=== PATIENT | female | born 1985 | race Caucasian/White ===

== ENCOUNTER 2017-06-20 09:30 | Outpatient (RCR) | payer MEDICAID, SELFPAY | END 2017-06-20 23:59 | LOC: PT.CARL 09:30 | PROVIDERS: Referring Provider Orthopaedic Surgery; Visit Provider Orthopaedic Surgery | DX: M54.2 Cervicalgia (principal); M79.621 Pain in right upper arm | CPT/HCPCS: 97012; 97035; 97110; 97140; 97162 ==

== ENCOUNTER 2017-07-03 09:30 | Outpatient (RCR) | payer MEDICAID, SELFPAY | END 2017-07-03 16:00 | LOC: PT 09:30 | PROVIDERS: Family Provider Internal Medicine Adolescent Medicine; PCP Internal Medicine Adolescent Medicine; Visit Provider Orthopaedic Surgery | DX: M79.621 Pain in right upper arm (principal) | CPT/HCPCS: 97012; 97035; 97110 ==

== ENCOUNTER → 2017-07-23 08:54 | Outpatient (POV) | payer MEDICAID, SELFPAY ==
[2017-07-23 09:13] VITALS: BP 142/83; PULSE 76; RESP 18; TEMP 36.6; O2SAT 97; BMI 36.0
--- NOTE | 2017-07-23 09:51 | P.CONS_ITS ---
[facility] Pain Management SOAP Note Subjective:: This patient is a pleasant 32-year-old white female who we are seeing after bilateral SI joint injections in April. She did get 80% relief of her pain symptoms after these injections however her pain is started to return with increased activity. She is tender over both SI joints. She does have a positive Manisha's test bilaterally. She has tried Tylenol and is unable to take ibuprofen because of kidney issues. She continues with tramadol. She has been on conservative therapy for 8 weeks. We will seek approval for repeat bilateral SI joint injections under fluoroscopy. Objective:: Alert and oriented 3 in no acute distress. Patient has an antalgic gait. She has tenderness over both SI joints. Positive Manisha's test bilaterally. Motor strength of the lower extremities is 5/5. There is no gross sensory deficit. Assessment:: Bilateral sacroiliitis Plan:: We will seek approval and plan on bilateral SI joint injections under fluoroscopy. We will reevaluate her symptoms after these injections.
== END ==
PROVIDERS: Family Provider Internal Medicine Adolescent Medicine; PCP Internal Medicine Adolescent Medicine; Visit Provider Anesthesiology
DX: M46.1 Sacroiliitis, not elsewhere classified (principal)
CPT/HCPCS: 99212

== ENCOUNTER 2017-08-31 10:08 | Day surgery (SDC) | payer MEDICAID, SELFPAY ==
[2017-08-31 10:33] VITALS: BP 145/91; PULSE 91; TEMP 36.2; O2SAT 95; BMI 36.2
--- NOTE | 2017-08-31 11:33 | HMH.PMPROC ---
- Procedure Date: 08/31/17 Time: 11:33 Anesthesiologist:: Shankar Madrid MD Complications:: None Pre-procedure Diagnosis:: Sacroiliitis Post-procedure Diagnosis:: Same Indications for Procedure:: This patient is a pleasant 32-year-old white female who we are seeing for bilateral hip pain. She got good relief from previous SI joint injections with 80% relief in pain symptoms. Pain relief was only temporary. Her pain is starting to return. She is tender over both SI joints. She does have a positive Manisha's test bilaterally. She has tried Tylenol and is unable to take ibuprofen because of kidney issues. Conservative treatments have not helped. She is done this for at least 8 weeks. She presents for repeat bilateral SI joint injections today for pain symptoms that have returned. Procedure Details:: B/L SI joint injection under fluoroscopy Informed consent was obtained and the risks and benefits of the procedure was explained to the patient. The patient was taken to the procedure room and placed prone on the procedure table. The patient was prepped using ChloraPrep. The skin and subcutaneous tissues overlying the SI joints were anesthetized using lidocaine. I placed a 22-gauge needle first in the left SI joint and second in the right SI joint. Needle placement was confirmed with dye. After this we injected 5 mL bupivacaine 0.25% and Depo-Medrol 40 mg into each SI joint. Patient tolerated the procedure well with no complication. Plan and Disposition:: We will follow-up with her in 2 weeks. We will reevaluate her symptoms at that time.
[2017-08-31 11:35] VITALS: BP 144/95; PULSE 91; RESP 18
[2017-08-31 11:36] VITALS: BP 142/95; PULSE 91; RESP 18
[2017-08-31 11:49] VITALS: BP 132/86; PULSE 77; RESP 18; TEMP 36.2; O2SAT 98
== END 2017-08-31 11:50 | disposition home or self-care (01) ==
LOC: SC.PAINP 10:09
PROVIDERS: Family Provider Internal Medicine Adolescent Medicine; PCP Internal Medicine Adolescent Medicine; Visit Provider Anesthesiology
DX: M46.1 Sacroiliitis, not elsewhere classified (principal)
CPT/HCPCS: 27096; G0260; J1030; Q9966

== ENCOUNTER → 2017-09-17 10:35 | Outpatient (POV) | payer MEDICAID, SELFPAY ==
[2017-09-17 10:52] VITALS: BP 147/92; PULSE 87; RESP 18; TEMP 36.6; O2SAT 97; BMI 34.7
--- NOTE | 2017-09-17 11:08 | XR_ITS ---
XR pelvis min 3V HISTORY: Pelvic pain ITS.REASON: PELVIC PAIN ORDERING PHYSICIAN: Yocasta Zarco PATIENT AGE: 32 years COMPARISON: None FINDINGS: No fracture or dislocation is evident. No significant degenerative change. No lytic or blastic change. The SI joints have an unremarkable appearance. Unremarkable soft tissues. IMPRESSION: Negative pelvis.
--- NOTE | 2017-09-17 11:15 | HMH.PAINSOAP ---
[facility] Pain Management SOAP Note Subjective:: Patient is a pleasant 32-year-old white female who presents today for follow-up after her recent lateral SI joint injections. Patient states that she is done really well with this. She states that most of her back pain has resolved. She however is having left inguinal pain. Patient rates this pain a 5 out of 10 today. Patient has not had any abdominal surgeries. Patient did follow-up with her training administrator about a year ago. Patient has had issues with fractures in the past. Patient is experienced over 15 fractures. Patient is currently being followed by bone specialist at [facility]. Patient has not had any recent imaging of her pelvis or hip. ROS General: no recent weight change, no fever, no sleep disturbances Respiratory: no cough, no shortness of air, no recurring pulmonary infections Cardiovascular/Peripheral Vascular: No chest pain, No palpitations, no edema, no shortness of breath. Gastrointestinal: no incontinence, normal bowel movements reported Genitourinary: no incontinence Musculoskeletal: Bilateral SI joint pain, left inguinal pain Psychiatric: normal mood/ affect Neurological: [denies weakness in extremities], [denies balance issues] Objective:: Physical Exam General: Alert and oriented x3, no acute distress, pleasant and cooperative, [on room air] Lungs: Resps E/U, Symmetrical chest expansion, Eyes: PERRL Musculoskeletal: Flexion and extension of lumbar spine somewhat guarded secondary to pain, deep tendon reflexes normal, strength in upper and lower extremities [5/5], normal gait noted, extreme point tenderness in left inguinal area on palpation Neurological: speech clear, biosecurity officer equal, no gross sensory deficits Assessment:: Inguinal pain, sacroiliitis Plan:: Patient has done well after her bilateral SI joint injections. We will send her for an x-ray today and potentially a CT scan of her pelvis. Patient may be candidate for abdominal trigger points to help with this pain however I want to rule out pathology prior to this. I will follow-up with this patient in 1 week after I see the results of her x-ray. Note was dictated using voice recognition software and may contain errors or omissions
--- NOTE | 2017-09-17 11:19 | P.CONS_ITS ---
[facility] Pain Management SOAP Note Subjective:: Patient is a pleasant 32-year-old white female who presents today for follow-up after her recent lateral SI joint injections. Patient states that she is done really well with this. She states that most of her back pain has resolved. She however is having left inguinal pain. Patient rates this pain a 5 out of 10 today. Patient has not had any abdominal surgeries. Patient did follow-up with her yard conductor about a year ago. Patient has had issues with fractures in the past. Patient is experienced over 15 fractures. Patient is currently being followed by bone specialist at [facility]. Patient has not had any recent imaging of her pelvis or hip. ROS General: no recent weight change, no fever, no sleep disturbances Respiratory: no cough, no shortness of air, no recurring pulmonary infections Cardiovascular/Peripheral Vascular: No chest pain, No palpitations, no edema, no shortness of breath. Gastrointestinal: no incontinence, normal bowel movements reported Genitourinary: no incontinence Musculoskeletal: Bilateral SI joint pain, left inguinal pain Psychiatric: normal mood/ affect Neurological: [denies weakness in extremities], [denies balance issues] Objective:: Physical Exam General: Alert and oriented x3, no acute distress, pleasant and cooperative, [ on room air] Lungs: Resps E/U, Symmetrical chest expansion, Eyes: PERRL Musculoskeletal: Flexion and extension of lumbar spine somewhat guarded secondary to pain, deep tendon reflexes normal, strength in upper and lower extremities [5/5], normal gait noted, extreme point tenderness in left inguinal area on palpation Neurological: speech clear, oncology coordinator equal, no gross sensory deficits Assessment:: Inguinal pain, sacroiliitis Plan:: Patient has done well after her bilateral SI joint injections. We will send her for an x-ray today and potentially a CT scan of her pelvis. Patient may be candidate for abdominal trigger points to help with this pain however I want to rule out pathology prior to this. I will follow-up with this patient in 1 week after I see the results of her x-ray. Note was dictated using voice recognition software and may contain errors or omissions
== END ==
PROVIDERS: Family Provider Internal Medicine Adolescent Medicine; PCP Internal Medicine Adolescent Medicine; Visit Provider Clinical Nurse Specialist Family Health
DX: R10.31 Right lower quadrant pain (principal); M46.1 Sacroiliitis, not elsewhere classified
CPT/HCPCS: 99212; 72190

== ENCOUNTER → 2017-09-24 09:48 | Outpatient (POV) | payer MEDICAID, SELFPAY ==
[2017-09-24 09:58] VITALS: BP 141/86; PULSE 91; RESP 20; O2SAT 96; BMI 34.7
--- NOTE | 2017-09-24 10:26 | HMH.PAINSOAP ---
[facility] Pain Management SOAP Note Subjective:: Patient is a pleasant 32-year-old white female who presents today for follow-up after as a joint x-ray. Patient's SI joint x-ray negative today. Patient is havin pain 3 out of 10 today in her left hip. Patient's greater trochanteric bursa extremely tender to palpation. Patient does have some left inguinal pain as well. Patient states she feels like it is radiating from her hip. Patient has not had any abdominal surgeries. Patient has been following up with her log preparer.. Patient has had issues with fractures in the past and is being followed by a bone expert at [facility]. Patient had good relief from her bilateral SI injections. ROS General: no recent weight change, no fever, no sleep disturbances Respiratory: no cough, no shortness of air, no recurring pulmonary infections Cardiovascular/Peripheral Vascular: No chest pain, No palpitations, no edema, no shortness of breath. Gastrointestinal: no incontinence, normal bowel movements reported Genitourinary: no incontinence Musculoskeletal: Bilateral SI joint pain, left inguinal pain, left trochanteric bursa pain Psychiatric: normal mood/ affect Neurological: [denies weakness in extremities], [denies balance issues] Objective:: Physical Exam General: Alert and oriented x3, no acute distress, pleasant and cooperative, [on room air] Lungs: Resps E/U, Symmetrical chest expansion, Eyes: PERRL Musculoskeletal: Flexion and extension of lumbar spine somewhat guarded secondary to pain, deep tendon reflexes normal, strength in upper and lower extremities [5/5], normal gait noted, extreme point tenderness over left greater trochanteric bursa Neurological: speech clear, access developer equal, no gross sensory deficits Assessment:: Inguinal pain, sacroiliitis, bursitis Plan:: We will schedule a left greater trochanteric bursa injection. Patient is done well with injections in the past. Patient has a negative pelvic x-ray. No fractures were shown. Patient and I discussed that if this bursa injection did not help we may discuss abdominal trigger point injections as well. Patient's tried and failed physical therapy, anti-inflammatories, medications. Patient is continuing a home stretching program. Patient currently not on any blood thinners. This note was dictated using voice recognition software and may contain errors or omissions
--- NOTE | 2017-09-24 10:30 | P.CONS_ITS ---
[facility] Pain Management SOAP Note Subjective:: Patient is a pleasant 32-year-old white female who presents today for follow-up after as a joint x-ray. Patient's SI joint x-ray negative today. Patient is havin pain 3 out of 10 today in her left hip. Patient's greater trochanteric bursa extremely tender to palpation. Patient does have some left inguinal pain as well. Patient states she feels like it is radiating from her hip. Patient has not had any abdominal surgeries. Patient has been following up with her lease out worker.. Patient has had issues with fractures in the past and is being followed by a bone expert at [facility]. Patient had good relief from her bilateral SI injections. ROS General: no recent weight change, no fever, no sleep disturbances Respiratory: no cough, no shortness of air, no recurring pulmonary infections Cardiovascular/Peripheral Vascular: No chest pain, No palpitations, no edema, no shortness of breath. Gastrointestinal: no incontinence, normal bowel movements reported Genitourinary: no incontinence Musculoskeletal: Bilateral SI joint pain, left inguinal pain, left trochanteric bursa pain Psychiatric: normal mood/ affect Neurological: [denies weakness in extremities], [denies balance issues] Objective:: Physical Exam General: Alert and oriented x3, no acute distress, pleasant and cooperative, [ on room air] Lungs: Resps E/U, Symmetrical chest expansion, Eyes: PERRL Musculoskeletal: Flexion and extension of lumbar spine somewhat guarded secondary to pain, deep tendon reflexes normal, strength in upper and lower extremities [5/5], normal gait noted, extreme point tenderness over left greater trochanteric bursa Neurological: speech clear, apple solutions consultant equal, no gross sensory deficits Assessment:: Inguinal pain, sacroiliitis, bursitis Plan:: We will schedule a left greater trochanteric bursa injection. Patient is done well with injections in the past. Patient has a negative pelvic x-ray. No fractures were shown. Patient and I discussed that if this bursa injection did not help we may discuss abdominal trigger point injections as well. Patient's tried and failed physical therapy, anti-inflammatories, medications. Patient is continuing a home stretching program. Patient currently not on any blood thinners. This note was dictated using voice recognition software and may contain errors or omissions
== END ==
PROVIDERS: Family Provider Internal Medicine Adolescent Medicine; PCP Internal Medicine Adolescent Medicine; Visit Provider Clinical Nurse Specialist Family Health
DX: M46.1 Sacroiliitis, not elsewhere classified (principal)
CPT/HCPCS: 99212

== ENCOUNTER → 2017-10-09 10:57 | Outpatient (CLI) | payer MEDICAID, SELFPAY ==
[2017-10-09 13:58] LABS: Creatinine,Serum 0.94 mg/dL (0.55-1.02)
[2017-10-09 14:01] LABS: Anion Gap 12.6 mEq/L (5-15); Blood Urea Nitrogen 7 mg/dL (7-18); Carbon Dioxide 25 mmol/L (21.0-32.0); Chloride 100 mmol/L (98-107); Creatinine,Serum 0.94 mg/dL (0.55-1.02); Estimated Glomerular Filt Rate 68 ml/min (>60); GFR (African American) 82 ML/MIN (>60); Glucose 106 mg/dL (74-106); Phosphorous 2.2 mg/dL (2.4-4.9); Potassium 3.6 mmoL/L (3.5-5.1); Sodium 134 mmol/L (136-145)
[2017-10-09 15:37] LABS: Collection Time,Urine 24 hours
[2017-10-09 15:38] LABS: Total Volume,Urine 1325 mL (600-1600)
[2017-10-09 15:48] LABS: Creatinine 24 Hour,Urine 1272 mg/24hr (630-2500); Creatinine,Urine Random 96 mg/dL (20-320)
[2017-10-10 12:19] LABS: Calcium, Urine 10.5 mg/dL (Not Estab.); Sodium, Urine 75 mmol/L (Not Estab.); Sodium, Urine 99 mmol/24 hr (39-258)
[2017-10-10 16:18] LABS: Calcium, Urine 24hr 139.1 mg/24 hr (100.0-300.0)
[2017-10-10 16:18] LABS: Vitamin D 25 Hydroxy 17.2 ng/mL (30.0-100.0)
[2017-10-12 10:45] LABS: N-Telopeptide Cross-linked 8.7 nmol BCE/L (6.2-19.0); Osteocalcin 7.4 ng/mL (.)
[2017-10-12 21:04] LABS: Tandem-R Ostase 15.6 ug/L (.)
[2017-10-12 23:11] LABS: 1,25-Dihydroxy, Vitamin D-2 <10 pg/mL (.)
[2017-10-14 18:44] LABS: 1,25 Dihydroxy Vitamin D 67 pg/mL (.); 1,25-Dihydroxy, Vitamin D-3 63 pg/mL (.)
== END ==
PROVIDERS: PCP Internal Medicine Adolescent Medicine; Visit Provider Physician Assistant Medical
DX: E83.39 Other disorders of phosphorus metabolism (principal)
CPT/HCPCS: 36415; 80069; 82340; 82523; 82575; 82652; 83520; 83937; 84080; 84105; 84300

== ENCOUNTER → 2017-11-05 10:49 | Outpatient (POV) | payer MEDICAID, SELFPAY ==
[2017-11-05 11:12] VITALS: BP 133/84; PULSE 89; RESP 18; TEMP 36.7; O2SAT 98; BMI 34.9
--- NOTE | 2017-11-05 13:10 | HMH.PAINSOAP ---
[facility] Pain Management SOAP Note Subjective:: Patient is a pleasant 32-year-old white female who presents to follow-up after recent trochanteric bursa injection. Patient did have a flare in her pain the day of the injection and 2 days later. However patient rates her pain a 1 out of 10 today in her hip. She states that most of the pain has been relieved. Patient is unsure of how she would like to proceed with her care. 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 Patient has not gotten long-term relief with her SI joint injections we discussed the potential RFA of the SI joint. Patient would like to discuss with her bone doctor prior to making any decisions moving forward. Patient does have tramadol which she takes at nighttime to help her sleep. ROS General: no recent weight change, no fever, no sleep disturbances Respiratory: no cough, no shortness of air, no recurring pulmonary infections Cardiovascular/Peripheral Vascular: No chest pain, No palpitations, no edema, no shortness of breath. Gastrointestinal: no incontinence, normal bowel movements reported Genitourinary: no incontinence Musculoskeletal: SI joint pain Psychiatric: normal mood/ affect Neurological: [denies weakness in extremities], [denies balance issues] Objective:: Physical Exam General: Alert and oriented x3, no acute distress, pleasant and cooperative, [on room air] Lungs: Resps E/U, Symmetrical chest expansion, Eyes: PERRL Musculoskeletal: Flexion and extension of lumbar spine somewhat guarded secondary to pain, deep tendon reflexes normal, strength in upper and lower extremities [5/5],normal gait noted, positive Manisha's test bilaterally Neurological: speech clear, computer game programmer equal, no gross sensory deficits Assessment:: Sacroiliitis Plan:: We will follow-up with this patient after she is seen by her physician. Patient had discussed below RFA of the SI joints. We also discussed the potential use of an SI belt. This note was dictated using voice recognition software and may contain errors or omissions
--- NOTE | 2017-11-05 13:15 | P.CONS_ITS ---
[facility] Pain Management SOAP Note Subjective:: Patient is a pleasant 32-year-old white female who presents to follow-up after recent trochanteric bursa injection. Patient did have a flare in her pain the day of the injection and 2 days later. However patient rates her pain a 1 out of 10 today in her hip. She states that most of the pain has been relieved. Patient is unsure of how she would like to proceed with her care. 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 Patient has not gotten long-term relief with her SI joint injections we discussed the potential RFA of the SI joint. Patient would like to discuss with her bone doctor prior to making any decisions moving forward. Patient does have tramadol which she takes at nighttime to help her sleep. ROS General: no recent weight change, no fever, no sleep disturbances Respiratory: no cough, no shortness of air, no recurring pulmonary infections Cardiovascular/Peripheral Vascular: No chest pain, No palpitations, no edema, no shortness of breath. Gastrointestinal: no incontinence, normal bowel movements reported Genitourinary: no incontinence Musculoskeletal: SI joint pain Psychiatric: normal mood/ affect Neurological: [denies weakness in extremities], [denies balance issues] Objective:: Physical Exam General: Alert and oriented x3, no acute distress, pleasant and cooperative, [ on room air] Lungs: Resps E/U, Symmetrical chest expansion, Eyes: PERRL Musculoskeletal: Flexion and extension of lumbar spine somewhat guarded secondary to pain, deep tendon reflexes normal, strength in upper and lower extremities [5/5],normal gait noted, positive Manisha's test bilaterally Neurological: speech clear, location and measurement technician equal, no gross sensory deficits Assessment:: Sacroiliitis Plan:: We will follow-up with this patient after she is seen by her physician. Patient had discussed below RFA of the SI joints. We also discussed the potential use of an SI belt. This note was dictated using voice recognition software and may contain errors or omissions
== END ==
PROVIDERS: Family Provider Internal Medicine Adolescent Medicine; PCP Internal Medicine Adolescent Medicine; Visit Provider Clinical Nurse Specialist Family Health
DX: M46.1 Sacroiliitis, not elsewhere classified (principal)
CPT/HCPCS: 99212

== ENCOUNTER → 2017-11-14 12:43 | Outpatient (CLI) | payer MEDICAID, SELFPAY ==
--- NOTE | 2017-11-14 12:48 | XR_ITS ---
XR foot LT min 3V HISTORY: Left foot pain ITS.REASON: LT FOOT PAINHX STRESS FX ORDERING PHYSICIAN: Kenyetta Galindo PATIENT AGE: 32 years COMPARISON: None FINDINGS: No fracture or dislocation. No lytic or blastic change. There is normal mineralization.. The joint spaces are well-preserved. No significant degenerative/arthritic changes. No erosive changes evident. IMPRESSION: Negative, no acute finding
== END ==
PROVIDERS: PCP Internal Medicine Adolescent Medicine; Visit Provider Nurse Practitioner Family
DX: M79.672 Pain in left foot (principal); E83.89 Other disorders of mineral metabolism; Z87.312 Personal history of (healed) stress fracture
CPT/HCPCS: 73630

== ENCOUNTER 2017-11-26 08:42 | Outpatient (RCR) | payer MEDICAID, SELFPAY | END 2017-11-27 14:29 | disposition home or self-care (01) | LOC: PT 08:42 | PROVIDERS: Visit Provider Nurse Practitioner Family | DX: M79.672 Pain in left foot (principal); Z87.312 Personal history of (healed) stress fracture | CPT/HCPCS: 97760 ==

== ENCOUNTER → 2017-11-26 09:00 | Outpatient (POV) | payer MEDICAID, SELFPAY ==
[2017-11-26 09:14] VITALS: BP 141/92; PULSE 84; RESP 18; O2SAT 97; BMI 33.4
--- NOTE | 2017-11-26 09:27 | HMH.PAINSOAP ---
[facility] Pain Management SOAP Note Subjective:: Patient is a pleasant 32-year-old white female who presents to discuss RFA of bilateral SI joints. Patient has had SI joint injections in the past with 80-90% with symptoms for several weeks. However patient is noticing that she has shorter and shorter duration of relief. Patient rates her pain a 3 out of 10 today. Patient is coming to the office with a boot on her left foot stating that she has had another fracture. Patient's MRI is unremarkable. 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 She has tried and failed therapy, medications, anti-inflammatories. ROS General: no recent weight change, no fever, no sleep disturbances Respiratory: no cough, no shortness of air, no recurring pulmonary infections Cardiovascular/Peripheral Vascular: No chest pain, No palpitations, no edema, no shortness of breath. Gastrointestinal: no incontinence, normal bowel movements reported Genitourinary: no incontinence Musculoskeletal: SI joint pain Psychiatric: normal mood/ affect Neurological: [denies weakness in extremities], [denies balance issues] Objective:: Physical Exam General: Alert and oriented x3, no acute distress, pleasant and cooperative, [on room air] Lungs: Resps E/U, Symmetrical chest expansion, Eyes: PERRL Musculoskeletal: Flexion and extension of lumbar spine somewhat guarded secondary to pain, deep tendon reflexes normal, strength in upper and lower extremities [5/5], slightly antalgic gait noted, positive Manisha's test bilaterally, extreme point tenderness over bilateral SI joints Neurological: speech clear, resource manager forester equal, no gross sensory deficits Assessment:: Sacroiliitis Plan:: We will schedule the patient for bilateral SI rhizotomies. I believe that this may give the patient some long-term relief. Patient's tried and failed other modalities of treatment. I will follow-up with the patient after her RFA. This note was dictated using voice recognition software and may contain errors or omissions
--- NOTE | 2017-11-26 09:30 | P.CONS_ITS ---
[facility] Pain Management SOAP Note Subjective:: Patient is a pleasant 32-year-old white female who presents to discuss RFA of bilateral SI joints. Patient has had SI joint injections in the past with 80-90 % with symptoms for several weeks. However patient is noticing that she has shorter and shorter duration of relief. Patient rates her pain a 3 out of 10 today. Patient is coming to the office with a boot on her left foot stating that she has had another fracture. Patient's MRI is unremarkable. 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 She has tried and failed therapy, medications, anti-inflammatories. ROS General: no recent weight change, no fever, no sleep disturbances Respiratory: no cough, no shortness of air, no recurring pulmonary infections Cardiovascular/Peripheral Vascular: No chest pain, No palpitations, no edema, no shortness of breath. Gastrointestinal: no incontinence, normal bowel movements reported Genitourinary: no incontinence Musculoskeletal: SI joint pain Psychiatric: normal mood/ affect Neurological: [denies weakness in extremities], [denies balance issues] Objective:: Physical Exam General: Alert and oriented x3, no acute distress, pleasant and cooperative, [ on room air] Lungs: Resps E/U, Symmetrical chest expansion, Eyes: PERRL Musculoskeletal: Flexion and extension of lumbar spine somewhat guarded secondary to pain, deep tendon reflexes normal, strength in upper and lower extremities [5/5], slightly antalgic gait noted, positive Manisha's test bilaterally, extreme point tenderness over bilateral SI joints Neurological: speech clear, manager of medical equal, no gross sensory deficits Assessment:: Sacroiliitis Plan:: We will schedule the patient for bilateral SI rhizotomies. I believe that this may give the patient some long-term relief. Patient's tried and failed other modalities of treatment. I will follow-up with the patient after her RFA. This note was dictated using voice recognition software and may contain errors or omissions
== END ==
PROVIDERS: Family Provider Internal Medicine Adolescent Medicine; PCP Internal Medicine Adolescent Medicine; Visit Provider Clinical Nurse Specialist Family Health
DX: M46.1 Sacroiliitis, not elsewhere classified (principal)
CPT/HCPCS: 99212

== ENCOUNTER → 2018-02-04 10:53 | Outpatient (POV) | payer MEDICAID, SELFPAY ==
[2018-02-04 11:30] VITALS: BP 139/97; PULSE 78; RESP 18; O2SAT 96; BMI 34.1
--- NOTE | 2018-02-04 13:07 | HMH.PAINSOAP ---
[facility] Pain Management SOAP Note Subjective:: Patient is a pleasant 32-year-old white female who is following up today after her left SI joint radiofrequency ablation. Patient is stating that she has no pain today however she states she does not notice a significant difference in her pain. Patient and I discussed about other options. Patient does not have any lumbar imaging. Patient and I did discuss potentially a surgical consultation in regards to an SI joint fusion. Patient rates her pain a 0 out of 10 today. ROS General: no recent weight change, no fever, no sleep disturbances Respiratory: no cough, no shortness of air, no recurring pulmonary infections Cardiovascular/Peripheral Vascular: No chest pain, No palpitations, no edema, no shortness of breath. Gastrointestinal: no incontinence, normal bowel movements reported Genitourinary: no incontinence Musculoskeletal: Bilateral SI joint pain Psychiatric: normal mood/ affect Neurological: [denies weakness in extremities], [denies balance issues] Objective:: Physical Exam General: Alert and oriented x3, no acute distress, pleasant and cooperative, [on room air] Lungs: Resps E/U, Symmetrical chest expansion, Eyes: PERRL Musculoskeletal: Flexion and extension of lumbar spine somewhat guarded secondary to pain, deep tendon reflexes normal, strength in upper and lower extremities [5/5], [abnormal gait noted], tenderness over bilateral SI joints Neurological: speech clear, amusement centre manager equal, no gross sensory deficits Assessment:: Sacroiliitis, low back pain Plan:: We will schedule a lumbar MRI for the patient. I will follow-up the patient after her MRI and discuss pathology along with making a plan of care. This note was dictated using voice recognition software and may contain errors or omissions
--- NOTE | 2018-02-04 13:10 | P.CONS_ITS ---
[facility] Pain Management SOAP Note Subjective:: Patient is a pleasant 32-year-old white female who is following up today after her left SI joint radiofrequency ablation. Patient is stating that she has no pain today however she states she does not notice a significant difference in her pain. Patient and I discussed about other options. Patient does not have any lumbar imaging. Patient and I did discuss potentially a surgical consultation in regards to an SI joint fusion. Patient rates her pain a 0 out of 10 today. ROS General: no recent weight change, no fever, no sleep disturbances Respiratory: no cough, no shortness of air, no recurring pulmonary infections Cardiovascular/Peripheral Vascular: No chest pain, No palpitations, no edema, no shortness of breath. Gastrointestinal: no incontinence, normal bowel movements reported Genitourinary: no incontinence Musculoskeletal: Bilateral SI joint pain Psychiatric: normal mood/ affect Neurological: [denies weakness in extremities], [denies balance issues] Objective:: Physical Exam General: Alert and oriented x3, no acute distress, pleasant and cooperative, [ on room air] Lungs: Resps E/U, Symmetrical chest expansion, Eyes: PERRL Musculoskeletal: Flexion and extension of lumbar spine somewhat guarded secondary to pain, deep tendon reflexes normal, strength in upper and lower extremities [5/5], [abnormal gait noted], tenderness over bilateral SI joints Neurological: speech clear, dispensing optician equal, no gross sensory deficits Assessment:: Sacroiliitis, low back pain Plan:: We will schedule a lumbar MRI for the patient. I will follow-up the patient after her MRI and discuss pathology along with making a plan of care. This note was dictated using voice recognition software and may contain errors or omissions
== END ==
PROVIDERS: Family Provider Internal Medicine Adolescent Medicine; PCP Internal Medicine Adolescent Medicine; Visit Provider Clinical Nurse Specialist Family Health
DX: M46.1 Sacroiliitis, not elsewhere classified (principal)
CPT/HCPCS: 99213

== ENCOUNTER → 2018-02-15 13:27 | Outpatient (CLI) | payer MEDICAID, SELFPAY ==
--- NOTE | 2018-02-15 13:29 | MR_ITS ---
MR lumbar spine wo con, MR 3-d myelogram HISTORY: Low back pain. HX compression FX X10YRS ago, LBP. Intermittent Bilateral Groin pain. Symptoms X10YRS. No HX back surgery ITS.REASON: BACK PAIN ORDERING PHYSICIAN: Yocasta Zarco PATIENT AGE: 32 years Comparison: MRI 07-14-14 TECHNIQUE: Standard multiplanar multiecho sequences are performed without contrast. 3-D MIP and myelographic images are also rendered and reviewed FINDINGS: There is normal alignment. The spinal cord ends at the L1 level. L1-L2, L2-L3, and L3-L4 have an unremarkable appearance. L4-L5: Mild facet and ligamentum flavum hypertrophy. L5-S1: Slight decrease in the disc space with minimal bulging disc along with mild left-sided facet ligamentum flavum hypertrophy and mild left foraminal narrowing. No disc herniation or canal stenosis.. No acute fracture. IMPRESSION: 1. Mild facet and ligamentum hypertrophy with mild left-sided foraminal narrowing at L5-S1 2. No canal stenosis disc herniation or other significant anomalies
== END ==
PROVIDERS: Family Provider Internal Medicine Adolescent Medicine; PCP Internal Medicine Adolescent Medicine; Visit Provider Clinical Nurse Specialist Family Health
DX: Z79.899 Other long term (current) drug therapy (principal)
CPT/HCPCS: 72148; 76376

== ENCOUNTER → 2018-02-18 11:03 | Outpatient (POV) | payer MEDICAID, SELFPAY ==
[2018-02-18 11:22] VITALS: BP 129/90; PULSE 78; RESP 18; O2SAT 98; BMI 35.2
--- NOTE | 2018-02-18 11:41 | P.CONS_ITS ---
[facility] Pain Management SOAP Note Subjective:: Patient is a pleasant 32-year-old white female who presents today for follow-up after recent low back MRI. Patient has had multiple SI joint injections and is still having significant low back and left-sided pain. Patient's MRI which shows degeneration and bulging disc at her lower levels. Patient has not tried an epidural before. Patient and I have talked about neuro stimulation along with potential SI joint fusion. I believe prior to this we should try lumbar epidural steroid injection. She rates her pain a 6 out of 10 today. Patient is unable to take NSAIDs due to her kidney. Patient is also having a new neck pain M right arm pain. Patient states her whole hand goes numb. Patient's tried and failed physical therapy. ROS General: no recent weight change, no fever, no sleep disturbances Respiratory: no cough, no shortness of air, no recurring pulmonary infections Cardiovascular/Peripheral Vascular: No chest pain, No palpitations, no edema, no shortness of breath. Gastrointestinal: no incontinence, normal bowel movements reported Genitourinary: no incontinence Musculoskeletal: Back pain, SI joint pain, neck pain, arm pain Psychiatric: normal mood/ affect Neurological: [denies weakness in extremities], [denies balance issues] Objective:: Physical Exam General: Alert and oriented x3, no acute distress, pleasant and cooperative, [on room air] Lungs: Resps E/U, Symmetrical chest expansion, Eyes: PERRL Musculoskeletal: Flexion and extension of lumbar and cervical spine somewhat guarded secondary to pain, deep tendon reflexes normal, strength in upper and lower extremities [5/5], antalgic gait noted Neurological: speech clear, copier field service technician equal, no gross sensory deficits Assessment:: Degenerative disc disease of the lumbar spine with lumbar radiculopathy, sacroiliitis Plan:: We will schedule cervical MRI to determine pathology in regards to her new neck and arm pain. We will also schedule L4-L5 lumbar epidural steroid injection. I believe it would be beneficial to try this prior to referring her for SI joint surgery. I will follow-up with the patient after her injection. This note was dictated using voice recognition software and may contain errors or omissions
== END ==
PROVIDERS: Family Provider Internal Medicine Adolescent Medicine; PCP Internal Medicine Adolescent Medicine; Visit Provider Clinical Nurse Specialist Family Health
DX: M51.16 Intervertebral disc disorders with radiculopathy, lumbar region (principal); M46.1 Sacroiliitis, not elsewhere classified
CPT/HCPCS: 99213

== ENCOUNTER → 2018-02-26 12:49 | Outpatient (CLI) | payer MEDICAID, SELFPAY ==
--- NOTE | 2018-02-26 13:04 | MR_ITS ---
MR cervical spine wo con, MR 3-d myelogram/MRCP HISTORY: RT shoulder pain with pain radiating into thumb. Neck pain on RT side. Symptoms [id number]. No Trauma. ITS.REASON: NECK PAIN ORDERING PHYSICIAN: Yocasta Zarco PATIENT AGE: 32 years Comparison: 07-14-14 TECHNIQUE: Standard multiplanar multiecho sequences are performed without contrast. 3-D MIP and myelographic images are also rendered and reviewed FINDINGS: There is straightening of the cervical lordosis. The craniocervical junction has an unremarkable appearance. There are hypertrophic changes at the atlantoaxial region but no compression or impingement upon the cord. No canal stenosis at this area. The disc spaces are well-preserved. No disc herniation, cord impingement, or significant bulging disc. No significant degenerative changes. There is borderline narrowing of the canal at C3-C4 as previously described not significant changed. IMPRESSION: 1. No change with no acute finding. Once again noted straightening of the cervical spine nonspecific 2. 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
--- NOTE | 2018-02-26 13:04 | MR_ITS ---
MR cervical spine wo con, MR 3-d myelogram/MRCP HISTORY: RT shoulder pain with pain radiating into thumb. Neck pain on RT side. Symptoms [id number]. No Trauma. ITS.REASON: NECK PAIN ORDERING PHYSICIAN: Yocasta Zarco PATIENT AGE: 32 years Comparison: 07-14-14 TECHNIQUE: Standard multiplanar multiecho sequences are performed without contrast. 3-D MIP and myelographic images are also rendered and reviewed FINDINGS: There is straightening of the cervical lordosis. The craniocervical junction has an unremarkable appearance. There are hypertrophic changes at the atlantoaxial region but no compression or impingement upon the cord. No canal stenosis at this area. The disc spaces are well-preserved. No disc herniation, cord impingement, or significant bulging disc. No significant degenerative changes. There is borderline narrowing of the canal at C3-C4 as previously described not significant changed. IMPRESSION: 1. No change with no acute finding. Once again noted straightening of the cervical spine nonspecific 2. 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
== END ==
PROVIDERS: Family Provider Internal Medicine Adolescent Medicine; PCP Internal Medicine Adolescent Medicine; Visit Provider Clinical Nurse Specialist Family Health
DX: M54.2 Cervicalgia (principal)
CPT/HCPCS: 72141; 76376

== ENCOUNTER → 2018-03-25 14:16 | Outpatient (POV) | payer MEDICAID, SELFPAY ==
[2018-03-25 14:33] VITALS: BP 139/94; PULSE 91; RESP 18; O2SAT 98; BMI 35.5
--- NOTE | 2018-03-25 14:50 | P.CONS_ITS ---
[facility] Pain Management SOAP Note Subjective:: Patient is a pleasant 33-year-old white female who we are treating for low back pain and neck pain. Patient has had multiple SI joint injections in the past with good benefit however they do not last long. Patient is having some neck pain and we received an MRI showing minor degenerative changes. Patient is following up after lumbar epidural steroid injection she did get some relief however most of her pain is returned. Patient and I discussed physical therapy. I believe it would be beneficial for her to complete 6-8 weeks. ROS General: no recent weight change, no fever, no sleep disturbances Respiratory: no cough, no shortness of air, no recurring pulmonary infections Cardiovascular/Peripheral Vascular: No chest pain, No palpitations, no edema, no shortness of breath. Gastrointestinal: no incontinence, normal bowel movements reported Genitourinary: no incontinence Musculoskeletal: SI joint pain, back pain, neck pain Psychiatric: normal mood/ affect Neurological: [denies weakness in extremities], [denies balance issues] Objective:: Physical Exam General: Alert and oriented x3, no acute distress, pleasant and cooperative, [on room air] Lungs: Resps E/U, Symmetrical chest expansion, Eyes: PERRL Musculoskeletal: Flexion and extension of cervical and lumbar spine somewhat guarded secondary to pain, deep tendon reflexes normal, strength in upper and lower extremities [5/5], [abnormal gait noted] Neurological: speech clear, palliative care physician equal, no gross sensory deficits Assessment:: Degenerative disc disease lumbar spine with lumbar radiculopathy, sacroiliitis, neck pain Plan:: We will send her for physical therapy for her low back and her neck. I will follow-up with her after I also presented her with some neuro stimulation information she is in a call if she has any questions. This note was dictated using voice recognition software and may contain errors or omissions
== END ==
PROVIDERS: Family Provider Internal Medicine Adolescent Medicine; PCP Internal Medicine Adolescent Medicine; Visit Provider Clinical Nurse Specialist Family Health
DX: M51.16 Intervertebral disc disorders with radiculopathy, lumbar region (principal); M46.1 Sacroiliitis, not elsewhere classified; M54.2 Cervicalgia
CPT/HCPCS: 99213

== ENCOUNTER → 2018-04-22 07:35 | Outpatient (CLI) | payer MEDICAID, SELFPAY ==
[2018-04-22 14:16] LABS: Anion Gap 11.6 mEq/L (5-15); Blood Urea Nitrogen 7 mg/dL (7-18); Carbon Dioxide 28 mmol/L (21.0-32.0); Chloride 103 mmol/L (98-107); Creatinine,Serum 0.88 mg/dL (0.55-1.02); Estimated Glomerular Filt Rate 73 ml/min (>60); GFR (African American) 88 ML/MIN (>60); Glucose 100 mg/dL (74-106); Magnesium 2.1 mg/dL (1.4-2.2); Phosphorous 2.4 mg/dL (2.4-4.9); Potassium 3.6 mmoL/L (3.5-5.1); Sodium 139 mmol/L (136-145)
[2018-04-22 17:38] LABS: Creatinine,Urine Random 98 mg/dL (20-320)
[2018-04-22 18:25] LABS: Collection Time,Urine 24 hours
[2018-04-22 18:26] LABS: Creatinine 24 Hour,Urine 1274 mg/24hr (630-2500); Total Volume,Urine 1300 mL (600-1600)
[2018-04-23 06:31] LABS: Vitamin D 25 Hydroxy 34.3 ng/mL (30.0-100.0)
[2018-04-23 13:18] LABS: Parathyroid Hormone Intact 36 pg/mL (15-65)
[2018-04-23 14:15] LABS: Calcium, Urine 6.5 mg/dL (Not Estab.); Sodium, Urine 121 mmol/24 hr (39-258); Sodium, Urine 93 mmol/L (Not Estab.)
[2018-04-23 14:16] LABS: Calcium, Urine 24hr 84.5 mg/24 hr (100.0-300.0)
[2018-04-24 14:42] LABS: C-Telopeptide Serum 286 pg/mL (.)
[2018-04-24 18:34] LABS: Osteocalcin 15.9 ng/mL (.)
[2018-04-25 15:19] LABS: Tandem-R Ostase 10.8 ug/L (.)
[2018-04-25 15:20] LABS: N-Telopeptide Cross-linked 10.4 nmol BCE/L (6.2-19.0)
[2018-04-26 14:24] LABS: 1,25-Dihydroxy, Vitamin D-2 28 pg/mL (.)
[2018-04-26 17:46] LABS: 1,25 Dihydroxy Vitamin D 64 pg/mL (.); 1,25-Dihydroxy, Vitamin D-3 36 pg/mL (.)
== END ==
PROVIDERS: PCP Internal Medicine Adolescent Medicine; Visit Provider Internal Medicine
DX: M81.0 Age-related osteoporosis without current pathological fracture (principal); M83.9 Adult osteomalacia, unspecified
CPT/HCPCS: 36415; 80069; 82340; 82523; 82570; 82652; 83735; 83937; 83970; 84080; 84105; 84300

== ENCOUNTER 2018-05-02 08:30 | Outpatient (RCR) | payer MEDICAID, SELFPAY ==
--- NOTE | 2018-03-27 11:36 | HMH.PTOPEV ---
PT Outpatient Evaluation Rehab PT Outpatient Evaluation Start: 03/27/18 08:59 Freq: Status: Active Protocol: Document 03/27/18 11:09 JOSE CARLOS (Rec: 03/27/18 11:36 [email or web address] [id number]) Electronically Signed By Tonny Singleton, PT 03/27/18 11:09 Outpatient Therapy Subjective History Subjective History Pt. is a 33 year old white female who presents to outpatient PT with chronic LB pain and L hip pain > 5years ago that has progressively gotten worse. Pt. reports having LB injections bilaterally and a lumbar injection that were unsuccessful and burnt her nerves. Recent diagnostic imaging positive for lumbar OA and bulging disc per pt. report. Pt. reports previous LB PT was unsuccessful. PMH includes compression fractures to L4/L5 from a fall in 2007, Rickets, osteomalacia, osteoporosis, phosphorus metabolism disorder, R ankle surgery in 2016, and 10 fractures R foot, and 5 fractures L foot. Current medications include; Tramadol, Paxil, Wellbutrin, Prilosec, Sprintec, Amlodipine. Chief Complaint Pain Spasms Stiff Other Symptom Type Ache Burning Symptoms Relieved By Rest/Positioning OTC Meds Symptoms Aggravated By Standing Bending/Stooping Physical Activity Twisting Walking Prior Functional Limitations None Current Functional Limitations Housework Standing Recreation Activity Bending/Stooping Symptom Description Constant but Variable Level of pain today (0-10) 3 Pain scale - at its best (0-10) 0 Pain scale - at its worst (0-10) 5 Lumbopelvic Eval Posture Thoracic Spine Posture Standing Position Increased Kyphosis Lumbar Spine Posture Standing Position Increased Lordosis Assistive device Assistiv
== END 2018-05-28 13:34 | disposition home or self-care (01) ==
LOC: PT 08:30
PROVIDERS: Visit Provider Clinical Nurse Specialist Family Health
DX: M54.5 Low back pain (principal); M54.2 Cervicalgia
CPT/HCPCS: 97012; 97014; 97110; 97163; G0283

== ENCOUNTER → 2018-05-13 16:19 | Outpatient (CLI) | payer MEDICAID, SELFPAY ==
--- NOTE | 2018-05-13 16:21 | XR_ITS ---
XR ankle wt bearing LT min 3V HISTORY: ITS.REASON: pain ORDERING PHYSICIAN: Johanna Saez DPM PATIENT AGE: 33 years Comparison: None FINDINGS: No fracture or dislocation. No lytic or blastic change. There is normal mineralization.. The joint spaces are well-preserved. No significant degenerative/arthritic changes. No erosive changes evident. IMPRESSION: Negative ankle, no acute finding
--- NOTE | 2018-05-13 16:21 | XR_ITS ---
XR ankle wt bearing RT min 3V HISTORY: ITS.REASON: pain ORDERING PHYSICIAN: Johanna Saez DPM PATIENT AGE: 33 years Comparison: 02/12/2017 FINDINGS: As been prior osteotomy of the medial malleoli region with 2 screws present at this region. The osteotomy site here has healed. A small screw is present transversely through the proximal aspect of the talus medially. There is a lucency noted at this region with some fragmentation of the articular surface of the talus at this area. There is also some cortical irregularity involving the anterior aspect of the distal tibia at the ankle joint. IMPRESSION: 1. Healed osteotomy site at the medial aspect of the distal tibia. 2. Fragmentation of the articular surface of the medial aspect of the talus with associated subcortical lucency at the site of a small screw insertion suggesting a nonhealed osteochondral defect. 3. Possible small osteochondral defect of the anterior distal tibia
--- NOTE | 2018-05-13 16:21 | XR_ITS ---
XR foot wt bearing LT 3V HISTORY: ITS.REASON: pain ORDERING PHYSICIAN: Johanna Saez DPM PATIENT AGE: 33 years COMPARISON: None FINDINGS: No fracture or dislocation. No lytic or blastic change. There is normal mineralization.. The joint spaces are well-preserved. No significant degenerative/arthritic changes. No erosive changes evident. IMPRESSION: Negative, no acute finding
--- NOTE | 2018-05-13 16:21 | XR_ITS ---
XR foot wt bearing RT 3V HISTORY: ITS.REASON: pain ORDERING PHYSICIAN: Johanna Saez DPM PATIENT AGE: 33 years COMPARISON: None FINDINGS: No fracture or dislocation. No lytic or blastic change. There is normal mineralization.. The joint spaces are well-preserved. No significant degenerative/arthritic changes. No erosive changes evident. Postsurgical changes of the ankle as described in ankle report IMPRESSION: Negative right foot
== END ==
PROVIDERS: PCP Internal Medicine Adolescent Medicine; Visit Provider Podiatrist
DX: M76.62 Achilles tendinitis, left leg (principal); M85.871 Other specified disorders of bone density and structure, right ankle and foot; M93.271 Osteochondritis dissecans, right ankle and joints of right foot; M25.572 Pain in left ankle and joints of left foot; M25.571 Pain in right ankle and joints of right foot
CPT/HCPCS: 73610; 73630

== ENCOUNTER → 2018-05-20 12:45 | Outpatient (POV) | payer MEDICAID, SELFPAY ==
[2018-05-20 13:02] VITALS: BP 120/87; PULSE 78; RESP 18; O2SAT 98; BMI 34.7
--- NOTE | 2018-05-20 13:06 | P.CONS_ITS ---
[facility] Pain Management SOAP Note Subjective:: Patient is a pleasant 33-year-old white female who presents today for follow-up after physical therapy. Patient states that she was in more pain after her physical therapy however she is continuing the exercises at home and rates her pain a 2 out of 10 today. Patient is having some tendinitis in her left foot. She has been seen by podiatry for this. ROS General: no recent weight change, no fever, no sleep disturbances Respiratory: no cough, no shortness of air, no recurring pulmonary infections Cardiovascular/Peripheral Vascular: No chest pain, No palpitations, no edema, no shortness of breath. Gastrointestinal: no incontinence, normal bowel movements reported Genitourinary: no incontinence Musculoskeletal: Back pain, neck pain Psychiatric: normal mood/ affect Neurological: [denies weakness in extremities], [denies balance issues] Objective:: Physical Exam General: Alert and oriented x3, no acute distress, pleasant and cooperative, [on room air] Lungs: Resps E/U, Symmetrical chest expansion, Eyes: PERRL Musculoskeletal: Flexion and extension of cervical and lumbar spine somewhat guarded secondary to pain, deep tendon reflexes normal, strength in upper and lower extremities [5/5], [abnormal gait noted] Neurological: speech clear, 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 Patient is having well controlled pain at this time. Patient is going to be following up with podiatry to ensure that her tendinitis is healing. This note was dictated using voice recognition software and may contain errors or omissions
== END ==
PROVIDERS: PCP Internal Medicine Adolescent Medicine; Visit Provider Clinical Nurse Specialist Family Health
DX: M51.16 Intervertebral disc disorders with radiculopathy, lumbar region (principal); M46.1 Sacroiliitis, not elsewhere classified; M54.2 Cervicalgia
CPT/HCPCS: 99213

== ENCOUNTER → 2018-07-15 11:02 | Outpatient (POV) | payer MEDICAID, SELFPAY ==
[2018-07-15 11:18] VITALS: BP 131/78; PULSE 75; RESP 18; O2SAT 98; BMI 36.0
--- NOTE | 2018-07-15 12:50 | HMH.PAINSOAP ---
[facility] Pain Management SOAP Note Subjective:: Patient is a pleasant 33-year-old white female who presents today for follow-up. She rates her pain a 3 out of 10. She states her main concern today is her neck pain. Patient is having neck pain radiating into her arms. Patient is waking up with numbness and tingling in her right arm especially. Patient does not have any MRI imaging of her cervical spine at this time. Patient is completed physical therapy. Patient is continuing to take anti-inflammatories. ROS General: no recent weight change, no fever, no sleep disturbances Respiratory: no cough, no shortness of air, no recurring pulmonary infections Cardiovascular/Peripheral Vascular: No chest pain, No palpitations, no edema, no shortness of breath. Gastrointestinal: no incontinence, normal bowel movements reported Genitourinary: no incontinence Musculoskeletal: Neck pain, arm pain Psychiatric: normal mood/ affect Neurological: Weakness in right upper extremity at times, [denies balance issues] Objective:: Physical Exam General: Alert and oriented x3, no acute distress, pleasant and cooperative, [on room air] Lungs: Resps E/U, Symmetrical chest expansion, Eyes: PERRL Musculoskeletal: Flexion and extension of cervical spine somewhat guarded secondary to pain, deep tendon reflexes normal, strength in upper left extremity 5/5, strength in upper right extremity 4/5 and lower extremities [5/5], antalgic gait noted Neurological: speech clear, left dredge captain greater than right dredge captain, no gross sensory deficits Assessment:: Neck pain, arm pain, back pain, degenerative disc disease Plan:: We will order a cervical MRI for the patient to determine pathology. I will follow-up with her after this. Dr. Madrid has reviewed this note and agrees with this plan of care. This note was dictated using voice recognition software and may contain errors or omissions
--- NOTE | 2018-07-15 12:53 | P.CONS_ITS ---
[facility] Pain Management SOAP Note Subjective:: Patient is a pleasant 33-year-old white female who presents today for follow-up. She rates her pain a 3 out of 10. She states her main concern today is her neck pain. Patient is having neck pain radiating into her arms. Patient is waking up with numbness and tingling in her right arm especially. Patient does not have any MRI imaging of her cervical spine at this time. Patient is completed physical therapy. Patient is continuing to take anti-inflammatories. ROS General: no recent weight change, no fever, no sleep disturbances Respiratory: no cough, no shortness of air, no recurring pulmonary infections Cardiovascular/Peripheral Vascular: No chest pain, No palpitations, no edema, no shortness of breath. Gastrointestinal: no incontinence, normal bowel movements reported Genitourinary: no incontinence Musculoskeletal: Neck pain, arm pain Psychiatric: normal mood/ affect Neurological: Weakness in right upper extremity at times, [denies balance issues] Objective:: Physical Exam General: Alert and oriented x3, no acute distress, pleasant and cooperative, [on room air] Lungs: Resps E/U, Symmetrical chest expansion, Eyes: PERRL Musculoskeletal: Flexion and extension of cervical spine somewhat guarded secondary to pain, deep tendon reflexes normal, strength in upper left extremity 5/5, strength in upper right extremity 4/5 and lower extremities [5/5], antalgic gait noted Neurological: speech clear, left diet supervisor greater than right diet supervisor, no gross sensory deficits Assessment:: Neck pain, arm pain, back pain, degenerative disc disease Plan:: We will order a cervical MRI for the patient to determine pathology. I will follow-up with her after this. Dr. Madrid has reviewed this note and agrees with this plan of care. This note was dictated using voice recognition software and may contain errors or omissions
--- NOTE | 2019-01-21 15:21 | PC.NURSE ---
TRAMADOL 50MG TID WITH 2 REFILLS CALLED IN PER PROVIDER ORDER TO [facility] IN [place]
== END ==
PROVIDERS: PCP Internal Medicine Adolescent Medicine; Visit Provider Clinical Nurse Specialist Family Health
DX: M54.2 Cervicalgia (principal); M54.9 Dorsalgia, unspecified
CPT/HCPCS: 99213

== ENCOUNTER → 2018-07-22 07:54 | Outpatient (CLI) | payer MEDICAID, SELFPAY ==
--- NOTE | 2018-07-22 07:56 | MR_ITS ---
MR cervical spine wo con, MR 3-d myelogram/MRCP HISTORY: PT states neck pain X 1-2 Years. Pain in Rt shoulder and arm. Bilateral hand numbness. no Known injury. ITS.REASON: NECK PAIN ORDERING PHYSICIAN: Yocasta Zarco PATIENT AGE: 33 years Comparison: MRI 02/26/18 TECHNIQUE: Standard multiplanar multiecho sequences are performed without contrast. 3-D MIP and myelographic images are also rendered and reviewed FINDINGS: There is straightening of the cervical lordosis. The craniocervical junction has an unremarkable appearance. There are hypertrophic changes at the atlantoaxial region but no compression or impingement upon the cord. No canal stenosis at this area. The disc spaces are well-preserved. No disc herniation, cord impingement, or significant bulging disc. No significant degenerative changes. There is borderline narrowing of the canal at C3-C4 as previously described not significant changed. There is mild left-sided uncovertebral hypertrophy at C5-C6 with mild left-sided foraminal narrowing. IMPRESSION: 1. Straightening of the cervical lordosis nonspecific. 2. 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 3. Mild left-sided foraminal narrowing at C5-C6 from uncovertebral hypertrophy. 4. No extruded herniated disc or other significant anomalies
== END ==
PROVIDERS: PCP Internal Medicine Adolescent Medicine; Visit Provider Clinical Nurse Specialist Family Health
DX: M54.2 Cervicalgia (principal)
CPT/HCPCS: 72141; 76376

== ENCOUNTER 2018-07-23 11:00 | Outpatient (RCR) | payer MEDICAID, SELFPAY ==
--- NOTE | 2018-06-20 15:39 | HMH.PTOPEV ---
PT Outpatient Evaluation Rehab PT Outpatient Evaluation Start: 06/20/18 15:04 Freq: Status: Active Protocol: Document 06/20/18 15:04 [email or web address] (Rec: 06/20/18 15:38 [email or web address] [id number]) Electronically Signed By Tonny Singleton, PT 06/20/18 15:04 Outpatient Therapy Subjective History Subjective History Pt. is a 33 year old female who presents to outpatient PT for L ankle/heel pain of insidious onset since 2017. Pt. reports the pain has progressively gotten worse to where she can barely walk. Pt. reports she needs her CAM walker and heel pad to ambulate. Pt. reports no symptom relief with her recent injection nor Diclofenac Topical cream. Recent diagnostic imaging negative per pt. report. PMH includes compression fractures to L4/L5 from a fall in 2007, Rickets, osteomalacia, osteoporosis, phosphorus metabolism disorder, and R ankle surgery in 2015. Current medication includes Diclofenac Topical gel. Chief Complaint Pain Symptom Type Throb Burning Symptoms Relieved By Rest/Positioning Brace/Support Symptoms Aggravated By Standing Physical Activity Walking Prior Functional Limitations None Current Functional Limitations Housework Standing Squatting Recreation Activity Walking Stairs Balance Symptom Description Constant but Variable Level of pain today (0-10) 3 Pain scale - at its best (0-10) 1 Pain scale - at its worst (0-10) 5 Ankle/Foot Eval Gait Observation General Gait Pattern Observation Antalgic Gait Decrease Weight Bear (L) Decrease Stride Lngth (R) Assistive Device Ambulation Assistive Device None Palpation Tenderness left Ankle/Foot Palpation Findings Tenderness Ankle/Foot Palpation Overall Comment grade 3 +TTP L achilles
== END 2018-07-23 13:00 | disposition home or self-care (01) ==
LOC: PT.CARL 11:00
PROVIDERS: Visit Provider Podiatrist
DX: M76.62 Achilles tendinitis, left leg (principal)
CPT/HCPCS: 97010; 97014; 97033; 97035; 97110; 97112; 97140; 97163; G0283

== ENCOUNTER → 2018-07-29 13:45 | Outpatient (POV) | payer MEDICAID, SELFPAY ==
[2018-07-29 14:17] VITALS: BP 122/75; PULSE 78; RESP 18; O2SAT 99; BMI 36.0
--- NOTE | 2018-07-29 15:35 | HMH.PAINSOAP ---
[facility] Pain Management SOAP Note Subjective:: Is a pleasant 33-year-old white female who presents today for discussion in regards to her cervical MRI. It was fairly benign other than congenital narrowing and foraminal narrowing. Patient rates her pain is in her right side mostly radiating into her arm at times. Patient and I discussed potential dry needling. She rates her pain a 7 out of 10. ROS General: no recent weight change, no fever, no sleep disturbances Respiratory: no cough, no shortness of air, no recurring pulmonary infections Cardiovascular/Peripheral Vascular: No chest pain, No palpitations, no edema, no shortness of breath. Gastrointestinal: no incontinence, normal bowel movements reported Genitourinary: no incontinence Musculoskeletal: Neck pain, arm pain Psychiatric: normal mood/ affect, Neurological: [denies weakness in extremities], [denies balance issues] Objective:: Physical Exam General: Alert and oriented x3, no acute distress, pleasant and cooperative, [on room air] Lungs: Resps E/U, Symmetrical chest expansion, Eyes: PERRL Musculoskeletal: Flexion and extension of cervical spine somewhat guarded secondary to pain, deep tendon reflexes normal, strength in upper and lower extremities [5/5], normal gait noted Neurological: speech clear, security incident handler equal, no gross sensory deficits Assessment:: Myofascial pain syndrome Plan:: We will send her for dry needling to see if this is beneficial for her we will follow-up with her after this and reassess her symptoms at that time. She is been instructed to call the office if she has any issues prior to her next appointment.
--- NOTE | 2018-07-29 15:38 | P.CONS_ITS ---
[facility] Pain Management SOAP Note Subjective:: Is a pleasant 33-year-old white female who presents today for discussion in regards to her cervical MRI. It was fairly benign other than congenital narrowing and foraminal narrowing. Patient rates her pain is in her right side mostly radiating into her arm at times. Patient and I discussed potential dry needling. She rates her pain a 7 out of 10. ROS General: no recent weight change, no fever, no sleep disturbances Respiratory: no cough, no shortness of air, no recurring pulmonary infections Cardiovascular/Peripheral Vascular: No chest pain, No palpitations, no edema, no shortness of breath. Gastrointestinal: no incontinence, normal bowel movements reported Genitourinary: no incontinence Musculoskeletal: Neck pain, arm pain Psychiatric: normal mood/ affect, Neurological: [denies weakness in extremities], [denies balance issues] Objective:: Physical Exam General: Alert and oriented x3, no acute distress, pleasant and cooperative, [on room air] Lungs: Resps E/U, Symmetrical chest expansion, Eyes: PERRL Musculoskeletal: Flexion and extension of cervical spine somewhat guarded secondary to pain, deep tendon reflexes normal, strength in upper and lower extremities [5/5], normal gait noted Neurological: speech clear, skiver machine equal, no gross sensory deficits Assessment:: Myofascial pain syndrome Plan:: We will send her for dry needling to see if this is beneficial for her we will follow-up with her after this and reassess her symptoms at that time. She is been instructed to call the office if she has any issues prior to her next appointment.
== END ==
PROVIDERS: PCP Internal Medicine Adolescent Medicine; Visit Provider Clinical Nurse Specialist Family Health
DX: M79.18 Myalgia, other site (principal)
CPT/HCPCS: 99213

== ENCOUNTER → 2018-08-08 09:07 | Outpatient (CLI) | payer MEDICAID, SELFPAY ==
[2018-08-08 13:35] LABS: Basophils # 0.1 K/mm3 (0-0.2); Basophils % 0.4 % (0.1-2.0); Eosinophils # 0.2 K/mm3 (0.0-0.4); Eosinophils % 1.8 % (0.1-12.0); Hematocrit 39.5 % (37.0-47.0); Hemoglobin 12.5 g/dL (12.2-16.2); Lymphocytes # 3.2 K/mm3 (0.7-4.5); Lymphocytes % 27.5 % (10-50); Mean Corpuscular HGB Conc 31.6 g/dL (31.8-35.4); Mean Corpuscular Hemoglobin 28.3 pg (27.0-31.2); Mean Corpuscular Volume 89.4 fl (81-99); Mean Platelet Volume 7.4 fl (7.4-10.4); Monocytes # 0.5 K/mm3 (0.1-1.0); Monocytes % 4.5 % (1.7-9.3); Neutrophils # 7.6 K/mm3 (1.8-7.8); Neutrophils % 65.8 % (37.0-80.0); Platelet Count 446 K/mm3 (142-424); Red Blood Count 4.42 M/mm3 (4.20-5.40); Red Cell Distribution Width 15.6 % (11.5-17.5); White Blood Count 11.5 K/mm3 (4.8-10.8)
[2018-08-08 14:44] LABS: Alanine Aminotransferase 13 U/L (12-78); Albumin/Globulin Ratio 0.8 (1.1-1.8); Alkaline Phosphatase 97 U/L (46-116); Anion Gap 11.2 mEq/L (5-15); Aspartate Amino Transferase 4 U/L (15-37); Bilirubin,Total 0.2 mg/dL (0.2-1.0); Blood Urea Nitrogen 11 mg/dL (7-18); Calcium 8.9 mg/dL (8.5-10.1); Carbon Dioxide 29 mmol/L (21.0-32.0); Chloride 103 mmol/L (98-107); Chol/HDL Ratio 5.8 (1-3.5); Cholesterol 233 mg/dL (140-200); Estimated Glomerular Filt Rate 63 ml/min (>60); GFR (African American) 76 ML/MIN (>60); Globulin 3.8 gm/dl (1.3-3.2); Glucose 100 mg/dL (74-106); HDL Cholesterol 40 mg/dL (29-89); LDL Cholesterol 158 mg/dL (0-130); Potassium 4.2 mmoL/L (3.5-5.1); Sodium 139 mmol/L (136-145); Thyroid Stimulating Hormone 2.99 uIU/ml (0.358-3.740); Total Protein,Serum 6.8 gm/dL (6.4-8.2); Triglycerides 175 mg/dL (30-200); VLDL Cholesterol 35 mg/dL (0-40)
[2018-08-08 17:58] LABS: Hemoglobin A1C 5.9 % (0.0-7.0)
[2018-08-14 15:19] LABS: Vitamin B12 170 pg/mL (232-1245)
== END ==
PROVIDERS: PCP Nurse Practitioner Family; Visit Provider Nurse Practitioner Family
DX: R73.03 Prediabetes (principal); E78.1 Pure hyperglyceridemia; E53.8 Deficiency of other specified B group vitamins; F17.200 Nicotine dependence, unspecified, uncomplicated
CPT/HCPCS: 36415; 80053; 80061; 82607; 83036; 84443; 85025

== ENCOUNTER → 2018-08-13 11:24 | Outpatient (CLI) | payer MEDICAID, SELFPAY ==
--- NOTE | 2018-08-13 11:30 | XR_ITS ---
XR foot wt bearing LT 3V HISTORY: Left foot pain ITS.REASON: pain ORDERING PHYSICIAN: Johanna Saez DPM PATIENT AGE: 33 years COMPARISON: None FINDINGS: No fracture or dislocation. No lytic or blastic change. There is normal mineralization.. The joint spaces are well-preserved. No significant degenerative/arthritic changes. No erosive changes evident. Minimal osteoarthritic changes are present at the third metatarsal tarsal joint. There is normal alignment. IMPRESSION: Minimal osteoarthritic change third metatarsal tarsal joint otherwise negative
--- NOTE | 2018-08-13 11:30 | XR_ITS ---
XR foot wt bearing RT 3V HISTORY: ITS.REASON: pain ORDERING PHYSICIAN: Johanna Saez DPM PATIENT AGE: 33 years COMPARISON: 05/13/2018 FINDINGS: No fracture or dislocation. No lytic or blastic change. There is normal mineralization.. The joint spaces are well-preserved. Hyperostosis involves the neck of the talus anteriorly consistent with ridging. This may be seen with tenosynovitis of the long extensors of the foot. No other significant anomalies are evident. IMPRESSION: Anterior Talar ridging/talar beak which may be seen with tenosynovitis of the long extensor's of the foot otherwise negative
--- NOTE | 2018-08-13 11:30 | XR_ITS ---
XR ankle wt bearing RT min 3V HISTORY: Right ankle pain, follow-up surgery ITS.REASON: pain ORDERING PHYSICIAN: Johanna Saez DPM PATIENT AGE: 33 years Comparison: 05/13/2018 FINDINGS: 2 screws are present at the medial malleoli region one transverse screw more oblique screw with a vague oblique lucency along the medial aspect of the distal tibia which may represent residual osteotomy site slightly more prominent compared to 05/13/2018 but having a similar appearance compared 02/12/2017 possibly due to slight differences in positioning. Status post osteotomy of the medial aspect of the talar dome with a transverse screw present at this region. Persistent lucency is noted at the medial aspect of the talar dome. The lateral talar dome fragment is slightly displaced with mild depression of the medial fragment by approximately 2 mm slightly greater on today's exam compared to the previous study. No other significant anomalies are evident. IMPRESSION: 1. There appears to be slight increased depression of the medial talar dome fragment with a transverse screw at this area 2. Status post osteotomy of the medial malleoli region with persistent vague lucency at this area suggesting residual osteotomy site
== END ==
PROVIDERS: PCP Internal Medicine Adolescent Medicine; Visit Provider Podiatrist
DX: M93.271 Osteochondritis dissecans, right ankle and joints of right foot (principal); M76.62 Achilles tendinitis, left leg; M77.42 Metatarsalgia, left foot; E55.9 Vitamin D deficiency, unspecified
CPT/HCPCS: 73610; 73630

== ENCOUNTER 2018-08-15 10:00 | Outpatient (RCR) | payer MEDICAID, SELFPAY ==
--- NOTE | 2018-08-01 10:55 | HMH.PTOPEV ---
PT Outpatient Evaluation Rehab PT Outpatient Evaluation Start: 08/01/18 10:28 Freq: Status: Active Protocol: Document 08/01/18 10:28 TARA (Rec: 08/01/18 10:54 TARA [id number]) Electronically Signed By Samuel Jarquin, PT 08/01/18 10:28 Outpatient Therapy Subjective History Subjective History Patient is a 33 year old female presenting to outpatient PT with reports of chronic right sided cervical spine and uppertrap/ACJ pain starting approximately 2 years ago of insidious onset. Pt reports 4-5 previous visits with physical therapy with no lasting improvements. Most recent diagnostics indicate C3 /4 canal stenosis and L C5/6 facet hypertrophy. Comorbidities include rickets, osteomalacia, osteoporosis, diabetes, R ankle ORIF. Chief Complaint Pain Paresthesia Symptom Type Ache Numbness Tingling Symptoms Relieved By Rest/Positioning OTC Meds Prescription Meds Symptoms Aggravated By Physical Activity Lifting Prior Functional Limitations None Current Functional Limitations Reaching Lifting Housework Driving Sleeping Recreation Activity Symptom Description Intermittent Level of pain today (0-10) 1 Pain scale - at its best (0-10) 0 Pain scale - at its worst (0-10) 3 Cervical Eval Palpation Cervical Muscles R Cervical Paraspinal R Upper Trapezius Cervical/Thoracic Palpation Findings Tenderness Posture Head/C-Spine Posture Sitting Position C-Spine Flattened Head/C-Spine Posture Standing Position C-Spine Flattened Flexibility Deficits Upper Trapezius Muscle Length (R) Moderate Tightness (L) Moderate Tightness Levaetor Scapulae Muscle Length (R) Moderate Tightness (L) Moderate Tightness Scalene Group Muscle Length (R) Moderate Tightness (L) Moderate Tightness Pectoralis Minor Muscle Length (R) Moderate Tightness (L) Moderate Tightness Passive Joint Mobility
== END 2018-08-15 10:05 | disposition home or self-care (01) ==
LOC: PT 10:00
PROVIDERS: Visit Provider Clinical Nurse Specialist Family Health
DX: M54.2 Cervicalgia (principal); M54.9 Dorsalgia, unspecified
CPT/HCPCS: 97010; 97012; 97014; 97110; 97140; 97163; G0283

== ENCOUNTER → 2018-10-17 10:29 | Outpatient (CLI) | payer MEDICAID, SELFPAY ==
[2018-10-17 11:46] LABS: Alanine Aminotransferase 15 U/L (12-78); Albumin Level 3.2 gm/dL (3.4-5.0); Albumin/Globulin Ratio 0.8 (1.1-1.8); Alkaline Phosphatase 112 U/L (46-116); Anion Gap 11.9 mEq/L (5-15); Aspartate Amino Transferase 7 U/L (15-37); Bilirubin,Total 0.2 mg/dL (0.2-1.0); Blood Urea Nitrogen 8 mg/dL (7-18); C-Reactive Protein 5.9 mg/L (0.0-0.9); Calcium 9.2 mg/dL (8.5-10.1); Carbon Dioxide 30 mmol/L (21.0-32.0); Chloride 102 mmol/L (98-107); Creatinine,Serum 1.09 mg/dL (0.55-1.02); Estimated Glomerular Filt Rate 57 ml/min (>60); GFR (African American) 69 ML/MIN (>60); Globulin 3.9 gm/dl (1.3-3.2); Glucose 159 mg/dL (74-106); Potassium 3.9 mmoL/L (3.5-5.1); Sodium 140 mmol/L (136-145); Total Protein,Serum 7.1 gm/dL (6.4-8.2); Uric Acid 3.6 mg/dL (2.6-7.2)
[2018-10-17 11:57] LABS: Basophils % 0.3 % (0.1-2.0); Eosinophils # 0.3 K/mm3 (0.0-0.4); Eosinophils % 2.2 % (0.1-12.0); Hematocrit 40.4 % (37.0-47.0); Hemoglobin 12.8 g/dL (12.2-16.2); Lymphocytes # 2.3 K/mm3 (0.7-4.5); Lymphocytes % 18.5 % (10-50); Mean Corpuscular HGB Conc 31.8 g/dL (31.8-35.4); Mean Corpuscular Hemoglobin 28.4 pg (27.0-31.2); Mean Corpuscular Volume 89.4 fl (81-99); Monocytes # 0.6 K/mm3 (0.1-1.0); Monocytes % 4.9 % (1.7-9.3); Neutrophils # 9.2 K/mm3 (1.8-7.8); Neutrophils % 74.1 % (37.0-80.0); Platelet Count 478 K/mm3 (142-424); Red Blood Count 4.51 M/mm3 (4.20-5.40); Red Cell Distribution Width 14.8 % (11.5-17.5); White Blood Count 12.5 K/mm3 (4.8-10.8)
[2018-10-17 12:26] LABS: Erythrocyte Sedimentation Rate 45 mm/hr (0-20)
[2018-10-17 14:27] LABS: Hemoglobin A1C 6.5 % (0.0-7.0)
[2018-10-18 12:12] LABS: Antichromatin Antibodies <0.2 AI (0.0-0.9); RA Latex Turbid. <10.0 IU/mL (0.0-13.9); RNP Antibodies <0.2 AI (0.0-0.9); Sjogren's Anti-SS-A <0.2 AI (0.0-0.9); Sjogren's Anti-SS-B <0.2 AI (0.0-0.9)
[2018-10-19 06:42] LABS: Anti-DNA (DS) Ab Qn 1 IU/mL (0-9); Antinuclear Antibodies, IFA Negative (.); Vitamin B12 309 pg/mL (232-1245); Vitamin D 25 Hydroxy 38.8 ng/mL (30.0-100.0)
[2018-11-19 13:01] LABS: Cotinine 86.7; Nicotine 3.6
== END ==
PROVIDERS: Visit Provider Podiatrist
DX: E11.9 Type 2 diabetes mellitus without complications (principal); E53.8 Deficiency of other specified B group vitamins; E55.9 Vitamin D deficiency, unspecified; E66.9 Obesity, unspecified; M25.471 Effusion, right ankle; M76.62 Achilles tendinitis, left leg; M77.42 Metatarsalgia, left foot; M85.871 Other specified disorders of bone density and structure, right ankle and foot; M93.271 Osteochondritis dissecans, right ankle and joints of right foot; R53.83 Other fatigue; D72.829 Elevated white blood cell count, unspecified; F17.200 Nicotine dependence, unspecified, uncomplicated; Z79.84 Long term (current) use of oral hypoglycemic drugs
CPT/HCPCS: 36415; 80053; 80323; 82607; 82652; 83036; 84550; 85025; 85651; 86038; 86140; 86225; 86235; 86431

== ENCOUNTER → 2018-10-23 08:58 | Outpatient (CLI) | payer MEDICAID, SELFPAY ==
[2018-10-23 09:19] LABS: Blood Urea Nitrogen 7 mg/dL (7-18); Estimated Glomerular Filt Rate 63 ml/min (>60); GFR (African American) 76 ML/MIN (>60)
--- NOTE | 2018-10-23 09:58 | MR_ITS ---
MR ankle LT wo/w con CLINICAL INDICATION: Pain with Palpable knot posterior left ankle, ITS.REASON: Achilles Tendonitis Left Foot ORDERING PHYSICIAN: Johanna Saez DPM PATIENT AGE: 33 years Comparison: None TECHNIQUE: Routine multiplanar multiecho sequences are without and with contrast FINDINGS: There is thickening of the distal aspect of the Achilles tendon at the insertion upon the calcaneus with some slight increase in T1 and T2 signal consistent with tendinopathy/tendinosis. A complete tendon tear is not apparent. One cannot exclude the possibility of partial intrasubstance tear at this area. Minimal amount fluid is present along the inferior aspect of Kager's fat pad. IMPRESSION: Mild thickening of the distal aspect of the Achilles tendon at the calcaneal insertion with slight increased T2 signal consistent with tendinopathy/tendinosis. Cannot exclude a partial intrasubstance tear. A complete tear is not present.
== END ==
PROVIDERS: Visit Provider Podiatrist
DX: M76.62 Achilles tendinitis, left leg (principal)
CPT/HCPCS: 36415; 73723; 82565; 84520; A9576

== ENCOUNTER → 2018-10-29 07:45 | Outpatient (CLI) | payer MEDICAID, SELFPAY ==
[2018-10-29 14:36] LABS: Creatinine,Serum 0.95 mg/dL (0.55-1.02)
[2018-10-29 14:56] LABS: Albumin Level 3.1 gm/dL (3.4-5.0); Anion Gap 13.4 mEq/L (5-15); Blood Urea Nitrogen 8 mg/dL (7-18); Calcium 8.7 mg/dL (8.5-10.1); Carbon Dioxide 27 mmol/L (21.0-32.0); Chloride 101 mmol/L (98-107); Creatinine,Serum 0.94 mg/dL (0.55-1.02); Estimated Glomerular Filt Rate 68 ml/min (>60); GFR (African American) 82 ML/MIN (>60); Glucose 127 mg/dL (74-106); Phosphorous 3.2 mg/dL (2.4-4.9); Potassium 3.4 mmoL/L (3.5-5.1); Sodium 138 mmol/L (136-145)
[2018-10-29 19:24] LABS: Creatinine,Urine Random 87 mg/dL (20-320); Patient Height,Urine 64 inches; Patient Weight,Urine 210 lbs
[2018-10-29 19:36] LABS: Collection Time,Urine 24 hours; Creatinine 24 Hour,Urine 1566 mg/24hr (630-2500); Creatinine Clearance Urine 99.5 mL/min (25-115); Total Volume,Urine 1800 mL (600-1600)
[2018-10-30 13:57] LABS: Vitamin D 25 Hydroxy 32.7 ng/mL (30.0-100.0)
[2018-10-31 06:17] LABS: Calcium, Ionized 5.1 mg/dL (4.5-5.6); Parathyroid Hormone Intact 34 pg/mL (15-65)
[2018-11-02 09:12] LABS: Tandem-R Ostase 14.4 ug/L (.)
[2018-11-02 16:17] LABS: 1,25-Dihydroxy, Vitamin D-2 15 pg/mL (.)
[2018-11-02 20:59] LABS: 1,25 Dihydroxy Vitamin D 70 pg/mL (.); 1,25-Dihydroxy, Vitamin D-3 55 pg/mL (.)
== END ==
PROVIDERS: PCP Internal Medicine Adolescent Medicine; Visit Provider Physician Assistant Medical
DX: M81.0 Age-related osteoporosis without current pathological fracture (principal); M83.9 Adult osteomalacia, unspecified; E83.30 Disorder of phosphorus metabolism, unspecified
CPT/HCPCS: 36415; 80069; 82330; 82340; 82523; 82575; 82652; 83970; 84080; 84105

== ENCOUNTER → 2018-11-01 10:11 | Outpatient (CLI) | payer MEDICAID, SELFPAY ==
[2018-11-01 14:16] LABS: Basophils % 0.2 % (0.1-2.0); Eosinophils # 0.2 K/mm3 (0.0-0.4); Eosinophils % 1.6 % (0.1-12.0); Hematocrit 38.9 % (37.0-47.0); Hemoglobin 12.5 g/dL (12.2-16.2); Lymphocytes % 22.3 % (10-50); Mean Corpuscular HGB Conc 32.1 g/dL (31.8-35.4); Mean Corpuscular Hemoglobin 28.5 pg (27.0-31.2); Mean Corpuscular Volume 88.7 fl (81-99); Mean Platelet Volume 8.3 fl (7.4-10.4); Monocytes # 0.7 K/mm3 (0.1-1.0); Monocytes % 5.1 % (1.7-9.3); Neutrophils # 9.6 K/mm3 (1.8-7.8); Neutrophils % 70.9 % (37.0-80.0); Platelet Count 480 K/mm3 (142-424); Red Blood Count 4.39 M/mm3 (4.20-5.40); Red Cell Distribution Width 15.1 % (11.5-17.5); White Blood Count 13.6 K/mm3 (4.8-10.8)
[2018-11-01 14:21] LABS: C-Reactive Protein 4.2 mg/L (0.0-0.9); Thyroid Stimulating Hormone 3.23 uIU/ml (0.358-3.740)
[2018-11-01 15:58] LABS: Erythrocyte Sedimentation Rate 25 mm/hr (0-20)
[2018-11-03 10:15] LABS: Peripheral Smear Review Scanned Result
== END ==
PROVIDERS: PCP Nurse Practitioner Family; Visit Provider Nurse Practitioner Family
DX: D72.829 Elevated white blood cell count, unspecified (principal); D47.3 Essential (hemorrhagic) thrombocythemia; M25.50 Pain in unspecified joint
CPT/HCPCS: 36415; 84443; 85025; 85651; 86140

== ENCOUNTER → 2018-12-12 09:14 | Outpatient (CLI) | payer MEDICAID, SELFPAY ==
[2018-12-12 11:35] LABS: Ferritin 12 ng/mL (8-388)
[2018-12-13 08:47] LABS: Iron 40 ug/dL (27-159); UIBC 350 ug/dL (131-425)
[2018-12-13 17:12] LABS: Iron Saturation 10 % (15-55)
== END ==
PROVIDERS: Visit Provider Internal Medicine Medical Oncology
DX: D72.829 Elevated white blood cell count, unspecified (principal)
CPT/HCPCS: 36415; 81206; 81270; 82728; 83540; 83550

== ENCOUNTER → 2019-01-20 14:10 | Outpatient (POV) | payer MEDICAID, SELFPAY | PROVIDERS: Visit Provider Specialist | DX: R20.2 Paresthesia of skin (principal); M79.672 Pain in left foot; M79.671 Pain in right foot | CPT/HCPCS: 95886; 95911 ==

== ENCOUNTER → 2019-03-19 09:53 | Outpatient (CLI) | payer MEDICAID, SELFPAY ==
[2019-03-19 10:30] VITALS: PULSE 67; PULSE 70
--- NOTE | 2019-03-19 10:51 | XR_ITS ---
PROCEDURE: XR CHEST 2V CLINICAL HISTORY: IBROMYALGIA,WHEEZING COMPARISON: No exams were available for comparison FINDINGS: The cardiomediastinal silhouette and pulmonary vascularity are within normal limits. There are slight increased markings in the right infrahilar region suggesting patchy infiltrate. No acute bony abnormalities. IMPRESSION: Patchy infiltrate in the right lower lobe Dictated by: Michael Moore MD 03/19/2019 12:17 Electronically signed by Michael Moore MD in [place] 03/19/2019 12:17
== END ==
PROVIDERS: PCP Internal Medicine Adolescent Medicine; Visit Provider Nurse Practitioner Family
DX: R06.2 Wheezing (principal); M79.7 Fibromyalgia
CPT/HCPCS: 71046; 94060; 94640; 94726; 94729

== ENCOUNTER → 2019-03-26 09:50 | Outpatient (CLI) | payer MEDICAID, SELFPAY ==
[2019-03-26 14:32] LABS: Ferritin 12 ng/mL (8-388)
[2019-03-26 14:50] LABS: Basophils % 0.3 % (0.1-2.0); Eosinophils # 0.2 K/mm3 (0.0-0.4); Eosinophils % 1.3 % (0.1-12.0); Hematocrit 40.5 % (37.0-47.0); Hemoglobin 12.3 g/dL (12.2-16.2); Lymphocytes % 21.4 % (10-50); Mean Corpuscular HGB Conc 30.4 g/dL (31.8-35.4); Mean Corpuscular Hemoglobin 27.7 pg (27.0-31.2); Mean Corpuscular Volume 91.2 fl (81-99); Mean Platelet Volume 8.9 fl (7.4-10.4); Monocytes # 0.8 K/mm3 (0.1-1.0); Monocytes % 5.7 % (1.7-9.3); Neutrophils # 10.2 K/mm3 (1.8-7.8); Neutrophils % 71.4 % (37.0-80.0); Platelet Count 538 K/mm3 (142-424); Red Blood Count 4.44 M/mm3 (4.20-5.40); Red Cell Distribution Width 16.1 % (11.5-17.5); White Blood Count 14.3 K/mm3 (4.8-10.8)
[2019-03-27 14:12] LABS: Iron 32 ug/dL (27-159); UIBC 354 ug/dL (131-425)
[2019-03-27 23:10] LABS: Iron Saturation 8 % (15-55)
== END ==
PROVIDERS: PCP Internal Medicine Adolescent Medicine; Visit Provider Internal Medicine Medical Oncology
DX: D72.829 Elevated white blood cell count, unspecified (principal); D50.9 Iron deficiency anemia, unspecified
CPT/HCPCS: 36415; 82728; 83540; 83550; 85025

== ENCOUNTER → 2019-05-12 10:58 | Outpatient (POV) | payer OTHER, SELFPAY ==
[2019-05-12 11:10] VITALS: BP 120/74; PULSE 84; RESP 18; O2SAT 98; BMI 35.2
--- NOTE | 2019-05-12 12:32 | HMH.PAINSOAP ---
[facility] Pain Management SOAP Note Subjective:: Patient is a pleasant 34-year-old white female who presents today for follow-up for pain in her bilateral feet along with pain in her right shoulder. Patient was seen by Dr. Saez and determined that at this point there is no surgery that could be beneficial for her. She does have an appointment with a specialist tomorrow. Patient has no recent diagnostic imaging on her right shoulder. She has difficulty with range of motion. She has extreme point tenderness over the AC joint. ROS General: no recent weight change, no fever, no sleep disturbances Respiratory: no cough, no shortness of air, no recurring pulmonary infections Cardiovascular/Peripheral Vascular: No chest pain, No palpitations, no edema, no shortness of breath. Gastrointestinal: no new onset incontinence, normal bowel movements reported Genitourinary: no new onset incontinence Musculoskeletal: Bilateral foot pain, right shoulder pain Psychiatric: normal mood/ affect Neurological: Weakness in right arm at times, numbness and tingling bilateral feet, [denies new onset balance issues] Objective:: Physical Exam General: Alert and oriented x3, no acute distress, pleasant and cooperative, [on room air] Lungs: Resps E/U, Symmetrical chest expansion, Eyes: PERRL Musculoskeletal: Flexion and extension of cervical spine somewhat guarded secondary to pain, deep tendon reflexes normal, strength in upper and lower extremities [5/5], [abnormal gait noted] range of motion bilateral feet somewhat guarded secondary to pain Neurological: speech clear, contact lens technician equal, no gross sensory deficits Assessment:: Right shoulder pain, bilateral foot pain Plan:: We will start the patient on gabapentin 100 mg 1 p.o. nightly we will also order a x-ray of her right shoulder. I will follow-up with her in 1 week reassess her symptoms at this time this will give her time to see the specialist. She is been instructed to call the office if she has any issues prior to her next appointment. Dr. Madrid has reviewed this note and agrees with this plan of care. This note was dictated using voice recognition software and may contain errors or omissions [facility] History I have reviewed the patient's past medical history: Yes Medical History: Reports:: Anxiety, Depression, Diabetes Mellitus Type 2, Gastroesophageal Reflux Disease(GERD), Hypertension Denies:: Cancer, Diabetes Mellitus Type 1, Internal Pacemaker, MRSA, Seizures *Have you ever received a pneumonia vaccine?: No *Have you received a flu vaccine this season?: No Other Medical History: Reports: Anemia, Arthritis, Fibromyalgia. Denies: Blood Transfusion Reaction Other Surgeries: Yes: No Previous Surgery, Other. No: Pacemaker Amputation: No Fractures: Yes (10 fractures Right Foot, 5 fractures Left Foot. L4/L5 vertebraes) - *Social History Smoking Status: Current every day smoker Tobacco Type: cigarettes # Packs/Day (cigarettes): 1 #Yrs smoked (if former smoker): 20 Alcohol Intake: never Alcohol Intake Frequency:: other Substance Use Type: denies use *Occupational Status:: other Housing: house Household Members: significant other *Travel in the last 8 weeks: None - Psychiatric History Pschychiatric History:: Reports:: Anxiety, Depression Family Hx:: Diabetes, Stroke, Heart Attack
--- NOTE | 2019-05-12 12:35 | P.CONS_ITS ---
[facility] Pain Management SOAP Note Subjective:: Patient is a pleasant 34-year-old white female who presents today for follow-up for pain in her bilateral feet along with pain in her right shoulder. Patient was seen by Dr. Saez and determined that at this point there is no surgery that could be beneficial for her. She does have an appointment with a specialist tomorrow. Patient has no recent diagnostic imaging on her right shoulder. She has difficulty with range of motion. She has extreme point tenderness over the AC joint. ROS General: no recent weight change, no fever, no sleep disturbances Respiratory: no cough, no shortness of air, no recurring pulmonary infections Cardiovascular/Peripheral Vascular: No chest pain, No palpitations, no edema, no shortness of breath. Gastrointestinal: no new onset incontinence, normal bowel movements reported Genitourinary: no new onset incontinence Musculoskeletal: Bilateral foot pain, right shoulder pain Psychiatric: normal mood/ affect Neurological: Weakness in right arm at times, numbness and tingling bilateral feet, [denies new onset balance issues] Objective:: Physical Exam General: Alert and oriented x3, no acute distress, pleasant and cooperative, [on room air] Lungs: Resps E/U, Symmetrical chest expansion, Eyes: PERRL Musculoskeletal: Flexion and extension of cervical spine somewhat guarded secondary to pain, deep tendon reflexes normal, strength in upper and lower extremities [5/5], [abnormal gait noted] range of motion bilateral feet somewhat guarded secondary to pain Neurological: speech clear, steamtable 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 nightly we will also order a x-ray of her right shoulder. I will follow-up with her in 1 week reassess her symptoms at this time this will give her time to see the specialist. She is been instructed to call the office if she has any issues prior to her next appointment. Dr. Madrid has reviewed this note and agrees with this plan of care. This note was dictated using voice recognition software and may contain errors or omissions [facility] History I have reviewed the patient's past medical history: Yes Medical History: Reports:: Anxiety, Depression, Diabetes Mellitus Type 2, Gastroesophageal Reflux Disease(GERD), Hypertension Denies:: Cancer, Diabetes Mellitus Type 1, Internal Pacemaker, MRSA, Seizures *Have you ever received a pneumonia vaccine?: No *Have you received a flu vaccine this season?: No Other Medical History: Reports: Anemia, Arthritis, Fibromyalgia. Denies: Blood Transfusion Reaction Other Surgeries: Yes: No Previous Surgery, Other. No: Pacemaker Amputation: No Fractures: Yes (10 fractures Right Foot, 5 fractures Left Foot. L4/L5 vertebraes) - *Social History Smoking Status: Current every day smoker Tobacco Type: cigarettes # Packs/Day (cigarettes): 1 #Yrs smoked (if former smoker): 20 Alcohol Intake: never Alcohol Intake Frequency:: other Substance Use Type: denies use *Occupational Status:: other Housing: house Household Members: significant other *Travel in the last 8 weeks: None - Psychiatric History Pschychiatric History:: Reports:: Anxiety, Depression Family Hx:: Diabetes, Stroke, Heart Attack
== END ==
PROVIDERS: PCP Internal Medicine Adolescent Medicine; Visit Provider Clinical Nurse Specialist Family Health
DX: M25.511 Pain in right shoulder (principal); M79.672 Pain in left foot; M79.671 Pain in right foot
CPT/HCPCS: 99212

== ENCOUNTER 2019-05-13 10:17 | Outpatient (CLI) | payer OTHER, SELFPAY ==
[2019-05-13 10:33] VITALS: BP 136/85; PULSE 75; RESP 18; O2SAT 99
[2019-05-13 11:15] VITALS: BP 138/88; PULSE 73; RESP 18
--- NOTE | 2019-05-13 11:25 | XR_ITS ---
PROCEDURE: XR CHEST 2V CLINICAL HISTORY: PNEUMONIA RLL, TOBACCO USE COMPARISON: XR CHEST 2V from 03/19/2019 FINDINGS: The cardiomediastinal silhouette and pulmonary vascularity are within normal limits. Patchy infiltrate in the right lower lobe has cleared. No acute bony abnormalities. IMPRESSION: No acute findings. Dictated by: Michael Moore MD 05/13/2019 11:56 Electronically signed by Michael Moore MD in [place] 05/13/2019 11:57
--- NOTE | 2019-05-13 11:25 | XR_ITS ---
PROCEDURE: XR SHOULDER RT MIN 2V CLINICAL INDICATION: RT SHOULDER PAIN Right shoulder pain COMPARISON: [id number] VIEWS from 11/09/2014 FINDINGS: No fracture, dislocation, lytic change, or blastic change evident. No significant degenerative change IMPRESSION: No acute findings. Dictated by: Michael Moore MD 05/13/2019 12:14 Electronically signed by Michael Moore MD in [place] 05/13/2019 12:14
== END 2019-05-13 11:15 | disposition home or self-care (01) ==
PROVIDERS: PCP Internal Medicine Adolescent Medicine; Visit Provider Internal Medicine Medical Oncology
DX: D50.9 Iron deficiency anemia, unspecified (principal); M25.511 Pain in right shoulder; J45.20 Mild intermittent asthma, uncomplicated; J18.1 Lobar pneumonia, unspecified organism; F17.200 Nicotine dependence, unspecified, uncomplicated
CPT/HCPCS: 71046; 73030; 96365; J1439

== ENCOUNTER 2019-05-20 08:57 | Outpatient (CLI) | payer OTHER, SELFPAY ==
[2019-05-20 09:25] VITALS: BP 130/80; PULSE 78; RESP 18; TEMP 36.9; O2SAT 98
[2019-05-20 09:40] VITALS: BP 142/82; PULSE 79; RESP 18; TEMP 36.8; O2SAT 98
[2019-05-20 10:00] VITALS: BP 132/78; PULSE 75; RESP 16; TEMP 36.8; O2SAT 97
[2019-05-20 10:10] VITALS: BP 126/74; PULSE 72; RESP 18; TEMP 36.7; O2SAT 98
== END 2019-05-20 10:10 | disposition home or self-care (01) ==
LOC: INF 08:57
PROVIDERS: Visit Provider Internal Medicine Medical Oncology
DX: D50.9 Iron deficiency anemia, unspecified (principal)
CPT/HCPCS: 96365; J1439

== ENCOUNTER → 2019-05-20 10:20 | Outpatient (POV) | payer OTHER, SELFPAY ==
[2019-05-20 10:43] VITALS: BP 148/85; PULSE 78; RESP 18; O2SAT 98; BMI 35.2
--- NOTE | 2019-05-20 10:57 | HMH.PAINSOAP ---
[facility] Pain Management SOAP Note Subjective:: Patient is a pleasant 34-year-old white female who presents today for follow-up after beginning gabapentin 100 mg 1 p.o. nightly. Patient has also had her x-ray of her right shoulder. X-ray was negative. She states that with the gabapentin has been very beneficial she rates her pain a 2 out of 10 today. She denies side effects at this time she is currently on gabapentin 100 mg 1 p.o. nightly. Patient also was seen by specialist for her feet at this time they cannot do anything to help. Patient states that she has had several months of fogginess. Patient and I discussed her new added medications one being amitriptyline. I discussed with her to talk to her primary care in regards to this. ROS General: no recent weight change, no fever, no sleep disturbances Respiratory: no cough, no shortness of air, no recurring pulmonary infections Cardiovascular/Peripheral Vascular: No chest pain, No palpitations, no edema, no shortness of breath. Gastrointestinal: no new onset incontinence, normal bowel movements reported Genitourinary: no new onset incontinence Musculoskeletal: Right shoulder pain Psychiatric: normal mood/ affect, Neurological: [denies new onset weakness in extremities], [denies new onset balance issues] Objective:: Physical Exam General: Alert and oriented x3, no acute distress, pleasant and cooperative, [on room air] Lungs: Resps E/U, Symmetrical chest expansion, Eyes: PERRL Musculoskeletal: Range of Motion right shoulder somewhat guarded secondary to pain, deep tendon reflexes normal, strength in upper and lower extremities [5/5], normal gait noted Neurological: 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 nightly we will see her back in 3 weeks reassess her symptoms at that time she is instructed to call our office if she has any issues prior to her next appointment. Dr. Madrid has reviewed this note and agrees with this plan of care. This note was dictated using voice recognition software and may contain errors or omissions [facility] History I have reviewed the patient's past medical history: Yes Medical History: Reports:: Anxiety, Depression, Diabetes Mellitus Type 2, Gastroesophageal Reflux Disease(GERD), Hypertension Denies:: Cancer, Diabetes Mellitus Type 1, Internal Pacemaker, MRSA, Seizures *Have you ever received a pneumonia vaccine?: Yes *Have you received a flu vaccine this season?: Yes Other Medical History: Reports: Anemia, Arthritis, Fibromyalgia. Denies: Blood Transfusion Reaction Laterality Cases: Right: Other Other Surgeries: Yes: No Previous Surgery, Colonoscopy, EGD, Other. No: Pacemaker Amputation: No Fractures: Yes (10 fractures Right Foot, 5 fractures Left Foot. L4/L5 vertebraes) - *Social History Smoking Status: Current every day smoker Tobacco Type: cigarettes # Packs/Day (cigarettes): 1 #Yrs smoked (if former smoker): 20 Alcohol Intake: never Alcohol Intake Frequency:: other Substance Use Type: denies use *Occupational Status:: other Housing: house Household Members: significant other *Travel in the last 8 weeks: None - Psychiatric History Pschychiatric History:: Reports:: Anxiety, Depression Family Hx:: Diabetes, Stroke, Heart Attack
--- NOTE | 2019-07-08 12:40 | PC.NURSE ---
GABAPENTIN 100MG BID WITH 2 REFILLS CALLED INTO [facility] PER PROVIDER ORDER
== END ==
PROVIDERS: PCP Internal Medicine Adolescent Medicine; Visit Provider Clinical Nurse Specialist Family Health
DX: M25.511 Pain in right shoulder (principal); M79.672 Pain in left foot; M79.671 Pain in right foot
CPT/HCPCS: 99212

== ENCOUNTER → 2019-06-16 10:02 | Outpatient (POV) | payer OTHER, SELFPAY ==
[2019-06-16 10:12] VITALS: BP 126/79; PULSE 83; RESP 18; O2SAT 99; BMI 36.0
--- NOTE | 2019-06-16 10:25 | HMH.PAINSOAP ---
[facility] Pain Management SOAP Note Subjective:: Patient is a pleasant 34-year-old female who presents today for follow-up. Patient's been on gabapentin at night and is doing extremely well with that she rates her pain a 2 out of 10 she denies side effects to this medication. [facility] #[id number] reviewed and appropriate. Patient states that it is been helping with not only her pain but also her restless leg syndrome. Overall patient doing well ROS General: no recent weight change, no fever, no sleep disturbances Respiratory: no cough, no shortness of air, no recurring pulmonary infections Cardiovascular/Peripheral Vascular: No chest pain, No palpitations, no edema, no shortness of breath. Gastrointestinal: no new onset incontinence, normal bowel movements reported Genitourinary: no new onset incontinence Musculoskeletal: Back pain, leg pain Psychiatric: normal mood/ affect Neurological: [denies new onset weakness in extremities], [denies new onset balance issues] Objective:: Physical Exam General: Alert and oriented x3, no acute distress, pleasant and cooperative, [on room air] Lungs: Resps E/U, Symmetrical chest expansion, Eyes: PERRL Musculoskeletal: Flexion and extension of lumbar spine somewhat guarded secondary to pain, deep tendon reflexes normal, strength in upper and lower extremities [5/5], slightly antalgic gait noted Neurological: speech clear, 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 We will dispense 60 and give her up to 2 refills. I will see her back in 3 months reassess her symptoms at that time she is been instructed to call the office if she has any issues prior to her next appointment. Dr. Madrid has reviewed this note and agrees with this plan of care. This note was dictated using voice recognition software and may contain errors or omissions [facility] History I have reviewed the patient's past medical history: Yes Medical History: Reports:: Anxiety, Depression, Diabetes Mellitus Type 2, Gastroesophageal Reflux Disease(GERD), Hypertension Denies:: Cancer, Diabetes Mellitus Type 1, Internal Pacemaker, MRSA, Seizures *Have you ever received a pneumonia vaccine?: Yes *Have you received a flu vaccine this season?: Yes Other Medical History: Reports: Anemia, Arthritis, Fibromyalgia. Denies: Blood Transfusion Reaction Laterality Cases: Right: Other Other Surgeries: Yes: No Previous Surgery, Colonoscopy, EGD, Other. No: Pacemaker Amputation: No Fractures: Yes (10 fractures Right Foot, 5 fractures Left Foot. L4/L5 vertebraes) - *Social History Smoking Status: Current every day smoker Tobacco Type: cigarettes # Packs/Day (cigarettes): 1 #Yrs smoked (if former smoker): 20 Alcohol Intake: never Alcohol Intake Frequency:: other Substance Use Type: denies use *Occupational Status:: other Housing: house Household Members: significant other *Travel in the last 8 weeks: None - Psychiatric History Pschychiatric History:: Reports:: Anxiety, Depression Family Hx:: Diabetes, Stroke, Heart Attack
[2019-06-16 11:27] LABS: Basophils % 0.4 % (0.1-2.0); Eosinophils # 0.1 K/mm3 (0.0-0.4); Eosinophils % 1.2 % (0.1-12.0); Hemoglobin 14.1 g/dL (12.2-16.2); Lymphocytes # 3.2 K/mm3 (0.7-4.5); Mean Corpuscular Hemoglobin 30.1 pg (27.0-31.2); Mean Corpuscular Volume 94.2 fl (81-99); Mean Platelet Volume 8.1 fl (7.4-10.4); Monocytes # 0.7 K/mm3 (0.1-1.0); Monocytes % 5.5 % (1.7-9.3); Neutrophils # 7.8 K/mm3 (1.8-7.8); Neutrophils % 65.9 % (37.0-80.0); Platelet Count 426 K/mm3 (142-424); Red Blood Count 4.67 M/mm3 (4.20-5.40); Red Cell Distribution Width 16.6 % (11.5-17.5); White Blood Count 11.9 K/mm3 (4.8-10.8)
[2019-06-16 14:35] LABS: Alanine Aminotransferase 10 U/L (12-78); Albumin Level 3.2 gm/dL (3.4-5.0); Albumin/Globulin Ratio 0.8 (1.1-1.8); Alkaline Phosphatase 113 U/L (46-116); Anion Gap 14.2 mEq/L (5-15); Aspartate Amino Transferase 9 U/L (15-37); Bilirubin,Total 0.1 mg/dL (0.2-1.0); Blood Urea Nitrogen 7 mg/dL (7-18); Calcium 8.5 mg/dL (8.5-10.1); Carbon Dioxide 28 mmol/L (21.0-32.0); Chloride 103 mmol/L (98-107); Creatinine Clearance Estimated 154 mL/min (50-200); Creatinine,Serum 0.76 mg/dL (0.55-1.02); Estimated Glomerular Filt Rate 86 ml/min (>60); Ferritin 305 ng/mL (8-388); GFR (African American) 104 ML/MIN (>60); Globulin 3.8 gm/dl (1.3-3.2); Glucose 94 mg/dL (74-106); Potassium 4.2 mmoL/L (3.5-5.1); Sodium 141 mmol/L (136-145)
[2019-06-17 08:12] LABS: Iron 90 ug/dL (27-159); UIBC 202 ug/dL (131-425)
[2019-06-19 05:19] LABS: Iron Saturation 31 % (15-55)
== END ==
PROVIDERS: PCP Internal Medicine Adolescent Medicine; Visit Provider Clinical Nurse Specialist Family Health
DX: M79.672 Pain in left foot (principal); M79.671 Pain in right foot; M25.511 Pain in right shoulder; D50.9 Iron deficiency anemia, unspecified; M54.9 Dorsalgia, unspecified
CPT/HCPCS: 36415; 80053; 82728; 83540; 83550; 85025; 99212

== ENCOUNTER → 2019-08-21 10:41 | Outpatient (CLI) | payer OTHER, SELFPAY ==
--- NOTE | 2019-08-21 10:45 | XR_ITS ---
PROCEDURE: XR FOOT WT BEARING LT 3V CLINICAL INDICATION: b/l foot and ankle pain COMPARISON: [id number] XR foot wt bearing RT 3V from 05/13/2018 [id number] XR foot wt bearing LT 3V from 05/13/2018 [id number] XR foot wt bearing LT 3V from 08/13/2018 [id number] XR foot wt bearing RT 3V from 08/13/2018 FINDINGS: No fracture or dislocation. No lytic or blastic change. There is normal mineralization. The joint spaces are well-preserved. No significant degenerative/arthritic changes. No erosive changes evident. Other findings:There is borderline pes planus IMPRESSION: Borderline pes planus otherwise negative Dictated by: Michael Moore MD 08/21/2019 11:37 Electronically signed by Michael Moore MD in [place] 08/21/2019 11:37
--- NOTE | 2019-08-21 10:45 | XR_ITS ---
PROCEDURE: XR ANKLE WT BEARING RT MIN 3V CLINICAL INDICATION: b/l foot and ankle pain COMPARISON: ANKL3 ANKLE-LT-3 VIEWS from 02/12/2017 [id number] XR ankle wt bearing RT min 3V from 05/13/2018 [id number] XR ankle wt bearing LT min 3V from 05/13/2018 [id number] XR ankle wt bearing RT min 3V from 08/13/2018 FINDINGS: There has been prior surgery with an oblique screw through the medial malleolar region into the distal tibia and a transverse screw at the base of the medial malleolus. Callus formation is present at the medial aspect of the distal tibia. No residual fracture lines evident at the distal tibia. There is a medial screw also through the superior aspect of the talus. There remains a lucency through the medial talus IMPRESSION: There postsurgical changes with good alignment. There is incomplete fusion of the osteotomy fragment of the medial malleolus overall not significantly changed with good alignment Dictated by: Michael Moore MD 08/21/2019 11:35 Electronically signed by Michael Moore MD in [place] 08/21/2019 11:35
--- NOTE | 2019-08-21 10:45 | XR_ITS ---
PROCEDURE: XR FOOT WT BEARING RT 3V CLINICAL INDICATION: b/l foot and ankle pain COMPARISON: FTWBR3 XR foot wt bearing RT 3V from 05/13/2018 FTWBL3 XR foot wt bearing LT 3V from 05/13/2018 FTWBL3 XR foot wt bearing LT 3V from 08/13/2018 FTWBR3 XR foot wt bearing RT 3V from 08/13/2018 FINDINGS: No fracture or dislocation. No lytic or blastic change. There is normal mineralization. There are minimal hypertrophic changes of distal aspect of the 1st metatarsal. There is mild pes planus. Are postsurgical changes ankle as described in the ankle report. Other findings:None. IMPRESSION: No change with no acute finding Dictated by: Michael Moore MD 08/21/2019 11:31 Electronically signed by Michael Moore MD in [place] 08/21/2019 11:31
--- NOTE | 2019-08-21 10:45 | XR_ITS ---
PROCEDURE: XR ANKLE WT BEARING LT MIN 3V CLINICAL INDICATION: b/l foot and ankle pain COMPARISON: ANKWBR3 XR ankle wt bearing RT min 3V from 05/13/2018 ANKWBL3 XR ankle wt bearing LT min 3V from 05/13/2018 ANKWBR3 XR ankle wt bearing RT min 3V from 08/13/2018 FINDINGS: No fracture or dislocation. No lytic or blastic change. The joint space is well preserved. The ankle mortise is preserved. The talar dome has an unremarkable appearance. IMPRESSION: Negative left ankle Dictated by: Michael Moore MD 08/21/2019 11:32 Electronically signed by Michael Moore MD in [place] 08/21/2019 11:32
== END ==
PROVIDERS: PCP Internal Medicine Adolescent Medicine; Visit Provider Podiatrist
DX: E55.9 Vitamin D deficiency, unspecified (principal); M76.62 Achilles tendinitis, left leg; M79.672 Pain in left foot; M79.671 Pain in right foot; E11.65 Type 2 diabetes mellitus with hyperglycemia; R20.2 Paresthesia of skin; M93.271 Osteochondritis dissecans, right ankle and joints of right foot; M25.572 Pain in left ankle and joints of left foot; M25.571 Pain in right ankle and joints of right foot; Z79.899 Other long term (current) drug therapy; Z79.84 Long term (current) use of oral hypoglycemic drugs
CPT/HCPCS: 73610; 73630

== ENCOUNTER → 2019-10-13 10:01 | Outpatient (POV) | payer OTHER, SELFPAY | PROVIDERS: PCP Nurse Practitioner Family; Referring Provider Nurse Practitioner Family; Visit Provider Specialist | DX: M79.641 Pain in right hand (principal); R20.0 Anesthesia of skin; R20.2 Paresthesia of skin | CPT/HCPCS: 95886; 95908 ==

== ENCOUNTER → 2019-11-05 13:03 | Outpatient (CLI) | payer OTHER, SELFPAY ==
[2019-11-05 15:04] LABS: Albumin Level 4.2 g/dl (3.5-5.0); Anion Gap 9.3 mEq/L (5-15); Blood Urea Nitrogen 9 mg/dl (7-17); Calcium 9.5 mg/dl (8.4-10.2); Carbon Dioxide 29 mmol/L (22.0-30.0); Chloride 103 mmol/L (98-107); Estimated Glomerular Filt Rate 81 ml/min (>60); GFR (African American) 98 ML/MIN (>60); Glucose 135 mg/dl (74-100); Phosphorous 3.4 mg/dl (2.5-4.5); Potassium 4.3 mmoL/L (3.5-5.1); Sodium 137 mmol/L (136-145)
[2019-11-05 15:12] LABS: Collection Time,Urine 24 hours; Patient Height,Urine 64 inches; Patient Weight,Urine 210 lbs; Total Volume,Urine 1300 mL (600-1600)
[2019-11-05 15:50] LABS: Creatinine 24 Hour,Urine 1508 mg/24hr (630-2500)
[2019-11-05 15:54] LABS: Creatinine Clearance Urine 113.8 mL/min (25-115); Creatinine,Urine Random 116 mg/dL (Not Estab.)
[2019-11-06 11:16] LABS: Vitamin D 25 Hydroxy 26.9 ng/mL (30.0-100.0)
[2019-11-06 12:56] LABS: Parathyroid Hormone Intact 27 pg/mL (15-65)
[2019-11-06 15:22] LABS: Calcium, Ionized 5.1 mg/dL (4.5-5.6)
[2019-11-07 08:18] LABS: Calcium, Urine 12.3 mg/dL (Not Estab.)
[2019-11-07 11:12] LABS: Calcium, Urine 24hr 160 mg/24 hr (47-462)
[2019-11-09 08:15] LABS: 1,25 Dihydroxy Vitamin D 50 pg/mL (.); 1,25-Dihydroxy, Vitamin D-2 <10 pg/mL (.); 1,25-Dihydroxy, Vitamin D-3 44 pg/mL (.)
[2019-11-13 11:36] LABS: N-Telopeptide Cross-linked 21.3 nmol BCE/L (6.2-19.0)
== END ==
PROVIDERS: Visit Provider Physician Assistant Medical
DX: M81.0 Age-related osteoporosis without current pathological fracture (principal); E83.30 Disorder of phosphorus metabolism, unspecified; M83.9 Adult osteomalacia, unspecified
CPT/HCPCS: 36415; 80069; 82330; 82340; 82523; 82575; 82652; 83970; 84080; 84105

== ENCOUNTER → 2019-12-16 10:54 | Outpatient (POV) | payer OTHER, SELFPAY ==
[2019-12-16 11:49] VITALS: BP 128/78; PULSE 82; RESP 18; TEMP 36.8; O2SAT 99; BMI 36.0
--- NOTE | 2019-12-16 12:45 | P.CONS_ITS ---
[facility] Pain Management SOAP Note Subjective:: Patient is a pleasant 34-year-old white female who presents today for follow-up. She is being medically managed at this point with gabapentin and tramadol and doing well she rates her pain a 2 out of 10. Clarence reviewed and appropriate. Clarence #[id number] reviewed. She is being treated for pain secondary to sacroiliitis and back pain. ROS General: no recent weight change, no fever, no sleep disturbances Respiratory: no cough, no shortness of air, no recurring pulmonary infections Cardiovascular/Peripheral Vascular: No chest pain, No palpitations, no edema, no shortness of breath. Gastrointestinal: no new onset incontinence, normal bowel movements reported Genitourinary: no new onset incontinence Musculoskeletal: Back pain, leg pain Psychiatric: normal mood/ affect Neurological: [denies new onset weakness in extremities], [denies new onset balance issues] Objective:: Physical Exam General: Alert and oriented x3, no acute distress, pleasant and cooperative, [on room air] Lungs: Resps E/U, Symmetrical chest expansion, Eyes: PERRL Musculoskeletal: Flexion and extension of lumbar spine somewhat guarded secondary to pain, deep tendon reflexes normal, strength in upper and lower extremities [5/5], antalgic gait noted Neurological: speech clear, therapist equal, no gross sensory deficits Assessment:: Back pain, shoulder pain, foot pain Plan:: We will refill her tramadol 150 mg 1 p.o. 3 times daily and gabapentin 100 mg 1 p.o. twice daily. We will see her back in 3 months reassess her symptoms at that time she has been instructed to call the office if she has any issues prior to her next appointment. Dr. Madrid has reviewed this note and agrees with this plan of care. This note was dictated using voice recognition software and may contain errors or omissions [facility] History I have reviewed the patient's past medical history: Yes Medical History: Reports:: Anxiety, Depression, Diabetes Mellitus Type 2, Gastroesophageal Reflux Disease(GERD), Hypertension Denies:: Cancer, Diabetes Mellitus Type 1, Internal Pacemaker, MRSA, Seizures *Have you ever received a pneumonia vaccine?: Yes *Have you received a flu vaccine this season?: Yes Other Medical History: Reports: Anemia, Arthritis, Fibromyalgia. Denies: Blood Transfusion Reaction Laterality Cases: Right: Other Other Surgeries: Yes: No Previous Surgery, Colonoscopy, EGD, Other. No: Pacemaker Amputation: No Fractures: Yes (10 fractures Right Foot, 5 fractures Left Foot. L4/L5 vertebraes) - *Social History Smoking Status: Current every day smoker Tobacco Type: cigarettes # Packs/Day (cigarettes): 1 #Yrs smoked (if former smoker): 20 Alcohol Intake: never Alcohol Intake Frequency:: other Substance Use Type: denies use *Occupational Status:: other Housing: house Household Members: significant other *Travel in the last 8 weeks: None - Psychiatric History Pschychiatric History:: Reports:: Anxiety, Depression Family Hx:: Diabetes, Stroke, Heart Attack
== END ==
PROVIDERS: PCP Internal Medicine Adolescent Medicine; Visit Provider Clinical Nurse Specialist Family Health
DX: M54.9 Dorsalgia, unspecified (principal); M25.519 Pain in unspecified shoulder; M79.673 Pain in unspecified foot
CPT/HCPCS: 99212

== ENCOUNTER → 2020-01-13 08:26 | Outpatient (CLI) | payer OTHER, SELFPAY ==
--- NOTE | 2020-01-13 08:30 | XR_ITS ---
PROCEDURE: XR WRIST RT MIN 3V CLINICAL INDICATION: right wrist pain/ CTS COMPARISON: No exams were available for comparison FINDINGS: No fracture or dislocation. No lytic or blastic change. There is normal mineralization. The joint spaces are well-preserved. No significant degenerative/arthritic changes. No erosive changes evident. Other findings:None. IMPRESSION: No acute findings. Dictated by: Michael Moore MD 01/13/2020 10:52 Electronically signed by Michael Moore MD in [place] 01/13/2020 10:52
== END ==
PROVIDERS: PCP Internal Medicine Adolescent Medicine; Visit Provider Orthopaedic Surgery
DX: M25.531 Pain in right wrist (principal)
CPT/HCPCS: 73110

== ENCOUNTER 2020-01-13 10:07 | Outpatient (RCR) | payer OTHER, SELFPAY | END 2020-01-13 10:49 | disposition home or self-care (01) | LOC: OT 10:07 | PROVIDERS: Visit Provider Orthopaedic Surgery | DX: G56.02 Carpal tunnel syndrome, left upper limb (principal) | CPT/HCPCS: 97763 ==

== ENCOUNTER → 2020-01-14 11:30 | Outpatient (CLI) | payer OTHER, SELFPAY ==
--- NOTE | 2020-01-14 11:35 | XR_ITS ---
PROCEDURE: XR CHEST 2V CLINICAL INDICATION: HX OF SMOKING, HIGH BLOOD PRESSURE COMPARISON: XR CHEST 2V from 03/19/2019 XR CHEST 2V from 05/13/2019 FINDINGS: No fracture or dislocation. No lytic or blastic change. There is normal mineralization. The joint spaces are well-preserved. No significant degenerative/arthritic changes. No erosive changes evident. Other findings:None. IMPRESSION: No acute findings. Dictated by: Michael Moore MD 01/14/2020 12:06 Electronically signed by Michael Moore MD in [place] 01/14/2020 12:06
[2020-01-14 12:51] LABS: Basophils # 0.1 K/mm3 (0-0.2); Basophils % 0.5 % (0.1-2.0); Eosinophils # 0.1 K/mm3 (0.0-0.4); Eosinophils % 1.1 % (0.1-12.0); Hematocrit 41.4 % (37.0-47.0); Hemoglobin 13.8 g/dL (12.2-16.2); Lymphocytes % 26.3 % (10-50); Mean Corpuscular HGB Conc 33.3 g/dL (31.8-35.4); Mean Corpuscular Volume 93.1 fl (81-99); Mean Platelet Volume 7.9 fl (7.4-10.4); Monocytes # 0.7 K/mm3 (0.1-1.0); Monocytes % 6.1 % (1.7-9.3); Neutrophils # 7.5 K/mm3 (1.8-7.8); Neutrophils % 66.2 % (37.0-80.0); Platelet Count 439 K/mm3 (142-424); Red Blood Count 4.44 M/mm3 (4.20-5.40); Red Cell Distribution Width 14.2 % (11.5-17.5); White Blood Count 11.3 K/mm3 (4.8-10.8)
[2020-01-14 13:27] LABS: Hemoglobin A1C 6.1 % (4.0-6.0)
[2020-01-14 13:41] LABS: Chloride 103 mmol/L (98-107); Potassium 3.7 mmoL/L (3.5-5.1); Sodium 139 mmol/L (136-145)
[2020-01-14 13:44] LABS: Alanine Aminotransferase 16 U/L (12-78); Albumin Level 3.9 g/dl (3.5-5.0); Albumin/Globulin Ratio 1.6 (1.1-1.8); Alkaline Phosphatase 101 U/L (38-126); Anion Gap 12.7 mEq/L (5-15); Aspartate Amino Transferase 20 U/L (14-36); Bilirubin,Total 0.4 mg/dl (0.2-1.3); Blood Urea Nitrogen 8 mg/dl (7-17); Carbon Dioxide 27 mmol/L (22.0-30.0); Estimated Glomerular Filt Rate 81 ml/min (>60); GFR (African American) 98 ML/MIN (>60); Globulin 2.5 g/dL (1.3-3.2); Total Protein,Serum 6.4 g/dl (6.3-8.2)
[2020-01-14 13:45] LABS: Calcium 9.1 mg/dl (8.4-10.2); Glucose 113 mg/dl (74-100)
[2020-01-14 14:06] LABS: Coronavirus 19 IgG Antibody Negative (Negative); Coronavirus 19 IgM Antibody Negative (Negative)
== END ==
PROVIDERS: PCP Internal Medicine Adolescent Medicine; Visit Provider Orthopaedic Surgery
DX: Z01.818 Encounter for other preprocedural examination (principal); G56.01 Carpal tunnel syndrome, right upper limb
CPT/HCPCS: 36415; 71046; 80053; 83036; 85025; 86328

== ENCOUNTER 2020-01-16 11:09 | Day surgery (SDC) | payer OTHER, SELFPAY ==
[2020-01-14 11:36] VITALS: BMI 36.7
[2020-01-16 11:51] VITALS: BP 144/82; PULSE 80; RESP 18; TEMP 36.6; O2SAT 96
[2020-01-16 12:02] LABS: Urine Pregnancy, HCG Qual. Negative (Negative)
[2020-01-16 12:09] LABS: POC Glucose,Bedside 96 (70-110)
[2020-01-16 14:49] VITALS: BP 118/72; PULSE 80; RESP 18; TEMP 36.4; O2SAT 93
[2020-01-16 15:04] VITALS: BP 115/79; PULSE 78; RESP 18; TEMP 36.4; O2SAT 94
--- NOTE | 2020-01-16 15:07 | HMH.OPNOTE ---
Date of procedure: 01/16/20 Pre-op Diagnosis:: Carpal tunnel syndrome, right wrist Post-op Diagnosis:: Same Procedure performed:: Open carpal tunnel release, right wrist Surgeon:: Collin Cervantes MD FITTER UP:: Naresh Pink Anesthesia: regional (Supraclavicular nerve block) Estimated blood loss (mL): 1 Clinical Note:: Patient is 34-year-old female with right carpal tunnel syndrome with long-standing symptoms. Previously EMG/NCV results confirmed a moderate carpal tunnel syndrome with chronic neuropathic changes in the right APB muscle. Patient is having significant and disabling symptoms and has failed to respond adequately to conservative management. Therefore the carpal tunnel release surgery is necessary to relieve symptoms, preserve the remaining fibers of the median nerve, improve function and decrease the pain, paresthesias and weakness and to prevent permanent nerve damage. Please refer to my office note for full details. Operative findings:: The intraoperative findings showed the median nerve to be very tightly compressed and hyperemic. The flexor retinaculum was noted to be thick and tight. There was mild synovitis in the carpal tunnel. There was no evidence of any space-occupying lesions within the carpal tunnel. Operative note:: On the day of the surgery the patient was met in the preoperative area. Patient was positively identified and the operative site was marked and initialed by me. A physical examination was performed and the chart was updated. I again discussed the procedure, risks and benefits and alternatives with the patient. The complications discussed include but are not limited to- bleeding, injury to nerves, blood vessels and tendons, infection, wound dehiscence, incomplete relief/continued pain, persistent numbness, palmar hypersensitivity, pillar pain, DVT/PE, complex regional pain syndrome(CRPS), worsening of nerve damage, failure of the condition to improve, incomplete return of function, bowstringing of tendons, weakness of jewelry sales strength, recurrence, failure of the surgery to accomplish the desired goals, decreased use of the hand, loss of use of the arm, loss of the hand or arm, loss of life. Likely need for further surgery in the future has been discussed. I've indicated to the patient where the proposed incision would be made and also discussed the possibility of extending the incision if needed to accomplish an effective release. We have discussed how the goal of surgery is to protect the fibers which have remained healthy and hopefully reverse the symptoms of the fibers which are compromised but still recoverable. We have explained that, fibers that are permanently damaged will not recover. Patient asked appropriate questions and all have been answered by me. Patient wished to proceed with the surgery. Patient understood the risks, agreed to proceed with surgery, and no guarantees or assurances were given or implied. The patient was brought to the operating room and placed supine on the operating table. The right upper extremity was placed over a side table. All the bony prominences were well-padded. The patient had a supraclavicular nerve block anesthesia and IV sedation administered by the bark tanner. The right upper extremity was prepped and draped in the usual sterile fashion. A preprocedure timeout was performed as per hospital policy. The skin incision was marked using the Ludwig's landmarks, just ulnar to the thenar crease. The limb was exsanguinated with the Esmarch bandage and tourniquet was inflated to 250 mmHg. Please see nursing records for the total tourniquet time. Ludwig's landmarks were utilized and a skin incision was made parallel and just ulnar to the thenar crease with a 15 blade. Blunt tissue dissection was carried through the subcutaneous tissue down to the palmar fascia. The palmar fascia was incised with the knife to reveal the transverse carpal ligament. The transverse carpal ligament was adequately e
[2020-01-16 15:19] VITALS: BP 122/70; PULSE 81; RESP 18; TEMP 36.4; O2SAT 93
[2020-01-16 15:28] VITALS: TEMP 38
[2020-01-16 15:34] VITALS: BP 125/74; PULSE 80; RESP 18; TEMP 36.4; O2SAT 94
== END 2020-01-16 15:34 | disposition home or self-care (01) ==
LOC: OR 11:10
PROVIDERS: PCP Internal Medicine Adolescent Medicine; Visit Provider Orthopaedic Surgery
PROC: (CPT 64721; principal; 2020-01-16 12:30)
DX: G56.01 Carpal tunnel syndrome, right upper limb (principal); E11.9 Type 2 diabetes mellitus without complications; Z79.84 Long term (current) use of oral hypoglycemic drugs; Z88.0 Allergy status to penicillin; Z88.8 Allergy status to other drugs, medicaments and biological substances; Z79.899 Other long term (current) drug therapy
CPT/HCPCS: 64721; 81025; 82962; 96374; J0670

== ENCOUNTER 2020-02-08 08:14 | Emergency (ER) | payer OTHER, SELFPAY ==
[2020-02-08 08:18] VITALS: BP 138/102; PULSE 107; RESP 18; TEMP 36.7; O2SAT 99; BMI 35.7
--- NOTE | 2020-02-08 08:28 | HMH.EDGENADL ---
ED Disposition Clinical Impression: Flank pain, RLQ abdominal pain Hematuria Qualifiers: Hematuria type: gross Qualified Code(s): R31.0 - Gross hematuria Disposition: Home, Self-Care Condition on Discharge: Good Instructions: DI for Kidney Stones, DI for Abdominal Pain-Adult Prescriptions: Ketorolac Tromethamine [Toradol 10mg tablet] 10 mg PO Q6H 3 Days #20 tab Prescription Printed Referrals: Darryl Davis MD [Primary Care Provider] - 02/09/20 Miguel Pichardo MD [Staff Physician] - 02/10/20 - Critical Care Critical Care Time: No Attestation: On 02/08/20, the high probability of a clinically significant, sudden or life threatening deterioration of the following system(s) required my full and direct attention, intervention and personal management. The time I documented below is in addition to time spent performing reported procedures but includes the following listed in this critical care notation. Medical Decision Making - Medical Records Medical records reviewed: Yes: I reviewed the patient's medical records. - Clarence Inquiry Pt receiving controlled substance: Yes Clarence was queried for this patient: No Risks and benefits of using a controlled substance: were discussed with pt by me Vital Signs: 02/08/20 08:18 02/08/20 08:52 Temperature 98.0 F Temperature Source Oral Pulse Rate [Right Radial] 107 H 88 Respiratory Rate 18 Blood Pressure [Right Arm] 138/102 H 134/94 H Blood Pressure Mean [Right Arm] 114 107 Blood Pressure Source [Right Arm] Automatic Cuff Blood Pressure Position [Right Arm] Sitting Sitting 02 Sat by Pulse Oximetry 99 98 Oxygen Delivery Method Room Air Room Air - Lab Data Lab Results 02/08/20 08:30: Urine Color Yellow, Urine Appearance Cloudy, Urine pH 7.5, Ur Specific [place] 1.020, Urine Protein Negative, Urine Glucose (UA) Negative, Urine Ketones Negative, Urine Blood 3+, Urine Nitrate Negative, Urine Bilirubin Negative, Urine Urobilinogen 0.2, Ur Leukocyte Esterase Negative, Urine RBC 50-100, Urine WBC Occasional, Ur Squamous Epith Cells 3-5, Amorphous Sediment 1+, Urine Bacteria None 02/08/20 08:30: WBC 15.1 H, RBC 4.67, Hgb 14.4, Hct 43.5, MCV 93.1, MCH 30.9, MCHC 33.2, RDW 14.2, Plt Count 441 H, MPV 7.7, Neut % (Auto) 64.6, Lymph % (Auto) 26.6, [place] % (Auto) 6.5, Eos % (Auto) 1.6, Baso % (Auto) 0.7, Neut # (Auto) 9.8 H, Lymph # (Auto) 4.0, [place] # (Auto) 1.0, Eos # (Auto) 0.3, Baso # (Auto) 0.1, Total Counted 100, Neutrophils % (Manual) 64, Lymphocytes % (Manual) 30, Monocytes % (Manual) 4, Eosinophils % (Manual) 2, Platelet Estimate Normal, RBC Morphology Normal 02/08/20 08:30: Urine HCG, Qual Negative 02/08/20 08:30: Sodium 141, Potassium 3.3 L, Chloride 103, Carbon Dioxide 28, Anion Gap 13.3, BUN 8, Creatinine 0.90, Estimated Creat Clear 133, Estimated GFR 71, Est GFR ( Amer) 86, Glucose 126 H, Calcium 9.6 Result diagrams: 02/08/20 08:30 02/08/20 08:30 Orders (Tests/Meds): ED MEDICATIONS Generic Name Dose Route Start Last Admin Trade Name Freq PRN Reason Stop Dose Admin Sodium Chloride 1,000 mls @ 999 mls/hr 02/08/20 08:30 02/08/20 08:31 Sod Chlor 0.9% 1000ml Bag IV 02/08/20 09:30 999 mls/hr .[id number] RICHARD Administration Discontinued Medications Generic Name Dose Route Start Last Admin Trade Name Freq PRN Reason Stop Dose Admin Ketorolac Tromethamine 15 mg 02/08/20 08:28 02/08/20 08:30 Toradol 30mg/Ml Vial IV 02/08/20 08:29 15 mg ONCE ONE Administration Morphine Sulfate 4 mg 02/08/20 08:48 02/08/20 08:53 Morphine 4mg/Ml Syringe IV 02/08/20 08:49 4 mg ONCE ONE Administration Ondansetron HCl 4 mg 02/08/20 08:28 02/08/20 08:31 Zofran 4mg/2ml Vial IV 02/08/20 08:29 4 mg ONCE ONE Administration - US Data US Images: Abdomen ED US Reviewed: Yes: I have reviewed the patient's US results Preliminary Findings: Normal/NAD (Bedside US shows no significant hydronephrosis.) Medical Decision Narrative: Pt romaine
[2020-02-08 08:34] LABS: Microscopic, Urine URINE MICROSCOPIC (MICROSCOPIC)
[2020-02-08 08:36] LABS: Basophils # 0.1 K/mm3 (0-0.2); Basophils % 0.7 % (0.1-2.0); Eosinophils # 0.3 K/mm3 (0.0-0.4); Eosinophils % 1.6 % (0.1-12.0); Hematocrit 43.5 % (37.0-47.0); Hemoglobin 14.4 g/dL (12.2-16.2); Lymphocytes % 26.6 % (10-50); Mean Corpuscular HGB Conc 33.2 g/dL (31.8-35.4); Mean Corpuscular Hemoglobin 30.9 pg (27.0-31.2); Mean Corpuscular Volume 93.1 fl (81-99); Mean Platelet Volume 7.7 fl (7.4-10.4); Monocytes % 6.5 % (1.7-9.3); Neutrophils # 9.8 K/mm3 (1.8-7.8); Neutrophils % 64.6 % (37.0-80.0); Platelet Count 441 K/mm3 (142-424); Red Blood Count 4.67 M/mm3 (4.20-5.40); Red Cell Distribution Width 14.2 % (11.5-17.5); White Blood Count 15.1 K/mm3 (4.8-10.8)
[2020-02-08 08:37] LABS: Appearance,Urine CLOUDY (Clear); Bilirubin,Urine Negative (Negative); Blood, Urine 3+ (Negative); Color,Urine YELLOW (Yellow); Glucose,Urine (UA) Negative (Negative); Ketones,Urine Negative (Negative); Leukocyte Esterase,Urine Negative (Negative); Nitrate,Urine Negative (Negative); PH,Urine 7.5 (5.0-8.5); Protein,Urine Negative (Negative); Urobilinogen,Urine 0.2 EU/dl (0.2)
[2020-02-08 08:38] LABS: Urine Pregnancy, HCG Qual. Negative (Negative)
[2020-02-08 08:40] LABS: Chloride 103 mmol/L (98-107); MANUAL DIFFERENTIAL MANUAL DIFFERENTIAL (MANUAL DIFF); Potassium 3.3 mmoL/L (3.5-5.1); Sodium 141 mmol/L (136-145)
[2020-02-08 08:43] LABS: Anion Gap 13.3 mEq/L (5-15); Blood Urea Nitrogen 8 mg/dl (7-17); Carbon Dioxide 28 mmol/L (22.0-30.0); Creatinine Clearance Estimated 133 mL/min (50-200); Estimated Glomerular Filt Rate 71 ml/min (>60); GFR (African American) 86 ML/MIN (>60)
[2020-02-08 08:44] LABS: Calcium 9.6 mg/dl (8.4-10.2); Glucose 126 mg/dl (74-100)
[2020-02-08 08:47] LABS: Amorphous Sediment,Urine 1+ /lpf; RBC,Urine 50-100 #/hpf (0-3); WBC,Urine Occasional #/hpf (0-3)
--- NOTE | 2020-02-08 08:48 | PC.NURSE ---
pt continues to c/o pain states meds given have not helped
[2020-02-08 08:50] LABS: Eosinophils % 2 % (0-3); Lymphocytes % 30 % (10-50); Monocytes % 4 % (2-9); Neutrophils % 64 % (42-76); Platelet Estimate Normal; RBC Morphology Normal; Total Cells Counted 100
[2020-02-08 08:52] VITALS: BP 134/94; PULSE 88; O2SAT 98
--- NOTE | 2020-02-08 09:20 | PC.NURSE ---
DR MIGUELINA ISABEL
[2020-02-08 09:33] VITALS: BP 134/94; PULSE 85; RESP 17; TEMP 36.7; O2SAT 99
== END 2020-02-08 09:34 | disposition home or self-care (01) ==
PROVIDERS: Emergency Provider Emergency Medicine; PCP Internal Medicine Adolescent Medicine
DX: R10.31 Right lower quadrant pain (principal); Z87.442 Personal history of urinary calculi; I10 Essential (primary) hypertension; E11.9 Type 2 diabetes mellitus without complications; F41.8 Other specified anxiety disorders; K21.9 Gastro-esophageal reflux disease without esophagitis; M79.7 Fibromyalgia; F17.210 Nicotine dependence, cigarettes, uncomplicated; Z88.0 Allergy status to penicillin; Z79.899 Other long term (current) drug therapy
CPT/HCPCS: 80048; 81001; 81025; 85007; 85025; 96365; 96375; 99283; J2405

== ENCOUNTER → 2020-02-10 13:42 | Outpatient (CLI) | payer OTHER, SELFPAY ==
--- NOTE | 2020-02-10 13:44 | XR_ITS ---
PROCEDURE: XR KUB CLINICAL INDICATION: kidney stone Right-sided flank pain COMPARISON: No exams were available for comparison FINDINGS: There is a mild amount of retained colonic feces. 3 mm calcific density overlies the mid polar region of left kidney. A 2 mm calcific density is present in the right pelvic region which could represent a phleboliths or a distal ureteral calculus. IMPRESSION: 1. Left nephrolithiasis. 2. Possible right distal ureteral calculus. Dictated by: Michael Moore MD 02/10/2020 14:15 Michael Moore MD in [place] 02/10/2020 14:15
== END ==
PROVIDERS: PCP Internal Medicine Adolescent Medicine; Visit Provider Urology
DX: N20.0 Calculus of kidney (principal)
CPT/HCPCS: 74018

== ENCOUNTER → 2020-03-15 11:02 | Outpatient (POV) | payer OTHER, SELFPAY ==
[2020-03-15 11:11] VITALS: BP 128/74; PULSE 71; RESP 18; O2SAT 98; BMI 33.4
--- NOTE | 2020-03-15 16:48 | P.CONS_ITS ---
[facility] Pain Management SOAP Note Subjective:: Patient is a pleasant 35-year-old white female who presents today for follow-up. She is being medically managed with gabapentin and tramadol and doing well she rates her pain 3 out of 10. [facility] reviewed and appropriate. [facility] #[id number] reviewed and appropriate. Patient is seen new intensive care unit nurse. Patient is awaiting a CT scan. ROS General: no recent weight change, no fever, no sleep disturbances Respiratory: no cough, no shortness of air, no recurring pulmonary infections Cardiovascular/Peripheral Vascular: No chest pain, No palpitations, no edema, no shortness of breath. Gastrointestinal: no new onset incontinence, normal bowel movements reported Genitourinary: no new onset incontinence Musculoskeletal: Back pain, SI joint pain, foot pain Psychiatric: normal mood/ affect Neurological: [denies new onset weakness in extremities], [denies new onset balance issues] Objective:: Physical Exam General: Alert and oriented x3, no acute distress, pleasant and cooperative, [on room air] Lungs: Resps E/U, Symmetrical chest expansion, Eyes: PERRL Musculoskeletal: Flexion and extension of lumbar spine somewhat guarded secondary to pain, deep tendon reflexes normal, strength in upper and lower extremities [5/5], [abnormal gait noted] Neurological: speech clear, waste management specialist equal, no gross sensory deficits Assessment:: Degenerative disc disease lumbar spine lumbar radiculopathy, sacroiliitis, foot pain Plan:: We will continue her tramadol 50 mg 1 p.o. 3 times daily and gabapentin 100 mg 1 p.o. twice daily. We will give her 3 months worth of medication. We will see her back in 3 months reassess her symptoms at that time she has been instructed to call the office if she has any issues prior to her next appointment. Dr. Madrid has reviewed this note and agrees with this plan of care. This note was dictated using voice recognition software and may contain errors or omissions [facility] History I have reviewed the patient's past medical history: Yes Medical History: Reports:: Anxiety, Depression, Diabetes Mellitus Type 2, Gastroesophageal Reflux Disease(GERD), Hyperlipidemia, Hypertension, Kidney Stones, Nephritis Denies:: Cancer, Diabetes Mellitus Type 1, Internal Pacemaker, MRSA, Seizures *Have you ever received a pneumonia vaccine?: Yes *Have you received a flu vaccine this season?: Yes Other Medical History: Reports: Anemia, Arthritis, Fibromyalgia. Denies: Blood Transfusion Reaction Laterality Cases: Right: Carpal Tunnel Release, Other Other Surgeries: Yes: No Previous Surgery, Colonoscopy, EGD, Other. No: Pacemaker Amputation: No Fractures: Yes (10 fractures Right Foot, 5 fractures Left Foot. L4/L5 vertebraes) - *Social History Smoking Status: Current every day smoker Tobacco Type: cigarettes # Packs/Day (cigarettes): 1 #Yrs smoked (if former smoker): 20 Alcohol Intake: never Alcohol Intake Frequency:: other Substance Use Type: denies use *Occupational Status:: other Housing: house Household Members: significant other *Travel in the last 8 weeks: None - Psychiatric History Pschychiatric History:: Reports:: Anxiety, Depression Family Hx:: Diabetes, Stroke, Heart Attack
== END ==
PROVIDERS: PCP Internal Medicine Adolescent Medicine; Visit Provider Clinical Nurse Specialist Family Health
DX: M51.16 Intervertebral disc disorders with radiculopathy, lumbar region (principal); M46.1 Sacroiliitis, not elsewhere classified; M79.673 Pain in unspecified foot
CPT/HCPCS: 99212

== ENCOUNTER → 2020-03-17 09:06 | Outpatient (CLI) | payer OTHER, SELFPAY ==
--- NOTE | 2020-03-17 09:10 | MR_ITS ---
PROCEDURE: MR ANKLE RT WO CON CLINICAL INDICATION: ANKLE PAIN PT C/O RT ANKLE PAIN AND INSTABILITY. PT HAD SURGERY ON RT ANKLE IN 2016 AND STATES IT DIDNT FULLY HEAL. PT HAS HX OF RICHARD AND OSTEOMALCIA. PRIOR RT ANKLE XRAY 08/21/19 COMPARISON: CR XR ANKLE WT BEARING RT MIN 3V from 08/21/2019 TECHNIQUE: Routine multiplanar multi echo sequences are performed without gadolinium enhancement. FINDINGS: For or artifact is present from metallic hardware within the distal tibia and talar dome. This obscures fine detail in these areas. The tibiofibular ligaments appear intact. The PT FL is intact. There is increased T2 signal with ill definition of the ATFL suggesting partial tear or sprain. There is a small amount of fluid in this region. The deltoid ligament is not identified but could be secondary to the artifact from the bony hardware. There are osteoarthritic changes at the posterior subtalar joint. A small amount of fluid is present in the posterior aspect of the ankle joint at the talocalcaneal region. There is some irregularity and increased T2 signal of the os trigonum.. Increased T2 signal involves the lateral aspect and central aspect of the talus which is nonspecific. There does appear to be some cortical regularity involving the dome of the talus medially. Artifact however does obscure fine detail in this region. There is some irregularity of the cortex of the tibial plafond and with some sclerosis. The Achilles tendon has an unremarkable appearance. Nonspecific increased T2 signal involves the peroneus longus and brevis tendons in the proximal foot is some which may be due to magic angle artifact. Tendinitis is also considered. The posterior tibialis, flexor digitorum longus, and flexor hallucis longus tendons have an unremarkable appearance. The extensor tendons also appear unremarkable. IMPRESSION: 1. Postsurgical changes with artifact at the distal tibia and talar dome. There is some cortical irregularity of the talar dome medially and of the tibial plafond which may be due to osteoarthritic changes 2. Increased T2 signal with thickening of the ATFL suggesting partial tear or sprain 3. Osteoarthritic changes of the ankle joint and posterior subtalar joint with some increased T2 signal involving the os trigonum and fluid present posterior to the os trigonum which could be seen with posterior ankle impingement. 4. Possible tendinitis of the peroneus longus and peroneus brevis tendons Dictated by: Michael Moore MD 03/21/2020 12:36 Michael Moore MD in [place] 03/21/2020 12:36
== END ==
PROVIDERS: PCP Internal Medicine Adolescent Medicine; Visit Provider Orthopaedic Surgery Foot and Ankle Surgery
DX: M25.571 Pain in right ankle and joints of right foot (principal)
CPT/HCPCS: 73721

== ENCOUNTER → 2020-03-24 10:28 | Outpatient (CLI) | payer OTHER, SELFPAY ==
--- NOTE | 2020-03-24 10:33 | XR_ITS ---
PROCEDURE: XR WRIST LT MIN 3V CLINICAL INDICATION: left wrist pain/ CTS COMPARISON: CR XR WRIST RT MIN 3V from 01/13/2020 FINDINGS: No fracture or dislocation. No lytic or blastic change. There is normal mineralization. The joint spaces are well-preserved. No significant degenerative/arthritic changes. No erosive changes evident. Other findings:None. IMPRESSION: No acute findings. Dictated by: Michael Moore MD 03/24/2020 14:30 Michael Moore MD in [place] 03/24/2020 14:30
[2020-03-24 11:50] LABS: Basophils # 0.1 K/mm3 (0-0.2); Basophils % 0.5 % (0.1-2.0); Eosinophils # 0.1 K/mm3 (0.0-0.4); Eosinophils % 0.7 % (0.1-12.0); Hematocrit 42.4 % (37.0-47.0); Hemoglobin 13.1 g/dL (12.2-16.2); Lymphocytes # 2.9 K/mm3 (0.7-4.5); Lymphocytes % 22.1 % (10-50); Mean Corpuscular Hemoglobin 30.4 pg (27.0-31.2); Mean Corpuscular Volume 97.9 fl (81-99); Mean Platelet Volume 7.4 fl (7.4-10.4); Monocytes # 0.8 K/mm3 (0.1-1.0); Monocytes % 6.4 % (1.7-9.3); Neutrophils # 9.2 K/mm3 (1.8-7.8); Neutrophils % 70.3 % (37.0-80.0); Platelet Count 463 K/mm3 (142-424); Red Blood Count 4.33 M/mm3 (4.20-5.40); Red Cell Distribution Width 14.8 % (11.5-17.5); White Blood Count 13.1 K/mm3 (4.8-10.8)
[2020-03-24 12:34] LABS: Chloride 104 mmol/L (98-107); Potassium 3.7 mmoL/L (3.5-5.1); Sodium 140 mmol/L (136-145)
[2020-03-24 12:36] LABS: Blood Urea Nitrogen 9 mg/dl (7-17); Estimated Glomerular Filt Rate 70 ml/min (>60); GFR (African American) 85 ML/MIN (>60)
[2020-03-24 12:37] LABS: Alanine Aminotransferase 16 U/L (12-78); Albumin Level 3.8 g/dl (3.5-5.0); Albumin/Globulin Ratio 1.4 (1.1-1.8); Alkaline Phosphatase 103 U/L (38-126); Anion Gap 10.7 mEq/L (5-15); Aspartate Amino Transferase 19 U/L (14-36); Bilirubin,Total 0.4 mg/dl (0.2-1.3); Calcium 9.4 mg/dl (8.4-10.2); Carbon Dioxide 29 mmol/L (22.0-30.0); Globulin 2.7 g/dL (1.3-3.2); Glucose 129 mg/dl (74-100); Total Protein,Serum 6.5 g/dl (6.3-8.2)
[2020-03-24 13:23] LABS: Coronavirus 19 IgG Antibody Negative (Negative); Coronavirus 19 IgM Antibody Negative (Negative)
== END ==
PROVIDERS: PCP Internal Medicine Adolescent Medicine; Visit Provider Orthopaedic Surgery
DX: Z01.89 Encounter for other specified special examinations (principal); G56.02 Carpal tunnel syndrome, left upper limb; M25.532 Pain in left wrist
CPT/HCPCS: 36415; 73110; 80053; 85025; 86328

== ENCOUNTER 2020-03-25 07:56 | Day surgery (SDC) | payer OTHER, SELFPAY ==
[2020-03-23 11:15] VITALS: BMI 33.9
[2020-03-25 08:08] VITALS: BP 120/70; PULSE 85; RESP 18; TEMP 37.3; O2SAT 96
[2020-03-25 08:18] LABS: HCG Qualitative, Serum Negative (Negative)
--- NOTE | 2020-03-25 08:58 | HMH.ANESCL ---
[facility] Anesthesia Checklist - Patient Identification Patient Identification: Arm Band - Structural Data Admitted From: Home Planned Operative Procedure/s: Left Carpal Tunnel Release Consent for Planned Operative Procedure(s) Verified: Yes Verified Documents: Surgical Consent, History and Physical - NPO Status Verified Time NPO: 00:00 - Additional verifications Anesthesia Reactions: No Hx Blood Transfusions: No Blood Transfusion Reaction: No - Airway Assessment C-Spine Mobility Assessed: Yes (mp2) TMJ Mobility Assessed: Yes Dentition: Good Dentition - Neurological Assessment Level of Consciousness: Awake, Alert - Anesthesia Plan Anesthesia Risk discussed: Yes Anesthesia Plan: Verified ASA Class: III Anesthesia Type: MAC w/Block (Risks/benefits of nerve block explained. Pt verbalized understanding) [facility] History I have reviewed the patient's past medical history: Yes Medical History: Reports:: Anxiety, Depression, Diabetes Mellitus Type 2, Gastroesophageal Reflux Disease(GERD), Hyperlipidemia, Hypertension, Kidney Stones, Nephritis Denies:: Cancer, Diabetes Mellitus Type 1, Internal Pacemaker, MRSA, Seizures *Have you ever received a pneumonia vaccine?: No *Have you received a flu vaccine this season?: No Other Medical History: Reports: Anemia, Arthritis, Fibromyalgia. Denies: Blood Transfusion Reaction Anesthesia experience/problems:: nac Laterality Cases: Right: Carpal Tunnel Release, Other Other Surgeries: Yes: Colonoscopy, EGD, Other. No: Pacemaker Amputation: No Fractures: Yes (10 fractures Right Foot, 5 fractures Left Foot. L4/L5 vertebraes) - *Social History Smoking Status: Current every day smoker Tobacco Type: cigarettes # Packs/Day (cigarettes): 1 #Yrs smoked (if former smoker): 20 Alcohol Intake: never Alcohol Intake Frequency:: other Substance Use Type: denies use *Occupational Status:: unemployed Housing: house Household Members: significant other *Travel in the last 8 weeks: None - Psychiatric History Pschychiatric History:: Reports:: Anxiety, Depression Family Hx:: Diabetes, Stroke, Heart Attack
[2020-03-25 10:23] VITALS: BP 120/80; PULSE 75; RESP 16; TEMP 36.6; O2SAT 92
[2020-03-25 10:38] VITALS: BP 113/69; PULSE 75; RESP 16; TEMP 36.6; O2SAT 92
[2020-03-25 10:53] VITALS: BP 116/69; PULSE 81; RESP 18; TEMP 36.6; O2SAT 92
[2020-03-25 11:05] VITALS: BP 116/69; PULSE 85; RESP 18; TEMP 36.6; O2SAT 94
--- NOTE | 2020-03-25 14:04 | HMH.OPNOTE ---
Date of procedure: 03/25/20 Pre-op Diagnosis:: Carpal tunnel syndrome, left Post-op Diagnosis:: Same Procedure performed:: Open carpal tunnel release, left Surgeon:: Collin Cervantes MD SAFETY NET MAKER:: Naresh Pink Anesthesia: regional (Supraclavicular nerve block) Estimated blood loss (mL): 2 Clinical Note:: Patient is 35-year-old female with left carpal tunnel syndrome with long-standing symptoms. Her EMG/NCV studies confirmed carpal tunnel syndrome on both sides and she previously underwent successful carpal tunnel release on the right side. Patient is having significant and disabling symptoms on the left side and has failed to respond adequately to conservative management. Therefore the carpal tunnel release surgery is necessary to relieve symptoms, preserve the remaining fibers of the median nerve, improve function and decrease the pain, paresthesias and weakness and to prevent permanent nerve damage. Please refer to my office note for full details. Operative findings:: The intraoperative findings showed the median nerve to be very tightly compressed and hyperemic. The flexor retinaculum was noted to be thick and tight. There was mild synovitis in the carpal tunnel. There was no evidence of any space-occupying lesions within the carpal tunnel. Operative note:: On the day of the surgery the patient was met in the preoperative area. Patient was positively identified and the operative site was marked and initialed by me. A physical examination was performed and the chart was updated. I again discussed the procedure, risks and benefits and alternatives with the patient. The complications discussed include but are not limited to- bleeding, injury to nerves, blood vessels and tendons, infection, wound dehiscence, incomplete relief/continued pain, persistent numbness, palmar hypersensitivity, pillar pain, DVT/PE, complex regional pain syndrome(CRPS), worsening of nerve damage, failure of the condition to improve, incomplete return of function, bowstringing of tendons, weakness of taproom attendant strength, recurrence, failure of the surgery to accomplish the desired goals, decreased use of the hand, loss of use of the arm, loss of the hand or arm, loss of life. Likely need for further surgery in the future has been discussed. I've indicated to the patient where the proposed incision would be made and also discussed the possibility of extending the incision if needed to accomplish an effective release. We have discussed how the goal of surgery is to protect the fibers which have remained healthy and hopefully reverse the symptoms of the fibers which are compromised but still recoverable. We have explained that, fibers that are permanently damaged will not recover. Patient asked appropriate questions and all have been answered by me. Patient wished to proceed with the surgery. Patient understood the risks, agreed to proceed with surgery, and no guarantees or assurances were given or implied. The patient was brought to the operating room and placed supine on the operating table. The left upper extremity was placed over a side table. All the bony prominences were well-padded. The patient had supraclavicular nerve block administered by the spring encaser. The left upper extremity was prepped and draped in the usual sterile fashion. A preprocedure timeout was performed as per hospital policy. The skin incision was marked using the Ludwig's landmarks, just ulnar to the thenar crease. The limb was exsanguinated with the Esmarch bandage and tourniquet was inflated to 250 mmHg. Please see nursing records for the total tourniquet time. Ludwig's landmarks were utilized and a skin incision was made parallel and just ulnar to the thenar crease with a 15 blade. Blunt tissue dissection was carried through the subcutaneous tissue down to the palmar fascia. The palmar fascia was incised with the knife to reveal the transverse carpal ligament. The transverse carpal ligament was adequately exposed and then
[2020-03-27 06:03] LABS: POC Glucose,Bedside 104 (70-110)
== END 2020-03-25 11:08 | disposition home or self-care (01) ==
PROVIDERS: PCP Internal Medicine Adolescent Medicine; Visit Provider Orthopaedic Surgery
PROC: (CPT 64721; principal; 2020-03-25 09:00)
DX: G56.02 Carpal tunnel syndrome, left upper limb (principal)
CPT/HCPCS: 64721; 82962; 84703; 96374; J0670

== ENCOUNTER → 2020-06-14 11:13 | Outpatient (POV) | payer OTHER, SELFPAY ==
--- NOTE | 2020-06-14 11:38 | HMH.PAINSOAP ---
[facility] Pain Management SOAP Note Subjective:: Is a 35-year-old white female who presents today for follow-up. She is being medically managed with gabapentin and tramadol. She rates her pain a 4 out of 10. Clarence reviewed and appropriate. Clarence #[id number] reviewed appropriate. Patient's drug screens have been appropriate. She is started going to podiatry she is scheduled for an exploratory scope of her ankle the end of June. She denies side effects to her medication. ROS General: no recent weight change, no fever, no sleep disturbances Respiratory: no cough, no shortness of air, no recurring pulmonary infections Cardiovascular/Peripheral Vascular: No chest pain, No palpitations, no edema, no shortness of breath. Gastrointestinal: no new onset incontinence, normal bowel movements reported Genitourinary: no new onset incontinence Musculoskeletal: Back pain, joint pain, foot pain Psychiatric: normal mood/ affect Neurological: [denies new onset weakness in extremities], [denies new onset balance issues] Objective:: Physical Exam General: Alert and oriented x3, no acute distress, pleasant and cooperative, [on room air] Lungs: Resps E/U, Symmetrical chest expansion, Eyes: PERRL Musculoskeletal: Flexion and extension of lumbar spine somewhat guarded secondary to pain, deep tendon reflexes normal, strength in upper and lower extremities [5/5], [abnormal gait noted] Neurological: speech clear, drawbench operator equal, no gross sensory deficits Assessment:: Degenerative disc disease lumbar spine lumbar radiculopathy, sacroiliitis, foot pain Plan:: We will continue her tramadol 50 mg 1 tab p.o. 3 times daily and gabapentin 100 mg 1 p.o. twice daily. We will give her 3 months worth of medication. We will see her back in 3 months reassess her symptoms at that time she has been instructed to call the office if she has any issues prior to her next appointment. Dr. Madrid has reviewed this note and agrees with this plan of care. This note was dictated using voice recognition software and may contain errors or omissions [facility] History I have reviewed the patient's past medical history: Yes Medical History: Reports:: Anxiety, Depression, Diabetes Mellitus Type 2, Gastroesophageal Reflux Disease(GERD), Hyperlipidemia, Hypertension, Kidney Stones, Nephritis Denies:: Cancer, Diabetes Mellitus Type 1, Internal Pacemaker, MRSA, Seizures *Have you ever received a pneumonia vaccine?: Yes *Have you received a flu vaccine this season?: No Other Medical History: Reports: Anemia, Arthritis, Fibromyalgia. Denies: Blood Transfusion Reaction Laterality Cases: Right: Other, Bilateral: Carpal Tunnel Release Other Surgeries: Yes: No Previous Surgery, Colonoscopy, EGD, Other. No: Pacemaker Amputation: No Fractures: Yes (10 fractures Right Foot, 5 fractures Left Foot. L4/L5 vertebraes) - *Social History Smoking Status: Current every day smoker Tobacco Type: cigarettes # Packs/Day (cigarettes): 1 #Yrs smoked (if former smoker): 20 Alcohol Intake: never Alcohol Intake Frequency:: other Substance Use Type: denies use *Occupational Status:: unemployed Housing: house Household Members: significant other *Travel in the last 8 weeks: None - Psychiatric History Pschychiatric History:: Reports:: Anxiety, Depression Family Hx:: Diabetes, Stroke, Heart Attack
[2020-06-14 11:54] VITALS: BP 144/77; PULSE 71; RESP 18; TEMP 36.2; O2SAT 98; BMI 33.4
== END ==
PROVIDERS: Visit Provider Clinical Nurse Specialist Family Health
DX: M51.16 Intervertebral disc disorders with radiculopathy, lumbar region (principal); M46.1 Sacroiliitis, not elsewhere classified; M79.673 Pain in unspecified foot
CPT/HCPCS: 99212

== ENCOUNTER → 2020-07-12 11:47 | Outpatient (CLI) | payer OTHER, SELFPAY ==
[2020-07-12 12:49] LABS: Alanine Aminotransferase 18 U/L (12-78); Albumin Level 4.4 g/dl (3.5-5.0); Albumin/Globulin Ratio 1.4 (1.1-1.8); Alkaline Phosphatase 117 U/L (38-126); Anion Gap 13.4 mEq/L (5-15); Aspartate Amino Transferase 22 U/L (14-36); Bilirubin,Total 0.5 mg/dl (0.2-1.3); Blood Urea Nitrogen 11 mg/dl (7-17); Calcium 9.7 mg/dl (8.4-10.2); Carbon Dioxide 27 mmol/L (22.0-30.0); Chloride 103 mmol/L (98-107); Chol/HDL Ratio 3.9 (1-3.5); Cholesterol 139 mg/dl (140-200); Estimated Glomerular Filt Rate 70 ml/min (>60); GFR (African American) 85 ML/MIN (>60); Globulin 3.1 g/dL (1.3-3.2); Glucose 123 mg/dl (74-100); HDL Cholesterol 36 mg/dl (40-60); Potassium 4.4 mmoL/L (3.5-5.1); Sodium 139 mmol/L (136-145); Total Protein,Serum 7.5 g/dl (6.3-8.2); Triglycerides 128 mg/dl (30-150); VLDL Cholesterol 26 mg/dL (0-40)
[2020-07-12 13:00] LABS: Hemoglobin A1C 6.2 % (4.0-6.0)
[2020-07-12 13:02] LABS: Direct LDL Cholesterol 76.18 mg/dL (100-129)
[2020-07-13 09:57] LABS: Covid-19 Nasal PCR Sendout P&C NEGATIVE
== END ==
PROVIDERS: Nurse Practitioner Family; Visit Provider Nurse Practitioner Family
DX: I10 Essential (primary) hypertension; R73.03 Prediabetes; Z20.822 Contact with and (suspected) exposure to COVID-19
CPT/HCPCS: 36415; 80053; 80061; 83036; U0004

== ENCOUNTER → 2020-09-16 11:06 | Outpatient (POV) | payer OTHER, SELFPAY ==
--- NOTE | 2020-09-16 11:21 | HMH.PAINSOAP ---
[facility] Pain Management SOAP Note Subjective:: Patient is a pleasant 35-year-old white female who follows up today for medication management. She is currently on gabapentin and tramadol she denies any side effects from medication. [facility] #[id number] reviewed and appropriate. Patient rates her pain a 3 out of 10. Patient is having her ankle fused in October. I discussed with her that she is allowed to take medication provided by her case assistant. ROS General: no recent weight change, no fever, no sleep disturbances Respiratory: no cough, no shortness of air, no recurring pulmonary infections Cardiovascular/Peripheral Vascular: No chest pain, No palpitations, no edema, no shortness of breath. Gastrointestinal: no new onset incontinence, normal bowel movements reported Genitourinary: no new onset incontinence Musculoskeletal: Back pain, joint pain, foot pain Psychiatric: normal mood/ affect Neurological: [denies new onset weakness in extremities], [denies new onset balance issues] Objective:: Physical Exam General: Alert and oriented x3, no acute distress, pleasant and cooperative, [on room air] Lungs: Resps E/U, Symmetrical chest expansion, Eyes: PERRL Musculoskeletal: Flexion and extension of lumbar spine somewhat guarded secondary to pain, deep tendon reflexes normal, strength in upper and lower extremities [5/5], [abnormal gait noted] Neurological: speech clear, salesperson shoes equal, no gross sensory deficits Assessment:: Degenerative disc disease lumbar spine lumbar radiculopathy, sacroiliitis, foot pain Plan:: We will continue the patient's tramadol 50 mg 1 tab p.o. 3 times daily and gabapentin 100 mg 1 p.o. twice daily. We will give her 3 months worth of medication. We will see her back in 3 months reassess her symptoms at that time she has been instructed to call the office if she has any issues prior to her next appointment. Dr. Madrid has reviewed this note and agrees with this plan of care. This note was dictated using voice recognition software and may contain errors or omissions [facility] History I have reviewed the patient's past medical history: Yes Medical History: Reports:: Anxiety, Depression, Diabetes Mellitus Type 2, Gastroesophageal Reflux Disease(GERD), Hyperlipidemia, Hypertension, Kidney Stones, Nephritis Denies:: Cancer, Diabetes Mellitus Type 1, Internal Pacemaker, MRSA, Seizures *Have you ever received a pneumonia vaccine?: Yes *Have you received a flu vaccine this season?: Yes Other Medical History: Reports: Anemia, Arthritis, Fibromyalgia. Denies: Blood Transfusion Reaction Laterality Cases: Right: Other, Bilateral: Carpal Tunnel Release Other Surgeries: Yes: No Previous Surgery, Colonoscopy, EGD, Other. No: Pacemaker Amputation: No Fractures: Yes (10 fractures Right Foot, 5 fractures Left Foot. L4/L5 vertebraes) - *Social History Smoking Status: Current every day smoker Tobacco Type: cigarettes # Packs/Day (cigarettes): 1 #Yrs smoked (if former smoker): 20 Alcohol Intake: never Alcohol Intake Frequency:: other Substance Use Type: denies use *Occupational Status:: other Housing: house Household Members: significant other *Travel in the last 8 weeks: None - Psychiatric History Pschychiatric History:: Reports:: Anxiety, Depression Family Hx:: Diabetes, Stroke, Heart Attack
[2020-09-16 11:38] VITALS: BP 136/78; PULSE 80; RESP 18; O2SAT 98; BMI 35.5
== END ==
PROVIDERS: PCP Internal Medicine Adolescent Medicine; Visit Provider Clinical Nurse Specialist Family Health
DX: M51.16 Intervertebral disc disorders with radiculopathy, lumbar region (principal); M46.1 Sacroiliitis, not elsewhere classified; M79.673 Pain in unspecified foot
CPT/HCPCS: 99212; G0463

== ENCOUNTER → 2020-10-21 11:27 | Outpatient (CLI) | payer OTHER, SELFPAY | PROVIDERS: PCP Internal Medicine Adolescent Medicine; Visit Provider Orthopaedic Surgery Foot and Ankle Surgery | DX: Z01.812 Encounter for preprocedural laboratory examination (principal); Z20.822 Contact with and (suspected) exposure to COVID-19; S82.899A Other fracture of unspecified lower leg, initial encounter for closed fracture | CPT/HCPCS: U0003 ==

== ENCOUNTER → 2020-11-16 10:25 | Outpatient (CLI) | payer OTHER, SELFPAY ==
[2020-11-16 14:12] LABS: Albumin Level 4.3 g/dl (3.5-5.0); Chloride 102 mmol/L (98-107); Potassium 3.4 mmoL/L (3.5-5.1); Sodium 139 mmol/L (136-145)
[2020-11-16 14:14] LABS: Blood Urea Nitrogen 7 mg/dl (7-17); Estimated Glomerular Filt Rate 70 ml/min (>60); GFR (African American) 85 ML/MIN (>60)
[2020-11-16 14:15] LABS: Anion Gap 18.4 mEq/L (5-15); Calcium 9.2 mg/dl (8.4-10.2); Carbon Dioxide 22 mmol/L (22.0-30.0); Glucose 260 mg/dl (74-100)
[2020-11-16 14:33] LABS: 25-OH Vitamin D, Total 55.5 ng/mL (30-100)
[2020-11-19 23:07] LABS: Tandem-R Ostase 27.7 ug/L (.)
[2020-11-24 02:08] LABS: Amphetamine Positive (.); Amphetamine (GC/MS) 4444 ng/mL (Cutoff=500); Amphetamines Positive (.); Methamphetamine Positive (.); Methamphetamine (GC/MS) 54098 ng/mL (Cutoff=500)
== END ==
PROVIDERS: Visit Provider Physician Assistant Medical
DX: M81.0 Age-related osteoporosis without current pathological fracture (principal); M83.9 Adult osteomalacia, unspecified
CPT/HCPCS: 36415; 80069; 80324; 82306; 82523; 84080

== ENCOUNTER → 2020-12-06 17:44 | Outpatient (CLI) | payer OTHER, SELFPAY | PROVIDERS: Visit Provider Nurse Practitioner Family | DX: R30.0 Dysuria (principal) | CPT/HCPCS: 87086; 87088; 87186 ==

== ENCOUNTER → 2020-12-20 13:12 | Outpatient (POV) | payer OTHER, SELFPAY ==
[2020-12-20 13:34] VITALS: BP 147/89; PULSE 92; RESP 18; O2SAT 96; BMI 34.4
--- NOTE | 2020-12-20 14:02 | HMH.PAINSOAP ---
[facility] Pain Management SOAP Note Subjective:: Patient is a 35-year-old white female who presents today for medication refills and for follow-up. The patient is being treated for degenerative disc disease lumbar spine right lumbar radiculopathy symptoms and right foot pain. Patient says that she is doing well with her medication regimen, however, she is having some restless leg type symptoms each night. She says her legs are jerking and cramping when she is laying in the bed. She says that she does get up and take Tylenol and ibuprofen and gets about 20 to 30% relief. She is also prescribed tramadol 50 mg 1 tablet p.o. 3 times daily and gabapentin milligrams 1 tablet p.o. twice daily. She denies any side effects to the medication. She says the medication does give her about 60% relief aside from her restless leg type symptoms. Her Clarence #[id number] has been reviewed and is appropriate. Morphine equivalent is 15. Drug screens have been appropriate. Patient's pain scale is 4 out of 10. Review of systems Review of Systems General: No recent weight changes, no fever, no sleep disturbances Respiratory: No cough, no shortness of air, no recurring pulmonary infections Cardiovascular/peripheral vascular: No chest pain, no palpitations, no edema, no shortness of breath Gastrointestinal: No new onset incontinence, normal bowel movements reported Genitourinary: No new onset incontinence Musculoskeletal: Low back pain with radiation into right foot Psychiatric: Normal mood/affect Neurological: [Denies weakness in extremities], [denies balance issues] Objective:: Physical exam General: Alert and oriented x3, no acute distress, pleasant and cooperative, [on room air] Lungs: Respirations even and unlabored, symmetrical chest expansion Eyes: PERRL Musculoskeletal: Flexion and extension of [] lumbar spine somewhat guarded secondary to pain, deep tendon reflexes normal, strength in upper and lower extremities [5/5], [abnormal gait noted] Neurological: Speech clear, optical sales associate equal, no gross sensory deficit Assessment:: Degenerative disc disease lumbar spine with lumbar radicular symptoms, right foot pain Plan:: Migraine treatment we will continue the patient on tramadol 50 mg 1 tablet p.o. 4 times daily, gabapentin 100 mg 1 tablet p.o. 3 times daily, and will start her on Requip 0.5 mg 1 tablet p.o. daily. We will see her back in the clinic in 2 weeks to see if Requip is helping with her pain. She has been instructed to contact clinic if she has any concerns for next appointment. Patient has been instructed to contact the clinic with any concerns before the next appointment. Dr. Madrid has reviewed this note and agrees with this plan of care. This note was dictated using voice recognition software and make contain errors or omissions. T [facility] History I have reviewed the patient's past medical history: Yes Medical History: Reports:: Anxiety, Depression, Diabetes Mellitus Type 2, Gastroesophageal Reflux Disease(GERD), Hyperlipidemia, Hypertension, Kidney Stones, Nephritis Denies:: Cancer, Diabetes Mellitus Type 1, Internal Pacemaker, MRSA, Seizures *Have you ever received a pneumonia vaccine?: No *Have you received a flu vaccine this season?: Yes Other Medical History: Reports: Anemia, Arthritis, Fibromyalgia. Denies: Blood Transfusion Reaction Laterality Cases: Right: Other, Bilateral: Carpal Tunnel Release Other Surgeries: Yes: No Previous Surgery, Colonoscopy, EGD, Other. No: Pacemaker Amputation: No Fractures: Yes (10 fractures Right Foot, 5 fractures Left Foot. L4/L5 vertebraes) - *Social History Smoking Status: Current every day smoker Tobacco Type: cigarettes # Packs/Day (cigarettes): 1 #Yrs smoked (if former smoker): 20 Alcohol Intake: never Alcohol Intake Frequency:: other Substance Use Type: denies use *Occupational Status:: unemployed Housing: house Household Members: significant other *Travel in the last 8 weeks: None - P
== END ==
PROVIDERS: PCP Internal Medicine Adolescent Medicine; Visit Provider Clinical Nurse Specialist Family Health
DX: M51.16 Intervertebral disc disorders with radiculopathy, lumbar region (principal); M79.671 Pain in right foot
CPT/HCPCS: 99212; G0463

== ENCOUNTER 2021-01-03 23:04 | Emergency (ER) | payer OTHER, SELFPAY ==
[2021-01-04] VITALS (10 sets, daily range): BP systolic 103–149; BP diastolic 55–89; PULSE 87–111; RESP 14–16; TEMP 36.8–37.1; O2SAT 94–97; BMI 35.5
--- NOTE | 2021-01-04 00:16 | CT_ITS ---
PROCEDURE INFORMATION: Exam: CT Head Without Contrast Exam date and time: 01/04/2021 12:16 AM Age: 35 years old Clinical indication: Dizziness and other: Headache; Patient HX: Dizzy and headache; Additional info: H/a TECHNIQUE: Imaging protocol: Computed tomography of the head without contrast. Radiation optimization: All CT scans at this facility use at least one of these dose optimization techniques: automated exposure control; mA and/or kV adjustment per patient size (includes targeted exams where dose is matched to clinical indication); or iterative reconstruction. COMPARISON: NM BTBB NUC BONE SCAN-WHOLE BODY-TBB 04/25/2016 11:37 AM FINDINGS: Brain: The brown-white matter differentiation and basilar cisterns are maintained. There is no mass, mass effect or midline shift. No acute intracranial hemorrhage is identified. Cerebral ventricles: No intraventricular hemorrhage or mass. Paranasal sinuses: Visualized paranasal sinuses are clear. Mastoid air cells: Visualized mastoid air cells are well aerated and clear. Orbital cavity: The globes appear unremarkable and there is no retro-orbital abnormality. Bones/joints: Osseous structures are intact. No osteolytic or blastic bone lesions appreciated. Soft tissues: No focal scalp swelling or hematoma. IMPRESSION: 1. No acute intracranial process identified.
[2021-01-04 00:36] LABS: Microscopic, Urine URINE MICROSCOPIC (MICROSCOPIC)
[2021-01-04 00:37] LABS: Basophils # 0.1 K/mm3 (0-0.2); Basophils % 0.4 % (0.1-2.0); Eosinophils # 0.2 K/mm3 (0.0-0.4); Eosinophils % 0.8 % (0.1-12.0); Hematocrit 36.6 % (37.0-47.0); Hemoglobin 12.4 g/dL (12.2-16.2); Lymphocytes # 2.9 K/mm3 (0.7-4.5); Lymphocytes % 15.4 % (10-50); Mean Corpuscular HGB Conc 33.9 g/dL (31.8-35.4); Mean Corpuscular Hemoglobin 30.1 pg (27.0-31.2); Mean Platelet Volume 7.4 fl (7.4-10.4); Monocytes # 1.4 K/mm3 (0.1-1.0); Monocytes % 7.4 % (1.7-9.3); Neutrophils # 14.4 K/mm3 (1.8-7.8); Platelet Count 422 K/mm3 (142-424); Red Blood Count 4.12 M/mm3 (4.20-5.40); Red Cell Distribution Width 14.9 % (11.5-17.5)
[2021-01-04 00:38] LABS: MANUAL DIFFERENTIAL MANUAL DIFFERENTIAL (MANUAL DIFF)
[2021-01-04 00:42] LABS: Appearance,Urine CLEAR (Clear); Bilirubin,Urine Negative (Negative); Blood, Urine 1+ (Negative); Color,Urine YELLOW (Yellow); Glucose,Urine (UA) Negative (Negative); Ketones,Urine Negative (Negative); Leukocyte Esterase,Urine 1+ (Negative); Nitrate,Urine Negative (Negative); Protein,Urine Negative (Negative); Specific Gravity, Urine <= 1.005 (1.005-1.030)
[2021-01-04 00:43] LABS: Urine Pregnancy, HCG Qual. Negative (Negative)
[2021-01-04 00:45] LABS: Chloride 101 mmol/L (98-107)
[2021-01-04 00:46] LABS: Sodium 138 mmol/L (136-145)
[2021-01-04 00:48] LABS: Alanine Aminotransferase 21 U/L (12-78); Alkaline Phosphatase 178 U/L (38-126); Anion Gap 14.9 mEq/L (5-15); Aspartate Amino Transferase 26 U/L (14-36); Bilirubin,Total 0.8 mg/dl (0.2-1.3); Blood Urea Nitrogen 5 mg/dl (7-17); Carbon Dioxide 25 mmol/L (22.0-30.0); Creatinine Clearance Estimated 121 mL/min (50-200); Estimated Glomerular Filt Rate 62 ml/min (>60); GFR (African American) 75 ML/MIN (>60)
[2021-01-04 00:49] LABS: Albumin Level 4.1 g/dl (3.5-5.0); Albumin/Globulin Ratio 1.2 (1.1-1.8); Calcium 8.8 mg/dl (8.4-10.2); Globulin 3.5 g/dL (1.3-3.2); Glucose 138 mg/dl (74-100); Total Protein,Serum 7.6 g/dl (6.3-8.2)
[2021-01-04 00:52] LABS: Barbiturates Screen,Urine Negative ng/ml (<200)
[2021-01-04 00:53] LABS: Amphetamine/Metha Screen,Urine Negative ng/ml (<1000); Benzodiazepines Screen,Urine Negative ng/ml (<200)
[2021-01-04 00:54] LABS: Cannabinoid Screen,Urine Negative ng/ml (<50); Cocaine Screen,Urine Negative ng/ml (<300); RBC,Urine Occasional #/hpf (0-3); Yeast,Urine 1+ /lpf
[2021-01-04 00:55] LABS: Methadone Screen,Urine Negative ng/ml (<300)
[2021-01-04 00:56] LABS: Opiate Screen,Urine Negative ng/ml (<300); Phencyclidine Screen,Urine Negative ng/ml (<25)
[2021-01-04 01:17] LABS: Potassium 2.9 mmoL/L (3.5-5.1)
--- NOTE | 2021-01-04 01:18 | PC.NURSE ---
Spoke with Enmanuel in lab called potassium of 2.9. Repeated and verified. Notified MD of results
--- NOTE | 2021-01-04 01:52 | HMH.EDHA ---
ED Disposition Clinical Impression: Dizziness, Hypokalemia, SIRS (systemic inflammatory response syndrome) UTI (urinary tract infection) Qualifiers: Urinary tract infection type: site unspecified Hematuria presence: without hematuria Qualified Code(s): N39.0 - Urinary tract infection, site not specified Disposition: Home, Self-Care Condition on Discharge: Good Instructions: DI for Headache Additional Instructions: fluids and see pcp for follow up this week Prescriptions: levoFLOXacin [Levaquin 500mg tab] 500 mg PO DAILY #7 tab Transmission Status: Pending to [facility] Referrals: Darryl Davis MD [Primary Care Provider] - - Critical Care Critical Care Time: No Attestation: On 01/03/21, the high probability of a clinically significant, sudden or life threatening deterioration of the following system(s) required my full and direct attention, intervention and personal management. The time I documented below is in addition to time spent performing reported procedures but includes the following listed in this critical care notation. Medical Decision Making - Medical Records Medical records reviewed: Yes: I reviewed the patient's medical records. - Clarence Inquiry Pt receiving controlled substance: No Vital Signs: 01/04/21 00:04 01/04/21 00:22 01/04/21 00:33 Temperature 98.7 F Temperature Source Oral Pulse Rate 92 H 97 H Pulse Rate [Right] 111 H Respiratory Rate 16 Blood Pressure 103/63 L 136/84 Blood Pressure [Right Arm] 149/89 H Blood Pressure Mean [Right Arm] 109 Blood Pressure Source [Right Arm] Automatic Cuff Blood Pressure Position [Right Arm] Supine 02 Sat by Pulse Oximetry 96 97 95 Oxygen Delivery Method Room Air 01/04/21 01:00 Temperature Temperature Source Pulse Rate 98 H Pulse Rate [Right] Respiratory Rate Blood Pressure 112/55 L Blood Pressure [Right Arm] Blood Pressure Mean [Right Arm] Blood Pressure Source [Right Arm] Blood Pressure Position [Right Arm] 02 Sat by Pulse Oximetry 96 Oxygen Delivery Method - Lab Data Lab results reviewed: Yes: I reviewed the patient's lab results. Lab Results 01/04/21 00:22: WBC 19.0 H, RBC 4.12 L, Hgb 12.4, Hct 36.6 L, MCV 89.0, MCH 30.1, MCHC 33.9, RDW 14.9, Plt Count 422, MPV 7.4, Neut % (Auto) 76.0, Lymph % (Auto) 15.4, [place] % (Auto) 7.4, Eos % (Auto) 0.8, Baso % (Auto) 0.4, Neut # (Auto) 14.4 H, Lymph # (Auto) 2.9, [place] # (Auto) 1.4 H, Eos # (Auto) 0.2, Baso # (Auto) 0.1 01/04/21 00:22: Sodium 138, Potassium 2.9 L*, Chloride 101, Carbon Dioxide 25, Anion Gap 14.9, BUN 5 L, Creatinine 1.00, Estimated Creat Clear 121, Estimated GFR 62, Est GFR ( Amer) 75, Glucose 138 H, Calcium 8.8, Total Bilirubin 0.8, AST 26, ALT 21, Alkaline Phosphatase 178 H, C-Reactive Protein 249.8 H, Total Protein 7.6, Albumin 4.1, Globulin 3.5 H, Albumin/Globulin Ratio 1.2, Procalcitonin 0.304 01/04/21 00:31: Urine Color Yellow, Urine Appearance Clear, Urine pH 7.0, Ur Specific [place] <= 1.005, Urine Protein Negative, Urine Glucose (UA) Negative, Urine Ketones Negative, Urine Blood 1+, Urine Nitrate Negative, Urine Bilirubin Negative, Urine Urobilinogen 1.0, Ur Leukocyte Esterase 1+ A, Urine RBC Occasional, Urine WBC 3-5, Ur Squamous Epith Cells 3-5, Urine Bacteria None, Urine Yeast 1+ 01/04/21 00:31: Urine HCG, Qual Negative 01/04/21 00:31: Urine Opiates Screen Negative, Urine Methadone Screen Negative, Ur Barbituates Screen Negative, Ur Phencyclidine Scrn Negative, Ur Amphetamines Screen Negative, U Benzodiazepines Scrn Negative, Urine Cocaine Screen Negative, U Marijuana (THC) Screen Negative Result diagrams: 01/04/21 00:22 01/04/21 00:22 Orders (Tests/Meds): ED MEDICATIONS Generic Name Dose Route Start Last Admin Trade Name Freq PRN Reason Stop Dose Admin Sodium Chloride 1,000 mls @ 999 mls/hr 01/04/21 00:30 01/04/21 00:49 Sod Chlor 0.9% 1000ml Bag IV 01/04/21 01:30 999 mls/hr .[id number] RICHARD Administrati
[2021-01-04 03:06] LABS: C-Reactive Protein 249.8 mg/L (0-4)
[2021-01-04 03:19] LABS: Procalcitonin 0.304 ng/mL (0.0-2.0)
[2021-01-04 04:29] LABS: Lymphocytes % 15 % (10-50); Monocytes % 7 % (2-9); Neutrophils % 78 % (42-76); Total Cells Counted 100
[2021-01-04 04:30] LABS: Platelet Estimate Normal
[2021-01-04 05:36] LABS: Erythrocyte Sedimentation Rate 2 mm/hr (0-20)
== END 2021-01-04 04:41 | disposition home or self-care (01) ==
PROVIDERS: Emergency Provider Emergency Medicine; PCP Internal Medicine Adolescent Medicine
DX: R42 Dizziness and giddiness (principal); E87.6 Hypokalemia; N30.00 Acute cystitis without hematuria; R65.10 Systemic inflammatory response syndrome (SIRS) of non-infectious origin without acute organ dysfunction; M79.7 Fibromyalgia; E78.5 Hyperlipidemia, unspecified; I10 Essential (primary) hypertension; F41.8 Other specified anxiety disorders; K21.9 Gastro-esophageal reflux disease without esophagitis; Z88.0 Allergy status to penicillin; Z87.891 Personal history of nicotine dependence
CPT/HCPCS: 70450; 80053; 80305; 81001; 81025; 84145; 85007; 85025; 85651; 86140; 87086; 87088; 87186; 96365; 96366; 96375; 99282; 99283

== ENCOUNTER → 2021-01-10 12:46 | Outpatient (POV) | payer OTHER, SELFPAY ==
[2021-01-10 12:58] VITALS: BP 143/93; PULSE 89; RESP 18; O2SAT 96; BMI 35.5
--- NOTE | 2021-01-10 13:03 | HMH.PAINSOAP ---
[facility] Pain Management SOAP Note Subjective:: Patient is a 35-year-old white female who presents today for follow-up after medication adjustment. The patient is being treated for degenerative disc disease lumbar spine with lumbar radiculopathy symptoms, right foot change, and restless leg syndrome. She was previously started on Requip at 0.25 mg/day. She was already taking tramadol 50 mg 1 tablet p.o. 3 times daily, gabapentin 100 mg 1 tablet p.o. twice daily. Patient says she has been taking her medications?tramadol 50 mg 1 tablet p.o. daily, and gabapentin 100 mg 1 tablet p.o. daily. She says that she has only been taking it once daily due to drowsiness. She added Requip on and was taking all the medications at bedtime. She was noticing some nausea and vomiting. She presented to the emergency room with nausea and vomiting. Patient is still taking the medication despite her symptoms. I have advised her to stop taking Requip, however, she says that it gave her great relief of her leg symptoms at bedtime. We did discuss trying to take tramadol in the a.m., gabapentin in the midday/p.m., and Requip at bedtime to see if she is able to tolerate the medication more appropriately in this manner. She says she felt as though she was taking too many medications at 1 time. She will adjust the times of the medication and see if this helps. She and I discussed returning in 2 weeks. If she is not getting any relief, we will need to adjust her medications accordingly. She will be prescribed gabapentin and tramadol daily rather than 3 times daily and 2 times daily, as this is how often she takes medication. Patient's pain is a 4 out of 10 at this time. Review of Systems General: No recent weight changes, no fever, no sleep disturbances Respiratory: No cough, no shortness of air, no recurring pulmonary infections Cardiovascular/peripheral vascular: No chest pain, no palpitations, no edema, no shortness of breath Gastrointestinal: No new onset incontinence, normal bowel movements reported Genitourinary: No new onset incontinence Musculoskeletal: Low back pain, bilateral lower extremity pain Psychiatric: Normal mood/affect Neurological: [Denies weakness in extremities], [denies balance issues] Objective:: Physical exam General: Alert and oriented x3, no acute distress, pleasant and cooperative, [on room air] Lungs: Respirations even and unlabored, symmetrical chest expansion Eyes: PERRL Musculoskeletal: Flexion and extension of [] lumbar spine somewhat guarded secondary to pain, deep tendon reflexes normal, strength in upper and lower extremities [5/5], [abnormal gait noted] Neurological: Speech clear, direct chill casting operator 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 She has been advised to take her tramadol in the a.m., gabapentin midday/p.m., and Requip at bedtime. If she is able to tolerate the medication she will continue this regimen. If she has nausea and vomiting continued, she has been advised to immediately stop the medication. We will see her back in the clinic in 2 weeks. Patient has been instructed to contact the clinic with any concerns before the next appointment. Dr. Madrid has reviewed this note and agrees with this plan of care. This note was dictated using voice recognition software and make contain errors or omissions. [facility] History I have reviewed the patient's past medical history: Yes Medical History: Reports:: Anxiety, Depression, Diabetes Mellitus Type 2, Gastroesophageal Reflux Disease(GERD), Hyperlipidemia, Hypertension, Kidney Stones, Nephritis Denies:: Cancer, Diabetes Mellitus Type 1, Internal Pacemaker, MRSA, Seizures *Have you ever received a pneumonia vaccine?: No *Have you received a flu vaccine this season?: Yes Other Medical History: Reports: Anemia, Arthritis, Fibromyalgia
== END ==
PROVIDERS: PCP Internal Medicine Adolescent Medicine; Visit Provider Clinical Nurse Specialist Family Health
DX: M51.16 Intervertebral disc disorders with radiculopathy, lumbar region (principal); G25.81 Restless legs syndrome
CPT/HCPCS: 99212; G0463

== ENCOUNTER → 2021-02-17 13:17 | Outpatient (POV) | payer OTHER, SELFPAY ==
[2021-02-17 13:26] VITALS: BP 140/95; PULSE 92; RESP 18; O2SAT 96; BMI 35.5
--- NOTE | 2021-02-17 13:28 | HMH.PAINSOAP ---
[facility] Pain Management SOAP Note Subjective:: Patient is a 35-year-old white female who presents today for follow-up. She is being treated for degenerative disc disease lumbar spine with lumbar radiculopathy symptoms and for restless leg syndrome. Patient was started on Requip and is doing well with the medication at this time. She is managed with tramadol, gabapentin, and Requip. She rates her pain a 3 out of 10 today. She says she is doing much better with adjusting the times that she was taking her medication. She was taken tramadol, gabapentin, and Requip at bedtime and was having nausea and vomiting. Since changing the timing of the medication to tramadol daily (in AM), gabapentin midday and evening, and Requip at bedtime, this has given her significant relief. She denies any side effects at this time. She does need refill on the medications. [facility] #[id number] has been reviewed and is appropriate. Review of Systems General: No recent weight changes, no fever, no sleep disturbances Respiratory: No cough, no shortness of air, no recurring pulmonary infections Cardiovascular/peripheral vascular: No chest pain, no palpitations, no edema, no shortness of breath Gastrointestinal: No new onset incontinence, normal bowel movements reported Genitourinary: No new onset incontinence Musculoskeletal: Low back pain with radiation into lower extremities, restless leg syndrome at bedtime Psychiatric: [Normal mood/affect] Neurological: [Denies weakness in extremities], [denies balance issues] Objective:: Physical exam General: Alert and oriented x3, no acute distress, pleasant and cooperative, [on room air] Lungs: Respirations even and unlabored, symmetrical chest expansion Eyes: PERRL Musculoskeletal: Flexion and extension of lumbar [spine] somewhat guarded secondary to pain, strength in upper and lower extremities [5/5], [antalgic gait noted] Neurological: Speech clear, [alining inspector equal], no gross sensory deficit Assessment:: Degenerative disc disease lumbar spine with lumbar radiculopathy symptoms, restless leg syndrome Plan:: We will refill the patient's tramadol 50 mg 1 tablet p.o. 3 times daily, gabapentin 100 mg 1 tablet p.o. twice daily, and Requip 0.25 mg 1 tablet p.o. daily. We will give the patient 3-month medication and see her back in 3 months for reevaluation of symptoms. Risks and benefits of the medication have been explained in detail to the patient. The patient has been advised to consult with his/her primary care provider and pharmacist regarding drug-drug interaction of medications currently prescribed. Patient has been prescribed a controlled substance after being counseled on the medication, medication safety, and possible side effects. [facility] report has been obtained and reviewed prior to prescription and found to be appropriate. Opioid contract was reviewed and signed by the patient, and that they have agreed to all of the terms set forth by our compliance program. Patient has been instructed to contact the clinic with any concerns before the next appointment. Dr. Madrid has reviewed this note and agrees with this plan of care. This note was dictated using voice recognition software and make contain errors or omissions. [facility] History I have reviewed the patient's past medical history: Yes Medical History: Reports:: Anxiety, Depression, Diabetes Mellitus Type 2, Gastroesophageal Reflux Disease(GERD), Hyperlipidemia, Hypertension, Kidney Stones, Nephritis Denies:: Cancer, Diabetes Mellitus Type 1, Internal Pacemaker, MRSA, Seizures *Have you ever received a pneumonia vaccine?: No *Have you received a flu vaccine this season?: Yes Other Medical History: Reports: Anemia, Arthritis, Fibromyalgia. Denies: Blood Transfusion Reaction Laterality Cases: Right: Other, Bilateral: Carpal Tunnel Release Other Surgeries: Yes: No Previous Surgery, Colonoscopy, EGD, Other. No: Pacemaker Amputation: No Fractures: Yes (10 fractures Right Foot
== END ==
PROVIDERS: Visit Provider Clinical Nurse Specialist Family Health
DX: M51.16 Intervertebral disc disorders with radiculopathy, lumbar region (principal); G25.81 Restless legs syndrome
CPT/HCPCS: 99212; G0463

== ENCOUNTER 2021-03-17 10:00 | Outpatient (RCR) | payer OTHER, SELFPAY | END 2021-04-11 09:51 | disposition home or self-care (01) | LOC: PT.CARL 10:00 | PROVIDERS: PCP Internal Medicine Adolescent Medicine; Visit Provider Nurse Practitioner Family | DX: Z98.1 Arthrodesis status (principal) | CPT/HCPCS: 97010; 97014; 97110; 97112; 97140; 97163; 97164; G0283 ==

== ENCOUNTER → 2021-04-06 10:30 | Outpatient (CLI) | payer OTHER, SELFPAY ==
[2021-04-07 08:44] LABS: Hemoglobin A1C > 14.0 % (4.0-6.0)
[2021-04-07 09:02] LABS: Chloride 106 mmol/L (98-107); Potassium 3.8 mmoL/L (3.5-5.1); Sodium 142 mmol/L (136-145)
[2021-04-07 09:04] LABS: Blood Urea Nitrogen 7 mg/dl (7-17); Estimated Glomerular Filt Rate 94 ml/min (>60); GFR (African American) 113 ML/MIN (>60)
[2021-04-07 09:05] LABS: Alanine Aminotransferase 26 U/L (12-78); Albumin/Globulin Ratio 1.4 (1.1-1.8); Alkaline Phosphatase 137 U/L (38-126); Anion Gap 11.8 mEq/L (5-15); Aspartate Amino Transferase 27 U/L (14-36); Bilirubin,Total 0.3 mg/dl (0.2-1.3); Calcium 9.4 mg/dl (8.4-10.2); Carbon Dioxide 28 mmol/L (22.0-30.0); Chol/HDL Ratio 3.6 (1-3.5); Cholesterol 129 mg/dl (140-200); Globulin 2.9 g/dL (1.3-3.2); Glucose 168 mg/dl (74-100); HDL Cholesterol 36 mg/dl (40-60); Total Protein,Serum 6.9 g/dl (6.3-8.2); Triglycerides 129 mg/dl (30-150); VLDL Cholesterol 26 mg/dL (0-40)
[2021-04-07 09:16] LABS: Direct LDL Cholesterol 72.64 mg/dL (100-129)
[2021-04-07 09:36] LABS: Thyroid Stimulating Hormone 1.69 uIU/mL (0.465-4.68)
== END ==
PROVIDERS: Visit Provider Nurse Practitioner Family
DX: E11.65 Type 2 diabetes mellitus with hyperglycemia (principal); Z79.84 Long term (current) use of oral hypoglycemic drugs
CPT/HCPCS: 80053; 80061; 83036; 84443

== ENCOUNTER → 2021-05-16 11:41 | Outpatient (POV) | payer OTHER, SELFPAY ==
[2021-05-16 11:49] VITALS: BP 142/86; PULSE 82; RESP 18; O2SAT 96; BMI 34.8
--- NOTE | 2021-05-16 12:03 | HMH.PAINSOAP ---
[facility] Pain Management SOAP Note Subjective:: Patient is a 36-year-old white female who presents today for medication refills. She does undergo injective therapy to her low back area. Today, she is complaining of severe neck pain with radiation into bilateral shoulders. She does have palpable trigger points to her bilateral upper trapezius muscles. She says that the areas are tender to touch. She does rate her pain a 4 out of 10. She also has chronic low back pain that radiates into bilateral lower extremities. She says that the pain is worse at bedtime. At this time the patient is getting tramadol 50 mg 1 tablet p.o. 3 times daily, gabapentin 100 mg 1 tablet p.o. twice daily, and Requip 0.25 mg 1 tablet p.o. daily. The medication is helping the patient, but does not seem to last and does not gave her long-term relief. She says the pain is worse at bedtime. Requip initially gave the patient significant relief, but she is noticing worsening symptoms. At this time the pain is worse to the neck. She does continue with home stretching. Review of Systems General: No recent weight changes, no fever, no sleep disturbances Respiratory: No cough, no shortness of air, no recurring pulmonary infections Cardiovascular/peripheral vascular: No chest pain, no palpitations, no edema, no shortness of breath Gastrointestinal: No new onset incontinence, normal bowel movements reported Genitourinary: No new onset incontinence Musculoskeletal: Neck pain with radiation into bilateral shoulders, chronic low back parents radiation into bilateral lower extremities?worse at bedtime Psychiatric: [Normal mood/affect] Neurological: [Denies weakness in extremities], [denies balance issues] Objective:: Physical exam General: Alert and oriented x3, no acute distress, pleasant and cooperative Lungs: Respirations even and unlabored, symmetrical chest expansion Eyes: PERRL Musculoskeletal: Flexion and extension of cervical and lumbar [spine] somewhat guarded secondary to pain, [antalgic gait noted], palpable trigger points cervical paraspinous and upper trapezius muscles Neurological: Speech clear, no gross sensory deficit Assessment:: Myofascial pain syndrome cervical paraspinous and upper trapezius muscles, degenerative disc disease lumbar spine with lumbar radiculopathy symptoms, restless leg syndrome Plan:: We will increase the patient's tramadol to 50 mg 1 tablet p.o. 4 times daily, gabapentin 300 mg 1 tablet p.o. daily, and continue Requip 0.25 mg 1 tablet p.o. daily. We will schedule the patient for trigger point injections to her upper trapezius and cervical paraspinous muscles. We will plan to see her back in the clinic after her injections for further evaluation and for medication refill. Patient has been instructed to contact clinic if she has any concerns for next morning. Patient is diabetic. Possible side effects of corticosteroids have been discussed with the patient. Risks and benefits of the procedure have been explained to the patient. Patient would like to proceed with the procedure. Patient has been instructed to contact the clinic with any concerns before the next appointment. Dr. Madrid has reviewed this note and agrees with this plan of care. This note was dictated using voice recognition software and make contain errors or omissions. [facility] History I have reviewed the patient's past medical history: Yes Medical History: Reports:: Anxiety, Depression, Diabetes Mellitus Type 2, Gastroesophageal Reflux Disease(GERD), Hyperlipidemia, Hypertension, Kidney Stones, Nephritis Denies:: Cancer, Diabetes Mellitus Type 1, Internal Pacemaker, MRSA, Seizures *Have you ever received a pneumonia vaccine?: No *Have you received a flu vaccine this season?: No Other Medical History: Reports: Anemia, Arthritis, Fibromyalgia. Denies: Blood Transfusion Reaction Laterality Cases: Right: Other, Bilateral: Carpal Tunnel Release Other Surgeries: Yes
== END ==
PROVIDERS: Visit Provider Clinical Nurse Specialist Family Health
DX: M79.12 Myalgia of auxiliary muscles, head and neck (principal); M51.16 Intervertebral disc disorders with radiculopathy, lumbar region
CPT/HCPCS: 99212; G0463

== ENCOUNTER 2021-06-03 11:22 | Day surgery (SDC) | payer OTHER, SELFPAY ==
[2021-06-03 11:31] VITALS: BP 128/84; PULSE 76; RESP 18; TEMP 36.4; O2SAT 95; BMI 34.7
[2021-06-03 11:54] VITALS: BP 126/80; PULSE 72; RESP 18; O2SAT 98
[2021-06-03 11:55] VITALS: PULSE 70; RESP 18; O2SAT 98
[2021-06-03 12:09] VITALS: BP 137/81; PULSE 68; RESP 20; O2SAT 98
--- NOTE | 2021-06-03 12:09 | HMH.PMPROC ---
- Procedure Date: 06/03/21 Time: 12:09 Anesthesiologist:: Shankar Madrid MD Complications:: None Pre-procedure Diagnosis:: Neck pain myofascial in origin Post-procedure Diagnosis:: Same Indications for Procedure:: This patient is a pleasant 36-year-old white female who we are treating for neck pain which is myofascial in origin. She does have trigger points identified over bilateral upper trapezius muscles. We will plan on trigger point injections to bilateral upper trapezius muscles and cervical paraspinous muscles today. Procedure Details:: Trigger point injections x8 to bilateral cervical paraspinous muscles and upper trapezius muscles Informed consent was obtained and the risk and benefits of the procedure were explained to the patient. Patient was taken the procedure room. Neck was prepped using ChloraPrep. Trigger points were palpated and marked. Each of these trigger points were injected with bupivacaine 0.25% 3 mL and Depo-Medrol 10 mg. A total of 80 mg Depo-Medrol was used for 8 trigger points, 4 on each side encompassing bilateral cervical paraspinous muscles and upper trapezius muscles. Patient tolerated procedure well with no complications. Plan and Disposition:: We will follow-up with this patient in 2 weeks. Will reevaluate symptoms at that time.
== END 2021-06-03 12:10 | disposition home or self-care (01) ==
LOC: SC.PAINP 11:23
PROVIDERS: PCP Internal Medicine Adolescent Medicine; Visit Provider Anesthesiology
DX: M79.12 Myalgia of auxiliary muscles, head and neck (principal); E78.5 Hyperlipidemia, unspecified; I10 Essential (primary) hypertension; K21.9 Gastro-esophageal reflux disease without esophagitis; E11.9 Type 2 diabetes mellitus without complications; F32.A Depression, unspecified; J45.909 Unspecified asthma, uncomplicated; N28.9 Disorder of kidney and ureter, unspecified; F41.9 Anxiety disorder, unspecified; Z88.0 Allergy status to penicillin; Z88.8 Allergy status to other drugs, medicaments and biological substances; Z79.899 Other long term (current) drug therapy
CPT/HCPCS: 20553; J1040

== ENCOUNTER → 2021-06-23 10:09 | Outpatient (POV) | payer OTHER, SELFPAY ==
[2021-06-23 10:19] VITALS: BP 143/86; PULSE 88; RESP 18; O2SAT 97; BMI 34.7
--- NOTE | 2021-06-23 10:25 | HMH.PAINSOAP ---
[facility] Pain Management SOAP Note Subjective:: Patient is a 36-year-old male who presents today for follow-up. She recently had informed consent was obtained and the risk and benefits of the procedure was explained to the patient. Patient was taken to the procedure room. For myofascial pain cervical paraspinous and upper trapezius muscles. The patient rates her pain a 4 out of 10. She did get about 70 to 80% relief, however, she is now having pain bilateral shoulders as well as neck pain and numbness and tingling into left hand?left thumb, left first finger, left fifth finger. To the right hand, she is experiencing pain and numbness to the fifth finger. These are new symptoms for the patient. She does rate her pain a 4 out of 10. She does not notice any changes in pain with movement of head. She does notice pain to worsen with movement of bilateral upper extremities. She denies any vision changes, dizziness, nausea or vomiting. Patient does say that Dr. Rubio has taken over her oral medication management due to insurance requiring patient to have referral to pain management and not agreeing to cover medications prescribed by our clinic. Review of Systems General: No recent weight changes, no fever, no sleep disturbances Respiratory: No cough, no shortness of air, no recurring pulmonary infections Cardiovascular/peripheral vascular: No chest pain, no palpitations, no edema, no shortness of breath Gastrointestinal: No new onset incontinence, normal bowel movements reported Genitourinary: No new onset incontinence Musculoskeletal: Neck pain with radiation into bilateral upper extremities, numbness and tingling left hand?thumb, first finger, fifth finger, right hand?fifth finger Psychiatric: [Normal mood/affect] Neurological: [Denies weakness in extremities], [denies balance issues] Objective:: Physical exam General: Alert and oriented x3, no acute distress, pleasant and cooperative Lungs: Respirations even and unlabored, symmetrical chest expansion Eyes: PERRL Musculoskeletal: Flexion and extension of cervical [spine] somewhat guarded secondary to pain, normal gait noted Neurological: Speech clear, no gross sensory deficit Assessment:: Neck pain with cervical radiculopathy symptoms Plan:: Patient did undergo injective therapy with trigger point injections to her cervical paraspinous muscles. She is now experiencing different symptoms with numbness and tingling into her hands. She has tried and failed conservative therapies of physical therapy for more than 6 weeks in the past along with home stretching and anti-inflammatories for arthritic pain. She is having a change in symptoms. We will schedule her for the MRI cervical spine and plan to see her back in the clinic to review the results and discuss a further plan of care. Patient has been instructed to contact the clinic with any concerns before the next appointment. Dr. Madrid has reviewed this note and agrees with this plan of care. This note was dictated using voice recognition software and make contain errors or omissions. [facility] History I have reviewed the patient's past medical history: Yes Medical History: Reports:: Anxiety, Depression, Diabetes Mellitus Type 2, Gastroesophageal Reflux Disease(GERD), Hyperlipidemia, Hypertension, Kidney Stones, Nephritis Denies:: Cancer, Diabetes Mellitus Type 1, Internal Pacemaker, MRSA, Seizures *Have you ever received a pneumonia vaccine?: No *Have you received a flu vaccine this season?: No Other Medical History: Reports: Anemia, Arthritis, Fibromyalgia. Denies: Blood Transfusion Reaction Laterality Cases: Right: Other, Bilateral: Carpal Tunnel Release Other Surgeries: Yes: No Previous Surgery, Colonoscopy, EGD, Other. No: Pacemaker Amputation: No Fractures: Yes (10 fractures Right Foot, 5 fractures Left Foot. L4/L5 vertebraes) - *Social History Smoking Status: Former smoker Tobacco Type: cigarettes # Packs/Day (cigarett
== END ==
PROVIDERS: Visit Provider Clinical Nurse Specialist Family Health
DX: M45.2 Ankylosing spondylitis of cervical region (principal); M54.12 Radiculopathy, cervical region
CPT/HCPCS: 99212; G0463

== ENCOUNTER → 2021-06-29 07:59 | Outpatient (CLI) | payer OTHER, SELFPAY ==
--- NOTE | 2021-06-29 08:03 | MR_ITS ---
FINAL REPORT CLINICAL HISTORY: NECK PAIN with bilateral upper extremity pain/numbness and tingling. Pt states worse on left. Pt denies injury or trauma. FINDINGS: Multi planar MR imaging was obtained of the cervical spine. There is abnormal decreased signal throughout the cervical discs. The vertebrae are of normal height. There is mild reversal of the cervical lordosis. The cervical cord demonstrates normal signal and configuration. C2-C3: There is no evidence of significant disc bulge or protrusion. There is no significant facet hypertrophy. C3-C4: There is no evidence of significant disc bulge or protrusion. There is no significant facet hypertrophy. C4-C5: There is minimal endplate hypertrophy with minimal bilateral neuroforaminal narrowing. C5-C6: There is a mild posterolateral disc protrusion causing mild to moderate left neuroforaminal narrowing. C6-C7: There is no evidence of significant disc bulge or protrusion. There is no significant facet hypertrophy. C7-T1: There is no evidence of significant disc bulge or protrusion. There is no significant facet hypertrophy. IMPRESSION: Mild left posterolateral disc protrusion at C5-6 with left neuroforaminal compromise. Reviewed, Interpreted and Dictated by Rito Kuo MD Transcribed by Anna Varner Authenticated by Rito Kuo MD on 06/29/2021 12:17:42 PM [facility]
== END ==
PROVIDERS: PCP Internal Medicine Adolescent Medicine; Visit Provider Clinical Nurse Specialist Family Health
DX: M54.2 Cervicalgia (principal)
CPT/HCPCS: 72141; 76376

== ENCOUNTER → 2021-07-12 12:55 | Outpatient (POV) | payer OTHER, SELFPAY ==
[2021-07-12 13:36] VITALS: BP 114/79; PULSE 84; RESP 18; O2SAT 95; BMI 33.2
--- NOTE | 2021-07-12 18:21 | HMH.PAINSOAP ---
[facility] Pain Management SOAP Note Subjective:: Patient is a 36-year-old white female who presents today for follow-up. The patient recently had trigger point injections to her cervical paraspinous muscles. She got significant relief following the injections, but began to have numbness and tingling into her bilateral upper extremities as well as bilateral shoulder pain. Patient did have an MRI that noted the patient to have a disc protrusion at C5-C6 area. She is also having pain in her low back area made worse with standing and walking. She does say she had a fall in 2007 after having her baby and following an epidural causing her to have compression fractures. The compression fractures were left untreated. She rates her pain a 6 out of 10 today. She says the pain is worse in the neck at this time. She has had physical therapy for greater than 6 weeks in the past with minimal relief. She has also tried anti-inflammatories with minimal relief. Patient does say that Dr. Ruibo has taken over her oral medications which were gabapentin and tramadol. Review of Systems General: No recent weight changes, no fever, no sleep disturbances Respiratory: No cough, no shortness of air, no recurring pulmonary infections Cardiovascular/peripheral vascular: No chest pain, no palpitations, no edema, no shortness of breath Gastrointestinal: No new onset incontinence, normal bowel movements reported Genitourinary: No new onset incontinence Musculoskeletal: Neck pain radiating into bilateral shoulders, bilateral arms and hands. Low back pain with radiation into lower extremities Psychiatric: [Normal mood/affect] Neurological: [Denies weakness in extremities], [denies balance issues] Objective:: Physical exam General: Alert and oriented x3, no acute distress, pleasant and cooperative Lungs: Respirations even and unlabored, symmetrical chest expansion Eyes: PERRL Musculoskeletal: Flexion and extension of cervical and lumbar [spine] somewhat guarded secondary to pain, [antalgic gait noted] Neurological: Speech clear, no gross sensory deficit Assessment:: Degenerative disc disease cervical spine cervical radiculopathy symptoms, low back pain with lumbar radiculopathy symptoms Plan:: We will schedule patient for cervical epidural steroid injection at C5-C6 area. She is not on any anticoagulation therapy. We will plan to see her back in the clinic after the injection for further evaluation. She has requested an MRI of her lumbar spine. She does report to have a history of compression fractures. The pain has returned to her low back area. We will schedule her for an MRI lumbar spine as well. We will review the MRI with her injection. ORT is minimal risk. Patient has signed and completed a pain management agreement/contract today. Possible side effects of corticosteroids have been discussed with the patient. Risks and benefits of the procedure have been explained to the patient. Patient would like to proceed with the procedure. Patient has been instructed to contact the clinic with any concerns before the next appointment. Dr. Madrid has reviewed this note and agrees with this plan of care. This note was dictated using voice recognition software and make contain errors or omissions. [facility] History I have reviewed the patient's past medical history: Yes Medical History: Reports:: Anxiety, Depression, Diabetes Mellitus Type 2, Gastroesophageal Reflux Disease(GERD), Hyperlipidemia, Hypertension, Kidney Stones, Nephritis Denies:: Cancer, Diabetes Mellitus Type 1, Internal Pacemaker, MRSA, Seizures *Have you ever received a pneumonia vaccine?: No *Have you received a flu vaccine this season?: No Other Medical History: Reports: Anemia, Arthritis, Fibromyalgia. Denies: Blood Transfusion Reaction Laterality Cases: Right: Other, Bilateral: Carpal Tunnel Release Other Surgeries: Yes: No Previous Surgery, Colonoscopy, EGD, Other. No: Pacemaker [employer]
== END ==
PROVIDERS: Visit Provider Clinical Nurse Specialist Family Health
DX: M50.10 Cervical disc disorder with radiculopathy, unspecified cervical region (principal); M54.50 Low back pain, unspecified; M54.16 Radiculopathy, lumbar region
CPT/HCPCS: 99212; G0463

== ENCOUNTER → 2021-07-15 10:53 | Outpatient (CLI) | payer OTHER, SELFPAY ==
--- NOTE | 2021-07-15 11:01 | CT_ITS ---
FINAL REPORT TECHNIQUE: Axial imaging of the lumbar spine was obtained without contrast. Sagittal and coronal reformatted images were also obtained and reviewed. This study was performed with techniques to keep radiation doses as low as reasonably achievable (ALARA). Individualized dose reduction techniques using automated exposure control or adjustment of mA and/or kV according to the patient''s size were employed. CLINICAL HISTORY: BACKPAIN FALL BACK 2007. PAIN SINCE FINDINGS: There is no fracture. The vertebral alignment is normal. There are mild degenerative changes.There is no evidence of significant central canal stenosis. There is a less than 5 mm right nonobstructing renal stone. L1-L2: No evidence of central canal stenosis or neural foraminal narrowing. L2-L3: An annular bulge is present. L3-L4: An annular bulge is present. L4-L5: An annular bulge is present. There is mild bilateral neural foraminal narrowing. L5-S1: An annular bulge is present. IMPRESSION: Multilevel degenerative change without acute bony abnormality. Less than 5 mm right nonobstructing renal stone. Reviewed, Interpreted and Dictated by Toi Montes De Oca III, MD Transcribed by Sinai Vasquez Authenticated by Toi Montes De Oca III, MD on 07/15/2021 12:08:24 PM [facility]
== END ==
PROVIDERS: PCP Internal Medicine Adolescent Medicine; Visit Provider Clinical Nurse Specialist Family Health
DX: M54.50 Low back pain, unspecified (principal)
CPT/HCPCS: 72131

== ENCOUNTER → 2021-08-01 10:19 | Outpatient (POV) | payer OTHER, SELFPAY ==
[2021-08-01 10:26] VITALS: BP 142/84; PULSE 91; RESP 18; O2SAT 98; BMI 33.2
--- NOTE | 2021-08-01 11:55 | P.CONS_ITS ---
[facility] Pain Management SOAP Note Subjective:: Patient is a 36-year-old white female who is following up today for MRI review of lumbar spine. She is having significant neck pain with radiation into bilateral shoulders and upper extremities as well as low back pain with radiation to lower extremities. She is scheduled for cervical epidural on . Patient says that the pain does go into her lower extremities. She is tried physical therapy and has also tried anti-inflammatories with minimal relief. The patient says that the pain is made worse in her low back area with standing and walking. She denies any saddle anesthesia or changes in bowel or bladder habit. She rates her pain a 4 out of 10 today. Review of Systems General: No recent weight changes, no fever, no sleep disturbances Respiratory: No cough, no shortness of air, no recurring pulmonary infections Cardiovascular/peripheral vascular: No chest pain, no palpitations, no edema, no shortness of breath Gastrointestinal: No new onset incontinence, normal bowel movements reported Genitourinary: No new onset incontinence Musculoskeletal: Neck pain with radiation into upper extremities, low back pain with radiation to bilateral lower extremities Psychiatric: [Normal mood/affect] Neurological: [Denies weakness in extremities], [denies balance issues] Objective:: Physical exam General: Alert and oriented x3, no acute distress, pleasant and cooperative Lungs: Respirations even and unlabored, symmetrical chest expansion Eyes: PERRL Musculoskeletal: Flexion and extension of cervical and lumbar [spine] somewhat guarded secondary to pain, [antalgic gait noted] Neurological: Speech clear, no gross sensory deficit Assessment:: Degenerative disc disease cervical lumbar spine with cervical lumbar radiculopathy symptoms Plan:: We do have the patient scheduled for a cervical epidural steroid injection on 08/12/2021. She would like to proceed with a lumbar epidural steroid injection but would like to wait before scheduling this until after her cervical epidural. We will follow up with her after the injection to her cervical spine for further evaluation. Patient is not on any anticoagulation therapy and is diabetic. We will see her back in the clinic after the injection. [facility] History I have reviewed the patient's past medical history: Yes Medical History: Reports:: Anxiety, Depression, Diabetes Mellitus Type 2, Gastroesophageal Reflux Disease(GERD), Hyperlipidemia, Hypertension, Kidney Stones, Nephritis Denies:: Cancer, Diabetes Mellitus Type 1, Internal Pacemaker, MRSA, Seizures *Have you ever received a pneumonia vaccine?: No *Have you received a flu vaccine this season?: No Other Medical History: Reports: Anemia, Arthritis, Fibromyalgia. Denies: Blood Transfusion Reaction Laterality Cases: Right: Other, Bilateral: Carpal Tunnel Release Other Surgeries: Yes: No Previous Surgery, Colonoscopy, EGD, Other. No: Pacemaker Amputation: No Fractures: Yes (10 fractures Right Foot, 5 fractures Left Foot. L4/L5 vertebraes) - *Social History Smoking Status: Former smoker Tobacco Type: cigarettes # Packs/Day (cigarettes): 1 #Yrs smoked (if former smoker): 20 Alcohol Intake: never Alcohol Intake Frequency:: other Substance Use Type: denies use *Occupational Status:: employed Housing: house Household Members: significant other *Travel in the last 8 weeks: None - Psychiatric History Pschychiatric History:: Reports:: Anxiety, Depression Family Hx:: Diabetes, Stroke, Heart Attack
== END ==
PROVIDERS: Visit Provider Clinical Nurse Specialist Family Health
DX: M50.10 Cervical disc disorder with radiculopathy, unspecified cervical region (principal)
CPT/HCPCS: 99212; G0463

== ENCOUNTER 2021-08-12 10:08 | Day surgery (SDC) | payer OTHER, SELFPAY ==
[2021-08-12 10:17] VITALS: BP 141/73; BP 146/87; PULSE 70; PULSE 74; RESP 20; TEMP 36.5; O2SAT 97; O2SAT 98; BMI 33.2
[2021-08-12 10:24] VITALS: BP 120/73; PULSE 79; RESP 20; O2SAT 97
[2021-08-12 10:26] VITALS: BP 118/72; PULSE 80; RESP 20; O2SAT 97
--- NOTE | 2021-08-12 10:31 | HMH.PMPROC ---
- Procedure Date: 08/12/21 Time: 10:31 Anesthesiologist:: Shankar Madrid MD Complications:: None Pre-procedure Diagnosis:: Degenerative disc disease of cervical spine with cervical radiculopathy symptoms Post-procedure Diagnosis:: Same Indications for Procedure:: This patient is pleasant 36-year-old white female who we are treating for neck pain with cervical radiculopathy symptoms. She has had previous trigger point injections to her cervical spine which have helped tremendously. She now has some radicular symptoms into her shoulders and arms. We will plan on a cervical epidural steroid injection under fluoroscopy today to help with her pain symptoms. Procedure Details:: Cervical epidural steroid injection under fluoroscopy Informed consent was obtained and the risks and benefits of the procedure was explained to the patient. The patient was taken to the procedure room placed prone on the procedure table. The neck was prepped using ChloraPrep. The skin and subcutaneous tissues were anesthetized using lidocaine. I placed a 18-gauge epidural needle into the C5-C6 interspace and advanced using [id number] to air and fluoroscopic guidance. After confirmation of needle placement in the epidural space with dye, I injected 3 mL's lidocaine 1.5% and Depo-Medrol 80 mg. The patient tolerated the procedure well with no complications. Plan and Disposition:: We will follow-up with her in 2 weeks. Will reevaluate symptoms at that time.
== END 2021-08-12 10:36 | disposition home or self-care (01) ==
LOC: SC.PAINP 10:09
PROVIDERS: PCP Internal Medicine Adolescent Medicine; Visit Provider Anesthesiology
DX: M50.10 Cervical disc disorder with radiculopathy, unspecified cervical region (principal); E78.5 Hyperlipidemia, unspecified; I10 Essential (primary) hypertension; K21.9 Gastro-esophageal reflux disease without esophagitis; E11.9 Type 2 diabetes mellitus without complications; F32.A Depression, unspecified; D64.9 Anemia, unspecified; Z87.891 Personal history of nicotine dependence; F41.9 Anxiety disorder, unspecified; Z88.0 Allergy status to penicillin; Z88.8 Allergy status to other drugs, medicaments and biological substances
CPT/HCPCS: 62321; J1040; Q9966

== ENCOUNTER → 2021-08-29 13:43 | Outpatient (POV) | payer OTHER, SELFPAY ==
[2021-08-29 14:10] VITALS: BP 134/30; PULSE 75; RESP 20; TEMP 36.7; O2SAT 98; BMI 33.2
--- NOTE | 2021-08-29 15:29 | HMH.PAINSOAP ---
[facility] Pain Management SOAP Note Subjective:: Patient is a pleasant 36-year-old female who is here today after a cervical epidural steroid injection. After procedure, patient says that she had about 70% relief of her pain. She rates her pain today as 4 out of 10. She denies any issues after the procedure. Today, patient is complaining of right shoulder pain that is independent of her neck pain. She says that she has limited range of motion of her right shoulder. She denies any recent falls or traumas. She says that she has a history of osteomalacia and rickets that could be contributing to his right shoulder pain. She follows up with her Ortho every 6 months. Review of Systems General: No recent weight changes, no fever, no sleep disturbances Respiratory: No cough, no shortness of air, no recurring pulmonary infections Cardiovascular/peripheral vascular: No chest pain, no palpitations, no edema, no shortness of breath Gastrointestinal: No new onset incontinence, normal bowel movements reported Genitourinary: No new onset incontinence Musculoskeletal: Neck pain, right shoulder pain Psychiatric: [Normal mood/affect] Neurological: [Denies weakness in extremities], [denies balance issues] Objective:: Physical exam General: Alert and oriented x3, no acute distress, pleasant and cooperative Lungs: Respirations even and unlabored, symmetrical chest expansion Eyes: PERRL Musculoskeletal: Flexion and extension of cervical [spine] somewhat guarded secondary to pain; Negative Tika and Neer Test. Right anterior shoulder is tender to palpation. Patient able to abduct bilateral shoulder over her head with no difficulty. Neurological: Speech clear, no gross sensory deficit Assessment:: Degenerative disc disease of the cervical spine with cervical radiculopathy Right shoulder pain Plan:: Patient has had significant relief of about 70% after the cervical epidural steroid injection. Patient can call us to schedule another Cervical Epidural Steroid Injection in the future. Today, patient has been complaining of right shoulder pain. Negative Tika and Neer Test. We will start the patient on a compounding cream. If the cream does not help the patient, we will consider getting an imaging. Patient will also follow up with her ortho in the next few weeks and may ask them about her right shoulder. Follow up in 1 month. Patient has been instructed to contact the clinic with any concerns before the next appointment. This note was dictated using voice recognition software and may contain errors or omissions. [facility] History Medical History: Reports:: Anxiety, Depression, Diabetes Mellitus Type 2, Gastroesophageal Reflux Disease(GERD), Hyperlipidemia, Hypertension, Kidney Stones, Nephritis Denies:: Cancer, Diabetes Mellitus Type 1, Internal Pacemaker, MRSA, Seizures *Have you ever received a pneumonia vaccine?: No *Have you received a flu vaccine this season?: No Other Medical History: Reports: Anemia, Arthritis, Fibromyalgia. Denies: Blood Transfusion Reaction Laterality Cases: Right: Other, Bilateral: Carpal Tunnel Release Other Surgeries: Yes: No Previous Surgery, Colonoscopy, EGD, Other. No: Pacemaker Amputation: No Fractures: Yes (10 fractures Right Foot, 5 fractures Left Foot. L4/L5 vertebraes) - *Social History Smoking Status: Former smoker Tobacco Type: cigarettes # Packs/Day (cigarettes): 1 #Yrs smoked (if former smoker): 20 Alcohol Intake: never Alcohol Intake Frequency:: other Substance Use Type: denies use *Occupational Status:: other Housing: house Household Members: other *Travel in the last 8 weeks: None - Psychiatric History Pschychiatric History:: Reports:: Anxiety, Depression Family Hx:: Diabetes, Stroke, Heart Attack
== END ==
PROVIDERS: Visit Provider Student in an Organized Health Care Education/Training Program
DX: M50.10 Cervical disc disorder with radiculopathy, unspecified cervical region (principal); M25.511 Pain in right shoulder
CPT/HCPCS: 99212; G0463

== ENCOUNTER 2021-10-10 11:20 | Emergency (ER) | payer OTHER, SELFPAY ==
[2021-10-10 11:50] VITALS: BP 131/86; PULSE 89; RESP 18; TEMP 36.6; O2SAT 99; BMI 33.9
[2021-10-10 11:52] VITALS: BP 131/86; PULSE 89; RESP 18; TEMP 36.6
--- NOTE | 2021-10-10 11:53 | HMH.EDUTC ---
[facility] [place] Clinical Impression: Encounter for screening for COVID-19 Disposition: Home, Self-Care Condition on Discharge: Good Instructions: Preventing the Spread of Coronavirus Discharge Instructions Additional Instructions: Drink plenty of fluids. Take tylenol for pain or fever. Return if you begin to have difficulty breathing. Follow up with your regular doctor. GO TO THE ER FOR ANY WORSENING SYMPTOMS Referrals: Darryl Davis MD [Primary Care Provider] - Time of Disposition: 11:54 Medical Decision Making - Medical Records Medical records reviewed: No: I reviewed the patient's medical records. - Clarence Inquiry Pt receiving controlled substance: No Vital Signs: 10/10/21 11:50 10/10/21 11:52 Temperature 97.8 F 97.8 F Temperature Source Oral Pulse Rate 89 Pulse Rate [Left] 89 Respiratory Rate 18 18 Blood Pressure 131/86 Blood Pressure [Right Arm] 131/86 Blood Pressure Mean [Right Arm] 101 02 Sat by Pulse Oximetry 99 [facility] [place] - General Stated complaint: covid test Time Seen by Provider: 10/10/21 11:53 Mode of Arrival: Ambulatory Source of Information: Patient Limitations: No Limitations Description of Symptoms (Recalled from Triage Doc. by RN): pt needs a covid test for a procedure. HEENT Symptoms (Recalled from RN notes): No Resp Symptoms (Recalled from RN notes): No Skin Symptoms (Recalled from RN notes): No MS Symptoms (Recalled from RN notes): No Functional Status (Recalled from RN notes): wnl - History of Present Illness Provider Complaint: She needs a covid-19 test because she is scheduled to have ankle surgury in 3 days. She denies any complaint. - Related Data Home Medications Medication Instructions Recorded Confirmed Amlodipine Besylate [Amlodipine 10 mg PO DAILY 08/31/17 08/29/21 10mg Tab] Metformin HCl [Metformin HCl ER] 500 mg PO BID 08/31/17 08/29/21 Omeprazole [Omeprazole 20mg 20 mg PO DAILY 08/31/17 08/29/21 Capsule] Phosphorus #1 [Phospha 250 Neutral 250 mg PO DAILY 08/31/17 08/29/21 Tablet] buPROPion HCL [Wellbutrin Xl] 150 mg PO DAILY 08/31/17 08/29/21 atorvastatin 20 mg tablet 20 mg PO DAILY 11/19/18 08/29/21 albuterol sulfate 90 mcg/actuation 2 % INHALATION DAILY #18 g 04/14/19 08/29/21 aerosol inhaler paroxetine HCl 20 mg tablet 20 mg PO DAILY #30 tab 04/14/19 08/29/21 Empagliflozin [Jardiance] 25 mg PO DAILY 06/03/21 08/29/21 Ropinirole HCl [Requip 0.25mg 0.25 mg PO DAILY 06/03/21 08/29/21 Tablet] Gabapentin 300 mg PO QID 08/12/21 08/29/21 Previous Rx's Medication Instructions Recorded Tramadol HCl [Tramadol 50mg 50 mg PO TID PRN #90 tab 06/14/20 Tab] Naloxone HCl [Narcan] 4 mg NS ONCE PRN #1 ml 05/16/21 Allergies Allergy/AdvReac Type Severity Reaction Status Date / Time Penicillins Allergy Intermediate MENTAL Verified 06/03/21 11:32 STATUS CHANGES acetaminophen [From NYQUIL] Allergy Unknown Verified 06/03/21 11:32 dextromethorphan Allergy Unknown Verified 06/03/21 11:32 [From NYQUIL] doxylamine [From NYQUIL] Allergy Unknown Verified 06/03/21 11:32 pseudoephedrine [From NYQUIL] Allergy Unknown Verified 06/03/21 11:32 varenicline [From CHANTIX] Allergy Unknown I-ITCHING Verified 06/03/21 11:32 - Worker's Comp Is this a Worker's Comp case?: No [facility] History - Hepatitis A Screen Drug use history?: No High risk sexual behaviors?: No History of sexually transmitted infection?: No Currently employed?: No Childcare worker?: No Do you have indoor plumbing?: Yes Do you have electricity?: Yes Attestation statement:: This patient has been screened for Hepatitis A risk factors. I have reviewed the patient's past medical history: Yes Medical History: Reports:: Anxiety, Depression, Diabetes Mellitus Type 2, Gastroesophageal Reflux Disease(GERD), Hyperlipidemia, Hypertension, Kidney Stones, Nephritis Denies:: Cancer, Diabetes Mellitus Type 1, Internal Pacemaker, MRSA, Seiz
== END 2021-10-10 11:59 | disposition home or self-care (01) ==
PROVIDERS: Emergency Provider Nurse Practitioner Family; PCP Internal Medicine Adolescent Medicine
DX: D64.9 Anemia, unspecified (principal); I10 Essential (primary) hypertension; K21.9 Gastro-esophageal reflux disease without esophagitis; E78.5 Hyperlipidemia, unspecified; E11.9 Type 2 diabetes mellitus without complications; Z20.822 Contact with and (suspected) exposure to COVID-19; N05.9 Unspecified nephritic syndrome with unspecified morphologic changes; M19.90 Unspecified osteoarthritis, unspecified site; M79.7 Fibromyalgia; F32.A Depression, unspecified; F41.9 Anxiety disorder, unspecified; Z79.51 Long term (current) use of inhaled steroids; Z79.84 Long term (current) use of oral hypoglycemic drugs; Z79.899 Other long term (current) drug therapy; Z88.0 Allergy status to penicillin; Z88.6 Allergy status to analgesic agent; Z88.8 Allergy status to other drugs, medicaments and biological substances; Z82.49 Family history of ischemic heart disease and other diseases of the circulatory system; Z83.3 Family history of diabetes mellitus; Z82.5 Family history of asthma and other chronic lower respiratory diseases; Z82.69 Family history of other diseases of the musculoskeletal system and connective tissue; Z83.6 Family history of other diseases of the respiratory system
CPT/HCPCS: C9803; U0003; U0005

== ENCOUNTER → 2021-11-01 09:15 | Outpatient (CLI) | payer OTHER, SELFPAY ==
--- NOTE | 2021-11-01 09:18 | CA_ITS ---
APPROVED REPORT EXAM: Comprehensive 2D, Doppler, and color-flow Echocardiogram [employer] As[employer]er: Vania Nguyen, RCS, RVS Ht: 5 ft 6 in Wt: 210lbs BSA: 2.04 BP: 131/86 mmHg Indications: Murmur, Abn EKG, DM, Family hx-HD, HTN, HLD, Ex-smoker 2D Dimensions Aortic Root 2.92 cm LA Volume 48.50 mL Left Atrium 2.89 cm LA Volume Index 23.80 mL/m2 (M/F) 16-34 LVOT 1.85 cm (M/F) 1.5-2.5 M-Mode Dimensions RVDd 2.36 cm (0.9-2.6) LA Diam 3.03 cm (1.9-4.0) LVDd 5.33 cm (3.5-5.7) Ao Diam 2.87 cm (2.0-3.7) LVDs 3.43 cm (3.5-5.7) IVSd 0.75 cm (0.6-1.1) PWd 0.72 cm (0.6-1.1) EF (Teich) 64.60% EPSs 0.86 cm FS 35.60% EDV (Teich) 137.10 mL TAPSE 2.60 (<1.7) ESV (Teich) 48.50 mL LV Diastology E Decel Time 213.00 (160-240 msec) E/A Ratio 1.05 MED E' 11.90 (< 7 cm/sec) MED A' 10.60 cm/s E'/MED E' Ratio 8.88 (>14) LAT E' 11.10 (<10 cm/sec) LAT A' 8.90 cm/s E/LAT E' Ratio 9.52 (>14) Aortic Valve LVOT Max 130.00 (70-110 cm/s) LVOT VTI 25.47 cm AoV Peak Renan. 188.00 (50-130 cm/s) AO Peak GR. 14.10 mmHg AO Mean GR. 7.00 (<5 mmHg) AO VTI 34.75 (18-25 cm) MEGHA (VTI) 1.97 (2.5-4.5 cm2) Mitral Valve MV A Velocity 101.00 (40-130 cm/s) E/A Ratio 1.05 MV Decel. Time 213.00 (160-240 ms) MV Mean Gr. 2.50 (<2mmHg) MV PHT 60.00 ms Pulmonary Valve PV Peak Velocity 89.00 (50-150 cm/s) DC End VMAX 143.00 cm/s Tricuspid Valve TR P. Velocity 245.00 cm/s RAP Estimate 10.00 mmHg RVSP 34.00 mmHg Left Ventricle Left atrium is normal size, left ventricle is normal size, there is no concentric left ventricular hypertrophy, estimated ejection fraction 55% with no regional wall motion abnormality, diastolic parameters are within normal range. Right Ventricle Right atrium and right ventricle are normal size and contractility. Aortic Valve Aortic valve is minimally thickened and fibrosed there is no aortic stenosis or aortic insufficiency. Mitral Valve Mitral valve grossly normal, trace mitral regurgitation. Tricuspid Valve Tricuspid valve grossly normal, there is trace tricuspid regurgitation, tricuspid regurgitation jet velocity is inadequate for calculation of the right ventricular systolic pressure. Pulmonic Valve Pulmonic valve is poorly visualized. Great Vessels Aortic root is normal size. Inferior vena cava normal size with normal spectral collapse. Pericardium No significant pericardial effusion noted. Conclusion 1. Normal left ventricular size, preserved left ventricular systolic function, estimated ejection fraction 55% with no regional wall motion abnormality, diastolic parameters are within normal range. 2. Trace mitral and tricuspid regurgitation. 3. No significant pericardial effusion 4. Inferior vena cava normal size with normal inspiratory collapse. Electronically signed by : Jovan Willingham MD 11/01/2021 19:15:06
== END ==
PROVIDERS: PCP Internal Medicine Adolescent Medicine; Visit Provider Nurse Practitioner Family
DX: R01.1 Cardiac murmur, unspecified (principal)
CPT/HCPCS: 93306

== ENCOUNTER → 2021-11-28 11:13 | Outpatient (POV) | payer OTHER, SELFPAY ==
[2021-11-28 12:05] VITALS: BP 123/81; PULSE 81; RESP 18; TEMP 36.3; O2SAT 99; BMI 33.9
--- NOTE | 2021-11-28 12:55 | HMH.PAINSOAP ---
[facility] Pain Management SOAP Note Subjective:: Patient is a pleasant 28-year-old female who presents today for follow-up. Patient is currently being treated for degenerative disc disease of the cervical spine with cervical radiculopathy symptoms, bilateral shoulder pain, sacroiliitis. We have been managing this patient with injective therapy. She had a cervical epidural steroid injection in July 2021 that provided 70% of relief of her pain. Patient states that since this injection, she has been having numbness on bilateral hands, left is worse than the right. She has a surgical history of bilateral carpal tunnel decompression in 2019. She is also complaining of bilateral shoulder pain that is been going on even before the injections. She has not seen orthopedics before. Additionally, she is also complaining of bilateral upper buttock pain that radiates to her groin. She had bilateral SI RFA in 2017. She cannot tolerate any prolonged activity such as sitting, standing, and walking. For pain, she is taking gabapentin 300 mg 4 times a day that is prescribed by our clinic and tramadol 50 mg that is prescribed by Dr. Davis. She states that these 2 medications are making her drowsy. She takes the tramadol only at night and she takes her gabapentin 300 mg 4 times a day. Because of the drowsiness, she has only been taking her gabapentin at night. Review of Systems: General: No recent weight changes, no fever, no sleep disturbances Respiratory: No cough, no shortness of air, no recurring pulmonary infections Cardiovascular/peripheral vascular: No chest pain, no palpitations, no edema, no shortness of breath Gastrointestinal: No new onset incontinence, normal bowel movements reported Genitourinary: No new onset incontinence Musculoskeletal: Neck pain, shoulder pain, low back pain, hip pain Psychiatric: [Normal mood/affect] Neurological: [Denies weakness in extremities], [denies balance issues] Objective:: Physical Exam: General: Alert and oriented x3, no acute distress, pleasant and cooperative Lungs: Respirations even and unlabored, symmetrical chest expansion Eyes: PERRL Musculoskeletal: Flexion and extension of cervical [spine] somewhat guarded secondary to pain, [antalgic gait noted]; limited range of motion of bilateral shoulder secondary to pain. Bilateral SI are positive for MAREN, Belinda's, Montevallo's, Gaenslen's, compression, and distraction. Neurological: Speech clear, no gross sensory deficit Assessment:: Degenerative disc disease of the cervical spine with cervical radiculopathy symptoms, myofascial pain, sacroiliitis, bilateral shoulder pain Plan:: We will schedule the patient for a bilateral SI injection. Risk and benefits have been discussed with the patient. Patient would like to proceed with this procedure. If the patient gets significant relief from these SI injections, we will consider repeating her bilateral SI RFA or she might be a good candidate for SI joint stabilization procedure. I will change the patient's gabapentin to Gabapentin 100mg TID. Patient can take two tablets at night and one in the morning. Will refer the patient to Dr. Cervantes for bilateral shoulder pain and numbness. I have reviewed the patient's cervical MRI which shows mild left posterolateral disc protrusion at C5-C6 with left neuroforaminal compromise. Patient did not get much relief from cervical epidural steroid injection. Numbness on bilateral hands might have a shoulder component to it. Patient does say that she has a medical hx of rickets and osteomalacia. Patient has been instructed to contact the clinic with any concerns before the next appointment. Dr. Madrid has reviewed this note and agrees with this plan of care. This note was dictated using voice recognition software and make contain errors or omissions. [facility] History Medical History: Reports:: Anxiety, Depression, Diabetes Mellitus Type 2, Gastroesophageal Reflux Disease(GERD), Hyperlipid
== END ==
PROVIDERS: Visit Provider Student in an Organized Health Care Education/Training Program
DX: M50.122 Cervical disc disorder at C5-C6 level with radiculopathy (principal); M46.1 Sacroiliitis, not elsewhere classified; M25.511 Pain in right shoulder; M25.512 Pain in left shoulder; M19.90 Unspecified osteoarthritis, unspecified site
CPT/HCPCS: 99212; G0463

== ENCOUNTER → 2021-11-28 13:43 | Outpatient (CLI) | payer OTHER, SELFPAY ==
[2021-11-28 14:50] LABS: Albumin Level 3.7 g/dl (3.5-5.0); Anion Gap 8.4 mEq/L (5-15); Blood Urea Nitrogen 8 mg/dl (7-17); Calcium 9.2 mg/dl (8.4-10.2); Carbon Dioxide 29 mmol/L (22.0-30.0); Chloride 101 mmol/L (98-107); Estimated Glomerular Filt Rate 94 ml/min (>60); GFR (African American) 113 ML/MIN (>60); Glucose 274 mg/dl (74-100); Phosphorous 3.4 mg/dl (2.5-4.5); Potassium 3.4 mmoL/L (3.5-5.1); Sodium 135 mmol/L (136-145)
[2021-11-28 15:07] LABS: 25-OH Vitamin D, Total 68.1 ng/mL (30-100)
[2021-12-01 13:12] LABS: Osteocalcin 18.7 ng/mL (.)
[2021-12-02 00:23] LABS: Tandem-R Ostase 20.1 ug/L (.)
== END ==
PROVIDERS: PCP Internal Medicine Adolescent Medicine; Visit Provider Physician Assistant Medical
DX: M81.0 Age-related osteoporosis without current pathological fracture (principal); E55.9 Vitamin D deficiency, unspecified
CPT/HCPCS: 36415; 80069; 82306; 83937; 84080

== ENCOUNTER 2021-12-09 08:37 | Day surgery (SDC) | payer OTHER, SELFPAY ==
[2021-12-09 08:46] VITALS: BP 124/81; BP 128/81; PULSE 68; PULSE 71; RESP 18; TEMP 36.6; O2SAT 96; O2SAT 98; BMI 34.2
--- NOTE | 2021-12-09 08:54 | P.PCN_ITS ---
- Procedure Date: 12/09/21 Time: 08:55 Anesthesiologist:: Tonny Vieira CRNA Complications:: None Pre-procedure Diagnosis:: Bilateral sacroiliitis Post-procedure Diagnosis:: Same Indications for Procedure:: This patient is a pleasant 28-year-old female that comes our clinic today for bilateral SI joint injections. Patient describes low back pain bilateral posterior hip pain. She rates the pain 7/10. Patient has extreme point tenderness over the bilateral SI joints upon examination. Procedure Details:: Procedure: Bilateral sacroiliac joint injections under fluoroscopy Informed consent was obtained and the risks and benefits of the procedure were explained to the patient.~ The patient was taken to the procedure room and noninvasive monitors were placed including a noninvasive blood pressure cuff and pulse oximeter.~ The patient was placed prone on the procedure table. Both hips were cleansed using Betadine as a cleansing solution. C-arm fluoroscopy was used to view the right sacroiliac joint.~ The skin and subcutaneous tissues were anesthetized using lidocaine 1.5% and a 25-gauge needle.~ After this, a 22-gauge spinal needle was inserted under fluoroscopic guidance into the inferior aspect of the right sacroiliac joint.~ Omnipaque dye was injected and good spread was seen throughout the joint.~ After this, approximately 5 mL of bupivacaine, 0.25% and Depo-Medrol, 40 mg was incrementally injected into the right sacroiliac joint. We then moved to the left sacroiliac joint.~ The skin and subcutaneous tissues were anesthetized using lidocaine 1.5% and a 25-gauge needle.~ After this, a 22- gauge spinal needle was inserted under fluoroscopic guidance into the inferior aspect of the left sacroiliac joint.~ Omnipaque dye was injected and good spread was seen throughout the joint. After this, approximately 5 mL of bupivacaine, 0.25% and Depo-Medrol, 40 mg was incrementally injected into the left sacroiliac joint.~ The patient tolerated the procedure well with no complications. The patient was observed in the Pain Clinic and then was discharged home neurologically intact. Plan and Disposition:: She was discharged without incident
[2021-12-09 08:55] VITALS: BP 139/83; PULSE 68; RESP 20
== END 2021-12-09 09:06 | disposition home or self-care (01) ==
PROVIDERS: PCP Internal Medicine Adolescent Medicine; Visit Provider Nurse Anesthetist, Certified Registered
DX: M46.1 Sacroiliitis, not elsewhere classified (principal); E11.9 Type 2 diabetes mellitus without complications; K21.9 Gastro-esophageal reflux disease without esophagitis; E78.5 Hyperlipidemia, unspecified; I10 Essential (primary) hypertension; F32.A Depression, unspecified; F41.9 Anxiety disorder, unspecified; Z87.442 Personal history of urinary calculi; M19.90 Unspecified osteoarthritis, unspecified site
CPT/HCPCS: 27096; G0260; J1040

== ENCOUNTER → 2021-12-27 11:06 | Outpatient (POV) | payer OTHER, SELFPAY ==
[2021-12-27 11:34] VITALS: BP 124/82; PULSE 77; RESP 20; TEMP 36.6; O2SAT 98; BMI 33.9
--- NOTE | 2021-12-27 12:36 | HMH.PAINSOAP ---
[facility] Pain Management SOAP Note Subjective:: Patient is a pleasant 36-year-old female who presents today for follow-up of bilateral SI injections. She is currently being treated for degenerative disc disease of cervical spine with cervical radiculopathy symptoms, bilateral shoulder pain, sacroiliitis. We have been managing this patient with injective therapy. Today patient rates her pain a 4 out of 10. She states the SI injection gave her a couple weeks of relief. She states her pain today is in her left hip, bilateral shoulders and neck. She denies any injury or trauma. She describes the pain as an aching sensation. She also states she has numbness and tingling in bilateral hands and headaches. She states doing activities such as the dishes makes the pain worse. Patient takes tramadol 50 mg daily for pain from an outside provider. She states she has a history of rickets, fibromyalgia and multiple bone related issues. Her Clarence is [phone]. It has been reviewed and is appropriate. Review of Systems: General: No recent weight changes, no fever, no sleep disturbances Respiratory: No cough, no shortness of air, no recurring pulmonary infections Cardiovascular/peripheral vascular: No chest pain, no palpitations, no edema, no shortness of breath Gastrointestinal: No new onset incontinence, normal bowel movements reported Genitourinary: No new onset incontinence Musculoskeletal: Neck pain, shoulder pain, low back pain, left hip pain Psychiatric: [Normal mood/affect] Neurological: [Denies weakness in extremities], [denies balance issues] Objective:: Physical Exam: General: Alert and oriented x3, no acute distress, pleasant and cooperative Lungs: Respirations even and unlabored, symmetrical chest expansion Eyes: PERRL Musculoskeletal: Flexion and extension of cervical [spine] somewhat guarded secondary to pain, [antalgic gait noted] Neurological: Speech clear, no gross sensory deficit Assessment:: Degenerative disc disease of the cervical spine with cervical radiculopathy symptoms, bilateral shoulder pain, sacroiliitis Plan:: Patient had significant relief of pain lasting 2 weeks from SI injections. I have discussed with the patient about bilateral SI RFA as well as SI joint stabilization procedure. At this time she states she has more pain in her cervical and shoulder region. I have discussed with the patient about having another cervical epidural steroid injection. Risk and benefits have been discussed with the patient. She would like to proceed with this procedure. Patient is not taking any blood thinners. I will also order a right shoulder x-ray today's visit. Patient has been instructed to contact the clinic with any concerns before the next appointment. Dr. Madrid has reviewed this note and agrees with this plan of care. This note was dictated using voice recognition software and make contain errors or omissions. [facility] History I have reviewed the patient's past medical history: Yes Medical History: Reports:: Anxiety, Depression, Diabetes Mellitus Type 2, Gastroesophageal Reflux Disease(GERD), Hyperlipidemia, Hypertension, Kidney Stones, Nephritis Denies:: Cancer, Diabetes Mellitus Type 1, Internal Pacemaker, MRSA, Seizures *Have you ever received a pneumonia vaccine?: No *Have you received a flu vaccine this season?: No Other Medical History: Reports: Anemia, Arthritis, Fibromyalgia. Denies: Blood Transfusion Reaction Laterality Cases: Right: Other, Bilateral: Carpal Tunnel Release Other Surgeries: Yes: No Previous Surgery, Colonoscopy, EGD, Other. No: Pacemaker Amputation: No Fractures: Yes (10 fractures Right Foot, 5 fractures Left Foot. L4/L5 vertebraes) - *Social History Smoking Status: Never smoker Tobacco Type: cigarettes # Packs/Day (cigarettes): 1 #Yrs smoked (if former smoker): 20 Alcohol Intake: never Alcohol Intake Frequency:: other Substance Use Type: denies use *Occupational Status:: other Housing: house Household
== END ==
PROVIDERS: Visit Provider Student in an Organized Health Care Education/Training Program
DX: M50.10 Cervical disc disorder with radiculopathy, unspecified cervical region (principal); M25.512 Pain in left shoulder; M25.511 Pain in right shoulder; M46.1 Sacroiliitis, not elsewhere classified
CPT/HCPCS: 99212; G0463

== ENCOUNTER → 2021-12-27 12:12 | Outpatient (CLI) | payer OTHER, SELFPAY ==
--- NOTE | 2021-12-27 12:20 | XR_ITS ---
FINAL REPORT CLINICAL HISTORY: RT SHOULDER PAIN. FINDINGS: RIGHT SHOULDER: 3 views of the right shoulder were obtained. There is no acute fracture or dislocation. There is mild AC joint degenerative change. There is no soft tissue abnormality. IMPRESSION: Mild AC joint degenerative change. Reviewed, Interpreted and Dictated by Toi Montes De Oca III, MD Transcribed by Castro Walsh Authenticated and [facility]
== END ==
PROVIDERS: PCP Student in an Organized Health Care Education/Training Program; Visit Provider Internal Medicine Adolescent Medicine
DX: M25.511 Pain in right shoulder (principal)
CPT/HCPCS: 73030

== ENCOUNTER 2022-01-03 08:01 | Day surgery (SDC) | payer OTHER, SELFPAY ==
[2022-01-03 08:15] VITALS: BP 145/95; PULSE 71; RESP 17; TEMP 36.5; O2SAT 98; BMI 33.9
--- NOTE | 2022-01-03 08:25 | HMH.PMPROC ---
- Procedure Date: 01/03/22 Time: 08:25 Anesthesiologist:: Tonny Vieira CRNA Complications:: None Pre-procedure Diagnosis:: Degenerative disc disease cervical spine multilevels. Cervical radiculopathy. Post-procedure Diagnosis:: Same Indications for Procedure:: This patient is a pleasant 36-year-old female that presents today for cervical epidural steroid injection. She complains of cervical neck pain as well as bilateral arm radicular symptoms. She rates the pain 7/10. Patient has had 2 rounds of trigger point injections of the cervical paraspinous muscle as well as bilateral trapezius. These did provide some relief however temporary. Procedure Details:: Procedure:Cervical epidural steroid injection Informed consent was obtained and the risks and benefits of the procedure were explained to the patient. The patient was taken to the procedure room and noninvasive monitors placed, including noninvasive blood pressure cuff and pulse oximeter. The neck was prepped using Betadine as a cleansing solution. The C6-C7 interspace was palpated. The skin and subcutaneous tissues were anesthetized using lidocaine 1.5% and a 25-gauge needle. After this an 18-gauge Touhy epidural needle was placed into the C6-C7 interspace and advanced using loss of resistance to air until the epidural space was encountered. After confirmation of needle placement in the epidural space, a solution containing lidocaine 1.5%, 4 mL and Depo-Medrol 80 mg was incrementally injected into the cervical epidural space.~ The patient tolerated the procedure well with no complications. The patient was observed in the Pain Clinic and then discharged home neurologically intact. Plan and Disposition:: Patient was discharged without incident.
[2022-01-03 08:27] VITALS: BP 140/77; PULSE 89; RESP 18; TEMP 36.8; O2SAT 99
[2022-01-03 08:45] VITALS: BP 127/84; PULSE 68; RESP 20; O2SAT 98
== END 2022-01-03 08:45 | disposition home or self-care (01) ==
LOC: SC.PAINP 08:02
PROVIDERS: PCP Internal Medicine Adolescent Medicine; Visit Provider Nurse Anesthetist, Certified Registered
DX: M50.123 Cervical disc disorder at C6-C7 level with radiculopathy (principal); M19.90 Unspecified osteoarthritis, unspecified site
CPT/HCPCS: 62321; J1040

== ENCOUNTER → 2022-02-07 11:04 | Outpatient (POV) | payer OTHER, SELFPAY ==
[2022-02-07 11:09] VITALS: BP 140/84; PULSE 81; RESP 20; BMI 35.5
--- NOTE | 2022-02-07 12:13 | HMH.PAINSOAP ---
[facility] Pain Management SOAP Note Subjective:: Patient is a pleasant 36-year-old female who presents today for follow-up from a cervical epidural steroid injection at C6-C7 on 01/03/2022. We are currently treating the patient for degenerative disc disease of cervical spine multilevels with cervical radiculopathy symptoms, sacroiliitis, low back pain. Patient states that she did have significant improvement in her shoulder pain with this injection however did not really help her neck. She states that she got about 2 weeks worth of relief at 50 to 60% improvement of her pain symptoms. Today the patient rates her pain a 4 out of 10. She states this is all in her neck with some pain remaining in her bilateral shoulders. She describes this as a aching, throbbing sensation that is worse with activity. Patient states that she has had increased headaches currently for the last couple weeks. Patient denies any new trauma or injury to the site. She denies any change of the location or type of pain she experiences. Patient has had multiple injections in the past. Patient is currently being managed with tramadol [address] Franklin and gabapentin 300 mg 4 times a day by our office. Patient denies any side effects from these medications. She states these medications are adequately managing her pain. Her Clarence is [id number]. It has been reviewed and appropriate. Injections: Lesi 02/2018 TPI bilateral cervical paraspinous, trapezius 04/14 FRANCOIS C6-C7 07/2021 SI 11/2021 FRANCOIS C6-C7 12/2021 Review of Systems: General: No recent weight changes, no fever, no sleep disturbances Respiratory: No cough, no shortness of air, no recurring pulmonary infections Cardiovascular/peripheral vascular: No chest pain, no palpitations, no edema, no shortness of breath Gastrointestinal: No new onset incontinence, normal bowel movements reported Genitourinary: No new onset incontinence Musculoskeletal: Neck pain, bilateral shoulder pain Psychiatric: [Normal mood/affect] Neurological: [Denies weakness in extremities], [denies balance issues] Objective:: Physical Exam: General: Alert and oriented x3, no acute distress, pleasant and cooperative Lungs: Respirations even and unlabored, symmetrical chest expansion Eyes: PERRL Musculoskeletal: Flexion and extension of cervical [spine] somewhat guarded secondary to pain, [antalgic gait noted]. Extreme point tenderness along bilateral cervical paraspinous and bilateral trapezius muscles Neurological: Speech clear, no gross sensory deficit Assessment:: Degenerative disc disease of cervical spine with cervical radiculopathy symptoms, sacroiliitis, low back pain, myofascial pain of bilateral cervical paraspinous and trapezius muscles Plan:: Patient still has significant pain along her neck and bilateral shoulders. Patient had extreme point tenderness at bilateral cervical paraspinous and trapezius muscles during today's exam. I have discussed with the patient regarding repeating her trigger point injections to these areas. Risk and benefits were discussed with the patient. She would like to proceed forward with these injections. I have also discussed with the patient regarding referring her to physical therapy. Patient is in agreement to give this a try. I will also order a compounding cream at today's visit. We will schedule the patient for a trigger point injection of bilateral cervical paraspinous and trapezius muscles at today's visit. Patient has been instructed to contact the clinic with any concerns before the next appointment. Dr. Madrid has reviewed this note and agrees with this plan of care. This note was dictated using voice recognition software and make contain errors or omissions. [facility] History I have reviewed the patient's past medical history: Yes Medical History: Reports:: Anxiety, Depression, Diabetes Mellitus Type 2, Gastroesophageal Reflux Disease(GERD), Hyperlipidemia, Hypertension, Kidney Stones, Nephritis
== END ==
PROVIDERS: PCP Internal Medicine Adolescent Medicine; Visit Provider Nurse Practitioner Family
DX: M50.123 Cervical disc disorder at C6-C7 level with radiculopathy (principal); M54.50 Low back pain, unspecified; M79.18 Myalgia, other site
CPT/HCPCS: 99212; G0463

== ENCOUNTER → 2022-02-13 11:15 | Outpatient (CLI) | payer OTHER, SELFPAY ==
--- NOTE | 2022-02-13 11:22 | XR_ITS ---
FINAL REPORT CLINICAL HISTORY: Pt injured ankle walking x 5 days ago, Pain @ medial malleolus COMPARISON: 08/21/2019 FINDINGS: RIGHT ANKLE 3 views of the right ankle were obtained. There is a new anterior sideplate and screws securing the distal tibia and talus. There are screws in the medial malleolus consistent with interval ankle fusion. There is a sclerotic os trigonum which appears more sclerotic than previous. No acute fracture or other acute abnormality. Soft tissues are unremarkable. IMPRESSION: Interval postoperative change. No acute bony abnormality. Reviewed, Interpreted and Dictated by Rito Kuo MD Transcribed by Sinai Vasquez Authenticated and [facility]
== END ==
PROVIDERS: PCP Internal Medicine Adolescent Medicine; Visit Provider Nurse Practitioner Family
DX: M25.571 Pain in right ankle and joints of right foot (principal)
CPT/HCPCS: 73610

== ENCOUNTER 2022-02-17 11:29 | Outpatient (RCR) | payer OTHER, SELFPAY | END 2022-02-17 12:30 | disposition home or self-care (01) | LOC: PT 11:29 | PROVIDERS: Visit Provider Internal Medicine Adolescent Medicine | DX: M25.571 Pain in right ankle and joints of right foot (principal) | CPT/HCPCS: 97760 ==

== ENCOUNTER 2022-02-21 08:37 | Day surgery (SDC) | payer OTHER, SELFPAY ==
[2022-02-21 08:44] VITALS: BP 134/84; PULSE 76; RESP 20; TEMP 36.6; O2SAT 97; BMI 33.9
[2022-02-21 09:02] VITALS: BP 141/93; PULSE 72; RESP 18; O2SAT 98
[2022-02-21 09:03] VITALS: BP 141/93; PULSE 72; RESP 18; O2SAT 98
[2022-02-21 09:12] VITALS: BP 123/84; PULSE 72; O2SAT 100
--- NOTE | 2022-02-21 09:23 | P.PCN_ITS ---
Procedure Date: 02/21/22 Time: 09:10 Anesthesiologist:: Tonny Vieira CRNA Complications:: None Pre-procedure Diagnosis:: Degenerative disc disease of cervical spine with cervical radiculopathy symptoms, sacroiliitis, low back pain, myofascial pain of bilateral cervical paraspinous and trapezius muscles. Post-procedure Diagnosis:: Same Indications for Procedure:: Patient is a pleasant 36-year-old female who presents today for trigger point injections of her bilateral cervical paraspinous and trapezius muscles.We are currently treating the patient for degenerative disc disease of cervical spine with cervical radiculopathy symptoms, sacroiliitis, low back pain, myofascial pain of bilateral cervical paraspinous and trapezius muscles. Patient has point tenderness along her bilateral neck and shoulders, we will proceed with her trigger point injections. Procedure Details:: Informed consent was obtained and the risk and benefits of the procedure were explained to the patient. Patient was taken to the procedure room. Neck and u pper trapezius area were prepped using ChloraPrep as a cleansing solution. Trigger points were palpated and marked. Each trigger point were injected with bupivacaine 0.25% 3 mL and Depo-Medrol 10 mg. A total of 80 mg Depo-Medrol was used for the bilateral trigger points of the upper trapezius muscles and cervical paraspinous muscles. Bandages were placed over the injection sites. Patient tolerated the procedure well with no complications Plan and Disposition:: Patient will return to clinic in 2 weeks for follow-up from this injection. Patient has been instructed to contact the clinic with any concerns before her next appointment. Dr. Madrid has reviewed this note and agrees with this plan of care. The note was dictated using voice recognition software and may contain errors or omissions.
--- NOTE | 2022-02-21 09:34 | P.PCN_ITS ---
Procedure Date: 02/21/22 Time: 09:34 Anesthesiologist:: Tonny Vieira CRNA Complications:: None Pre-procedure Diagnosis:: Degenerative disc disease cervical spine multilevels. Cervical radiculopathy. Post-procedure Diagnosis:: Same Indications for Procedure:: Very pleasant 36-year-old female that comes our clinic today for her initial cervical epidural steroid injection of the C6-7 level. Patient complains of cervical neck pain as well as bilateral arm radicular symptoms. She rates her pain 7/10. Procedure Details:: Procedure:Cervical epidural steroid injection Informed consent was obtained and the risks and benefits of the procedure were explained to the patient. The patient was taken to the procedure room and noninvasive monitors placed, including noninvasive blood pressure cuff and pulse oximeter. The neck was prepped using Betadine as a cleansing solution. The C6-C7 interspace was palpated. The skin and subcutaneous tissues were anesthetized using lidocaine 1.5% and a 25-gauge needle. After this an 18-gauge Touhy epidu ral needle was placed into the C6-C7 interspace and advanced using loss of resistance to air until the epidural space was encountered. After confirmation of needle placement in the epidural space, a solution containing lidocaine 1.5%, 4 mL and Depo-Medrol 80 mg was incrementally injected into the cervical epidural space.~ The patient tolerated the procedure well with no complications. The patient was observed in the Pain Clinic and then discharged home neurologically intact. Plan and Disposition:: Patient was discharged without incident
== END 2022-02-21 09:15 | disposition home or self-care (01) ==
LOC: SC.PAINP 08:37
PROVIDERS: PCP Internal Medicine Adolescent Medicine; Visit Provider Nurse Anesthetist, Certified Registered
DX: M50.123 Cervical disc disorder at C6-C7 level with radiculopathy (principal); M46.1 Sacroiliitis, not elsewhere classified; M54.50 Low back pain, unspecified; M79.18 Myalgia, other site
CPT/HCPCS: 20552; 62321; J1040

== ENCOUNTER → 2022-03-09 10:23 | Outpatient (POV) | payer OTHER, SELFPAY ==
[2022-03-09 10:49] VITALS: BP 119/80; PULSE 89; RESP 18; TEMP 36.7; O2SAT 97; BMI 33.9
--- NOTE | 2022-03-09 11:04 | EXP.PAIN.SOA ---
[facility] Pain Management SOAP Note Subjective:: Patient is a pleasant 37-year-old female who presents today for follow-up of trigger point injections of bilateral cervical paraspinous and trapezius on 02/21/2022. We are currently treating the patient for degenerative disc disease of cervical spine multilevels with cervical radiculopathy symptoms, myofascial pain. Today the patient states that she had moderate improvement of her symptoms however it did not last very long and she had significant headache that lasted several days following this injection. Patient states that in the past from having trigger point injections of her neck and shoulders she would have significant headache that coincided with these injections. Patient states previous injections such as a cervical epidural did not give headaches. Today the patient rates her pain a 2 out of 10. She states is all in her neck that radiates into her bilateral upper extremities. Patient denies any new trauma or injury to the site. Patient denies any change to the location or type of pain she experiences. Patient is currently seen physical therapy and states she is getting significant improvement through the exercises and stretching. Patient is prescribed compounding cream that she states she is only tried once on her ankle but did give some relief. Patient is currently prescribed gabapentin 300 mg 4 times a day however the patient states that she only takes this medication once at night before bedtime due to the hung over/groggy feeling accompanying this medication when she takes it during the day. Patient states this medication does help manage her pain. Patient is not requesting a refill at this time due to having access from her previous prescriptions. Her Clarence is [phone]. It is been reviewed and appropriate. Review of Systems: General: No recent weight changes, no fever, no sleep disturbances Respiratory: No cough, no shortness of air, no recurring pulmonary infections Cardiovascular/peripheral vascular: No chest pain, no palpitations, no edema, no shortness of breath Gastrointestinal: No new onset incontinence, normal bowel movements reported Genitourinary: No new onset incontinence Musculoskeletal: Neck and shoulder pain Psychiatric: [Normal mood/affect] Neurological: [Denies weakness in extremities], [denies balance issues] Objective:: Physical Exam: General: Alert and oriented x3, no acute distress, pleasant and cooperative Lungs: Respirations even and unlabored, symmetrical chest expansion Eyes: PERRL Musculoskeletal: Flexion and extension of cervical [spine] somewhat guarded secondary to pain, [antalgic gait noted] Neurological: Speech clear, no gross sensory deficit Assessment:: Degenerative disc disease of cervical spine multilevels with cervical radiculopathy symptoms, myofascial pain Plan:: Patient has had some improvement of her neck and shoulder symptoms however following these trigger point injections she has significant headaches lasting multiple days. I have discussed with the patient regarding repeating a cervical epidural steroid injection in the future. At this time the patient would like to wait and see how her pain symptoms go over the next month. I have also talked to the patient regarding her gabapentin. We will change her medication order to once daily at night. I did discuss with the patient that we could in the future try pregabalin 75 mg 3 times a day and see if she gets significant improvement without the groggy side effects of the gabapentin. We will follow-up with the patient in 1 month for reevaluation of her symptoms. Patient has been instructed to contact the clinic with any concerns before the next appointment. Dr. Madrid has reviewed this note and agrees with this plan of care. This note was dictated using voice recognition software and make contain errors or omissions. [facility] Medical History (Updated 02/21/22 @ 08:47 by Kari Styles RN) Sadie colin
== END ==
PROVIDERS: PCP Internal Medicine Adolescent Medicine; Visit Provider Nurse Practitioner Family
DX: M50.10 Cervical disc disorder with radiculopathy, unspecified cervical region (principal); M79.18 Myalgia, other site
CPT/HCPCS: 99212; G0463

== ENCOUNTER 2022-03-14 14:00 | Outpatient (RCR) | payer OTHER, SELFPAY ==
--- NOTE | 2022-02-14 15:17 | HMH.PTOPEV ---
PT Outpatient Evaluation Rehab PT Outpatient Evaluation Start: 02/14/22 13:53 Freq: Status: Active Protocol: Document 02/14/22 13:53 JOSE CARLOS (Rec: 02/14/22 15:17 [email or web address] [id number]) Electronically Signed By Tonny Singleton, PT 02/14/22 13:53 Outpatient Therapy Subjective History Subjective History Pt. is a 36 year old female who presents to [facility] Outpatient Physical Therapy Services in [place] for the initial evaluation this date( 02/14/22) w/ c's/o chronic and constant bilateral shldr.(R>L )/cervical P!, stiffness, and headaches of insidious onset for months now. Pt. also complains of intermittent numbness/tingling into BUEs especially with sleeping. Pt. reports symptoms worsen w/ extending the cervical spien after looking down at her phone watching Netflix. Pt. also reports having an increase in stiffness w/ sweeping and mopping. Pt. reports having 1-2 weeks of some symptom relief w/ trigger point injections. Pt. reports RTMD next wk. for more trigger point injections. Recent diagnostic imaging positive for 2 bulging discs per pt. report. Pt. denies having a history of cancer( self), denies pacemaker, denies latex allergy. Pt. reports having medicational allergies to Nyquil and Penicillin. Current medications include Gabapentin , Tramadol, Paxil, Jardiance, Metformin, Atorvastatin, Amlodipine, and Buproprion. PMH includes Fibromyalgia, Rickets, Osteomalacia, Osetoperosis, S/P RLE ankle fusion surgeries x 4, S/P BUE Carpal Tunnel Surgeries, Phosphorus Metabolism Disorder , Heart Murmur, and Type II
== END 2022-04-21 10:05 | disposition home or self-care (01) ==
LOC: PT.CARL 14:00
PROVIDERS: PCP Internal Medicine Adolescent Medicine; Visit Provider Nurse Practitioner Family
DX: M54.2 Cervicalgia (principal); M25.512 Pain in left shoulder; M25.511 Pain in right shoulder
CPT/HCPCS: 20560; 97010; 97012; 97014; 97110; 97140; 97163; G0283

== ENCOUNTER → 2022-04-10 10:09 | Outpatient (POV) | payer OTHER, SELFPAY ==
[2022-04-10 10:23] VITALS: BP 119/76; PULSE 77; RESP 18; TEMP 36.7; O2SAT 98; BMI 33.7
--- NOTE | 2022-04-10 10:36 | EXP.PAIN.SOA ---
[facility] Pain Management SOAP Note Subjective:: Patient is a pleasant 37-year-old female who presents today for follow-up. We are currently treating the patient for degenerative disc disease of cervical spine multilevels with cervical radiculopathy symptoms, myofascial pain of bilateral cervical paraspinous and trapezius. Today the patient rates her pain a 3 out of 10. She states the pain is still in her neck with radiating symptoms into her upper extremities. Patient denies any new trauma or injury. She denies any change to location or type of pain she experiences. Patient states that she did get improvement with her last trigger point injections however it did not last long-term. Today she states she has more left-sided pain along her left hip left ankle left shoulder and left wrist. Patient does believe a lot of her issues is related to her fibromyalgia that she was diagnosed with from a rheumatology doctor. Patient had been seeing physical therapy however has finished with these visits and states it did provide significant improvement of her symptoms. She does continue to do at home exercises and stretching techniques that she was given during physical therapy. She is prescribed compounding cream that she does occasionally use with some relief. She is also prescribed gabapentin 300 mg 4 times a day however she does feel groggy following this medication and continues to just take it at night. Patient states that she does not need any refills of this medication. Her Clarence is [id number]. It is been reviewed and appropriate. Review of Systems: General: No recent weight changes, no fever, no sleep disturbances Respiratory: No cough, no shortness of air, no recurring pulmonary infections Cardiovascular/peripheral vascular: No chest pain, no palpitations, no edema, no shortness of breath Gastrointestinal: No new onset incontinence, normal bowel movements reported Genitourinary: No new onset incontinence Musculoskeletal: Left hip, ankle, shoulder, wrist pain Psychiatric: [Normal mood/affect] Neurological: [Denies weakness in extremities], [denies balance issues] Objective:: Physical Exam: General: Alert and oriented x3, no acute distress, pleasant and cooperative Lungs: Respirations even and unlabored, symmetrical chest expansion Eyes: PERRL Musculoskeletal: Flexion and extension of cervical, lumbar [spine] somewhat guarded secondary to pain, [antalgic gait noted] Neurological: Speech clear, no gross sensory deficit Assessment:: Degenerative disc disease of cervical spine multilevels with cervical radiculopathy symptoms, myofascial pain of bilateral cervical paraspinous and trapezius muscles, left shoulder, hip, ankle, wrist pain Plan:: Patient does continue to have pain on her left side in her joints. Patient did have limited range of motion of her lumbar and cervical spine during today's exam. I have discussed with the patient regarding possibly doing a transforaminal epidural. Risk and benefits were discussed with the patient. At this time the patient would like to wait. I have also discussed with the patient regarding changing her gabapentin to pregabalin once she runs out of this medication. We will follow-up with the patient in 1 month. Patient will return to clinic in 1 month for reevaluation of symptoms. Patient has been instructed to contact the clinic with any concerns before the next appointment. Dr. Madrid has reviewed this note and agrees with this plan of care. This note was dictated using voice recognition software and make contain errors or omissions. [facility] Medical History Carpal tunnel syndrome Right ankle injury Surgical History History of ankle surgery History of colonoscopy Family History (Updated 03/30/22 @ 13:12 by Yuli Armando LPN) Mother Diabetes Heart attack Stroke Lupus Social History Smoking Stat
== END ==
PROVIDERS: PCP Internal Medicine Adolescent Medicine; Visit Provider Nurse Practitioner Family
DX: M50.10 Cervical disc disorder with radiculopathy, unspecified cervical region (principal); M79.18 Myalgia, other site; Z79.899 Other long term (current) drug therapy
CPT/HCPCS: 99212; G0463

== ENCOUNTER → 2022-05-11 10:41 | Outpatient (POV) | payer OTHER, SELFPAY ==
--- NOTE | 2022-05-11 11:13 | EXP.PAIN.SOA ---
[facility] Pain Management SOAP Note Subjective:: Patient is a pleasant 37-year-old female who presents today for follow-up. We are currently treating the patient for degenerative disc disease of cervical spine multilevels with cervical radiculopathy symptoms, myofascial pain of cervical paraspinous and trapezius. Patient rates her pain today a 3 out of 10. She states the pain is primarily in her neck and left hip. Patient denies any new trauma or injury. Patient denies any change in location or type of pain she experiences. Patient has had multiple injections in the past that have provided significant improvement however only short-term. Patient does have a history of fibromyalgia. Patient has also been to physical therapy in the past however this did not provide significant improvement. Patient is prescribed compounding cream that she states does provide some improvement and she is currently prescribed gabapentin 300 mg 4 times a day however she states due to the groggy hung over feeling she only takes this at night. Patient just states she does not need any additional refills at this time. Her Clarence is [phone]. It has been reviewed and appropriate. Review of Systems: General: No recent weight changes, no fever, no sleep disturbances Respiratory: No cough, no shortness of air, no recurring pulmonary infections Cardiovascular/peripheral vascular: No chest pain, no palpitations, no edema, no shortness of breath Gastrointestinal: No new onset incontinence, normal bowel movements reported Genitourinary: No new onset incontinence Musculoskeletal: Neck pain, left hip pain Psychiatric: [Normal mood/affect] Neurological: [Denies weakness in extremities], [denies balance issues] Objective:: Physical Exam: General: Alert and oriented x3, no acute distress, pleasant and cooperative Lungs: Respirations even and unlabored, symmetrical chest expansion Eyes: PERRL Musculoskeletal: Flexion and extension of left hip, cervical [spine] somewhat guarded secondary to pain, [antalgic gait noted]. Point tenderness along left greater trochanteric bursa Neurological: Speech clear, no gross sensory deficit Assessment:: Degenerative disc disease of cervical spine multilevels with cervical radiculopathy symptoms, myofascial pain of bilateral cervical paraspinous and trapezius, left hip pain Plan:: Patient continues to experience significant pain in her neck and left hip. Patient did have limited range of motion of her cervical spine and point tenderness along her left greater trochanteric bursa during our visit. I have discussed with the patient that she may benefit from a left greater trochanteric bursa injection. Risk and benefits were discussed with the patient. At this time the patient would like to wait. We will follow-up with the patient in 1 month for reevaluation of symptoms and follow-up. Patient has been instructed to contact the clinic with any concerns before the next appointment. Dr. Madrid has reviewed this note and agrees with this plan of care. This note was dictated using voice recognition software and make contain errors or omissions. [facility] Medical History Carpal tunnel syndrome Right ankle injury Surgical History History of ankle surgery History of colonoscopy Family History (Updated 03/30/22 @ 13:12 by Yuli Armando LPN) Mother Diabetes Heart attack Stroke Lupus Social History Smoking Status: Never smoker second hand exposure: No alcohol intake: never substance use type: denies use current occupational status: employed Travel in the last 8 weeks: None household members: other housing: house current occupational exposures/hazards: No caffeine: Yes
[2022-05-11 11:32] VITALS: BP 118/82; PULSE 85; RESP 18; O2SAT 95; BMI 33.2
== END ==
PROVIDERS: PCP Internal Medicine Adolescent Medicine; Visit Provider Nurse Practitioner Family
DX: M50.10 Cervical disc disorder with radiculopathy, unspecified cervical region (principal); M79.12 Myalgia of auxiliary muscles, head and neck; M25.552 Pain in left hip
CPT/HCPCS: 99212; G0463

== ENCOUNTER → 2022-06-08 10:11 | Outpatient (POV) | payer OTHER, SELFPAY ==
[2022-06-08 10:17] VITALS: BP 105/78; PULSE 84; RESP 18; O2SAT 96; BMI 33.2
--- NOTE | 2022-06-08 10:25 | EXP.PAIN.SOA ---
[facility] Pain Management SOAP Note Subjective:: Patient is a pleasant 37-year-old female who presents today for follow-up. We are currently treating the patient for degenerative disc disease of cervical spine multilevel with cervical radiculopathy symptoms, myofascial pain of cervical paraspinous and trapezius. Today the patient rates her pain a 4 out of 10. Patient denies any new trauma or injury. Patient denies any change location or type of pain she experiences. Patient is currently managed with gabapentin 300 mg 4 times a day however patient has previously decreased her dosage on this medication due to the groggy, hung over feeling. Patient does not need any refills on this at this time. Patient is also prescribed tramadol 50 mg daily from an outside provider. Patient denies any side effects from this medication. She states this medication does help her symptoms. She is prescribed a compounding cream that she states does provide additional relief. Patient does have a history of fibromyalgia. Her Clarence is [phone]. It is been reviewed and appropriate. Review of Systems: General: No recent weight changes, no fever, no sleep disturbances Respiratory: No cough, no shortness of air, no recurring pulmonary infections Cardiovascular/peripheral vascular: No chest pain, no palpitations, no edema, no shortness of breath Gastrointestinal: No new onset incontinence, normal bowel movements reported Genitourinary: No new onset incontinence Musculoskeletal: Neck pain Psychiatric: [Normal mood/affect] Neurological: [Denies weakness in extremities], [denies balance issues] Objective:: Physical Exam: General: Alert and oriented x3, no acute distress, pleasant and cooperative Lungs: Respirations even and unlabored, symmetrical chest expansion Eyes: PERRL Musculoskeletal: Flexion and extension of cervical [spine] somewhat guarded secondary to pain, [antalgic gait noted] Neurological: Speech clear, no gross sensory deficit Assessment:: Degenerative disc disease of cervical spine multilevel with cervical radiculopathy symptoms, myofascial pain of cervical paraspinous and trapezius muscles Plan:: Patient is doing well currently with decreased pain symptoms and does not require any additional injective therapy or medication refills. Patient will return to clinic in 3 months for reevaluation of symptoms and follow-up. Patient has been instructed to contact the clinic with any concerns before the next appointment. Dr. Madrid has reviewed this note and agrees with this plan of care. This note was dictated using voice recognition software and make contain errors or omissions. [facility] Disclaimer: The information contained in this section may have been updated after the patient was seen, as this information can be updated by other users. Medical History Carpal tunnel syndrome Right ankle injury Surgical History History of ankle surgery History of colonoscopy Family History (Updated 03/30/22 @ 13:12 by Yuli Armando LPN) Mother Diabetes Heart attack Stroke Lupus Social History Smoking Status: Never smoker second hand exposure: No alcohol intake: never substance use type: denies use current occupational status: other Travel in the last 8 weeks: None household members: other housing: house current occupational exposures/hazards: No caffeine: Yes
== END ==
PROVIDERS: PCP Internal Medicine Adolescent Medicine; Visit Provider Nurse Practitioner Family
DX: M50.10 Cervical disc disorder with radiculopathy, unspecified cervical region (principal); M79.18 Myalgia, other site
CPT/HCPCS: 99212; G0463

== ENCOUNTER → 2022-07-11 08:20 | Outpatient (CLI) | payer OTHER, SELFPAY ==
[2022-07-11 09:33] LABS: Hemoglobin A1C 6.6 % (4.0-6.0)
[2022-07-11 09:34] LABS: Basophils # 0.1 K/mm3 (0-0.2); Basophils % 0.6 % (0.1-2.0); Eosinophils # 0.1 K/mm3 (0.0-0.4); Eosinophils % 0.4 % (0.1-12.0); Hematocrit 42.4 % (37.0-47.0); Hemoglobin 13.7 g/dL (12.2-16.2); Lymphocytes # 2.9 K/mm3 (0.7-4.5); Lymphocytes % 17.1 % (10-50); Mean Corpuscular HGB Conc 32.3 g/dL (31.8-35.4); Mean Corpuscular Hemoglobin 30.1 pg (27.0-31.2); Mean Corpuscular Volume 93.4 fl (81-99); Mean Platelet Volume 8.3 fl (7.4-10.4); Monocytes % 5.5 % (1.7-9.3); Neutrophils # 13.1 K/mm3 (1.8-7.8); Neutrophils % 76.4 % (37.0-80.0); Platelet Count 607 K/mm3 (142-424); Red Blood Count 4.54 M/mm3 (4.20-5.40); Red Cell Distribution Width 15.6 % (11.5-17.5); White Blood Count 17.2 K/mm3 (4.8-10.8)
[2022-07-11 09:38] LABS: MANUAL DIFFERENTIAL MANUAL DIFFERENTIAL (MANUAL DIFF)
[2022-07-11 11:07] LABS: Eosinophils % 1 % (0-3); Lymphocytes % 23 % (10-50); Monocytes % 6 % (2-9); Neutrophils % 70 % (42-76); Total Cells Counted 100
[2022-07-11 11:12] LABS: Platelet Estimate Moderate Increase; RBC Morphology Normal
[2022-07-11 12:12] LABS: Alanine Aminotransferase 17 U/L (12-78); Albumin Level 4.3 g/dl (3.5-5.0); Albumin/Globulin Ratio 1.6 (1.1-1.8); Alkaline Phosphatase 117 U/L (38-126); Anion Gap 13.9 mEq/L (5-15); Aspartate Amino Transferase 21 U/L (14-36); Bilirubin,Total 0.3 mg/dl (0.2-1.3); Blood Urea Nitrogen 10 mg/dl (7-17); Calcium 9.2 mg/dl (8.4-10.2); Carbon Dioxide 25 mmol/L (22.0-30.0); Chloride 105 mmol/L (98-107); Chol/HDL Ratio 5.6 (1-3.5); Cholesterol 167 mg/dl (140-200); Estimated Glomerular Filt Rate 80 ml/min (>60); GFR (African American) 97 ML/MIN (>60); Globulin 2.7 g/dL (1.3-3.2); Glucose 125 mg/dl (74-100); HDL Cholesterol 30 mg/dl (40-60); Potassium 3.9 mmoL/L (3.5-5.1); Sodium 140 mmol/L (136-145); Triglycerides 158 mg/dl (30-150); VLDL Cholesterol 32 mg/dL (0-40)
[2022-07-11 12:24] LABS: Direct LDL Cholesterol 114.02 mg/dL (100-129)
[2022-07-11 12:33] LABS: 25-OH Vitamin D, Total 37.9 ng/mL (30-100)
[2022-07-11 13:01] LABS: Vitamin B12 258 pg/mL (239-931)
== END ==
PROVIDERS: PCP Internal Medicine Adolescent Medicine; Visit Provider Nurse Practitioner Family
DX: Z00.00 Encounter for general adult medical examination without abnormal findings (principal); E11.65 Type 2 diabetes mellitus with hyperglycemia; I10 Essential (primary) hypertension; E53.8 Deficiency of other specified B group vitamins; E55.9 Vitamin D deficiency, unspecified; Z79.84 Long term (current) use of oral hypoglycemic drugs
CPT/HCPCS: 36415; 80053; 80061; 82306; 82607; 83036; 85007; 85025

== ENCOUNTER → 2022-07-17 06:44 | Outpatient (CLI) | payer OTHER, SELFPAY ==
--- NOTE | 2022-07-17 06:45 | NM_ITS ---
APPROVED REPORT Exam: Nuclear Stress Test Indication: SOB, Abnormal EKG, HTN, DM, High cholesterol, Tobacco use, Family history Patient Location: Outpatient Stress Tech: Rose Marie Cyr [place] Tech:Nilam Cabrera, ARRT, RT (R)(N) Ht: 5 ft 6 in Wt: 204 lbs Bra Size: 36C HR: 83 bpm BP: 134/77 mmHg BSA: 2.02 m2 BMI: 32.9 History: SOB, Abnormal EKG, HTN, DM, High cholesterol, Tobacco use, Family history Procedure: Patient received a 0.4 mg of intravenous Lexiscan, resting heart rate 83 bpm, resting blood pressure 134/77 mmHg, with Lexiscan maximum heart rate achived was 117 bpm which is Less than 85 % of the maximum predicted heart rate and blood pressure was 140/87 mmHg. With Lexiscan, patient denied any complaint of chest pain. Electrocardiogram Resting electrocardiogram shows sinus rhythm, with Lexiscan there is less than 1.[address] segment depression noted from the baseline EKG. The EKG portion of the Lexiscan is nondiagnostic. Cardiac Stress and Resting SPECT Images: Cardiac Stress and Resting SPECT images were obtained using technetium 99m Myoview 30.7 mCi stress and 10.23 mCi at rest. Gated SPECT for analysis of segmental wall motion and calculation of the ejection fraction also done. Prone images were also obtained. Cardiac stress and resting SPECT images show uniform myocardial activity without segmental perfusion abnormality, computer derived ejection fraction is 60% with no regional wall motion abnormality, right ventricle is normal size and contractility. Conclusion: 1. The EKG portion of the Lexiscan is nondiagnostic. 2. No scintigraphic evidence of reversible ischemia seen, computer derived ejection fraction is 60% with no regional wall motion abnormality, right ventricle is normal size and contractility. 3. Normal Lexiscan Myoview study. Electronically signed by : Jovan Willingham MD 07/18/2022 07:05:06
--- NOTE | 2022-07-17 06:45 | CA_ITS ---
APPROVED REPORT Exam: Pharmacologic Technologist: Rose Marie Cyr Ht: 5 ft 6 in Wt: 207 lbs BSA: 2.03 m2 HR: 70 bpm BP: 134/77 mmHg Indications: Chest pain, dyspnea, abnormal EKG, Preop Medical History Medications: Amlodipine,,,,, Omeprazole,,,,, Metformin,,,,, Gabapentin,,,,, Vitamin D3,,,,, Atorvastatin,,,,, Ropinirole,,,,, Albuterol,,,,, PaROXETINE,,,,, MeDroxyprogesterone,,,,, EMpagliflozin,,,,, BuPROPION HCL,,,,, Stress Test Details Test: LEXISCAN HR Resting HR: 83 bpm Max Heart Rate (APMHR): 181.966494 bpm Max HR Achieved: 117 bpm Target HR (85% APMHR): 153.759478 bpm % of APMHR: 64.64 Recovery HR: 100 bpm BP Resting BP: 134.0/77.0 mmHg Max BP: 140.0/87.0 mmHg Recovery BP: 136.0/87.0 mmHg ECG Clinical Exercise duration: 04:00 min Highest Stage Achieved: Exercise capacity: 1.0 METs Stress ECG Conclusion Symptoms: Dizzy, shortness of air, nausea. Arrhythmias/Ectopy: None ST-T Changes: < 1.[address] changes. Test Summary REST . . . . . . . Resting REST 13:22 . . 83 . 134/ 77 . . Stage 1 . . . . . . . Myoview Injected Stage 1 01:00 . . 113 . . . . Stage 2 01:00 . . 110 . 140/ 87 . . Stage 3 01:00 . . 108 . 130/ 94 . . Stage 4 01:00 . . 105 . 138/ 97 . Stop exercise at 04:00 RECOVERY 01:00 . . 98 . . . . RECOVERY 02:00 . . 91 . 129/ 94 . . RECOVERY 03:00 . . 97 . 136/ 87 . . RECOVERY 03:19 . . 88 . 136/ 87 . . Electronically signed by : Jovan Willingham MD 07/18/2022 06:46:48
--- NOTE | 2022-07-17 09:03 | HMH.ITSHM ---
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 []TRAMADOL ROPINIROLE PAROXETINE OMEPRAZOLE METFORMIN MEDROXYPROGESTERONE GABAPENTIN EMPAGLIFLOZIN VITAMIN D3 BUPROPION ATORVASTATIN AMLODIPINE ALBUTEROL
== END ==
PROVIDERS: PCP Internal Medicine Adolescent Medicine; Visit Provider Physician Assistant
DX: R06.00 Dyspnea, unspecified (principal); Z01.810 Encounter for preprocedural cardiovascular examination; R07.9 Chest pain, unspecified; R01.1 Cardiac murmur, unspecified; I10 Essential (primary) hypertension; E11.9 Type 2 diabetes mellitus without complications; E78.5 Hyperlipidemia, unspecified; R94.31 Abnormal electrocardiogram [ECG] [EKG]; Z72.0 Tobacco use; Z82.49 Family history of ischemic heart disease and other diseases of the circulatory system; Z79.84 Long term (current) use of oral hypoglycemic drugs
CPT/HCPCS: 78452; 93017; A9502; J2785

== ENCOUNTER → 2022-07-18 10:48 | Outpatient (CLI) | payer OTHER, SELFPAY ==
[2022-07-18 12:10] LABS: Basophils # 0.1 K/mm3 (0-0.2); Basophils % 0.6 % (0.1-2.0); Eosinophils # 0.1 K/mm3 (0.0-0.4); Eosinophils % 0.4 % (0.1-12.0); Hematocrit 42.5 % (37.0-47.0); Hemoglobin 14.1 g/dL (12.2-16.2); Lymphocytes % 21.2 % (10-50); Mean Corpuscular HGB Conc 33.1 g/dL (31.8-35.4); Mean Corpuscular Hemoglobin 30.9 pg (27.0-31.2); Mean Corpuscular Volume 93.3 fl (81-99); Mean Platelet Volume 8.2 fl (7.4-10.4); Monocytes % 5.5 % (1.7-9.3); Neutrophils # 13.4 K/mm3 (1.8-7.8); Neutrophils % 72.2 % (37.0-80.0); Platelet Count 590 K/mm3 (142-424); Red Blood Count 4.55 M/mm3 (4.20-5.40); Red Cell Distribution Width 16.2 % (11.5-17.5); White Blood Count 18.6 K/mm3 (4.8-10.8)
[2022-07-18 12:15] LABS: MANUAL DIFFERENTIAL MANUAL DIFFERENTIAL (MANUAL DIFF)
[2022-07-18 17:02] LABS: Eosinophils % 1 % (0-3); Lymphocytes % 24 % (10-50); Monocytes % 10 % (2-9); Neutrophils % 65 % (42-76); Platelet Estimate Slight Increase; Total Cells Counted 100
[2022-07-18 17:03] LABS: RBC Morphology Normal
[2022-07-20 10:52] LABS: Peripheral Smear Review Scanned Result
== END ==
PROVIDERS: PCP Internal Medicine Adolescent Medicine; Visit Provider Nurse Practitioner Family
DX: D72.829 Elevated white blood cell count, unspecified (principal)
CPT/HCPCS: 36415; 85007; 85025

== ENCOUNTER → 2022-07-19 10:05 | Outpatient (CLI) | payer OTHER, SELFPAY | PROVIDERS: PCP Internal Medicine Adolescent Medicine; Visit Provider Nurse Practitioner Family | DX: D72.829 Elevated white blood cell count, unspecified (principal) | CPT/HCPCS: 36415; 87040; 87070; 87077; 87086; 87088; 87186; 87205 ==

== ENCOUNTER → 2022-08-10 13:36 | Outpatient (CLI) | payer OTHER, SELFPAY ==
[2022-08-10 14:19] LABS: Basophils # 0.2 K/mm3 (0-0.2); Basophils % 1.2 % (0.1-2.0); Eosinophils # 0.1 K/mm3 (0.0-0.4); Eosinophils % 0.9 % (0.1-12.0); Hematocrit 45.4 % (37.0-47.0); Hemoglobin 14.4 g/dL (12.2-16.2); Lymphocytes # 3.3 K/mm3 (0.7-4.5); Lymphocytes % 23.5 % (10-50); Mean Corpuscular HGB Conc 31.7 g/dL (31.8-35.4); Mean Corpuscular Hemoglobin 29.6 pg (27.0-31.2); Mean Corpuscular Volume 93.2 fl (81-99); Mean Platelet Volume 8.4 fl (7.4-10.4); Monocytes # 0.7 K/mm3 (0.1-1.0); Neutrophils # 9.9 K/mm3 (1.8-7.8); Neutrophils % 69.4 % (37.0-80.0); Platelet Count 551 K/mm3 (142-424); Red Blood Count 4.87 M/mm3 (4.20-5.40); Red Cell Distribution Width 15.4 % (11.5-17.5); White Blood Count 14.2 K/mm3 (4.8-10.8)
[2022-08-10 19:24] LABS: Iron 64 ug/dL (37-170)
[2022-08-10 19:34] LABS: Total Iron Binding Capacity 280 ug/dL (265-497)
[2022-08-10 20:02] LABS: Ferritin 48.3 ng/ml (6.24-137)
== END ==
PROVIDERS: PCP Internal Medicine Adolescent Medicine; Visit Provider Internal Medicine Medical Oncology
DX: D50.9 Iron deficiency anemia, unspecified (principal)
CPT/HCPCS: 36415; 82728; 83540; 83550; 85025

== ENCOUNTER → 2022-08-28 09:36 | Outpatient (POV) | payer OTHER, SELFPAY ==
--- NOTE | 2022-08-28 09:59 | EXP.PAIN.SOA ---
[facility] Pain Management SOAP Note Subjective:: Patient is a pleasant 37-year-old female who presents today for 3-month follow-up. We are currently treating the patient for degenerative disc disease of cervical spine with cervical radiculopathy symptoms, myofascial pain of cervical paraspinous and trapezius muscles. Today she rates her pain a 5 out of 10. Patient denies any new trauma or injury. Patient states she is experiencing significant pain in her left hip that radiates into her left leg. Patient does describe this as a aching, throbbing sensation that is worse with increased activity. She states it does radiate into her buttocks as well as her groin and goes down to her toes. Patient states this has been going on for approximately 6 months and worsened over time. She does state it interferes with her ability to perform activities of daily living such as cooking and cleaning and that even walking can be difficult. She states that she has not had any imaging of her hip along that side and it has been a little bit for her low back as well. She states she is scheduled to go to Dr. Sterling next week. She is currently managed with tramadol 50 mg daily from her primary care doctor. She is also been prescribed gabapentin 600 mg 4 times a day. Patient states this does make her groggy at times and she had decreased use but recently started this back. She does not need refills at this time. Patient denies any side effects from this medication. Her Clarence is [phone]. Its been reviewed and appropriate. Review of Systems: General: No recent weight changes, no fever, no sleep disturbances Respiratory: No cough, no shortness of air, no recurring pulmonary infections Cardiovascular/peripheral vascular: No chest pain, no palpitations, no edema, no shortness of breath Gastrointestinal: No new onset incontinence, normal bowel movements reported Genitourinary: No new onset incontinence Musculoskeletal: Left hip pain, left leg pain Psychiatric: [Normal mood/affect] Neurological: [Denies weakness in extremities], [denies balance issues] Objective:: Physical Exam: General: Alert and oriented x3, no acute distress, pleasant and cooperative Lungs: Respirations even and unlabored, symmetrical chest expansion Eyes: PERRL Musculoskeletal: Flexion and extension of lumbar [spine] somewhat guarded secondary to pain, [antalgic gait noted] Neurological: Speech clear, no gross sensory deficit ORT score updated with high risk Age 37 History of attention deficit disorder, OCD, bipolar and depression FINDINGS: There is no fracture. The vertebral alignment is normal.? There are mild degenerative changes.There is no evidence of significant central canal stenosis.? There is a less than 5 mm right nonobstructing renal stone. ? ? L1-L2:? No evidence of central canal stenosis or neural foraminal narrowing. L2-L3:? An annular bulge is present. ? ? L3-L4:? An annular bulge is present. ? ? L4-L5:? An annular bulge is present. There is mild bilateral neural foraminal narrowing. ? ? L5-S1: An annular bulge is present. IMPRESSION: Multilevel degenerative change without acute bony abnormality. Less than 5 mm right nonobstructing renal stone. Reviewed, Interpreted and Dictated by Toi Montes De Oca III, MD Transcribed by Sinai Vasquez Authenticated by Toi Montes De Oca III, MD on 07/15/2021 12:08:24 PM [facility] Assessment:: Degenerative disc disease of cervical spine multilevel with cervical radiculopathy symptoms, myofascial pain of cervical paraspinous and trapezius, low back pain, degenerative disc disease lumbar spine with lumbar radiculopathy symptoms Plan:: Patient is experiencing significant pain in her low back with radiating symptoms into her left hip and left leg down to her toes. Patient did have limited range of motion of her lumbar spine during today's visit. Patient's previous CT imaging from 2021 did show multilevel degenerative disc disease with multilevel bulges
[2022-08-28 11:17] VITALS: BP 119/84; PULSE 87; RESP 18; O2SAT 98; BMI 32.9
== END ==
PROVIDERS: PCP Internal Medicine Adolescent Medicine; Visit Provider Nurse Practitioner Family
DX: M50.10 Cervical disc disorder with radiculopathy, unspecified cervical region (principal); M51.16 Intervertebral disc disorders with radiculopathy, lumbar region; M79.18 Myalgia, other site
CPT/HCPCS: 99212; G0463

== ENCOUNTER → 2022-08-28 10:25 | Outpatient (CLI) | payer OTHER, SELFPAY ==
--- NOTE | 2022-08-28 10:41 | XR_ITS ---
FINAL REPORT CLINICAL HISTORY: LT HIP PAIN FINDINGS: LEFT HIP Two views of the left hip including an AP pelvis demonstrate no acute fracture or dislocation. The joint spaces appear normal. The visualized bony structures are well aligned. No soft tissue abnormality is seen. IMPRESSION: No acute bony abnormality. Reviewed, Interpreted and Dictated by Toi Montes De Oca III, MD Transcribed by Sinai Vasquez Authenticated and [facility]
== END ==
PROVIDERS: PCP Internal Medicine Adolescent Medicine; Visit Provider Nurse Practitioner Family
DX: M25.552 Pain in left hip (principal)
CPT/HCPCS: 73502

== ENCOUNTER → 2022-09-15 08:42 | Outpatient (CLI) | payer OTHER, SELFPAY ==
--- NOTE | 2022-09-15 08:47 | MR_ITS ---
FINAL REPORT CLINICAL HISTORY: LOW BACK PAIN back pain x several years worse in the last several months left hip pain and left leg pain FINDINGS: Multiplanar MR imaging of the lumbar spine was performed without contrast. On the sagittal T2-weighted images, there is abnormal decreased signal of the L4-5 lumbar discs. The vertebrae are of normal height. The vertebral alignment is normal. L1-2: There is no significant canal stenosis or neural foraminal narrowing. L2-3: There is no significant canal stenosis or neural foraminal narrowing. L3-4: There is no significant canal stenosis or neural foraminal narrowing. L4-5: A mild diffuse disc bulge is present with mild bilateral neural foraminal narrowing. L5-S1: There is no significant canal stenosis or neural foraminal narrowing. IMPRESSION: Disc degeneration at L4-5 with a mild diffuse disc bulge and mild bilateral neural foraminal narrowing. Reviewed, Interpreted and Dictated by Rito Kuo MD Transcribed by Sinai Vasquez Authenticated and [facility]
== END ==
PROVIDERS: PCP Internal Medicine Adolescent Medicine; Visit Provider Orthopaedic Surgery Adult Reconstructive Orthopaedic Surgery
DX: M54.50 Low back pain, unspecified (principal)
CPT/HCPCS: 72148; 76376

== ENCOUNTER → 2022-10-03 12:44 | Outpatient (CLI) | payer OTHER, SELFPAY ==
--- NOTE | 2022-10-03 12:48 | MR_ITS ---
FINAL REPORT CLINICAL HISTORY: CERVICALGIA bilateral tingling and numbness down arms 2-3 years of pain FINDINGS: Multiplanar MR imaging of the cervical spine was performed without contrast. On the sagittal T2-weighted images, disc degeneration is seen at multiple levels. There is straightening of the normal cervical curvature which could be due to positioning or muscle spasm. There is no evidence of fracture. The vertebral alignment is normal. The cervical spinal cord has an unremarkable appearance without evidence of mass, edema or syrinx. No significant canal stenosis is identified. The cervicomedullary junction is normal. C2-3: There is no significant canal stenosis or neural foraminal narrowing. C3-4: There is no significant canal stenosis or neural foraminal narrowing. C4-5: There are uncovertebral osteophytes. There is no significant canal stenosis or neural foraminal narrowing. C5-6: There are uncovertebral osteophytes. There is moderate left neural foraminal narrowing. C6-7: An annular bulge is present. There is no significant canal stenosis or neural foraminal narrowing. C7-T1: There is no significant canal stenosis or neural foraminal narrowing. IMPRESSION: Degenerative disc disease and spondylosis with moderate left neural foraminal narrowing at C5-C6. Reviewed, Interpreted and Dictated by Toi Montes De Oca III, MD Transcribed by Castro Walsh Authenticated and [facility]
--- NOTE | 2022-10-03 12:49 | MR_ITS ---
FINAL REPORT CLINICAL HISTORY: ACUTE ANKLE PAIN since jul 2022 swelling FINDINGS: Multiplanar MR imaging of the left ankle was performed without contrast. There is bone bruising/marrow edema in the distal talus with a questionable osteochondral fracture or osteochondral lesion. There is a 3 mm osteochondral lesion in the medial talar dome. There is irregularity of the calcaneal fibular ligament that may represent a partial tear. There is mild posterior tibial tenosynovitis. There is distal Achilles tendinitis with a small partial tear at the insertion and small intrasubstance tears. The posterior plantar aponeurosis is intact. No significant joint effusion is seen. The musculature is intact. There is no evidence of soft tissue mass or cyst. IMPRESSION: Bone bruising/marrow edema in the distal talus with questionable osteochondral fracture or osteochondral lesion. Distal Achilles tendinitis with small partial insertional tear and small intrasubstance tears. Irregularity of the calcaneofibular ligament that may represent a partial tear. Mild posterior tibial tenosynovitis. Reviewed, Interpreted and Dictated by Toi Montes De Oca III, MD Transcribed by Castro Walsh Authenticated and [facility]
== END ==
PROVIDERS: PCP Internal Medicine Adolescent Medicine; Visit Provider Orthopaedic Surgery Adult Reconstructive Orthopaedic Surgery
DX: M54.2 Cervicalgia (principal); M25.572 Pain in left ankle and joints of left foot
CPT/HCPCS: 72141; 73721; 76376

== ENCOUNTER → 2022-11-24 10:59 | Outpatient (CLI) | payer OTHER, SELFPAY ==
[2022-11-24 12:00] LABS: Albumin Level 3.7 g/dl (3.5-5.0); Alkaline Phosphatase 159 U/L (38-126); Anion Gap 11.6 mEq/L (5-15); Blood Urea Nitrogen 8 mg/dl (7-17); Calcium 8.9 mg/dl (8.4-10.2); Carbon Dioxide 28 mmol/L (22.0-30.0); Chloride 104 mmol/L (98-107); Estimated Glomerular Filt Rate 80 ml/min (>60); GFR (African American) 97 ML/MIN (>60); Glucose 194 mg/dl (74-100); Phosphorous 2.8 mg/dl (2.5-4.5); Potassium 3.6 mmoL/L (3.5-5.1); Sodium 140 mmol/L (136-145)
[2022-11-24 12:16] LABS: 25-OH Vitamin D, Total 43.6 ng/mL (30-100)
[2022-11-28 22:19] LABS: C-Telopeptide Serum 452 pg/mL (.)
== END ==
PROVIDERS: PCP Internal Medicine Adolescent Medicine; Visit Provider Physician Assistant Medical
DX: M81.0 Age-related osteoporosis without current pathological fracture (principal); E83.39 Other disorders of phosphorus metabolism; E66.9 Obesity, unspecified; Z68.33 Body mass index [BMI] 33.0-33.9, adult
CPT/HCPCS: 36415; 80069; 82306; 82523; 84075

== ENCOUNTER → 2023-03-06 10:25 | Outpatient (CLI) | payer OTHER, SELFPAY ==
[2023-03-06 10:56] LABS: Basophils # 0.1 K/mm3 (0-0.2); Basophils % 0.4 % (0.1-2.0); Eosinophils # 0.2 K/mm3 (0.0-0.4); Eosinophils % 1.4 % (0.1-12.0); Hematocrit 46.3 % (37.0-47.0); Hemoglobin 14.5 g/dL (12.2-16.2); Lymphocytes # 2.8 K/mm3 (0.7-4.5); Lymphocytes % 20.5 % (10-50); Mean Corpuscular HGB Conc 31.3 g/dL (31.8-35.4); Mean Corpuscular Hemoglobin 29.6 pg (27.0-31.2); Mean Corpuscular Volume 94.4 fl (81-99); Mean Platelet Volume 8.1 fl (7.4-10.4); Monocytes # 0.8 K/mm3 (0.1-1.0); Monocytes % 5.8 % (1.7-9.3); Neutrophils # 9.8 K/mm3 (1.8-7.8); Neutrophils % 71.9 % (37.0-80.0); Platelet Count 407 K/mm3 (142-424); Red Cell Distribution Width 15.3 % (11.5-17.5); White Blood Count 13.6 K/mm3 (4.8-10.8)
[2023-03-06 11:12] LABS: Hemoglobin A1C 6.1 % (4.0-6.0)
[2023-03-06 11:27] LABS: Erythrocyte Sedimentation Rate 19 mm/hr (0-20)
[2023-03-06 11:50] LABS: Alanine Aminotransferase 15 U/L (12-78); Albumin/Globulin Ratio 1.4 (1.1-1.8); Alkaline Phosphatase 124 U/L (38-126); Anion Gap 13.8 mEq/L (5-15); Aspartate Amino Transferase 20 U/L (14-36); Bilirubin,Total 0.3 mg/dl (0.2-1.3); Blood Urea Nitrogen 10 mg/dl (7-17); Calcium 9.3 mg/dl (8.4-10.2); Carbon Dioxide 28 mmol/L (22.0-30.0); Chloride 105 mmol/L (98-107); Estimated Glomerular Filt Rate 80 ml/min (>60); GFR (African American) 97 ML/MIN (>60); Globulin 2.8 g/dL (1.3-3.2); Glucose 117 mg/dl (74-100); Potassium 3.8 mmoL/L (3.5-5.1); Sodium 143 mmol/L (136-145); Total Protein,Serum 6.8 g/dl (6.3-8.2)
[2023-03-06 11:56] LABS: C-Reactive Protein 14.4 mg/L (0-4)
== END ==
PROVIDERS: PCP Internal Medicine Adolescent Medicine; Visit Provider Nurse Practitioner Family
DX: E11.621 Type 2 diabetes mellitus with foot ulcer (principal); L97.519 Non-pressure chronic ulcer of other part of right foot with unspecified severity; B95.7 Other staphylococcus as the cause of diseases classified elsewhere; Z79.84 Long term (current) use of oral hypoglycemic drugs
CPT/HCPCS: 36415; 80053; 83036; 85025; 85651; 86140; 87070; 87077; 87186; 87205

== ENCOUNTER → 2023-03-06 16:49 | Outpatient (CLI) | payer OTHER, SELFPAY | PROVIDERS: Visit Provider Nurse Practitioner Family | DX: E11.9 Type 2 diabetes mellitus without complications (principal) ==

== ENCOUNTER → 2023-04-25 08:35 | Outpatient (CLI) | payer OTHER, SELFPAY ==
[2023-04-26 12:24] LABS: Immunoglobulin A, Qn 236 mg/dL (87-352)
[2023-04-26 18:26] LABS: Tissue Transglutaminase IgA Ab <2 U/mL (0-3)
[2023-04-30 14:10] LABS: Strongyloides IgG Antibody Negative (Negative)
== END ==
PROVIDERS: PCP Family Medicine; Visit Provider Nurse Practitioner Family
DX: R19.7 Diarrhea, unspecified (principal)
CPT/HCPCS: 36415; 82784; 83516; 86682

== ENCOUNTER 2023-04-27 07:14 | Day surgery (SDC) | payer OTHER, SELFPAY ==
[2023-04-24 12:37] VITALS: BMI 32.3
[2023-04-27 07:35] VITALS: BP 167/74; RESP 18; TEMP 36.7; O2SAT 97
[2023-04-27 07:46] LABS: POC Glucose,Bedside 118 (70-110)
--- NOTE | 2023-04-27 08:12 | P.PNANES_ITS ---
[facility] Disclaimer: The information contained in this section may have been updated after the patient was seen, as this information can be updated by other users. Medical History Abnormal electrocardiogram [ECG] [EKG] Asthma Cardiac murmur Carpal tunnel syndrome Chest pain DM2 (diabetes mellitus, type 2) Dyspnea Encounter for pre-operative cardiovascular clearance Family history of early CAD HLD (hyperlipidemia) HTN (hypertension) Rickets, vitamin D deficiency Right ankle injury Tobacco abuse Vitamin B12 deficiency Vitamin D deficiency Surgical History History of ankle surgery History of colonoscopy Family History Mother Diabetes Heart attack Stroke Lupus Social History Smoking Status: Never smoker second hand exposure: No alcohol intake: never substance use type: denies use current occupational status: other Travel in the last 8 weeks: None household members: other housing: house current occupational exposures/hazards: No caffeine: Yes [facility] Anesthesia Checklist Patient Identification Patient Identification: Arm Band and Verbal (Name & ) Structural Data Admitted From: Home Planned Operative Procedure/s: Colonoscopy Consent for Planned Operative Procedure(s) Verified: Yes NPO Status Verified Time NPO: 00:00 Chart Verification Results Verified: HCG Additional verifications Anesthesia Reactions: No Hx Blood Transfusions: No Blood Transfusion Reaction: No Airway Assessment Mallampati Score:: Class III C-Spine Mobility Assessed: Yes TMJ Mobility Assessed: Yes Dentition: Edentulous Neurological Assessment Level of Consciousness: Awake Hx Seizures: No Numbness or tingling in extremities: No Anesthesia Plan Anesthesia Risk discussed: Yes Anesthesia Plan: Verified ASA Class: III Anesthesia Type: MAC
[2023-04-27 08:25] LABS: Urine Pregnancy, HCG Qual. Negative (Negative)
--- NOTE | 2023-04-27 08:44 | HMH.SCOPE ---
Procedure: Date: 04/27/23 Patient Date of :: 1985 Procedure Performed:: Aborted colonoscopy Indications:: Patient is a 38-year-old female from [place] with history of fibromyalgia, anxiety, depression, diabetes, vitamin D deficiency. I had previously seen her after referral from hematology oncology in 2019 and performed upper endoscopy and colonoscopy on 05/06/2019. At that time she had a hemoglobin of 12 and hematocrit of 40% and panendoscopy was requested for anemia. There were no findings on upper endoscopy or colonoscopy which would suggest etiology for anemia. However, she was found to have fair colonic preparation. There was a single small adenomatous appearing polyp at the rectosigmoid region. Pathology revealed tubular adenoma. Repeat colonoscopy was recommended for 3 years. Performing Provider:: Toi Alvarez MD Referring Provider:: Bhavin Moore MD Sedation:: MAC sedation Procedure:: Patient history was obtained and appropriate physical examination was performed. Patient's medications and allergies were reviewed. Informed consent was obtained after explaining the benefits, alternatives, and risks of the procedure including, but not limited to, bleeding, perforation, missed lesions, and adverse reaction to anesthesia medications. Patient was transported to endoscopy procedure room. Patient was connected to monitoring devices. Throughout the procedure the patient's blood pressure, pulse, and oxygen saturations were monitored continuously. Patient identification and planned procedure were verified by the staff. Patient was positioned in lateral decubitus position. Digital anorectal exam was performed. Variable stiffness Olympus colonoscope was inserted. There is a large amount of opaque thick liquid stool encountered. High-volume trans colonoscopic irrigation and suctioning was performed within the rectosigmoid region. Ultimately the colonoscope was advanced to the transverse colon. There was redundancy and floppiness of the sigmoid colon and this made advancement proximal to the hepatic flexure difficult. In addition, there is extremely large amount of opaque liquid particulate stool throughout the colon. This could not be cleared despite high-volume trans colonoscopic irrigation and suctioning. Therefore, colonoscope was withdrawn. Findings:: Extremely poor colonic preparation Recommendations:: Repeat colonoscopy with multi day maximum prep Complications:: None immediate Estimated blood obtained (mL): 0 Colonoscopy Component Colonoscopy Component Was a colonoscopy performed during today's procedure?: Yes Recommended follow up colonoscopy of at least 10 years?: No If no, follow up colonoscopy recommended in ___ years?: As soon as possible Reason for not recommending >/= 10 yr follow-up interval?: See above
[2023-04-27 08:48] VITALS: O2SAT 100
[2023-04-27 09:09] VITALS: BP 124/68; PULSE 69; RESP 14; TEMP 36.7; O2SAT 94
[2023-04-27 09:19] VITALS: BP 113/66; PULSE 67; RESP 17; O2SAT 97
[2023-04-27 09:29] VITALS: BP 123/86; PULSE 74; RESP 16; O2SAT 95
--- NOTE | 2023-04-27 09:29 | SUR.PHASEII ---
per patient, pt is ok to take tylenol by itself. she states she takes it and has no problem.
[2023-04-27 09:42] VITALS: BP 114/81; PULSE 72; RESP 17; O2SAT 95
== END 2023-04-27 09:43 | disposition home or self-care (01) ==
PROVIDERS: PCP Family Medicine; Visit Provider Surgery
PROC: 0DJD8ZZ Inspection of Lower Intestinal Tract, Via Natural or Artificial Opening Endoscopic (ICD-10-PCS; CPT 45378; principal; 2023-04-27 08:30)
DX: Z91.199 Patient's noncompliance with other medical treatment and regimen due to unspecified reason (principal); Z86.010 Personal history of colon polyps; E11.9 Type 2 diabetes mellitus without complications
CPT/HCPCS: 45378; 81025; 82962

== ENCOUNTER → 2023-04-27 15:43 | Outpatient (CLI) | payer OTHER, SELFPAY ==
[2023-04-27 15:47] LABS: Adenovirus F 40/41, stool Not Detected (NotDetected); Astrovirus Not Detected (NotDetected); Campylobacter Not Detected (NotDetected); Clostridium Difficile A/B, PCR Not Detected (NotDetected); Cryptosporidium Not Detected (NotDetected); Cyclospora Cayetanesis Not Detected (NotDetected); Entamoeba histolytica Not Detected (NotDetected); Enteroaggregative E coli Not Detected (NotDetected); Enteropathogenic E coli Not Detected (NotDetected); Enterotoxigenic E coli Not Detected (NotDetected); Giardia lamblia Not Detected (NotDetected); Plesimonas Shigalloides, PCR Not Detected (NotDetected); Rotavirus A Not Detected (NotDetected); Salmonella, PCR Not Detected (NotDetected); Sapovirus Not Detected (NotDetected); Shiga-like toxin E coli Not Detected (NotDetected); Shigella Enterovasive E coli Not Detected (NotDetected); Vibrio Cholerae Not Detected (NotDetected); Vibrio, PCR Not Detected (NotDetected); Yersinia Entercolitica, PCR Not Detected (NotDetected)
[2023-05-02 09:56] LABS: Norovirus Detected (NotDetected)
[2023-05-04 14:44] LABS: Calprotectin, Fecal 42 ug/g (0-120)
== END ==
PROVIDERS: PCP Nurse Practitioner Family; Visit Provider Nurse Practitioner Family
DX: R19.7 Diarrhea, unspecified (principal); A08.11 Acute gastroenteropathy due to Norwalk agent
CPT/HCPCS: 83993; 87177; 87507

== ENCOUNTER → 2023-06-06 10:37 | Outpatient (CLI) | payer OTHER, SELFPAY ==
--- NOTE | 2023-06-06 10:43 | XR_ITS ---
FINAL REPORT CLINICAL HISTORY: foot pain COMPARISON: None FINDINGS: RIGHT FOOT 3 views of the right foot were obtained. There is no acute fracture or dislocation. The patient has undergone prior fusion of the ankle mortise with an anterior fusion plate. Osteopenia is present. Soft tissues are unremarkable. IMPRESSION: No acute bony abnormality. Prior fusion of the ankle mortise with an anterior fusion plate. Osteopenia. Reviewed, Interpreted and Dictated by Rito Kuo MD Transcribed by Ashli Swanson Authenticated and [facility]
--- NOTE | 2023-06-06 10:43 | XR_ITS ---
FINAL REPORT CLINICAL HISTORY: ankle pain COMPARISON: 02/13/2022 FINDINGS: RIGHT ANKLE 3 views of the right ankle were obtained. There is no acute fracture or dislocation. The patient has undergone fusion of the ankle mortise, with an anterior fusion plate, which is stable when compared to the prior films of 2021. Osteopenia is present. No acute bony abnormality is identified. Soft tissues are unremarkable. IMPRESSION: No acute bony abnormality. Prior fusion of the ankle mortise, stable when compared to prior films of 2021. Reviewed, Interpreted and Dictated by Rito Kuo MD Transcribed by Ashli Swanson Authenticated and [facility]
== END ==
PROVIDERS: PCP Family Medicine; Visit Provider Nurse Practitioner Family
DX: M79.671 Pain in right foot (principal); M25.571 Pain in right ankle and joints of right foot; M79.672 Pain in left foot; M25.572 Pain in left ankle and joints of left foot
CPT/HCPCS: 73610; 73630

== ENCOUNTER 2023-06-28 12:28 | Outpatient (CLI) | payer OTHER, SELFPAY ==
--- NOTE | 2023-06-28 12:33 | XR_ITS ---
FINAL REPORT CLINICAL HISTORY: left shoulder pain COMPARISON: None FINDINGS: LEFT SHOULDER: 3 views of the left shoulder were obtained. There is no acute fracture or dislocation. There is mild AC joint degenerative change. There is no soft tissue abnormality. IMPRESSION: No acute fracture Reviewed, Interpreted and Dictated by Toi Montes De Oca III, MD Transcribed by Marysol Lee Authenticated and [facility]
== END 2023-06-28 23:59 ==
LOC: RAD 12:29
PROVIDERS: PCP Family Medicine; Visit Provider Orthopaedic Surgery
DX: M25.512 Pain in left shoulder (principal)
CPT/HCPCS: 73030

== ENCOUNTER 2023-07-27 08:47 | Outpatient (CLI) | payer OTHER, SELFPAY ==
--- NOTE | 2023-07-27 08:47 | MR_ITS ---
FINAL REPORT TECHNIQUE: Multiplanar MR without gadolinium enhancement CLINICAL HISTORY: Lt SHoulder Pain COMPARISON: None FINDINGS: Marrow signal: There is cyst formation in the superior and lateral humeral head, likely degenerative. There is minimal marrow edema at the rotator cuff insertion. Glenohumeral joint: Unremarkable Acromioclavicular joint: Moderate hypertrophic change with mild impingement. There is a small amount of fluid in the subacromial bursa. Rotator cuff apparatus: There is a focal full-thickness tear of the anterior half of the distal supraspinatus tendon with a defect measuring up to 15 mm in size. The remainder of the rotator cuff tendons are unremarkable. Labrum: Unremarkable Biceps tendon: Unremarkable IMPRESSION: Focal full-thickness tear anterior half of the distal supraspinatus tendon as described. Moderate acromioclavicular hypertrophic change with mild impingement and a small amount of fluid in the subacromial bursa. Reviewed, Interpreted and Dictated by Sushma Francis MD Transcribed by Ashli Swanson Authenticated and [facility]
== END 2023-07-27 23:59 ==
LOC: RAD 08:47
PROVIDERS: PCP Family Medicine; Visit Provider Orthopaedic Surgery
DX: S46.012A Strain of muscle(s) and tendon(s) of the rotator cuff of left shoulder, initial encounter (principal)
CPT/HCPCS: 73221

== ENCOUNTER 2023-08-06 10:53 | Outpatient (CLI) | payer OTHER, SELFPAY ==
--- NOTE | 2023-08-06 11:02 | ECG_ITS ---
APPROVED REPORT Exam: Resting ECG HR:71 bpm ECG Measurements Heart Rate 71 AXES ID 148 P 61 QRSd 89 QRS 19 QT 377 T 9 QTc 400 Conclusion SINUS RHYTHM NONSPECIFIC T-WAVE ABNORMALITY BORDERLINE ECG UNCONFIRMED REPORT Electronically signed by : Darryl Davis MD 08/06/2023 17:57:33
--- NOTE | 2023-08-06 11:16 | XR_ITS ---
FINAL REPORT CLINICAL HISTORY: Pre Op FINDINGS: 2 views of the chest were obtained . The heart is normal in size. The mediastinum is within normal limits. The lungs are clear. There is no pneumothorax. Osseous structures are unremarkable. IMPRESSION: No acute cardiopulmonary process. Reviewed, Interpreted and Dictated by Toi Montes De Oca III, MD Transcribed by Suri Diaz Authenticated and . [facility]
[2023-08-06 11:47] LABS: Basophils # 0.1 K/mm3 (0-0.2); Basophils % 0.5 % (0.1-2.0); Eosinophils # 0.2 K/mm3 (0.0-0.4); Eosinophils % 1.9 % (0.1-12.0); Hemoglobin 14.9 g/dL (12.2-16.2); Lymphocytes # 3.8 K/mm3 (0.7-4.5); Lymphocytes % 35.3 % (10-50); Mean Corpuscular HGB Conc 33.8 g/dL (31.8-35.4); Mean Corpuscular Hemoglobin 32.1 pg (27.0-31.2); Mean Corpuscular Volume 95.1 fl (81-99); Mean Platelet Volume 8.6 fl (7.4-10.4); Monocytes # 0.6 K/mm3 (0.1-1.0); Neutrophils # 6.1 K/mm3 (1.8-7.8); Neutrophils % 56.5 % (37.0-80.0); Platelet Count 357 K/mm3 (142-424); Red Blood Count 4.62 M/mm3 (4.20-5.40); Red Cell Distribution Width 14.6 % (11.5-17.5); White Blood Count 10.8 K/mm3 (4.8-10.8)
[2023-08-06 12:04] LABS: Alanine Aminotransferase 26 U/L (12-78); Albumin Level 4.1 g/dl (3.5-5.0); Albumin/Globulin Ratio 1.8 (1.1-1.8); Alkaline Phosphatase 102 U/L (38-126); Anion Gap 6.9 mEq/L (5-15); Aspartate Amino Transferase 23 U/L (14-36); Bilirubin,Total 0.4 mg/dl (0.2-1.3); Blood Urea Nitrogen 8 mg/dl (7-17); Calcium 9.5 mg/dl (8.4-10.2); Carbon Dioxide 31 mmol/L (22.0-30.0); Chloride 106 mmol/L (98-107); Estimated Glomerular Filt Rate 79 ml/min (>60); GFR (African American) 96 ML/MIN (>60); Globulin 2.3 g/dL (1.3-3.2); Glucose 108 mg/dl (74-100); Potassium 3.9 mmoL/L (3.5-5.1); Sodium 140 mmol/L (136-145); Total Protein,Serum 6.4 g/dl (6.3-8.2)
== END 2023-08-06 23:59 ==
LOC: LAB 10:54
PROVIDERS: PCP Family Medicine; Visit Provider Orthopaedic Surgery
DX: Z01.818 Encounter for other preprocedural examination (principal); S46.012A Strain of muscle(s) and tendon(s) of the rotator cuff of left shoulder, initial encounter; M25.512 Pain in left shoulder
CPT/HCPCS: 36415; 71046; 80053; 85025; 93005

== ENCOUNTER 2023-08-13 06:51 | Day surgery (SDC) | payer OTHER, SELFPAY ==
[2023-08-10 12:26] VITALS: BMI 32.3
[2023-08-13] VITALS (9 sets, daily range): BP systolic 111–153; BP diastolic 58–92; PULSE 81–108; RESP 15–18; TEMP 36.1–36.8; O2SAT 91–97
[2023-08-13] MEDS: LACTATED RINGERS 1000ML 1,000 ML 25 ML IV (07:01)
[2023-08-13 07:09] LABS: Urine Pregnancy, HCG Qual. Negative (Negative)
[2023-08-13 07:19] LABS: POC Glucose,Bedside 122 (70-110)
--- NOTE | 2023-08-13 07:52 | EXP.ANES.CKL ---
[facility] Disclaimer: The information contained in this section may have been updated after the patient was seen, as this information can be updated by other users. Medical History Abnormal electrocardiogram [ECG] [EKG] Asthma Cardiac murmur Carpal tunnel syndrome Chest pain DM2 (diabetes mellitus, type 2) Dyspnea Encounter for pre-operative cardiovascular clearance Family history of early CAD Fibromyalgia HLD (hyperlipidemia) HTN (hypertension) Rickets, vitamin D deficiency Right ankle injury Tobacco abuse Vitamin B12 deficiency Vitamin D deficiency Surgical History History of ankle surgery History of biopsy History of carpal tunnel release History of colonoscopy Family History Mother Diabetes Heart attack Stroke Lupus Other Asthma Hypertension Social History Smoking Status: Current every day smoker tobacco type: cigarettes packs per day: 1 second hand exposure: No alcohol intake: never substance use type: denies use current occupational status: unemployed and other Travel in the last 8 weeks: Inside the [place] household members: other housing: house current occupational exposures/hazards: No caffeine: Yes [facility] Anesthesia Checklist Patient Identification Patient Identification: Arm Band Structural Data Admitted From: Home Planned Operative Procedure/s: Left Shoulder Arthroscopy, Rotator Cuff Repair, Subacromial Decompression Consent for Planned Operative Procedure(s) Verified: Yes Verified Documents: Surgical Consent and History and Physical NPO Status Verified Time NPO: 00:00 Additional verifications Anesthesia Reactions: No Hx Blood Transfusions: No Blood Transfusion Reaction: No Airway Assessment Mallampati Score:: Class II C-Spine Mobility Assessed: Yes TMJ Mobility Assessed: Yes Dentition: Edentulous Neurological Assessment Level of Consciousness: Awake and Alert Anesthesia Plan Anesthesia Risk discussed: Yes Anesthesia Plan: Verified ASA Class: III Anesthesia Type: General w/block (Left Interscalene Nerve Block. Risks/benefits explained. Pt verbalized understanding)
[2023-08-13] MEDS: EPINEPHrine 1MG/ML 30ML VIAL 30 MG (09:23)
[2023-08-13] MEDS: RINGERS SOLUTION,LACTATED 6,000 ML 6000 ML IR (09:24)
[2023-08-13] MEDS: CLINDAMYCIN PHOSPHATE/D5W 900 MG/50 ML PIGGYBACK 106 MG IV (09:25)
[2023-08-13] MEDS: RINGERS SOLUTION,LACTATED 3,000 ML 3000 ML IR (09:58)
--- NOTE | 2023-08-13 10:13 | EXP.OP.NOTE ---
Date of procedure: 08/13/23 Pre-op Diagnosis:: Left shoulder rotator cuff tear Post-op Diagnosis:: Left shoulder full-thickness supraspinatus rotator cuff tear Procedure performed:: Left shoulder arthroscopy rotator cuff repair Surgeon:: Iain Bhandari DO OUTSIDE B2B SALES:: Other Anesthesia: GETA and regional Estimated blood loss (mL): 0 Operative findings:: Full-thickness rotator cuff tear without significant subacromial bursitis Operative note:: Patient identified preoperatively left shoulder marked with yes and my initials. Underwent a block with anesthesia. Then taken the operating room placed upon operating bed general anesthesia ministered airway secured then placed in a lateral position with a beanbag with all bony prominences well-padded and axillary roll placed. Left shoulder was then placed inline traction with the arm jarrell in the lateral decubitus position. Left shoulder was then prepped and draped normal sterile fashion. Once prepped and draped final operative timeout performed to identify proper patient procedure and extremity. Everyone involved the case agreed. No counter indications to beginning. Did receive preoperative antibiotics. Marking pen was used to shirley the bony landmarks of the shoulder and standard portal sites skin knife was used incise posterior viewing portal where a blunt trocar was placed in the glenohumeral joint this is exchanged with a camera. I moved directly anteriorly just above the subscapularis tendon where the anterior working portal was made and switch with a purple cannula. And then placed a probe inside the shoulder joint within the joint the biceps anchor was intact the labrum was intact the cartilage was intact. Evidence of tearing of the rotator cuff from intra-articular aspect was evident with fraying. This was debrided with a sucker shaver. Attention was then brought the subacromial space. Within the subacromial space there was not a whole lot of subacromial bursitis and no significant downsloping of the acromion therefore subacromial decompression was not performed. However there was evidence of full-thickness tearing of the supraspinatus. The footprint was debrided edge of the rotator cuff tendon were debrided and attention was made to repair of the rotator cuff. A lateral portal was established and a passport cannula was placed. And then using fiber tape with the scorpion needle was passed through the cuff and brought out and a speed fix fashion. An additional anchor was repeated for 2 anchor speed fix repair. This gave good fixation brought the rotator cuff tendon back to the footprint appropriately. No further pathology was seen and the camera was removed the joint was drained skin was closed with nylon stitches sterile dressing was placed. Patient waken anesthesia taken recovery in stable condition. Condition: stable Disposition: PACU Complications:: None apparent
--- NOTE | 2023-08-13 10:16 | P.PNANES_ITS ---
[facility] Anesthesia Record Part I Anesthesia Record I Intake, IV Amount: 900 Hydration: Adequate Estimated blood loss (mL): 25 Urine output (mL): 0 Blood Products used (#): none Blood Pressure: 111/58 SaO2: 91 Pulse Rate: 108 Airway Patency: Patent Respiratory Rate: 18 Temperature: 97.8 F Patient is:: Awake, Drowsy and Stable Stable to PACU at:: 10:17
[2023-08-13] MEDS: MEPERIDINE 25MG/ML 1ML SYRINGE 25 MG IV (10:23)
[2023-08-13 10:25] LABS: POC Glucose,Bedside 110 (70-110)
--- NOTE | 2023-08-14 07:07 | EXP.ANES.II ---
[facility] Anesthesia Record Part II Anesthesia Record Part II Discharge Time: 10:42 Destination: Surgical Day Care (OP Surgery) PACU nurse assessment reviewed?: Yes Patient Condition:: Good Anesthesia Complications:: None Swallowing reflex intact?: Yes Airway Patency: Patent Cyanosis?: No Blood Pressure: 144/72 SaO2: 94 Respiratory Rate: 16 Pulse Rate: 89 Temperature: 97.9 F Mental Status: Alert & Oriented Pain level:: 0 Nausea and/or vomitting:: None Intake, IV Amount: 0 Hydration: Adequate
[2023-08-14 07:09] VITALS: BP 144/72; PULSE 89; RESP 16; TEMP 36.6; O2SAT 94
== END 2023-08-13 11:17 | disposition home or self-care (01) ==
PROVIDERS: PCP Family Medicine; Visit Provider Orthopaedic Surgery
PROC: (CPT 29805; principal; 2023-08-13 08:30)
DX: M75.122 Complete rotator cuff tear or rupture of left shoulder, not specified as traumatic (principal)
CPT/HCPCS: 29827; 81025; 82962; 96374; J3490; C1713; C9290; J2405

== ENCOUNTER 2023-10-22 18:00 | Outpatient (CLI) | payer OTHER, SELFPAY | END 2023-10-22 23:59 | disposition home or self-care (01) | LOC: LAB.DROPOF 10-23 08:10 | PROVIDERS: PCP Nurse Practitioner Family; Visit Provider Nurse Practitioner Family | DX: J02.9 Acute pharyngitis, unspecified (principal); B95.1 Streptococcus, group B, as the cause of diseases classified elsewhere | CPT/HCPCS: 87070 ==

== ENCOUNTER 2023-11-28 11:00 | Outpatient (RCR) | payer OTHER, SELFPAY ==
--- NOTE | 2023-09-03 13:56 | HMH.PTOPEV ---
PT Outpatient Evaluation Rehab PT Outpatient Evaluation Start: 09/03/23 13:00 Freq: Status: Active Protocol: Document 09/03/23 13:00 CHIKISSERRAVEN (Rec: 09/03/23 13:56 PDESEROUX [id number]) E-signed By Tonny Singleton, PT Outpatient Therapy Subjective History Subjective History Pt. is a 38 year old female who presents to [facility] Outpatient Physical Therapy Services in [place] for the initial evaluation this date(09/03/23) w/ c/o acute and constant LUE shldr. P!, stiffness, and spasms S/P LUE shldr. RTC Repair on 08/13/23. Pt. reports, I tore the tendon completely in two. Pt. describes symptoms as a constant ache w/ some sharp and pulling w/ activity and sleeping. Pt. reports being instructed to don shldr. brace when she is moving around. Pt . reports post-surgical restrictions including no overhead lifting. Pt. denies no new numbness/tingling into the LUE. Pt. RTMD 09/28/23. Current medication list includes Cymbalta, Tramadol, Gabapentin, Omeprazole, Requip , Oxycodone, Tylenol, Ibuprofen, Amlodipine, Atorvastatin, Metformin, and Humira Injection. PMH includes S/P BUE CTS, S/P RLE ankle fusion, GERD, DM-II, Psoriatic Arthritis, Rickets, HTN, and Depression/Anxiety Disorder. New diagnosis of cancer in past 12 No months? Chief Complaint Pain,Spasms,Stiff,Weakness Symptom Type Ache,Throb,Sharp,Dull,Stabbing ,Shooting Symptoms Relieved By Rest/Positioning,Ice,Brace/ Support,Prescription Meds Symptoms Aggravated By Supine,Physical Activity, Walking,Lifting Prior Functional Limitations None Current Functional Limitations Reaching,Lifting,Housework, Dressing,Sleeping,Recreation Activity,Walking Symptom Description Constant and Continuous, Activity Dependent Level of pain today (0-10) 2 Pain scale - at its best (0-10) 1 Pain scale - at its worst (0-10) 7 Shoulder/Elbow Eval Shoulder Objective Measurements Palpation Tenderness tenderness shoulder exam standard left tenderness over the bicipital tendon left shoulder exam standard tenderness over the SA bursa shoulder left exam standard Shoulder Palpation Findings Tenderness Shoulder Palpation Overall Comment grade 3 +TTP to assessment above, L-sided upper trap. and levator mms. Posture Shoulder Posture Sitting Position (L) Rounded,(L) Forward,(L) Elevated Shoulder Posture Standing Position (L) Rounded,(L) Forward,(L) Elevated Scapula Posture Sitting Position (L) Protracted,(L) Elevated Scapular Posture Standing Position (L) Protracted,(L) Elevated Flexibilty Deficits Latissmus Dorsi Muscle Length (L) Severe Tightness Pectoralis Minor Muscle Length (L) Severe Tightness Pectoralis Major Muscle Length (L) Severe Tightness Shoulder External Rotators Muscle Length (L) Severe Tightness Shoulder Internal Rotators Muscle Length (L) Severe Tightness Supraspinatus Muscle Length (L) Severe Tightness Teres Major Muscle Length (L) Severe Tightness Upper Trapezius Muscle Length (L) Severe Tightness Levaetor Scapulae Muscle Length (L) Severe Tightness Shoulder ROM Left Shoulder ROM Limitations Soft Tissue Tightness,Muscle Weakness,Pain Shoulder Abduction Active Range of 29 Motion (degrees) Shoulder Abduction Passive Range of 31 Motion (degrees) Shoulder Flexion Active Range of Motion 19 (degrees) Query Text: Shoulder Flexion Passive Range of Motion 33 (degrees) Shoulder External Rotation Active Range 26 of Motion (degrees) Shoulder External Rotation Passive Range 29 of Motion (degrees) Shoulder Internal Rotation Active Range 31 of Motion (degrees) Shoulder Internal Rotation Passive Range 35 of Motion (degrees) Shoulder Extension Active Range of 54 Motion (degrees) Shoulder Extension Passive Range of 59 Motion (degrees) pain with active ROM shoulder exam left standard pain with passive ROM shoulder exam left standard decreased ROM shoulder exam standard left Shoulder MMT Anterior Deltoid Strength Grade 3 Fair Lower Trapezius Strength Grade 3 Fair Middle Trapezius Strength Grade 3 Fair Rhomboids Strength Grade 3 Fair Serratus Anterior Strength Grade 3 Fair Upper Trapezius/Levator Scapulae 3 Fair Shoulder Abduction Strength Grade 3 Fair Shoulder Extension Strength Grade 3 Fair Shoulder Flexion Strength Grade 3 Fair Shoulder Horizontal Abduction Strength 3 Fair Grade Shoulder Horizontal Adduction Strength 3 Fair Grade Infraspinatus/Teres Minor Strength Grade 3 Fair Shoulder External Rotation Strength 3 Fair Grade Middle Deltoid Strength Strength Grade 3 Fair Shoulder Internal Rotation Strength 3 Fair Grade Posterior Deltoid Strength Grade 3 Fair Subscapularis Muscle Grade 3 Fair Supraspinatus Strength Grade 3 Fair Shoulder Strength Patient Testing Sitting Position Shoulder Muscle Tone Shoulder Flexor Muscle Tone Description Severe Hypertonicity Shoulder Extensors Muscle Tone Severe Hypertonicity Description Shoulder Lateral Rotator Muscle Tone Severe Hypertonicity Description Elbow Objective Measurements Accessory Movements Left Shoulder Girdle Accessory Movements that Glenohumeral [place], Elicit Symptoms Glenohumeral [place] Outpatient Therapy Assessment Impairments Problems/Impairmments Palpation Tenderness,Impaired Range of Motion,Impaired Strength,Impaired Transfers, Impaired Lifting,Impaired Dressing,Impaired Shower/ Bathing,Impaired Household Care,Impaired Recreational Activities,Impaired Desk/ Computer Activities,Subjective C/O Pain,Impaired Self Care/ Self Management Prognosis Rehab Potential Good Comment w/ HEP compliancy Clinical Impression Consistent with Diagnosis Yes Consistent with S/P LUE shldr. RTC Repair Short Term Goals Number of Weeks 2 Decreased Palpation Tenderness Yes: grade 1-2 +TTP to TTP assessment above Decrease Subjective C/O Pain Yes: worse:11/01 Patient to be Ind w/ HEP Yes [employer] Clamper Goals Number of Weeks 4 Decreased Palpation Tenderness Yes: grade 1 +TTP to TTP assessment above Increase Range of Motion Yes: LUE shldr. A/PROM WFL grossly Increase Strength Yes: 4+ to 10/27 LUE shldr. MMT scores grossly Improve Transfers Yes: supine<>sit and sit<> stand w/ LUE w/o difficulty Increase Ability to Walk Yes Restore Ability to Lift Objects Overhead Yes Improve Ability to Dress Self Yes Improve Ability to Shower/Bathe Self Yes Improve Ability For Household Care Yes Improve Tolerance to Desk/Computer Yes Activities Improve Quick Dash Score Yes Decrease Subjective C/O Pain Yes: worse:-08/04 Improve Self Care/Self Management Yes Patient to be Ind w/ Advanced HEP Yes Outpatient Therapy Plan of Care Treatment Plan May Include Therapeutic Exercise Including Home Yes Exercise Program Manual Therapy Techniques Yes Neuromuscular Re-education Yes Therapeutic Activities to Return to Yes Previous Functional/Work Level ADL/Self Care Education Yes Thermal Modalities Yes Electrical Stimulation Yes Ultrasound/Phonophoresis Yes Iontophoresis Yes Vasopneumatic Compression Pump Yes Massage Yes Eval/Re-Eval Yes Frequency Times per week 2 Duration Number of Weeks 4 Addendums This patient is a candidate for social No or vocational rehab? Patient/Guardian verbally acknowledges Yes understanding of treatment program and consents to further treatment? Patient/Guardian verbally acknowledges Yes understanding of diagnosis, prognosis and goals for treatment? Eval Complexity PT Charges 28229 - Low Complexity PHYSICIAN CERTIFICATION: I certify the specified therapy services for Emily W Yoder are required, authorized, and reviewed every 30 days.
== END 2023-12-13 17:00 | disposition home or self-care (01) ==
LOC: PT 11:00
PROVIDERS: Visit Provider Orthopaedic Surgery
DX: M25.512 Pain in left shoulder (principal); M75.122 Complete rotator cuff tear or rupture of left shoulder, not specified as traumatic
CPT/HCPCS: 97010; 97014; 97110; 97140; 97163; 97164; 97530; G0283

== ENCOUNTER 2023-12-03 11:39 | Outpatient (CLI) | payer OTHER, SELFPAY ==
[2023-12-03 12:23] LABS: Anion Gap 11.1 mEq/L (5-15); Blood Urea Nitrogen 8 mg/dl (7-17); Calcium 9.3 mg/dl (8.4-10.2); Carbon Dioxide 29 mmol/L (22.0-30.0); Chloride 103 mmol/L (98-107); Estimated Glomerular Filt Rate 69 ml/min (>60); GFR (African American) 84 ML/MIN (>60); Glucose 145 mg/dl (74-100); Phosphorous 3.1 mg/dl (2.5-4.5); Potassium 3.1 mmoL/L (3.5-5.1); Sodium 140 mmol/L (136-145)
[2023-12-03 12:39] LABS: 25-OH Vitamin D, Total 47.9 ng/mL (30-100)
[2023-12-05 14:21] LABS: Tandem-R Ostase 23.2 ug/L (.)
[2023-12-06 21:32] LABS: C-Telopeptide Serum 726 pg/mL (.)
[2023-12-08 10:42] LABS: Serial Monitoring PDF SCANNED IMAGE
== END 2023-12-03 23:59 | disposition home or self-care (01) ==
LOC: LAB 11:41
PROVIDERS: PCP Family Medicine; Visit Provider Physician Assistant Medical
DX: M81.0 Age-related osteoporosis without current pathological fracture (principal); E83.39 Other disorders of phosphorus metabolism; Z68.32 Body mass index [BMI] 32.0-32.9, adult; E66.9 Obesity, unspecified
CPT/HCPCS: 36415; 80069; 82306; 82523; 84080

== ENCOUNTER 2024-01-22 18:01 | Outpatient (CLI) | payer OTHER, SELFPAY ==
[2024-01-22 16:56] LABS: Basophils # 0.1 K/mm3 (0-0.2); Basophils % 0.5 % (0.1-2.0); Eosinophils # 0.2 K/mm3 (0.0-0.4); Eosinophils % 1.4 % (0.1-12.0); Hematocrit 40.2 % (37.0-47.0); Hemoglobin 13.1 g/dL (12.2-16.2); Lymphocytes # 3.6 K/mm3 (0.7-4.5); Mean Corpuscular HGB Conc 32.6 g/dL (31.8-35.4); Mean Corpuscular Hemoglobin 30.7 pg (27.0-31.2); Mean Corpuscular Volume 94.1 fl (81-99); Mean Platelet Volume 9.2 fl (7.4-10.4); Monocytes # 0.6 K/mm3 (0.1-1.0); Monocytes % 4.4 % (1.7-9.3); Neutrophils # 9.8 K/mm3 (1.8-7.8); Neutrophils % 68.6 % (37.0-80.0); Platelet Count 424 K/mm3 (142-424); Red Blood Count 4.27 M/mm3 (4.20-5.40); Red Cell Distribution Width 14.9 % (11.5-17.5); White Blood Count 14.2 K/mm3 (4.8-10.8)
[2024-01-22 18:24] LABS: Alanine Aminotransferase 16 U/L (12-78); Albumin Level 3.7 g/dl (3.5-5.0); Albumin/Globulin Ratio 1.4 (1.1-1.8); Alkaline Phosphatase 104 U/L (38-126); Anion Gap 8.7 mEq/L (5-15); Aspartate Amino Transferase 18 U/L (14-36); Bilirubin,Total 0.4 mg/dl (0.2-1.3); Blood Urea Nitrogen 12 mg/dl (7-17); Calcium 9.3 mg/dl (8.4-10.2); Carbon Dioxide 28 mmol/L (22.0-30.0); Chloride 108 mmol/L (98-107); Chol/HDL Ratio 3.9 (1-3.5); Cholesterol 125 mg/dl (140-200); Estimated Glomerular Filt Rate 79 ml/min (>60); GFR (African American) 96 ML/MIN (>60); Globulin 2.7 g/dL (1.3-3.2); Glucose 99 mg/dl (74-100); HDL Cholesterol 32 mg/dl (40-60); Potassium 3.7 mmoL/L (3.5-5.1); Sodium 141 mmol/L (136-145); Total Protein,Serum 6.4 g/dl (6.3-8.2); Triglycerides 113 mg/dl (30-150); VLDL Cholesterol 23 mg/dL (0-40)
[2024-01-22 18:35] LABS: Direct LDL Cholesterol 73.07 mg/dL (100-129)
[2024-01-22 18:56] LABS: Thyroid Stimulating Hormone 3.09 uIU/mL (0.465-4.68)
[2024-01-22 19:38] LABS: Hemoglobin A1C 5.7 % (4.0-6.0)
== END 2024-01-22 23:59 | disposition home or self-care (01) ==
LOC: LAB.DROPOF 18:02
PROVIDERS: PCP Nurse Practitioner Family; Visit Provider Nurse Practitioner Family
DX: M06.9 Rheumatoid arthritis, unspecified (principal)
CPT/HCPCS: 80050; 80053; 80061; 83036; 84443; 85025

== ENCOUNTER 2024-02-11 09:03 | Outpatient (CLI) | payer OTHER, SELFPAY ==
--- NOTE | 2024-02-11 09:06 | MR_ITS ---
FINAL REPORT CLINICAL HISTORY: TROCHANTERIC BURSITIS, LEFT HIP COMPARISON: None FINDINGS: Multiplanar MR imaging of the left hip was performed without contrast. The hip joint spaces are preserved. The femoral heads have normal smooth contours. There is no evidence of fracture or dislocation. There is no evidence of avascular necrosis. No bony mass is identified. No labral tear is identified. No significant joint effusion is seen. There is abnormal signal within the distal gluteus minimus and medius tendons consistent with partial insertional tears. There is minimal overlying edema probably related to greater trochanteric bursitis. This is best seen on images 22-24 of series 4. The musculature is intact. No soft tissue mass or cyst is identified. IMPRESSION: Partial insertional tears of the gluteus minimus and medius tendons with associated greater trochanteric bursitis. Reviewed, Interpreted and Dictated by Rito Kuo MD Transcribed by Marysol Lee Authenticated and [facility]
== END 2024-02-11 23:59 | disposition home or self-care (01) ==
LOC: RAD 09:04
PROVIDERS: PCP Family Medicine; Visit Provider Physician Assistant Surgical
DX: M70.62 Trochanteric bursitis, left hip (principal)
CPT/HCPCS: 73721

== ENCOUNTER 2024-04-02 12:30 | Outpatient (CLI) | payer OTHER, SELFPAY ==
[2024-04-02 12:59] LABS: Basophils # 0.1 K/mm3 (0-0.2); Basophils % 0.7 % (0.1-2.0); Eosinophils # 0.1 K/mm3 (0.0-0.4); Eosinophils % 0.8 % (0.1-12.0); Hematocrit 40.9 % (37.0-47.0); Hemoglobin 13.5 g/dL (12.2-16.2); Lymphocytes % 21.1 % (10-50); Mean Corpuscular HGB Conc 32.9 g/dL (31.8-35.4); Mean Corpuscular Hemoglobin 31.3 pg (27.0-31.2); Mean Corpuscular Volume 95.2 fl (81-99); Mean Platelet Volume 7.8 fl (7.4-10.4); Monocytes # 0.8 K/mm3 (0.1-1.0); Monocytes % 5.6 % (1.7-9.3); Neutrophils # 10.2 K/mm3 (1.8-7.8); Neutrophils % 71.8 % (37.0-80.0); Platelet Count 407 K/mm3 (142-424); Red Cell Distribution Width 17.6 % (11.5-17.5); White Blood Count 14.2 K/mm3 (4.8-10.8)
[2024-04-02 13:10] LABS: Albumin Level 3.9 g/dl (3.5-5.0)
[2024-04-02 13:13] LABS: Alanine Aminotransferase 16 U/L (12-78); Aspartate Amino Transferase 19 U/L (14-36); Bilirubin,Unconjugated 0.3 mg/dL (0.0-1.1); Estimated Glomerular Filt Rate 79 ml/min (>60); GFR (African American) 96 ML/MIN (>60); Total Protein,Serum 6.4 g/dl (6.3-8.2)
[2024-04-02 13:14] LABS: Alkaline Phosphatase 76 U/L (38-126); Bilirubin,Direct 0.2 mg/dl (0.0-0.4); Bilirubin,Indirect 0.3 mg/dL (0.0-0.9); Bilirubin,Total 0.5 mg/dl (0.2-1.3)
== END 2024-04-02 23:59 | disposition home or self-care (01) ==
LOC: LAB 12:31
PROVIDERS: PCP Family Medicine; Visit Provider Nurse Practitioner Family
DX: Z79.899 Other long term (current) drug therapy (principal)
CPT/HCPCS: 36415; 80076; 82565; 85025

== ENCOUNTER 2024-05-12 09:17 | Outpatient (CLI) | payer OTHER, SELFPAY ==
--- NOTE | 2024-05-12 09:20 | MR_ITS ---
FINAL REPORT CLINICAL HISTORY: lbp x years. left hip and leg pain to ankle FINDINGS: Multiplanar MR imaging of the lumbar spine was performed without contrast. On the sagittal T2-weighted images, multilevel disc degeneration is seen with minimally decreased signal L4-5 and L5-S1 discs. The vertebral alignment is normal. There is no evidence of fracture. No bony mass is identified. The conus is seen at approximately the L1 level and has an unremarkable appearance. L1-2: There is no significant canal stenosis or neural foraminal narrowing. L2-3: There is no significant canal stenosis or neural foraminal narrowing. L3-4: There is no significant canal stenosis or neural foraminal narrowing. L4-5: Mild annular disc bulge with mild bilateral neuroforaminal narrowing. L5-S1: There is no significant canal stenosis or neural foraminal narrowing. IMPRESSION: Mild annular disc bulge at L4-5 with mild bilateral neuroforaminal narrowing. Reviewed, Interpreted and Dictated by Rito Kuo MD Transcribed by Suri Diaz Authenticated and [facility]
== END 2024-05-12 23:59 | disposition home or self-care (01) ==
LOC: RAD 09:18
PROVIDERS: PCP Family Medicine; Visit Provider Physician Assistant Medical
DX: M53.3 Sacrococcygeal disorders, not elsewhere classified (principal); G89.29 Other chronic pain; M54.42 Lumbago with sciatica, left side
CPT/HCPCS: 72148

== ENCOUNTER 2024-08-08 08:03 | Outpatient (CLI) | payer OTHER, SELFPAY ==
[2024-08-08 08:35] LABS: Basophils # 0.1 K/mm3 (0-0.2); Basophils % 0.5 % (0.1-2.0); Eosinophils # 0.1 K/mm3 (0.0-0.4); Eosinophils % 0.7 % (0.1-12.0); Hematocrit 40.4 % (37.0-47.0); Hemoglobin 13.2 g/dL (12.2-16.2); Lymphocytes # 5.1 K/mm3 (0.7-4.5); Lymphocytes % 29.1 % (10-50); Mean Corpuscular HGB Conc 32.7 g/dL (31.8-35.4); Mean Corpuscular Hemoglobin 31.5 pg (27.0-31.2); Mean Corpuscular Volume 96.4 fl (81-99); Mean Platelet Volume 9.5 fl (7.4-10.4); Monocytes # 1.7 K/mm3 (0.1-1.0); Monocytes % 9.8 % (1.7-9.3); Neutrophils # 10.3 K/mm3 (1.8-7.8); Neutrophils % 59.2 % (37.0-80.0); Platelet Count 424 K/mm3 (142-424); Red Blood Count 4.19 M/mm3 (4.20-5.40); Red Cell Distribution Width 15.3 % (11.5-17.5); White Blood Count 17.4 K/mm3 (4.8-10.8)
[2024-08-08 08:44] LABS: MANUAL DIFFERENTIAL MANUAL DIFFERENTIAL (MANUAL DIFF)
[2024-08-08 09:08] LABS: Alanine Aminotransferase 27 U/L (12-78); Albumin Level 4.4 g/dl (3.5-5.0); Alkaline Phosphatase 86 U/L (38-126); Aspartate Amino Transferase 23 U/L (14-36); Bilirubin,Direct 0.3 mg/dl (0.0-0.4); Bilirubin,Total 0.3 mg/dl (0.2-1.3); Chol/HDL Ratio 4.4 (1-3.5); Cholesterol 149 mg/dl (140-200); Estimated Glomerular Filt Rate 69 ml/min (>60); GFR (African American) 83 ML/MIN (>60); HDL Cholesterol 34 mg/dl (40-60); Total Protein,Serum 6.7 g/dl (6.3-8.2); Triglycerides 152 mg/dl (30-150); VLDL Cholesterol 30 mg/dL (0-40)
[2024-08-08 09:20] LABS: Direct LDL Cholesterol 88.75 mg/dL (100-129)
[2024-08-08 09:52] LABS: Eosinophils % 1 % (0-3); Lymphocytes % 30 % (10-50); Monocytes % 8 % (2-9); Neutrophils % 60 % (42-76); Total Cells Counted 100
[2024-08-08 09:53] LABS: Platelet Estimate Slight Increase; RBC Morphology Normal
== END 2024-08-08 23:59 | disposition home or self-care (01) ==
LOC: LAB 08:05
PROVIDERS: PCP Family Medicine; Visit Provider Nurse Practitioner Family
DX: Z79.899 Other long term (current) drug therapy (principal)
CPT/HCPCS: 36415; 80061; 80076; 82565; 85007; 85025; 85027

== ENCOUNTER 2024-09-15 10:35 | Outpatient (CLI) | payer OTHER, SELFPAY | END 2024-09-15 23:59 | disposition home or self-care (01) | LOC: LAB.DROPOF 09-17 11:49 | PROVIDERS: PCP Nurse Practitioner Family; Visit Provider Nurse Practitioner Family | DX: J02.9 Acute pharyngitis, unspecified (principal) | CPT/HCPCS: 87070 ==

== ENCOUNTER 2024-09-25 12:01 | Outpatient (CLI) | payer OTHER, SELFPAY ==
--- NOTE | 2024-09-25 12:05 | XR_ITS ---
FINAL REPORT TECHNIQUE: Left wrist 2 views CLINICAL HISTORY: lt wrist pain COMPARISON: 03/24/2020 FINDINGS: LEFT WRIST: Two images of the left wrist were obtained. There is no evidence of fracture or dislocation. The joint spaces are intact. There is no soft tissue abnormality identified. IMPRESSION: No acute bony abnormality. Reviewed, Interpreted and Dictated by Sushma Francis MD Transcribed by Ashli Swanson Authenticated and [facility]
== END 2024-09-25 23:59 | disposition home or self-care (01) ==
LOC: RAD 12:03
PROVIDERS: PCP Internal Medicine Adolescent Medicine; Visit Provider Physician Assistant Surgical
DX: M25.532 Pain in left wrist (principal)
CPT/HCPCS: 73100

== ENCOUNTER 2024-11-28 09:21 | Day surgery (SDC) | payer OTHER, SELFPAY ==
[2024-11-27 12:13] VITALS: BMI 34.2
[2024-11-28 09:44] VITALS: BP 151/87; PULSE 90; RESP 16; TEMP 36.2; O2SAT 100
[2024-11-28] MEDS: LACTATED RINGERS 1000ML 1,000 ML 999 ML IV (09:49)
[2024-11-28 09:54] LABS: POC Glucose,Bedside 125 (70-110)
--- NOTE | 2024-11-28 09:59 | P.PNANES_ITS ---
[facility] Disclaimer: The information contained in this section may have been updated after the patient was seen, as this information can be updated by other users. Medical History Fibromyalgia Cardiac murmur Asthma Rickets, vitamin D deficiency HLD (hyperlipidemia) HTN (hypertension) DM2 (diabetes mellitus, type 2) Family history of early CAD Tobacco abuse Dyspnea Chest pain Abnormal electrocardiogram [ECG] [EKG] Encounter for pre-operative cardiovascular clearance Carpal tunnel syndrome Right ankle injury Vitamin D deficiency Vitamin B12 deficiency Surgical History H/O repair of rotator cuff History of biopsy History of carpal tunnel release History of ankle surgery History of colonoscopy Family History Mother Diabetes Heart attack Stroke Lupus Other Asthma Hypertension Social History Smoking Status: Current every day smoker tobacco type: cigarettes packs per day: 1 second hand exposure: No alcohol intake: never substance use type: denies use current occupational status: unemployed and other Travel in the last 8 weeks?: Inside the [place] household members: other housing: house current occupational exposures/hazards: No caffeine: Yes Have you lived/traveled outside [place] in past 30 days?: No Contact w/someone who lives/traveled outside US past 30 days?: No Exposure to someone with infectious disease in past 14 days?: No Do you have a fever (greater than 100.4 F or 38 C)?: No Have you tested positive for COVID-19?: No Exposed to someone with COVID-19 in past 14 days?: No Do you have a sore throat?: No Do you have a cough?: No Do you have any weakness?: No Are you experiencing any nausea/vomitting?: No Do you have any diarrhea?: No Are you experiencing any unusual bleeding?: No Do you have any muscle aches/pain?: No Do you have any abdominal pain?: No Are you experiencing loss of taste or smell?: No [facility] Anesthesia Checklist Patient Identification Patient Identification: Arm Band and Verbal (Name & ) Structural Data Admitted From: Home Planned Operative Procedure/s: colonscopy Consent for Planned Operative Procedure(s) Verified: Yes Verified Documents: Surgical Consent and History and Physical NPO Status Verified Time NPO: 00:00 Additional verifications Anesthesia Reactions: No Hx Blood Transfusions: No Blood Transfusion Reaction: No Airway Assessment Mallampati Score:: Class II Dentition: Edentulous Neurological Assessment Level of Consciousness: Awake, Alert and Appropriate Hx Seizures: No Anesthesia Plan Anesthesia Risk discussed: Yes Anesthesia Plan: Verified ASA Class: III Anesthesia Type: MAC
[2024-11-28 10:00] VITALS: BP 151/87; PULSE 90; RESP 16; TEMP 36.2; O2SAT 100
--- NOTE | 2024-11-28 10:08 | EXP.GEN.HP ---
HPI HPI HPI: Patient is a 39-year-old female from [place] with history of fibromyalgia, anxiety, depression, diabetes, vitamin D deficiency. I had previously seen her after referral from hematology in 2019 and performed upper endoscopy and colonoscopy on 05/06/2019 due to anemia with a hemoglobin of 12. There were no obvious findings but she did have a fair colonic preparation. There was a single small tubular adenoma in the rectosigmoid region. She underwent planned repeat follow-up colonoscopy on 04/27/2023. There was opaque thick liquid stool and some floppiness of the sigmoid colon. With high-volume trans colonoscopic irrigation and suctioning colonoscope was only able to be advanced to the transverse colon. Plan was for repeat colonoscopy with multiday maximum prep due to the extremely poor colonic preparation after her colonoscopy on 04/27/2023. [facility] Disclaimer: The information contained in this section may have been updated after the patient was seen, as this information can be updated by other users. Medical History Fibromyalgia Cardiac murmur Asthma Rickets, vitamin D deficiency HLD (hyperlipidemia) HTN (hypertension) DM2 (diabetes mellitus, type 2) Family history of early CAD Tobacco abuse Dyspnea Chest pain Abnormal electrocardiogram [ECG] [EKG] Encounter for pre-operative cardiovascular clearance Carpal tunnel syndrome Right ankle injury Vitamin D deficiency Vitamin B12 deficiency Surgical History H/O repair of rotator cuff History of biopsy History of carpal tunnel release History of ankle surgery History of colonoscopy Family History Mother Diabetes Heart attack Stroke Lupus Other Asthma Hypertension Social History Smoking Status: Current every day smoker tobacco type: cigarettes packs per day: 1 second hand exposure: No alcohol intake: never substance use type: denies use current occupational status: unemployed and other Travel in the last 8 weeks?: Inside the [place] household members: other housing: house current occupational exposures/hazards: No caffeine: Yes Have you lived/traveled outside US in past 30 days?: No Contact w/someone who lives/traveled outside US past 30 days?: No Exposure to someone with infectious disease in past 14 days?: No Do you have a fever (greater than 100.4 F or 38 C)?: No Have you tested positive for COVID-19?: No Exposed to someone with COVID-19 in past 14 days?: No Do you have a sore throat?: No Do you have a cough?: No Do you have any weakness?: No Are you experiencing any nausea/vomitting?: No Do you have any diarrhea?: No Are you experiencing any unusual bleeding?: No Do you have any muscle aches/pain?: No Do you have any abdominal pain?: No Are you experiencing loss of taste or smell?: No Other Medical History Have you received the Flu Vaccine for this season: Yes Have you received the Pneumonia Vaccine: No Meds Home Medications and Allergies Home Medications ?Medication ?Instructions ?Recorded ?Confirmed ?Type amlodipine 10 mg tablet 10 mg PO DAILY High blood pressure 08/31/17 11/28/24 History atorvastatin 20 mg tablet (Lipitor) 20 mg PO DAILY Cholesterol 11/19/18 11/28/24 History tramadol 50 mg tablet 50 mg PO DAILY Moderate Pain 12/28/21 11/28/24 History Held on 08/13/23. Instructions: Resume on 08/27/23. blood-glucose meter (Blood Glucose #1 ea 05/23/23 10/28/24 Rx Monitoring kit) medroxyprogesterone 150 mg/mL 150 mg IM CONT 05/23/23 11/28/24 History intramuscular syringe gabapentin 300 mg capsule 300 mg PO DAILY 06/06/23 11/28/24 History blood sugar diagnostic (OneTouch #100 ea 06/07/23 10/28/24 Rx Ultra Test strips) cetirizine 10 mg tablet 10 mg PO DAILY 10/22/23 11/28/24 History methotrexate sodium 2.5 mg tablet 2.5 mg PO DAILY 10/22/23 11/27/24 History ropinirole 0.5 mg tablet 0.5 mg PO DAILY 10/22/23 11/27/24 History folic acid 1 mg tablet 1 mg PO DAILY 02/04/24 11/28/24 History tofacitinib 5 mg tablet (Xeljanz) 5 mg PO BID 02/04/24 11/27/24 History calcipotriene 0.005 % topical cream 1 applic topical DAILY 03/25/24 11/28/24 History celecoxib 100 mg capsule 100 mg PO BID 03/25/24 11/28/24 History methocarbamol 500 mg tablet 500 mg PO DAILY 08/28/24 11/27/24 History sulfamethoxazole 800 1 tab PO BID 10 days #20 tabs 09/15/24 11/27/24 Rx mg-trimethoprim 160 mg tablet (Bactrim DS) duloxetine 30 mg capsule,delayed 30 mg PO DAILY #30 caps 11/11/24 11/28/24 Rx release (Cymbalta) omeprazole 40 mg capsule,delayed 40 mg PO DAILY 11/27/24 11/28/24 History release New Prescriptions to Start Prescriptions: Allergies Allergy/AdvReac Type Severity Reaction Status Date / Time Penicillins Allergy Intermediate MENTAL Verified 10/28/24 09:09 STATUS CHANGES acetaminophen (From NYQUIL) Allergy Unknown Verified 10/28/24 09:09 dextromethorphan (From Allergy Unknown Verified 10/28/24 09:09 NYQUIL) doxylamine (From NYQUIL) Allergy Unknown Verified 10/28/24 09:09 pseudoephedrine (From NYQUIL) Allergy Unknown Verified 10/28/24 09:09 varenicline (From CHANTIX) Allergy Unknown I-ITCHING Verified 10/28/24 09:09 Exam Data for Last 24 hours Vital signs and Labs for Last 24 Hours: Temp Pulse Resp BP Pulse Ox O2 Del Method 97.1 F L 90 16 151/87 H 100 Room Air 11/28/24 09:44 11/28/24 09:44 11/28/24 09:44 11/28/24 09:44 11/28/24 09:44 11/28/24 09:44 Laboratory Results - last 24 hr 11/28/24 09:38: POC Glucose 125 H I & O for Last 24 hours: Intake & Output 11/25/24 11/26/24 11/27/24 11/28/24 11:59 11:59 11:59 11:59 Weight 212 lb Constitutional Constitutional: no acute distress *Routine HEENT Exam Head: Present normocephalic Eye: Present EOMI and PERRL ENT: Present mucous membranes moist *Routine Neck Exam Neck: Present supple; Absent lymphadenopathy *Routine Respiratory Exam Respiratory: Present CTA bilaterally *Routine Cardiovascular Exam Cardiovascular: Present RRR *Routine Abdominal Exam Abdominal: Present soft and normoactive bowel sounds; Absent tenderness *Routine Rectal Exam Rectal:: deferred *Routine Genitalia Exam Genitalia:: deferred *Routine Extremities Exam Extremities: Absent cyanosis, clubbing or edema *Routine Skin Exam Skin: Present warm; Absent rash *Routine Neurological Exam Neurological: Present alert and oriented X3 Results Results Lab Results Last 24 Hours:: Laboratory Results - last 24 hr 11/28/24 09:38: POC Glucose 125 H Assessment and Plan *Assessment and plan (1) Tubular adenoma of colon: Status: Acute Category: Medical Code(s): D12.6 - Benign neoplasm of colon, unspecified Plan Colonoscopy
[2024-11-28 10:26] LABS: Urine Pregnancy, HCG Qual. Negative (Negative)
--- NOTE | 2024-11-28 11:15 | HMH.SCOPE ---
Procedure: Date: 11/28/24 Patient Date of :: 1985 Procedure Performed:: Total colonoscopy to cecum with polypectomy using biopsy forceps. Indications:: Patient is a 39-year-old female from [place] with history of fibromyalgia, anxiety, depression, diabetes, vitamin D deficiency. I had previously seen her after referral from hematology in 2019 and performed upper endoscopy and colonoscopy on 05/06/2019 due to anemia with a hemoglobin of 12. There were no obvious findings but she did have a fair colonic preparation. There was a single small tubular adenoma in the rectosigmoid region. She underwent planned repeat follow-up colonoscopy on 04/27/2023. There was opaque thick liquid stool and some floppiness of the sigmoid colon. With high-volume trans colonoscopic irrigation and suctioning colonoscope was only able to be advanced to the transverse colon. Plan was for repeat colonoscopy with multiday maximum prep due to the extremely poor colonic preparation after her colonoscopy on 04/27/2023. In the preoperative area patient stated that she was definitely prepped for the procedure this time. Performing Provider:: Toi Alvarez MD Referring Provider:: Darryl Davis MD Sedation:: MAC sedation Procedure:: Patient history was obtained and appropriate physical examination was performed. Patient's medications and allergies were reviewed. Informed consent was obtained after explaining the benefits, alternatives, and risks of the procedure including, but not limited to, bleeding, perforation, missed lesions, and adverse reaction to anesthesia medications. Patient was transported to endoscopy procedure room. Patient was connected to monitoring devices. Throughout the procedure the patient's blood pressure, pulse, and oxygen saturations were monitored continuously. Patient identification and planned procedure were verified by the staff. Patient was positioned in lateral decubitus position. Digital anorectal exam was performed. Variable stiffness Olympus colonoscope was inserted and advanced under direct visualization to the cecum. Adequacy of the colonic preparation was noted. The colonoscope was advanced to the cecum. The colonoscope was then slowly withdrawn while carefully examining the color, texture, anatomy, and integrity of the mucosoa circumferentially. Within the rectum retroflexion was performed. Colonoscope was then withdrawn. Impression: There was some opaque particulate stool throughout the colon. This was most pronounced in the right colon where there was undigested vegetable matter and some particulate stool. High-volume trans colonoscopic irrigation and suctioning was performed which allowed for decent visualization. In the ascending colon there was a diminutive but adenomatous appearing polyp removed with biopsy forceps. Findings:: Fair colonic preparation Small ascending colon adenomatous polyp Recommendations:: Repeat colonoscopy 2 years with actual low residue diet for at least a week and maximum prep including Linzess. Complications:: None immediately apparent Estimated blood obtained (mL): 1 Colonoscopy Component Colonoscopy Component Was a colonoscopy performed during today's procedure?: Yes Recommended follow up colonoscopy of at least 10 years?: No If no, follow up colonoscopy recommended in ___ years?: 2 Reason for not recommending >/= 10 yr follow-up interval?: See above
[2024-11-28 11:20] VITALS: BP 152/79; PULSE 75; RESP 18; TEMP 36.3; O2SAT 97
[2024-11-28 11:30] VITALS: BP 133/84; PULSE 74; RESP 18; O2SAT 97
[2024-11-28 11:40] VITALS: BP 124/80; PULSE 74; RESP 18; O2SAT 97
== END 2024-11-28 11:40 | disposition home or self-care (01) ==
PROVIDERS: PCP Internal Medicine Adolescent Medicine; Visit Provider Surgery
PROC: 0DJD8ZZ Inspection of Lower Intestinal Tract, Via Natural or Artificial Opening Endoscopic (ICD-10-PCS; CPT 45380; principal; 2024-11-28 10:30)
DX: D12.2 Benign neoplasm of ascending colon (principal); Z86.0101 Personal history of adenomatous and serrated colon polyps; M79.7 Fibromyalgia; F41.9 Anxiety disorder, unspecified; F32.A Depression, unspecified; E11.9 Type 2 diabetes mellitus without complications; E55.9 Vitamin D deficiency, unspecified; Z82.49 Family history of ischemic heart disease and other diseases of the circulatory system; R01.1 Cardiac murmur, unspecified; E78.5 Hyperlipidemia, unspecified; E53.8 Deficiency of other specified B group vitamins; F17.210 Nicotine dependence, cigarettes, uncomplicated; Z79.899 Other long term (current) drug therapy; Z79.631 Long term (current) use of antimetabolite agent; Z88.6 Allergy status to analgesic agent; Z88.0 Allergy status to penicillin; Z88.8 Allergy status to other drugs, medicaments and biological substances
CPT/HCPCS: 45380; 81025; 82962; J2003; J2704; J7120

== ENCOUNTER 2025-03-05 09:54 | Outpatient (CLI) | payer OTHER, SELFPAY ==
--- OUTSIDE RECORDS SUMMARY | 2025-01-20 09:30 | XMS_ITS | Encounter Summary ---
Author Organization Healthcare Address [address] [place] [address] Care Team Providers Care Fur Mixer Name Role Phone Darryl Davis MD Primary Care Provider [phone] Reason for Referral * Other Medical (Routine) - Authorized Specialty Diagnoses / Procedures Referred By Contac t Referred To Contact Pain Medicine Diagnoses Acute midline low back pain without sciatica Procedures Injection - Tendon Sheath or Ligament Jovon Joseph MD [address] [facility] [place] [address] Phone: tel: fax: [facility] Interventional Pain Medicine [address] [place] [address] Phone: tel: fax: Referral ID Status Reason Start Date Expiration Date V isits Requested Visits Authorized [id number] Authorized 01/20/2025 07/22/2026 1 1 Reason for Visit * Reason Comments Follow-up Encounter Details Date Type Department Care Team (Late st Contact Info) Description 01/20/2025 9:30 AM EDT Office Visit Interventional Pain Medicine [address] [place] [address] Jovon Joseph MD [address] [facility] [address] [place] [id number] Acute midline low back pain without sciatica (Primary Dx); Tear of left gluteus medius tendon, subsequent encounter Social History Tobacco Use Types Packs/Day Years Used Date Smoking Tobacco: Every Day Cigarettes 1.5 25.7 Started: 06/25/1999 Smokeless Tobacco: Never Alcohol Use Standard Drinks/Week Comments Not Currently 0 (1 standard drink = 0.6 oz pur e alcohol) rarely PHQ-2 Answer Date Recorded Patient Health Questionnaire-2 Score 0 12/23/2024 PHQ-9 Answer Date Recorded Patient Health Questionnaire-9 Score 0 12/23/2024 PHQ-2A Answer Date Recorded Depression Risk 0 01/05/2023 Comments No Sex and Gender Information Value Date Recorded Sex Assigned at Female 12/07/2021 6:04 PM EDT Legal Sex Female 6:01 PM EDT Gender Identity Female 12/07/2021 6:04 PM EDT Sexual Orientation Not on file documented as of this encounter Last Filed Vital Signs Vital Sign Reading Time Taken Comments Blood Pressure 127/83 01/20/2025 9:17 AM EDT Pulse 80 01/20/2025 9:17 AM EDT Temperature 36.2 C (97.2 F) 01/20/2025 9:17 AM EDT Respiratory Rate 16 01/20/2025 9:17 AM EDT Oxygen Saturation 98% 01/20/2025 9:17 AM EDT Inhaled Oxygen Concentration - - Weight 95.7 kg (211 lb) 01/20/2025 9:17 AM EDT Height 167.6 cm (5' 6 ) 01/20/2025 9:17 AM EDT Body Mass Index 34.06 01/20/2025 9:17 AM EDT documented in this encounter Functional Status * Are you deaf or do you have serious difficulty hearing? Answer Date of Assessment Author No 10/14/2021 1:46 PM EDT Constantine Montenegro * Are you blind or do you have serious difficulty seeing, even when wearing glasses? Answer Date of Assessment Author No 10/14/2021 1:46 PM EDT Constantine Montenegro * Do you have serious difficulty walking or climbing stairs? Answer Date of Assessment Author Yes 10/14/2021 1:46 PM EDT Constantine Montenegro * Do you have serious difficulty dressing or bathing? Answer Date of Assessment Author No 10/14/2021 1:46 PM EDT Constantine Montenegro * Because of a physical, mental, or emotional condition, do you have serious difficulty doing errandsalone such as visiting the doctor? Answer Date of Assessment Author No 10/14/2021 1:46 PM EDT Constantine Montenegro documented as of this encounter Mental Status * Because of a physical, mental, or emotional condition, do you have serious difficulty concentrating, remembering, or making decisions? (5 years old or older) Answer Entry Date Author No 10/14/2021 1:46 PM EDT Constantine Montenegro documented in this encounter Miscellaneous Notes * Clinician Note - Bessie Taylor CNA - 01/20/2025 9:30 AM EDT Claudy Claudy 01/19/25 Tramadol 01/19/25 * Progress Notes - Fuad Oviedo DO - 01/20/2025 9:30 AM EDT Images from the original note were not included. Interventional Pain Medicine Follow Up Patient Note Subjective: Interval History: Patient presented for follow up evaluation of her back pain, s/p b/l L4/5 and L5/S1 RFA (11/19/24) where she states she received 70 % relief of ongoing relief. She notes improved aching pain with RFA but notes an event 6 days ago with acute worsening of her back pain after bending over out of shower. She notes this pain is worse now with lifting, bending. Pain is nonradiating and a 7/10. Notes that helped with robaxin, gabapentin, tramadol. Patient also notes continued L lateral hip pain that is nonradiating and aching in nature. No relief with prior therapies including SIJ ablation, CSI, TPIs. Does remember discussing prolotherapy vs PRP and is interested. GPS: 35.5/100 History of Present Illness: Emily Yoder is a 39 y.o. female with history of L4/T10 compression fx (2007), psoriatic arthritis recently discontinued humira, and SSZ, FMS, and currently on methotrexate presents for left hip pain. Site: deep internal hip pain Onset: 2001 gradual insidious onset Severity: 7/10 Descriptors: ache, stabbing, burning Aggravating Factors: walking, sitting, laying on left side, Relieving Factors: Gabapentin helps some, laying on stomach Associated Symptoms: ROSA: 23 Current Disabilities: Not able to perform job Functional Goals of Treatment: To help be able to move with less pain Current Medication: Current Pain Medications celecoxib (CeleBREX) 100 MG capsule DULoxetine (Cymbalta) [address] capsule gabapentin (Neurontin) 300 MG capsule ibuprofen 800 MG tablet One tablet three times daily as needed for pain methocarbamol (Robaxin) 500 MG tablet TAKE 1 TABLET BY MOUTH FOUR TIMES DAILY Tofacitinib Citrate 5 MG tablet Take 5 mg by mouth 2 times a day. traMADol (Ultram) 50 MG tablet Take 1 tablet (50 mg) by mouth 1 (one) time each day. Previous Medication: NSAIDs mildly helps, gabapentin mildly helps, duloxetine mildly helps, methocarbamol mildly helps Previous Conservative Treatment: heat ice physical therapy > 6 weeks over a year ago for same hip pain and did not get significant relief Previous Interventions/Consults: Right intra-articular hip injection - no relief [facility] interventional pain. Injections: LESI (2022), SIJI/ablation (2019), TPI (2022) Other Medical History reports that she has been smoking cigarettes. She started smoking about 25 years ago. She has a 38.4 pack-year smoking history. She has never used smokeless tobacco. Review of Systems: CONSTITUTIONAL: denies fevers, chills HEENT: denies swallowing difficulties, sore throat CARDIOVASCULAR: denies chest pain, palpitations, syncope RESPIRATORY: denies shortness of breath, cough, wheezing GI: denies change in bowel habits, nausea, vomiting : denies change in bladder function, frequency, dysuria SKIN: denies rash, skin changes MSK: Per HPI NEURO: Per HPI PSYCH: Per HPI General Physical Exam: Constitutional Appears well-developed and well-nourished Head Normocephalic and atraumatic. Eyes Pupils are equal, round, and reactive to light. Neck Neck supple Cardiovascular Minimal to no peripheral edema, intact distal pulses Pulmonary/Chest Effort normal, no shortness of breath noted Neurological Alert and oriented to person, place, and time Skin Skin is warm and dry Psychiatric Normal mood and affect, behavior and judgment Neurologic & Musculoskeletal Exam Lumbar Region Exam Right (+/-) Left (+/-) Lumbar Musculature Tender w/ palpation - - Lumbar Facet Pain w/ extension + + Lower Extremity SLR - - Lower Extremity Crossed SLR - - TTP midline lumbar interspinous ligament Sensation Right Left L2: Proximal Anterior Thigh Normal Normal L3: Mid Anterior Thigh Normal Normal L4: Medial leg/foot, great toe (Saphenous n.) Normal Normal L5: Dorsum of mid foot Normal Normal S1: Lateral leg/foot, little toe, back of leg (Sural n.) Normal Normal Motor Strength Right Left L2: 5/5 5/5 L3: 5/5 5/5 L4: 5/5 5/5 L5: 5/5 5/5 S1: 5/5 5/5 Reflexes Right Left L4: Patellar 2/4 2/4 S1: Achilles 2/4 2/4 Babinski Absent Absent Clonus Absent Absent Sacroiliac Joint Exam Right Left Tender to Palpation over SI Joint - + Belinda's Finger (PSIS) - + MARNE - + Gaenslen's - - Compression - + Distraction - - Thigh Thrust - - Hip Exam Right Left FADIR - - Greater Trochanter tenderness - + Piriformis tenderness - - Scour - + Stinchfield - + Imaging: Images of the following studies have been personally reviewed and my independent interpretation reveals as written: XR L Spine (01/20/25): no evidence of spinous process or transverse process fractures; largely normal spine complex Radiographs of the left hip he has we are in the right and diagnosed we reveal enthesopathy of the bilateral greater trochanter, [id number]. Assessment & Plan: Emily Yoder is a 39 y.o. female with #Acute Low Back Pain, Acute Worsening -notes lumbar flexion event on 01/14/25 -improved with scheduled medications (gabapentin, tramadol, robaxin) -TTP midline lumbar spine; likely etiology interspinous ligament strain/supraspinous bursitis -order Lumbar XR to eval for bony changes in the setting of acute LBP -schedule lumbar interspinous ligament CSI under fluoro #Left hip pain, Chronic Worsening -Previously saw [facility] Interventional Pain and now s/p LESI (2022), SIJI/ablation (2019), TPI (2022) with great but short temporary relief for all -Also s/p greater trochanteric CSI with Dr. Cunningham with great but short temporary relief -Patient has 3 positive exam findings for intraarticular hip pain including hip scour, stinchfield and MAREN that is consistent with intraarticular hip pain despite limited radiologic evidence -There is also exam evidence of greater trochanteric pain syndrome but the patient has previously failed greater trochanteric CSI -s/p right hip intra-articular hip injection; ~5 weeks >60% symptom improvement -ongoing tenderness in lateral thigh -discussed gluteal tendon sheath injections with dextrose #Axial Low Back Pain, Chronic Stable #Lumbar Spondylosis #Facetogenic pain -s/p bilateral L4/L5, L5/S1 RFA (11/19/24) with 70% relief, ongoing -can repeat q6mo if symptoms return or worsen #Bilateral Sacroiliac Joint Pain, Chronic Worsening -Patient has >3 provocative exam maneuvers which include + belinda's finger, MAREN, compression, -Previous trial of SIJI/ablation (2019) with [facility] with 2 weeks of pain relief -If significant short term relief >75% on two occasions but no sustained relief consider SI joint ablation. Other options included posterior stabilization/fusion or lateral percutaneous fixation/fusion. Cosigned by Jovon Joseph MD at 01/20/2025 11:16 AM EDT Associated attestation - Jovon Joseph MD - 01/20/2025 11:16 AM EDT I saw and evaluated the patient with the resident/fellow. I discussed the case with the resident/fellow and agree with the findings and plan as documented. documented in this encounter Plan of Treatment Upcoming Encounters Date Type Department Care Team (Late st Contact Info) Description 04/06/2025 1:00 PM EDT Office Visit [facility] Medicine Specialties [address] [place] [address] Juan, Deidre R, MEDICAL PHYSICIST [address] [place] [address] 12/22/2025 3:00 PM EDT Appointment [facility] [address], [address] [place] [address] 12/22/2025 3:20 PM EDT Office Visit [facility] [address] [facility], [address] [place] [address] Mercedes Mosquera PA [address] [place] [address] Scheduled Orders Name Type Priority Associated Diagnoses Orde r Schedule Injection - Tendon Sheath or Ligament Procedures Routine Acute midline low back pain without sciatica 1 Occurrences starting 01/20/2025 until 07/24/2026 documented as of this encounter Results * XR Lumbar Spine 2 or 3 Views (01/20/2025 10:40 AM EDT) Anatomical Region Laterality Modality Spine, L-spine Digital Radiogra phy Impressions 01/20/2025 11:18 AM EDT Mild degenerative disc changes at L2-L3 and L3-L4.. CRITICAL RESULT: No. COMMUNICATION: Per this written report. Drafted by Lg Hutton MD on 01/20/2025 11:17 AM Final report signed by Lg Hutton MD on 01/20/2025 11:18 AM Narrative 01/20/2025 11:18 AM EDT CLINICAL INDICATION: acute low back pain TECHNIQUE: XR LUMBAR SPINE 2 OR 3 VIEWS COMPARISON: None. FINDINGS: 2 views of the lumbar spine show normal disc height in vertebral alignment. Minimal osteophyte formation at L2-L3 and L3-L4. No fracture or bone destruction. Sacroiliac joints are normal. Procedure Note Lg Hutton MD - 01/20/2025 CLINICAL INDICATION: acute low back pain TECHNIQUE: XR LUMBAR SPINE 2 OR 3 VIEWS COMPARISON: None. FINDINGS: 2 views of the lumbar spine show normal disc height in vertebralalignment. Minimal osteophyte formation at L2-L3 and L3-L4. No fracture orbone destruction. Sacroiliac joints are normal. IMPRESSION: Mild degenerative disc changes at L2-L3 and L3-L4.. CRITICAL RESULT: No. COMMUNICATION: Per this written report. Drafted by Lg Hutton MD on 01/20/2025 11:17 AM Final report signed by Lg Hutton MD on 01/20/2025 11:18 AM Jovon Joseph MD IMG XR PROCEDURES Final Result documented in this encounter Visit Diagnoses Diagnosis Acute midline low back pain without sciatica- Primary Tear of left gluteus medius tendon, subsequent encounter Acute midline low back pain without sciatica documented in this encounter Additional Health Concerns Assessment Noted Time PHQ-9 Depression Total Score: 0 12/24/19 11:27 AM EDT A fall risk assessment has been complete d for the patient 01/20/2025 9:17 AM EDT A Body Mass Index follow-up plan has been documented for the patient 01/20/2025 11:16 AM EDT documented as of this encounter Care Teams Fur Mixer Relationship Specialty Start Date End Date Darryl Davis MD [address] [place] [address] PCP - General Internal Medicine 09/23/24 documented as of this encounter
--- OUTSIDE RECORDS SUMMARY | 2025-01-20 10:05 | XMS_ITS | Encounter Summary ---
Author Organization Healthcare Address [address] [place] [address] Care Team Providers Care Grinding Wheel Dresser Name Role Phone Darryl Davis MD Primary Care Provider [phone] Encounter Details Date Type Department Care Team (Latest Contact Info) Description 01/20/2025 10:05 AM EDT - 01/20/2025 11:59 PM EDT Hospital Encounter [facility] XRAY [address] [place] [address] Acute midline low back pain without sciatica Discharge Disposition: Home or Self Care Social History Tobacco Use Types Packs/Day Years [...] on file documented as of this encounter Functional Status * Are you [...] EDT Constantine Montenegro documented in this encounter Medications at Time of Discharge albuterol 108 (90 Base) MCG/ACT inhaler 08/01/2022 amLODIPine (Norvasc) 10 MG tablet Take 1 tablet (10 mg) by mouth every night. 12/01/2020 Antiseptic Skin Cleanser 4 % external solution 02/28/2024 atorvastatin (Lipitor) 20 MG tablet Take 1 tablet (20 mg) by mouth every night. 12/01/2020 Blood Glucose Monitoring Suppl (ONE TOUCH ULTRA 2) w/Device kit device kit 05/23/2023 calcipotriene (Dovonex) 0.005 % cream 02/28/2024 calcipotriene (Dovonex) 0.005 % ointment 01/06/2025 celecoxib (CeleBREX) 100 MG capsule 03/20/2024 cetirizine (ZyrTEC) 10 MG tablet 07/10/2022 cholecalciferol 50 MCG (2000 UT) tablet Take 1 tablet (2,000 Units total) by mouth every night. 30 tablet 11 12/07/2021 ciprofloxacin (Cipro) 500 MG tablet 12/25/2024 clindamycin (Cleocin T) 1 % external solution 02/28/2024 clobetasol (Temovate) 0.05 % ointment 02/28/2024 desvenlafaxine succinate er (Pristiq) 25 MG 24 hr tablet 01/09/2025 doxycycline (Monodox) 100 MG capsule 03/27/2024 DULoxetine (Cymbalta) [address] capsule 05/23/2023 Farxiga 10 MG tablet 09/25/2024 fluticasone (Flonase) 50 MCG/ACT nasal spray 07/10/2022 folic acid (Folvite) 1 MG tabletIndications:H igh risk medication use,Psoriatic arthritis (CMS/HCC) Take two tablets daily by mouth 180 tablet 5 12/23/2024 gabapentin (Neurontin) 300 MG capsule 03/29/2023 ibuprofen 800 MG tabletIndications:O steoarthritis, unspecified osteoarthritis type, unspecified site One tablet three times daily as needed for pain 90 tablet 3 07/11/2023 Linzess 145 MCG capsuleIndications: Chronic constipation TAKE 1 CAPSULE (145 MCG) BY MOUTH 1 (ONE) TIME EACH DAY. 30 capsule 1 11/13/2023 medroxyPROGESTERone (Depo-Provera) 150 MG/ML suspension prefilled syringe injection syringe Inject 1 mL (150 mg) into the muscle every 3 (three) months. 01/03/2023 metFORMIN (Glucophage) 500 MG tablet 12/29/2024 methotrexate 2.5 MG tabletIndications:H igh risk medication use,Psoriatic arthritis (CMS/HCC) 6 tablets at the same time once weekly take with food 24 tablet 3 12/23/2024 mometasone (Elocon) 0.1 % ointment Apply to affected area on body BID for up to 10-14 days then daily for one week then 1-2 times weekly to maintain improvement 45 g 2 05/31/2023 naloxone (Narcan) 4 mg/0.1 mL nasal spray 1. Give 1 spray in nostril for no/slow breathing or cannot wake after opioid use 2. Call 911 3. Repeat in other nostril if symptoms continue 1 each 04/24/2024 omeprazole (PriLOSEC) [address] capsule Take 1 capsule (40 mg) by mouth 1 (one) time each day. 10/19/2022 OneTouch Ultra test strip 06/07/2023 rOPINIRole (Requip) 0.5 MG tablet 05/13/2024 Tofacitinib Citrate 5 MG tabletIndications:P soriatic arthritis (CMS/HCC) Take 5 mg by mouth 2 times a day. 60 tablet 4 12/23/2024 traMADol (Ultram) 50 MG tablet Take 1 tablet (50 mg) by mouth 1 (one) time each day. traZODone (Desyrel) 50 MG tablet 01/09/2025 triamcinolone (Kenalog) 0.1 % ointmentIndications :Rash and other nonspecific skin eruption Apply to palms and feet twice daily. Don't use for more than 14 days 80 g 3 04/09/2023 Vtama 1 % cream 01/08/2025 methocarbamol (Robaxin) 500 MG tabletIndications:C hronic left SI joint pain,Chronic bilateral low back pain with left-sided sciatica TAKE 1 TABLET BY MOUTH FOUR TIMES DAILY 90 tablet 01/13/2025 03/04/20 25 documented as of this encounter Plan of Treatment Upcoming Encounters Date Type Department Care Team (Late st Contact Info) Description 04/06/2025 1:00 PM EDT Office Visit [facility] Medicine Specialties [address] [place] [address] Juan June R, DIRECTOR OF CAREER RESOURCES [address] [place] [address] 12/22/2025 3:00 PM EDT Appointment [facility] Bone & Mineral Metabolism [address], [address] [place] [address] 12/22/2025 3:20 PM EDT Office Visit [facility] Bone & Mineral Metabolism [address], [address] [place] [address] Mercedes Mosquera, ISABEL [address] [place] [address] documented as of this encounter Procedures Procedure Name Priority Date/Time Associated Diagnosis Comments XR LUMBAR SPINE 2 OR 3 VIEWS Routine 01/20/2025 10:40 AM EDT Acute midline low back pain without sciatica documented in this encounter Results * XR Lumbar Spine [...] Diagnosis Acute midline low back pain without sciatica [...] documented as of this encounter Care Teams Grinding Wheel Dresser Relationship Specialty Start Date End Date Darryl Davis MD [address] [place] [address] PCP - General Internal Medicine 09/23/24 documented as of this encounter
--- NOTE | 2025-03-05 09:56 | XR_ITS ---
FINAL REPORT CLINICAL HISTORY: Evaluation of Left Foot Pain COMPARISON: 06/06/2023 FINDINGS: AP, oblique and lateral views of the left foot were obtained. There is no acute fracture or dislocation. There is mild degenerative disease most pronounced at the midfoot. There is no acute soft tissue abnormality. IMPRESSION: Degenerative changes without acute osseous abnormality of the left foot. Reviewed, Interpreted and Dictated by Modesta Wright MD Transcribed by Tory Bocanegra Authenticated and [facility]
--- NOTE | 2025-03-05 09:56 | XR_ITS ---
FINAL REPORT CLINICAL HISTORY: Evaluation of Left Ankle Pain and Edema COMPARISON: 06/06/2023 FINDINGS: AP, oblique, and lateral views of the left ankle were obtained. There is no fracture or dislocation. The mortise is intact. The joint spaces are preserved. The ankle mortise is intact. Soft tissues are unremarkable. IMPRESSION: No acute osseous abnormality of the left ankle. Reviewed, Interpreted and Dictated by Modesta Wright MD Transcribed by Tory Bocanegra Authenticated and [facility]
--- OUTSIDE RECORDS SUMMARY | 2025-03-05 09:58 | XMS_ITS | Encounter Summary ---
Author Organization [facility] Address [address] [place] [address] Care Team Providers Care Clothing Pattern Preparer Name Role Phone Darryl Davis MD Primary Care Provider + [phone] Bhavin Moore MD Primary Care Provider Giovanna Darryl Levine MD Primary Care Provider + [phone] Reason for Referral * Consultation (Routine) - Closed Specialty Diagnoses / Procedures Referred By Romero hoyos Referred To Contact Rheumatology Diagnoses Pain in joint, multiple sites Kasie Sahu GRAPE CRUSHER [address] [address] Phone: tel: fax: Referral ID Status Reason Start Date Expiration Date V isits Requested Visits Authorized [id number] Closed Specialty Services Required 08/22/2022 02/21/2024 1 1 Encounter Details Date Type Department Care Team (Late st Contact Info) Description 08/22/2022 Community [facility] Community Practice [address] [place] [address] Kasie Sahu GRAPE CRUSHER [address] [facility] [address] [place] [address] Pain in joint, multiple sites (Primary Dx) Social History Tobacco Use Types Packs/Day Years Used Date Smoking Tobacco: Former Cigarettes 1 20 2 000 - 2020 Smokeless Tobacco: Never Alcohol Use Standard Drinks/Week Comments Not Currently 0 (1 standard drink = 0.6 oz pur e alcohol) rarely PHQ-2 Answer Date Recorded Patient Health Questionnaire-2 Score 0 12/06/2021 Comments No Sex and Gender Information Value Date Recorded Sex Assigned at Female 12/07/2021 6:04 PM EDT Legal Sex Female 6:01 PM EDT Gender Identity Female 12/07/2021 6:04 PM EDT Sexual Orientation Not on file COVID-19 Exposure Response Date Recorded In the last 10 days, have yo u been in contact with someone who was confirmed or suspected to have Coronavirus/COVID-19? No / Unsure 08/25/2022 10:36 AM EST documented as of this encounter Functional Status [...] EDT Constantine Montenegro documented in this encounter Plan of Treatment Upcoming Encounters Date Type Department Care Team (Late st Contact Info) Description 04/06/2025 1:00 PM EDT Office Visit [facility] Medicine Specialties [address] [place] [address] Juan, June R, GRAPE CRUSHER [address] [place] [address] 12/22/2025 3:00 PM EDT Appointment [facility] Bone & Mineral Metabolism [address], [address] [place] [address] 12/22/2025 3:20 PM EDT Office Visit [facility] Bone & Mineral Metabolism [address], [address] [place] [address] Mercedes Mosquera PA [address] [place] [address] Scheduled Referrals Name Type Priority Associated Diagnoses Order Schedule Ambulatory referral to Rheumatology Outpatient Referral Routine Pain in joint, multiple sites Expected: 08/22/2022 (Approximate), Expires: 02/20/2024 documented as of this encounter Visit Diagnoses Diagnosis Pain in joint, multiple sites- Primary documented in this encounter Additional Health Concerns Infection Onset Date Last Indicated Resolved Time Gastrointestinal Rule-Out 05/02/2023 04/27/2023 11:35 AM EST Assessment Noted Time A fall risk assessment has been complete d for the patient 04/28/2022 9:46 AM EDT documented as of this encounter Care Teams Clothing Pattern Preparer Relationship Specialty Start Date End Date Darryl Davis MD [address] [place] [address] PCP - General 11/05/20 01/10/24 Bhavin Moore MD [address] [place] [address] PCP - General Family Medicine 01/11/24 09/22/24 Darryl Davis MD [address] [place] [address] PCP - General Internal Medicine 09/23/24 documented as of this encounter
--- OUTSIDE RECORDS SUMMARY | 2025-03-05 09:58 | XMS_ITS | Encounter Summary ---
Author Organization Healthcare Address [address] [place] [address] Care Team Providers Care Professional Tutor Name Role Phone Darryl Davis MD Primary Care Provider + [phone] Bhavin Moore MD Primary Care Provider Giovanna vailable Darryl Davis MD Primary Care Provider + [phone] Encounter Details Date Type Department Care Team (Late st Contact Info) Description 09/15/2022 Orders Only External Location [address] [place] [address] Andre Sterling MD [address] [id number] Social History Tobacco Use Types Packs/Day Years Used Date Smoking Tobacco: Every Day Cigarettes 1 20 Started: 06/25/1999; Last attempted to quit: 06/25/2019 Smokeless Tobacco: Never Alcohol Use Standard Drinks/Week Comments Not Currently 0 (1 standard drink = 0.6 oz pur e alcohol) rarely PHQ-2 Answer Date Recorded Patient Health Questionnaire-2 Score 2 09/04/2022 Comments No Sex and Gender Information Value [...] suspected to have Coronavirus/COVID-19? No / Unsure 09/04/2022 11:22 AM EDT documented as of this encounter Functional Status [...] Description 04/06/2025 1:00 PM EDT Office Visit [facility] Medicine Specialties [address] [place] [address] Deidre Martinez R, VIKI [address] [facility] [address] [place] [address] 12/22/2025 3:00 PM EDT Appointment [facility] Bone & Mineral Metabolism [address], [address] [place] [address] 12/22/2025 3:20 PM EDT Office Visit [facility] Bone & Mineral Metabolism [address], [address] [place] [address] Mercedes Mosquera PA [address] [place] [address] documented as of this encounter Procedures Procedure Name Priority Date/Time Associated Diagnosis Comments MR LUMBAR SPINE WO IV CONTRAST 09/15/2022 8:45 AM EDT documented in this encounter Results * MR Lumbar Spine wo IV Contrast (09/15/2022 8:45 AM EDT) Anatomical Region Laterality Modality L-spine Magnetic Resonan ce 09/15/2022 8:45 AM EDT Andre Sterling MD IMG MRI PROCEDURES Final Resul t documented in this encounter Visit Diagnoses Not on filedocumented in this encounter Additional Health Concerns Infection Onset Date Last Indicated Resolved Time Gastrointestinal Rule-Out 05/02/2023 04/27/2023 11:35 AM EST Assessment Noted Time A fall risk assessment has been complete d for the patient 09/04/2022 11:50 AM EDT A Body Mass Index follow-up plan has been documented for the patient 09/04/2022 1:24 PM EDT documented as of this encounter Care Teams Professional Tutor Relationship Specialty Start Date End Date Darryl Davis MD [address] [place] [address] PCP - General 11/05/20 01/10/24 Bhavin Moore MD [address] [place] [address] PCP - General Family Medicine 01/11/24 09/22/24 Darryl Davis MD [address] [place] [address] PCP - General Internal Medicine 09/23/24 documented as of this encounter
--- OUTSIDE RECORDS SUMMARY | 2025-03-05 09:58 | XMS_ITS | Encounter Summary ---
Author Organization Healthcare Address [address] [place] [address] Care Team Providers Care Correspondence Renew Clerk Name Role Phone Darryl Davis MD Primary Care Provider + [phone] Bhavin Moore MD Primary Care Provider Giovanna vailable Darryl Davis MD Primary Care Provider + [phone] Encounter Details Date Type Department Care Team (Late st Contact Info) Description 08/03/2022 Lab Requisition [facility] [address] [place] [address] Nick Lema MD [address] [place] [address] Encounter for removal of internal fixation device Social History Tobacco Use Types Packs/Day Years [...] Description 04/06/2025 1:00 PM EDT Office Visit [facility] Medicine Specialties [address] [place] [address] Deidre Martinez, VIKI [address] [place] [address] 12/22/2025 3:00 PM EDT Appointment [facility] Bone & Mineral Metabolism [address], [address] [place] [address] 12/22/2025 3:20 PM EDT Office Visit [facility] Bone & Mineral Metabolism [address], [address] [place] [address] Mercedes Mosquera, PA [address] [place] [address] documented as of this encounter Procedures Procedure Name Priority Date/Time Associated Diagnosis Comments SURGICAL PATHOLOGY EXAM Routine 08/03/2022 Encounter for removal of internal fixation device documented in this encounter Results * Surgical Pathology Exam (08/03/2022) Case Report Surgical Pathology Case: [id number] Authorizing Provider: Nick Lema MD Collected: 08/03/2022 Ordering Location: [facility] Lab Received: 08/03/2022 1338 Pathologist: Bert Otoole DO Specimen: Ankle, Right, Right ankle hardware screws 08/04/2022 1:32 PM EST [facility] Final Diagnosis A. Hardware, right ankle, removal: - Screws, for gross diagnosis only 08/04/2022 1:32 PM EST [facility] at 1332 EST Clinical Information Z47.2 - Encounter for removal of internal fixation device [ICD-10-CM] Right ankle painful hardware 08/04/2022 1:32 PM EST [facility] Gross Description A. RIGHT ANKLE HARDWARE SCREWS The specimen is received in formalin labeled right ankle hardware screws , and consists of two brown, threaded surgical screws ranging from 2.9-3.8 cm in length with a head diameter of 0.5 cm. The specimen was submitted for gross diagnosis only. Jennifer Hernandez 08/04/2022 1:32 PM EST [facility] Note: A resident was involved in the service. I attest I examined the relevant preparations for the specimens and confirmed the diagnosis or interpretation. 08/04/2022 1:32 PM EST [facility] Tissue Structure of right ankle / Unknown 08/03/2022 08/03/2022 1:38 PM EST us Nick Lema MD LAB PATHOLOGY ORDERABLES Feli bell Result [facility] [address] [place] [address] documented in this encounter Visit Diagnoses Diagnosis Encounter for removal of internal fixation device documented in this encounter Additional Health Concerns Infection Onset Date Last Indicated Resolved Time Gastrointestinal Rule-Out 05/02/2023 04/27/2023 11:35 AM EST Assessment Noted Time A fall risk assessment has been complete d for the patient 04/28/2022 9:46 AM EDT documented as of this encounter Care Teams Correspondence Renew Clerk Relationship Specialty Start Date End Date Darryl Davis MD [address] [place], [place] [address] PCP - General 11/05/20 01/10/24 Bhavin Moore MD [address] [place] [address] PCP - General Family Medicine 01/11/24 09/22/24 Darryl Davis MD [address] [place], [place] [address] PCP - General Internal Medicine 09/23/24 documented as of this encounter
--- OUTSIDE RECORDS SUMMARY | 2025-03-05 09:58 | XMS_ITS | Encounter Summary ---
Author Organization Healthcare Address [address] [place] [address] Care Team Providers Care Forepart Rounder Name Role Phone Darryl Davis MD Primary Care Provider [phone] Encounter Details Date Type Department Care Team ([facility] st Contact Info) Description 01/08/2025 Orders Only [facility] & Mineral Metabolism [address], [address] [place] [address] Mercedes Mosquera PA [address] [place] [address] Other osteoporosis without current pathological fracture (Primary Dx) Social History Tobacco Use Types [...] Description 04/06/2025 1:00 PM EDT Office Visit [facility] Medicine Specialties [address] [place] [address] Deidre Martinez R, VIKI [address] [facility] [address] [place] [address] 12/22/2025 3:00 PM EDT Appointment [facility] Bone & Mineral Metabolism [address] [facility] [address] [place] [address] 12/22/2025 3:20 PM EDT Office Visit [facility] & Mineral Metabolism [address] [facility] [address], [address] [place] [address] Mercedes Mosquera, PA [address] [facility] [address] [place] [address] Scheduled Orders Name Type Priority Associated Diagnoses Orde r Schedule Dexa Bone Density Imaging Routine Other osteoporosis without current pathological fracture Expected: 01/08/2026 (Approximate), Expires: 07/12/2026 Bone Specific Alkaline Phosphatase Lab Routine Other osteoporosis without current pathological fracture Expected: 12/08/2025 (Approximate), Expires: 07/12/2026 Vitamin D 25 Hydroxy Lab Routine Other osteoporosis without current pathological fracture Expected: 12/08/2025 (Approximate), Expires: 07/12/2026 Renal Function Panel, Plasma Lab Routine Other osteoporosis without current pathological fracture Expected: 12/08/2025 (Approximate), Expires: 07/12/2026 C-Telopeptide Lab Routine Other osteoporosis without current pathological fracture Expected: 12/08/2025 (Approximate), Expires: 07/12/2026 documented as of this encounter Visit Diagnoses Diagnosis Other osteoporosis without current pathological fracture- Primary documented in this encounter Additional Health Concerns Assessment Noted Time PHQ-9 Depression Total Score: 0 12/24/19 25 11:27 AM EDT A fall risk assessment has been complete d for the patient 12/23/2024 11:27 AM EDT A Body Mass Index follow-up plan has been documented for the patient 12/23/2024 12:19 PM EDT documented as of this encounter Care Teams Forepart Rounder Relationship Specialty Start Date End Date Darryl Davis MD [address] [place] [address] PCP - General Internal Medicine 09/23/24 documented as of this encounter
--- OUTSIDE RECORDS SUMMARY | 2025-03-05 09:58 | XMS_ITS | Clinical Summary ---
Author Organization [facility] Address [address] [place] [address] Care Team Providers Care Apple Checker Name Role Phone Darryl Davis MD Primary Care Provider [phone] Allergies Active Allergy Reactions Criticality Noted Date Comments Dextromethorphan Other - please document in the comment field Low 03/30/2022 Doxylamine Other - please document in the comment field Low 03/30/2022 At-Xrolpjjhnp-Bezaxllflwnr n Other - please document in the comment field Low 07/15/2020 hallucinations Penicillins Unknown - Patient states they do not know rxn details,Dizziness Medium 01/06/2013 Pseudoephedrine Other - please document in the comment field Low 03/30/2022 Varenicline Itching Medium 03/30/2022 Medications amLODIPine (Norvasc) 10 MG tablet Take 1 tablet (10 mg) by mouth every night. 021 Active atorvastatin (Lipitor) 20 MG tablet Take 1 tablet (20 mg) by mouth every night. 021 Active cholecalciferol 50 MCG (2000 UT) tablet Take 1 tablet (2,000 Units total) by mouth every night. 30 tablet 11 022 Active Additional Information Patient not taking.Reported on 09/09/2024 cetirizine (ZyrTEC) 10 MG tablet 023 Active fluticasone (Flonase) 50 MCG/ACT nasal spray 023 Active albuterol 108 (90 Base) MCG/ACT inhaler 023 Active traMADol (Ultram) 50 MG tablet Take 1 tablet (50 mg) by mouth 1 (one) time each day. Active omeprazole (PriLOSEC) [address] capsule Take 1 capsule (40 mg) by mouth 1 (one) time each day. 023 Active medroxyPROGESTERo ne (Depo-Provera) 150 MG/ML suspension prefilled syringe injection syringe Inject 1 mL (150 mg) into the muscle every 3 (three) months. 023 Active triamcinolone (Kenalog) 0.1 % ointmentIndicatio ns:Rash and other nonspecific skin eruption Apply to palms and feet twice daily. Don't use for more than 14 days 80 g 3 023 Active gabapentin (Neurontin) 300 MG capsule 023 Active Blood Glucose Monitoring Suppl (ONE TOUCH ULTRA 2) w/Device kit device kit 023 Active DULoxetine (Cymbalta) [address] capsule 023 Active mometasone (Elocon) 0.1 % ointment Apply to affected area on body BID for up to 10-14 days then daily for one week then 1-2 times weekly to maintain improvement 45 g 2 023 Active OneTouch Ultra test strip 023 Active ibuprofen 800 MG tabletIndications :Osteoarthritis, unspecified osteoarthritis type, unspecified site One tablet three times daily as needed for pain 90 tablet 3 024 Active Linzess 145 MCG capsuleIndication s:Chronic constipation TAKE 1 CAPSULE (145 MCG) BY MOUTH 1 (ONE) TIME EACH DAY. 30 capsule 1 024 Active calcipotriene (Dovonex) 0.005 % cream Active Antiseptic Skin Cleanser 4 % external solution 024 Active doxycycline (Monodox) 100 MG capsule 024 Active celecoxib (CeleBREX) 100 MG capsule 024 Active naloxone (Narcan) 4 mg/0.1 mL nasal spray 1. Give 1 spray in nostril for no/slow breathing or cannot wake after opioid use 2. Call 911 3. Repeat in other nostril if symptoms continue 1 each 024 Active clindamycin (Cleocin T) 1 % external solution 024 Active clobetasol (Temovate) 0.05 % ointment 024 Active rOPINIRole (Requip) 0.5 MG tablet 024 Active Farxiga 10 MG tablet 025 Active methotrexate 2.5 MG tabletIndications :High risk medication use,Psoriatic arthritis (CMS/HCC) 6 tablets at the same time once weekly take with food 24 tablet 3 025 Active folic acid (Folvite) 1 MG tabletIndications :High risk medication use,Psoriatic arthritis (CMS/HCC) Take two tablets daily by mouth 180 tablet 5 025 Active Tofacitinib Citrate 5 MG tabletIndications :Psoriatic arthritis (CMS/HCC) Take 5 mg by mouth 2 times a day. 60 tablet 4 025 Active ciprofloxacin (Cipro) 500 MG tablet 025 Active desvenlafaxine succinate er (Pristiq) 25 MG 24 hr tablet 025 Active metFORMIN (Glucophage) 500 MG tablet 025 Active Vtama 1 % cream 025 Active traZODone (Desyrel) 50 MG tablet 025 Active calcipotriene (Dovonex) 0.005 % ointment 025 Active methocarbamol (Robaxin) 500 MG tabletIndications :Chronic left SI joint pain,Chronic bilateral low back pain with left-sided sciatica TAKE 1 TABLET BY MOUTH FOUR TIMES DAILY 90 tablet 025 Active methocarbamol (Robaxin) 500 MG tabletIndications :Chronic left SI joint pain,Chronic bilateral low back pain with left-sided sciatica TAKE 1 TABLET BY MOUTH FOUR TIMES DAILY 90 tablet 025 2024 Discontinued Active Problems Problem Noted Date Diagnosed Date Severe obesity (BMI 35.0-39.9) with comorbidity 09/09/2024 Chronic left SI joint pain 03/12/2024 Painful orthopaedic hardware 05/22/2022 Overview (05/22/2022): Added automatically from request for surgery [id number] Mild intermittent asthma without complication Benign essential HTN 10/13/2021 Other hyperlipidemia 10/13/2021 Type 2 diabetes mellitus wit hout complication, without long-term current use of insulin 10/13/2021 Gastroesophageal reflux disease without esophagi tis 10/13/2021 Depression 10/13/2021 RLS (restless legs syndrome) 10/13/2021 Fibromyalgia 10/13/2021 Vitamin D deficiency 11/18/2019 Assessment & Plan (12/07/2021 11:30 AM EDT): Vit D has been at goal Today's Plan: Cont 2000IU daily. Refilled today Osteomalacia 01/12/2014 Assessment & Plan (12/07/2021 11:31 AM EDT): Vit D and phos have been at goal. No new fxs. Hypophosphatemia 04/29/2013 Assessment & Plan (12/08/2022 12:31 PM EDT): Relevant Hx: Has not been able to afford the phos pills as her insurance is not paying due to OTC med. Has been just continuing with high phos diet. Daily Update: Phos has been in normal range now 2.8. Today's Plan: No need for supplement. Cont dietary phos. Assessment & Plan (12/07/2021 11:34 AM EDT): Relevant Hx: Has not been able to afford the phos pills as her insurance is not paying due to OTC med. She had been on low dose 250mg. Daily Update: Phos has been in normal range now 3.4 even without supplement. Today's Plan: Given dietary sheet to continue to get high phos foods in diet and can take the k phos supplement on days with reduced intake. Osteoporosis 01/06/2013 Assessment & Plan (12/08/2022 12:30 PM EDT): Relevant Hx: Hx of multiple stress fxs in feet and vertebral comp fx. 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 Daily Update: BMD scores cont to be in the normal range. She does have a new L ankle fx but has not been to ortho yet. Today's Plan: BMD is stable in all sites. Phos and Vit D are in normal range. Would not start any additional therapy unless there is an issue with fx healing. Pt will call to let us know if ankle fx not healing and we will see if any need for additional treatment at that time. Assessment & Plan (12/07/2021 11:32 AM EDT): Relevant Hx: Hx of multiple stress fxs in feet and vertebral comp fx. 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 Daily Update: BMD scores cont to be in the normal range. No new fxs. Today's Plan: Cont Vit D supplement and phos supplement Resolved Problems Problem Noted Date Diagnosed Date Resolved Date Hypoxia 10/13/2021 10/14/2021 Hypokalemia 10/13/2021 10/14/2021 Overview (10/13/2021): -potassium 3.2 post-op -replaced po -follow-up am lab S/P ankle fusion 09/02/2021 10/14/2021 Overview (09/02/2021): Added automatically from request for surgery [id number] Ankle arthritis 03/23/2020 10/13/2021 Ankle fracture 03/23/2020 10/13/2021 Foot pain 12/19/2016 10/13/2021 Ankle pain 09/12/2016 10/13/2021 Myofascial pain 01/31/2015 10/13/2021 Vertebral pathologic fracture 01/08/2013 10/13/2021 Stress fracture of metatarsal bone 01/08/2013 10/13/2021 Encounters Date Type Department Care Team Description 03/04/2025 Refill Medical Office Building [facility] [address], [address] [place] [address] Brandin Bender, ISABEL Chronic left SI joint pain; Chronic bilateral low back pain with left-sided sciatica 01/20/2025 10:05 AM EDT - 01/20/2025 11:59 PM EDT Hospital Encounter [facility] XRAY [address], [address] [place] [address] Acute midline low back pain without sciatica Discharge Disposition: Home or Self Care 01/20/2025 9:30 AM EDT Office Visit Interventional Pain Medicine [address] [place] [address] Jovon Joseph MD Acute midline low back pain without sciatica (Primary Dx); Tear of left gluteus medius tendon, subsequent encounter 01/20/2025 Travel 01/17/2025 Travel 01/13/2025 Refill Medical Office Building [facility] [address], [address] [place] [address] Brandin Bender PA Chronic left SI joint pain; Chronic bilateral low back pain with left-sided sciatica 01/08/2025 Orders Only [facility] [address], [address] [place] [address] Mercedes Mosquera PA Other osteoporosis without current pathological fracture (Primary Dx) 01/07/2025 Telephone Interventional Pain Medicine [address] [place] [address] Jovon Joseph MD HCN - Patient Message 12/23/2024 12:40 PM EDT - 12/23/2024 11:59 PM EDT Hospital Encounter [facility] [address] [place] [address] Psoriatic arthritis ([facility]) Discharge Disposition: Home or Self Care 12/23/2024 12:00 PM EDT Office Visit [facility]ties [address], [address] [place] [phone] Deidre Martinez, ABALONE SHELLER High risk medication use; Psoriatic arthritis ([facility]) 12/23/2024 Results Follow-Up [facility] [address], [address] [place] [phone] Vania Quiros PA 12/23/2024 Refill [facility] [address], [address] [place] [phone] Isa Hannon, PharmD Psoriatic arthritis ([facility]) 12/23/2024 Travel 12/21/2024 Travel 12/15/2024 Telephone Medical Office Building [facility] [address], [address] [place] [address] Nilton Santos MD from Last 3 Months Immunizations Immunization Administration Dates Next Due Influenza, injectable, quadrivalent 06/26,05/27/2018,04/17/2017,2015,04/02/2015 Influenza, injectable, quadr ivalent, preservative free 06/10/2024,03/30/2022 Influenza, seasonal, injectable 04/16/2014 Tdap 05/27/2018,01/16/2006 Family History Medical History Relation Name Comments Hearing loss Father Lc Warner Stroke Father Lc Warner Autoimmune disease Mother Alma Warner COPD Mother Alma Warner Diabetes Mother Alma Warner Heart disease Mother Alma Warner Hypercholesterolemia Mother Alma Warner Hypertension Mother Alma Warner Rheumatologic disease Mother Alma Warner Stroke Mother Alma Warner Conversions - Other Other 1 Chronic Lupus Erythematosus COPD Other 2 Relation Name Status Comments Father Lc Warner Mother Alma Warner Other 1 Other 2 Social History Tobacco Use Types Packs/Day Years Used Date Smoking Tobacco: Every Day Cigarettes 1.5 25.7 Started: 06/25/1999 Smokeless Tobacco: Never Tobacco Cessation:Ready to Q uit: Not Asked; Counseling Given: Not Answered Alcohol Use Standard Drinks/Week Comments Not Currently [...] PM EDT Sexual Orientation Not on file Last Filed Vital Signs Vital Sign Reading [...] Mass Index 34.06 01/20/2025 9:17 AM EDT Plan of Treatment Upcoming Encounters Date Type Department Care Team (Late st Contact Info) Description 04/06/2025 1:00 PM EDT Office Visit [facility] [address], [address] [place] [phone] Deidre Martinez, ABALONE SHELLER [address] [place] [address] 12/22/2025 3:00 PM EDT Appointment [facility] [address], [address] [place] [address] 12/22/2025 3:20 PM EDT Office Visit [facility] [address], [address] [place] [address] Mercedes Mosquera, ISABEL [address] [place] [address] Health Maintenance Due Date Last Done Comments [facility]-Diabetes: Hemoglobin A1C 1983 [facility]-/Child/Adol SDOH Screenings 1983 Diabetes: Dental Exam 1993 [facility]-Varicella Vaccines (1 of 2 - 13+ 2-dose series) 1996 [facility]- SDOH Screenings 2001 [facility]-Adult SDOH Screenings 2001 [facility]-Hepatitis B Vaccines (1 of 3 - 19+ 3-dose series) 2002 [facility]-Pneumococcal Vaccine: Pediatrics (0 to 5 Years) and At-Risk Patients (6 to 49 Years) (1 of 2 - PCV) 2002 [facility]-Zoster Vaccines (1 of 2) 2002 [facility]-Pap Smear 2004 HPV Vaccines (1 - 3-dose SCDM series) 2010 [facility]-Cervical Cancer Screening 2013 [facility]-HPV/Cotest 2013 [facility]-Bone Density Scan 12/17/2024 12/18/2023 , 12/05/2022, 12/06/2021 [id number]-27 Vaccine (4 - 2024- season) 2025 06/09/2021, 09/04/2020, 08/14/2020 [facility]-Influenza Vaccine (#1) 02/23/202506/10, 03/30/2022, 07/14/2019, Additional history exists [facility]-Depression Screening 12/23/2025 025, 12/23/2024, 01/05/2023 [facility]-DTaP,Tdap,and Td Vaccines (3 - Td or Tdap) 05/27/2028 05/27/2018, 01/16/2006 [facility]-HIV Screening Completed 09/04/2022 [facility]-Hepatitis C Screening Completed 05/31/2023, [facility]-Obesity Intervention Completed 025, 12/23/2024, 11/19/2024, Additional history exists [facility]-HIB Vaccines Aged Out No longer e ligible based on patient's age to complete this topic [facility]-Hepatitis A Vaccines Aged Out No longer eligible based on patient's age to complete this topic [facility]-IPV Vaccines Aged Out No longer e ligible based on patient's age to complete this topic [facility]-Rotavirus Vaccines Aged Out No lo nger eligible based on patient's age to complete this topic Medical Devices Implanted Type Area First Line Supervisor Device Identifier Shelf Expiration Date Model / Serial / Lot Plate Plate Right: Ankle Screw Screw Right: Ankle Screw 4.2mm R3con Locking Plate 14mm - [employer] - [id number] Implanted:Qty: 1 on 10/13/2021 by Ncik Lema MD at [facility] Right: [id number] / NONE / Procedures Procedure Name Priority Date/Time Associated Diagnosis Comments XR LUMBAR SPINE 2 OR 3 VIEWS Routine 01/20/2025 10:40 AM EDT Acute midline low back pain without sciatica XR HAND WRIST BILATERAL 2 VIEWS Routine 12/23/2024 12:55 PM EDT Psoriatic arthritis (CMS/HCC) CBC WITH AUTO DIFFERENTIAL Routine 12/23/2024 12:38 PM EDT High risk medication use CREATININE, PLASMA Routine 12/23/2024 12 :38 PM EDT High risk medication use HEPATIC FUNCTION PANEL Routine 12:38 PM EDT High risk medication use C-REACTIVE PROTEIN, PLASMA Routine 12/23/2024 12:38 PM EDT Psoriatic arthritis ([facility]/HCC) SEDIMENTATION RATE, AUTOMATED Routine 12/23/2024 12:38 PM EDT Psoriatic arthritis ([facility]) LIPID PROFILE, PLASMA Routine 12/23/2024 12:38 PM EDT High risk medication use DEXA BONE DENSITY Routine 12/18/2023 2:3 8 PM EDT Osteoporosis without current pathological fracture, unspecified osteoporosis type ACUTE HEPATITIS PANEL Routine 05/31/2023 10:39 AM EST Psoriatic arthritis ([facility]) Other psoriasis HIV 1/2 ANTIBODY/ANTIGEN SCREEN WITH REFLEX TO HIV I/II DIFFERENTIATION Routine 09/04/2022 1:47 PM EDT Pain in joint, multiple sites from Last 3 Months or Most Recently Relevant to Health Maintenance Results * XR Lumbar Spine 2 or [...] Joseph MD IMG XR PROCEDURES Final Result * XR Hand and Wrist Bilateral 2 Views (12/23/2024 12:55 PM EDT) Anatomical Region Laterality Modality Hand, Wrist Bilateral Digital Radiogra phy Impressions 12/23/2024 1:32 PM EDT Normal evaluation of the hands. CRITICAL RESULT: No. COMMUNICATION: Per this written report. Drafted by Lg Hutton MD on 12/23/2024 1:31 PM Final report signed by Lg Hutton MD on 12/23/2024 1:32 PM Narrative 12/23/2024 1:32 PM EDT CLINICAL INDICATION: evaluation for inflammatory changes. TECHNIQUE: XR HAND WRIST BILATERAL 2 VIEWS COMPARISON: January 14, 2019. FINDINGS: 2 views of the hand show normal joint space and alignment. No fracture or erosive changes. Soft tissues are normal. No inflammatory bone formation. Procedure Note Lg Hutton MD - 12/23/2024 CLINICAL INDICATION: evaluation for inflammatory changes. TECHNIQUE: XR HAND WRIST BILATERAL 2 VIEWS COMPARISON: January 14, 2019. FINDINGS: 2 views of the hand show normal joint space and alignment. No fracture orerosive changes. Soft tissues are normal. No inflammatory boneformation. IMPRESSION: Normal evaluation of the hands. CRITICAL RESULT: No. COMMUNICATION: Per this written report. Drafted by Lg Hutton MD on 12/23/2024 1:31 PM Final report signed by Lg Hutton MD on 12/23/2024 1:32 PM Vania HALL IMG XR PROCEDURES Final R esult * Creatinine, Plasma (12/23/2024 12:38 PM EDT) Creatinine, Plasma 0.77 0.60 - 1.10 mg/dL 12/23/2024 2:23 PM EDT [facility] eGFRcr 99.5 mL/min/1.7 3m*2 12/23/2024 2:23 PM EDT [facility] Comment:Reported eGFRcr in m L/min/1.73m2 is based the CKD-EPI 2020 equation that does not use a race coefficient. Blood Venous blood specimen / Unknown Venipuncture / Unknown 12/23/2024 12:38 PM EDT 12/23/2024 12:38 PM EDT [facility] LAB BLOOD ORDERABLES Feli l Result [facility] [address] [place] [address] * Sedimentation Rate, Automated (12/23/2024 12:38 PM EDT) Sedimentation Rate 13 <20 mm/hr 2024 2:31 PM EDT [facility] Blood Venous blood specimen / Unknown Venipuncture / Unknown 12/23/2024 12:38 PM EDT 12/23/2024 12:38 PM EDT us [facility] LAB BLOOD ORDERABLES Feli arabella Result [facility] [address] [place] [address] * (ABNORMAL) CBC and differential (12/23/2024 12:38 PM EDT) WBC Count 14.45(H) 3.70 - 10.30 10*3/uL LAB HEMATOLOGY METHOD 12/23/2024 2:20 PM EDT [facility] RBC Count 4.33 3.90 - 5.20 10*6/uL LAB HEMATOLOGY METHOD 12/23/2024 2:20 PM EDT [facility] HGB 13.8 11.2 - 15.7 g/dL LAB HEMATOLOGY METHOD 12/23/2024 2:20 PM EDT [facility] HCT 42.3 34.0 - 45.0 % LAB HEMATOLOGY METHOD 12/23/2024 2:20 PM EDT [facility] Platelet Count 455(H) 155 - 369 10*3/uL LAB HEMATOLOGY METHOD 12/23/2024 2:20 PM EDT [facility] MCV 98 79 - 98 fL LAB HEMATOLOGY METHOD 12/23/2024 2:20 PM EDT [facility] MCH 31.9 26.0 - 32.0 pg LAB HEMATOLOGY METHOD 12/23/2024 2:20 PM EDT [facility] MCHC 32.6 30.7 - 35.5 g/dL LAB HEMATOLOGY METHOD 12/23/2024 2:20 PM EDT [facility] RDW 15.5(H) 11.5 - 14.5 % LAB HEMATOLOGY METHOD 12/23/2024 2:20 PM EDT [facility] MPV 9.9 8.8 - 12.5 fL LAB HEMATOLOGY METHOD 12/23/2024 2:20 PM EDT [facility] nRBC 0.0 <=0.0 per 100 WBCs LAB HEMATOLOGY METHOD 12/23/2024 2:20 PM EDT [facility] Differential Type Automated LAB HEMATOLOGY METHOD 12/23/2024 2:20 PM EDT [facility] Neutrophils % 73 % LAB HEMATOLOGY METHOD 12/23/2024 2:20 PM EDT [facility] Lymphocytes % 18 % LAB HEMATOLOGY METHOD 12/23/2024 2:20 PM EDT [facility] Monocytes % 6 % LAB HEMATOLOGY METHOD 12/23/2024 2:20 PM EDT [facility] Eosinophils % 1 % LAB HEMATOLOGY METHOD 12/23/2024 2:20 PM EDT [facility] Basophils % 1 % LAB HEMATOLOGY METHOD 12/23/2024 2:20 PM EDT [facility] Immature Granulocytes % 1 % LAB HEMATOLOGY METHOD 12/23/2024 2:20 PM EDT [facility] Neutrophils Absolute 10.60(H) 1.60 - 6.10 10*3/uL LAB HEMATOLOGY METHOD 12/23/2024 2:20 PM EDT [facility] Lymphocytes Absolute 2.62 1.20 - 3.90 10*3/uL LAB HEMATOLOGY METHOD 12/23/2024 2:20 PM EDT [facility] Monocytes Absolute 0.93(H) 0.30 - 0.90 10*3/uL LAB HEMATOLOGY METHOD 12/23/2024 2:20 PM EDT [facility] Eosinophils Absolute 0.14 0.00 - 0.50 10*3/uL LAB HEMATOLOGY METHOD 12/23/2024 2:20 PM EDT [facility] Basophils Absolute 0.07 0.00 - 0.10 10*3/uL LAB HEMATOLOGY METHOD 12/23/2024 2:20 PM EDT [facility] Immature Granulocytes Absolute 0.09(H) 0.00 - 0.06 10*3/uL LAB HEMATOLOGY METHOD 12/23/2024 2:20 PM EDT [facility] Blood Venous blood specimen / Unknown Venipuncture / Unknown 12/23/2024 12:38 PM EDT 12/23/2024 12:38 PM EDT [facility] - 12/23/2024 2:20 PM EDT Therapeutic decision making should be based on absolute values, rather than percentages. us [facility] LAB BLOOD ORDERABLES Feli bell Result [facility] [address] [place] [address] * (ABNORMAL) C-Reactive Protein, Plasma (12/23/2024 12:38 PM EDT) CRP, Plasma 13.7(H) <=8.0 mg/L 12/23/2024 2:23 PM EDT [facility] Blood Venous blood specimen / Unknown Venipuncture / Unknown 12/23/2024 12:38 PM EDT 12/23/2024 12:38 PM EDT Narrative [facility] - 12/23/2024 2:23 PM EDT This CRP test is appropriate for assessment of infection, systemic inflammation and/or tissue injury. To assess cardiovascular disease risk order high sensitivity CRP (CRPH). us [facility] LAB BLOOD ORDERABLES Feli bell Result [facility] [address] [place] [address] * Hepatic Function Panel (12/23/2024 12:38 PM EDT) Pathologist [facility] Conjugated Bilirubin, Plasma <0.2 <=0.3 mg/dL 12/23/2024 2:23 PM EDT [facility] Alkaline Phosphatase, Plasma 102 35 - 104 U/L 12/23/2024 2:23 PM EDT [facility] Total Bilirubin, Plasma 0.3 0.2 - 1.1 mg/dL 12/23/2024 2:23 PM EDT [facility] Albumin, Plasma 4.2 3.5 - 5.2 g/dL 12/23/2024 2:23 PM EDT [facility] Total Protein 7.1 6.3 - 7.9 g/dL 12/23/2024 2:23 PM EDT [facility] ALT, Plasma 28 10 - 35 U/L 12/23/2024 2:23 PM EDT [facility] AST, Plasma 23 10 - 35 U/L 12/23/2024 2:23 PM EDT [facility] Comment:Hemolyzed, result ma y be falsely increased. Blood Venous blood specimen / Unknown Venipuncture / Unknown 12/23/2024 12:38 PM EDT 12/23/2024 12:38 PM EDT us [facility] BLOOD ORDERABLES Feli arabella Result [facility] [address] [place] [address] * (ABNORMAL) Lipid Profile, Plasma (12/23/2024 12:38 PM EDT) Cholesterol, Plasma 193 <200 mg/dL 12/23/2024 2:23 PM EDT [facility] Comment: Cholesterol Reference Range (age >17 years): Desirable <200 mg/dL Borderline 200 to 239 mg/dL Undesirable >239 mg/dL HDL 32(L) >=50 mg/dL 12/23/2024 2:23 PM EDT [facility] Comment: HDL Cholesterol Reference Ranges (age >17 years): Female, acceptable > or = 50 mg/dL Male, acceptable > or = 40 mg/dL Triglycerides, Plasma 146 <150 mg/dL 12/23/2024 2:23 PM EDT [facility] Comment: Triglyceride Reference Range (age >17 years): Desirable: <150 mg/dL Borderline high: 150 to 199 mg/dL High: 200 to 499 mg/dL Very high: >499 mg/dL Increased risk of pancreatitis: >1000 mg/dL Cholesterol/HDL Ratio 6 12/23/2024 2:23 PM EDT [facility] LDL, Calculated 134(H) <100 mg/dL 2:23 PM EDT [facility] Comment: LDL Cholesterol Reference Range (age >17 years): Optimal: <100 mg/dL Near or above optimal: 100 - 129 mg/dL Borderline high: 130 - 159 mg/dL High: 160 - 189 mg/dL Very high: >189 mg/dL LDL Cholesterol Reference Range (age <18 years): Desirable: <110 mg/dL Borderline: 110 - 129 mg/dL Undesirable: >130 mg/dL LDL Cholesterol is calculated using the Nicolas/NIH equation. Fasting greater than or equal to 12 hours? No 12/23/2024 2:23 PM EDT [facility] Blood Venous blood specimen / Unknown Venipuncture / Unknown 12/23/2024 12:38 PM EDT 12/23/2024 12:38 PM EDT [facility] BLOOD ORDERABLES Feli l Result [facility] [address] [place] [address] * Dexa Bone Density (12/18/2023 2:38 PM EDT) Anatomical Region Laterality Modality L-spine Radio Fluoroscop y Narrative 12/24/2023 1:58 PM EDT [facility] [address] [place] [address] DXA Bone Densitometry Report: 12/18/2023 BMD test performed using the [employer] DXA System (analysis version: 14.10) manufactured by [employer]. REFERRING PROVIDER: ISABEL [place] CLINICAL INFORMATION: PATIENT NAME: Emily Yoder PATIENT AGE: 38 y.o. LEGAL SEX: female Compared to last measurement on 12/05/2022 Increase in BMD of spine, in the normal range. (arthritic and degenerative changes) Increase in Dual Femur Neck left, in the normal range. Increase in Dual Femur Neck right, in the normal range. Non-significant increase in Dual Femur Total left, in the normal range. Non-significant increase in Dual Femur Total right, in the normal range. Recommendations: continue to follow if reasons for bone loss exist, optimize dayton D and calcium intake, encourage good physical activity. Mercedes HALL IMG DXA PROCEDURES Feli l Result * Acute Hepatitis Panel (05/31/2023 10:39 AM EST) Hepatitis B Surf Antigen Negative Negative 05/31/2023 2:58 PM EST [facility] Hepatitis C Antibody Negative Negative 05/31/2023 2:58 PM EST [facility] Hepatitis A Antibody IgM Negative Negative 05/31/2023 2:58 PM EST [facility] Hepatitis B Core Antibody IgM Negative Negative 05/31/2023 2:58 PM EST [facility] Blood Venous blood specimen / Unknown Venipuncture / Unknown 05/31/2023 10:39 AM EST 05/31/2023 10:41 AM EST us Jorge Wilkerson MD LAB BLOOD ORDERABLES Final R esult Performing Organization Address [facility] Co de Phone Number [facility] [address] [place] [address] * HIV 1 & 2 Antibody/Antigen Screen (09/04/2022 1:47 PM EDT) HIV 1 & 2 Antibody/Antigen Screen Non Reactive Non Reactive 09/04/2022 4:11 PM EDT [facility] Comment:Screening for HIV 1 & 2 antibodies, and P24 antigen is NONREACTIVE. No confirmatory testing is required. Blood Venous blood specimen / Unknown Venipuncture / Unknown 09/04/2022 1:47 PM EDT 09/04/2022 1:48 PM EDT us June R Juan NICHOLSN LAB BLOOD ORDERABLES Final Result Performing Organization Address [facility] de Phone Number [facility] [address] [place] [address] from Last 3 Months or Most Recently Relevant to Health Maintenance Insurance Advance Directives * Full Code (Latest Code Status on File) Date Activated Date Inactivated Comments 10/13/2021 7:40 PM 10/14/2021 4:39 PM Question Answer Comments Patient has decision-making capacity? Yes Care Teams Apple Checker Relationship Specialty Start Date End Date Darryl Davis MD [address] [place] [id number] PCP - General Internal Medicine 09/23/24
--- OUTSIDE RECORDS SUMMARY | 2025-03-05 09:58 | XMS_ITS | Encounter Summary ---
Author Organization Healthcare Address [address] [place] [address] Care Team Providers Care Renewable Energy Trader Name Role Phone Darryl Davis MD Primary Care Provider [phone] Reason for Visit * Reason Comments Med Refill Encounter Details Date Type Department Care Team ([facility] Contact Info) Description 01/13/2025 Refill Medical Office Building Surgery Spine & Joint [address], [address] [place] [address] Brandin Bender PA [address] [place] [address] Chronic left SI joint pain; Chronic bilateral low back pain with left-sided sciatica Social History Tobacco Use Types Packs/Day Years [...] Description 04/06/2025 1:00 PM EDT Office Visit [facility] Medicine Specialties [address], [address] [place] [address] Deidre Martinez, VIKI [address] [place] [address] 12/22/2025 3:00 PM EDT Appointment [facility] Bone & Mineral Metabolism [address], [address] [place] [address] 12/22/2025 3:20 PM EDT Office Visit [facility] Bone & Mineral Metabolism [address], [address] [place] [address] Mercedes Mosquera PA [address] [place] [address] documented as of this encounter Visit Diagnoses Diagnosis Chronic left SI joint pain Disorders of 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
--- OUTSIDE RECORDS SUMMARY | 2025-03-05 09:58 | XMS_ITS | Encounter Summary ---
Author Organization Healthcare Address [address] [place] [address] Care Team Providers Care Paper Products Inspector Name Role Phone Darryl Davis MD Primary Care Provider [phone] Reason for Visit * Reason Onset Date Comments HCN - Patient Message 01/07/2025 Encounter Details Date Type Department Care Team (Late st Contact Info) Description 01/07/2025 Telephone Interventional Pain Medicine [address] [place] [address] Jovon Joseph MD [address] [place] [address] HCN - Patient Message Social History Tobacco Use Types Packs/Day Years [...] documented in this encounter Miscellaneous Notes * Telephone Encounter - Doreen Stephenson - 01/07/2025 3:12 PM EDT Pt has been rescheduled * Telephone Encounter - Milagro Eli - 01/07/2025 2:53 PM EDT Clinical Concern/Question RUDY Reason for Call: Patient had to cancel her f/up visit due to her daughter's school sampler pickup schedule. She called back to reskd today but nothing available until Feb. Patient's procedure she is supposed to f/up for was on 11/19. Please call patient with OB appt to get her in sooner. Best contact number: [phone] (mobile) Optimal time of day to reach caller: ANYTIME Additional comments/information from caller: None Note: Please do not reply to this message. Follow-up communication and further actions as a result of this message need to be communicated with the patient directly, if the patient is not active onMyChart. If the patient is active on MyChart, they will receive notification of the communication/outcome via MyChart. documented in this encounter Plan of Treatment Upcoming Encounters Date Type Department Care Team (Late st Contact Info) Description 04/06/2025 1:00 PM EDT Office Visit [facility] Medicine Specialties [address] [place] [address] Juan, June R, CHIMNEY SUPERVISOR BRICK [address] [place] [address] 12/22/2025 3:00 PM EDT Appointment [facility] Bone & Mineral Metabolism [address], [address] [place] [address] 12/22/2025 3:20 PM EDT Office Visit [facility] Bone & Mineral Metabolism [address], [address] [place] [address] Mercedes Mosquera, ISABEL [address] [place] [address] documented as of this encounter Visit Diagnoses Not on filedocumented in this encounter Additional Health Concerns Assessment Noted Time PHQ-9 Depression Total Score: 0 12/24/19 11:27 AM EDT A fall risk assessment has been complete d for the patient 12/23/2024 11:27 AM EDT A Body Mass Index follow-up plan has been documented for the patient 12/23/2024 12:19 PM EDT documented as of this encounter Care Teams Paper Products Inspector Relationship Specialty Start Date End Date Darryl Davis MD [address] [place] [address] PCP - General Internal Medicine 09/23/24 documented as of this encounter
--- OUTSIDE RECORDS SUMMARY | 2025-03-05 09:58 | XMS_ITS | Encounter Summary ---
Author Organization Healthcare Address [address] [place] [address] Care Team Providers Care Crack Off Person Name Role Phone Darryl Davis MD Primary Care Provider [phone] Encounter Details Date Type Department Care Team (Latest Contact Info) Description 01/20/2025 Travel Social History Tobacco Use Types Packs/Day Years [...] Description 04/06/2025 1:00 PM EDT Office Visit [facility] Medicine Specialties [address], [address] [place] [address] Deidre Martinez R, APARTMENT PROPERTY MANAGER [address] [place] [address] 12/22/2025 3:00 PM EDT Appointment Professional [facility] Bone & Mineral Metabolism [address], [address] [place] [address] 12/22/2025 3:20 PM EDT Office Visit [facility] Bone & Mineral Metabolism [address], [address] [place] [address] Mercedes Mosquera, ISABEL [address] [place] [address] documented as of this encounter [...] documented as of this encounter Care Teams Crack Off Person Relationship Specialty Start Date End Date Darryl Daivs MD [address] [place] [address] PCP - General Internal Medicine 09/23/24 documented as of this encounter
--- OUTSIDE RECORDS SUMMARY | 2025-03-05 09:58 | XMS_ITS | Encounter Summary ---
Author Organization Healthcare Address [address] [place] [address] Care Team Providers Care Belt Loop Machine Operator Name Role Phone Bhavin Moore MD Primary Care Provider Darryl Combs MD Primary Care Provider [phone] Encounter Details Date Type Department Care Team ([facility] st Contact Info) Description 02/11/2024 Orders Only External Location [address] [place] [address] Provider, External Social History Tobacco Use Types Packs/Day Years Used Date Smoking Tobacco: Every Day Cigarettes 1.5 25.7 Started: 06/25/1999 Smokeless Tobacco: Never Alcohol Use Standard Drinks/Week Comments Not Currently 0 (1 standard drink = 0.6 oz pur e alcohol) rarely PHQ-2 Answer Date Recorded Patient Health Questionnaire-2 Score 3 01/09/2024 PHQ-9 Answer Date Recorded Patient Health Questionnaire-9 Score 16 01/09/2024 PHQ-2A Answer Date Recorded Depression Risk 0 [...] Description 04/06/2025 1:00 PM EDT Office Visit [facility] Medicine Specialties [address], [address] [place] [address] Juan, Deidre R, ACQUISITIONS EDITOR [address] [place] [address] 12/22/2025 3:00 PM EDT Appointment [facility] Bone & Mineral Metabolism [address], [address] [place] [address] 12/22/2025 3:20 PM EDT Office Visit [facility] Bone & Mineral Metabolism [address], [address] [place] [address] Mercedes Mosquera PA [address] [place] [address] documented as of this encounter Procedures Procedure Name Priority Date/Time Associated Diagnosis Comments MR OUTSIDE IMAGES 02/11/2024 9:32 AM EDT documented in this encounter Results * MR transfer of outside films (02/11/2024 9:32 AM EDT) Anatomical Region Laterality Modality Magnetic Resonan ce 02/11/2024 9:32 AM EDT us External Provider IMG MRI PROCEDURES Final Resul t documented in this encounter Visit Diagnoses Not on filedocumented in this encounter Additional Health Concerns Assessment Noted Time PHQ-9 Depression Total Score: 16 024 10:02 AM EDT A fall risk assessment has been complete d for the patient 01/18/2024 10:16 AM EDT A Body Mass Index follow-up plan has been documented for the patient 01/18/2024 12:52 PM EDT documented as of this encounter Care Teams Belt Loop Machine Operator Relationship Specialty Start Date End Date Bhavin Moore MD PCP - General Family Medicine 01/11/24 09/22/24 Darryl Davis MD [address] [place] [address] PCP - General Internal Medicine 09/23/24 documented as of this encounter
--- OUTSIDE RECORDS SUMMARY | 2025-03-05 09:58 | XMS_ITS | Encounter Summary ---
Author Organization Healthcare Address [address] [place] [address] Care Team Providers Care Musical Instrument Maker Or Repairer Name Role Phone Darryl Davis MD Primary Care Provider [phone] Encounter Details Date Type Department Care Team (Latest Contact Info) Description 01/17/2025 Travel Social History Tobacco Use Types Packs/Day [...] Description 04/06/2025 1:00 PM EDT Office Visit [facility] Medicine Specialties [address] [place] [address] Deidre Martinez R, COMMERCIAL PILOT [address] [place] [address] 12/22/2025 3:00 PM EDT Appointment Professional [facility] Bone & Mineral Metabolism [address], [address] [place] [address] 12/22/2025 3:20 PM EDT Office Visit [facility] Bone & Mineral Metabolism [address], [address] [place] [address] Mercedes Mosquera, ISABEL [address] [place] [address] documented as of this encounter [...] documented as of this encounter Care Teams Musical Instrument Maker Or Repairer Relationship Specialty Start Date End Date Darryl Davis MD [address] [place] [address] PCP - General Internal Medicine 09/23/24 documented as of this encounter
--- OUTSIDE RECORDS SUMMARY | 2025-03-05 09:58 | XMS_ITS | Encounter Summary ---
Author Organization Healthcare Address [address] [place] [address] Care Team Providers Care Software Product Manager Name Role Phone Darryl Davis MD Primary Care Provider [phone] Encounter Details Date Type Department Care Team (Late st Contact Info) Description 12/23/2024 Results Follow-Up [facility] Medicine Specialties [address] [place] [address] Vania Quiros PA [address] [place] [address] Social History Tobacco Use Types Packs/Day Years [...] of Assessment Author No 10/14/2021 1:46 PM Constantine Reid * Do you have serious difficulty walking or climbing stairs? Answer Date of Assessment Author Yes 10/14/2021 1:46 PM Constantine Reid * Do you have serious difficulty dressing or bathing? Answer Date of Assessment Author No 10/14/2021 1:46 PM Constantine Reid * Because of a physical, mental, or emotional condition, do you have serious difficulty doing errandsalone such as visiting the doctor? Answer Date of Assessment Author No 10/14/2021 1:46 PM Constantine Reid * Over the past 2 weeks, how often have you been bothered by any of the following problems? Question Answer Date of Assessment Author Little interest or pleasure in doing things Not at all 12/23/2024 11:27 AM Luna Healy Feeling down, depressed, or hopeless Not at all 12/23/2024 11:27 AM Luna Healy Patient Health Questionnaire -2 Score 0 12/23/2024 11:27 AM Luna Healy * Question Answer Date of Assessment Author Trouble falling or staying a sleep, or sleeping too much Not at all 12/23/2024 11:27 AM Luna Healy Feeling tired or having francisco javier le energy Not at all 12/23/2024 11:27 AM Luna Healy Poor appetite or overeating Not at all 12/23/2024 11 :27 AM Luna Healy Feeling bad about yourself - or that you are a failure or have let yourself or your family down Not at all 12/23/2024 11:27 AM Luna Thakur Trouble concentrating on thi ngs, such as reading the newspaper or watching television Not at all 12/23/2024 11:27 AM Luna Healy Moving or speaking so slowly that other people could have noticed? Or the opposite - being so fidgety or restless that you have been moving around a lot more than usual. Not at all 12/23/2024 11:27 AM Luna Healy Thoughts that you would be b candace off or hurting yourself in some way Not at all 12/23/2024 11:27 AM EDT Luna Amaya Patient Health Questionnaire -9 Score 0 12/23/2024 11:27 AM EDT Luna Amaya * If you checked off any problems on this questionnaire so far, Question Answer Date of Assessment Author How difficult have these problems made it for you to do your work, take care of things at home, or get along with other people? Not difficult at all 12/23/2024 11:27 AM EDT Luna Amaya documented as of this encounter Mental Status [...] System [facility] Medicine Specialties [address] [place] [address] Deidre Martinez R, VIKI [address] [place] [address] 12/22/2025 3:00 PM EDT Appointment [facility] Bone & Mineral Metabolism [address], [address] [place] [address] 12/22/2025 3:20 PM EDT Office Visit [facility] Bone & Mineral Metabolism [address], [address] [place] [address] Mercedes Mosquera PA [address] [place] [address] documented as of this encounter [...] documented as of this encounter Care Teams Software Product Manager Relationship Specialty Start Date End Date Darryl Davis MD [address] [place] [address] PCP - General Internal Medicine 09/23/24 documented as of this encounter
--- OUTSIDE RECORDS SUMMARY | 2025-03-05 09:58 | XMS_ITS | Encounter Summary ---
Author Organization Healthcare Address [address] [place] [address] Care Team Providers Care Personnel Manager Name Role Phone Darryl Davis MD Primary Care Provider [phone] Reason for Visit * Reason Comments Med Refill Encounter Details Date Type Department Care Team ([facility] st Contact Info) Description 03/04/2025 Refill Medical Office Building Surgery Spine & Joint [address] [facility], [address] [place] [address] Brandin Bender PA [address] [place] [address] Chronic left SI joint pain; [...] Description 04/06/2025 1:00 PM EDT Office Visit [facility] Medicine Specialties [address], [address] [place] [address] Deidre Martinez, VIKI [address] [place] [address] 12/22/2025 3:00 PM EDT Appointment [facility] Bone & Mineral Metabolism [address], [address] [place] [address] 12/22/2025 3:20 PM EDT Office Visit [facility] Bone & Mineral Metabolism [address], [address] [place] [address] Mercedes Mosquera PA [address] [place] [address] documented as of this encounter [...] documented as of this encounter Care Teams Personnel Manager Relationship Specialty Start Date End Date Darryl Davis MD [address] [place] [address] PCP - General Internal Medicine 09/23/24 documented as of this encounter
== END 2025-03-05 23:59 | disposition home or self-care (01) ==
LOC: RAD 09:54
PROVIDERS: PCP Internal Medicine Adolescent Medicine; Visit Provider Nurse Practitioner
DX: M19.072 Primary osteoarthritis, left ankle and foot (principal); M77.52 Other enthesopathy of left foot and ankle
CPT/HCPCS: 73610; 73630

== ENCOUNTER 2025-03-25 08:45 | Outpatient (CLI) | payer OTHER, SELFPAY ==
--- OUTSIDE RECORDS SUMMARY | 2025-03-25 08:49 | XMS_ITS | Encounter Summary ---
Author Organization Healthcare Address [address] [place] [address] Care Team Providers Care Analysis Manager Name Role Phone Darryl Davis MD Primary Care Provider [phone] Reason for Visit * Reason Comments Med Refill Encounter Details Date Type Department Care Team ([facility] st Contact Info) Description 03/04/2025 Refill Medical Office Building Surgery Spine & Joint [address] [facility] [facility], [address] [place] [address] Brandin Bender PA [address] [place] [address] Chronic left SI joint pain; [...] Description 04/06/2025 1:00 PM EDT Office Visit [facility] Medicine Specialties [address] [place] [address] Deidre Martinez, VIKI [address] [place] [address] 12/22/2025 3:00 PM EDT Appointment [facility] Bone & Mineral Metabolism [address], [address] [place] [address] 12/22/2025 3:20 PM EDT Office Visit [facility] Bone & Mineral Metabolism [address], [address] [place] [address] Mercedes Mosquera PA [address] [place] [address] documented as of this encounter [...] documented as of this encounter Care Teams Analysis Manager Relationship Specialty Start Date End Date Darryl Davis MD [address] [place] [address] PCP - General Internal Medicine 09/23/24 documented as of this encounter
--- OUTSIDE RECORDS SUMMARY | 2025-03-25 08:50 | XMS_ITS | Encounter Summary ---
Author Organization Healthcare Address [address] [place] [address] Care Team Providers Care Superintendent Laundry Name Role Phone Bhavin Moore MD Primary Care Provider Darryl Combs MD Primary Care Provider [phone] Encounter Details Date Type Department Care Team ([facility] st Contact Info) Description 02/11/2024 Orders Only External Location [address] [place] [address] Provider, External Social History Tobacco Use Types [...] Description 04/06/2025 1:00 PM EDT Office Visit [facility] Medicine Specialties [address] [place] [address] Juan, Deidre R, BOTTOM SPRAYER [address] [place] [address] 12/22/2025 3:00 PM EDT Appointment [facility] Bone & Mineral Metabolism [address], [address] [place] [address] 12/22/2025 3:20 PM EDT Office Visit [facility] Bone & Mineral Metabolism [address], [address] [place] [address] Mercedes Mosquera PA [address] [place] [address] documented as of this encounter [...] documented as of this encounter Care Teams Superintendent Laundry Relationship Specialty Start Date End Date Bhavin Moore MD PCP - General Family Medicine 01/11/24 09/22/24 Darryl Davis MD [address] [place] [address] PCP - General Internal Medicine 09/23/24 documented as of this encounter
--- OUTSIDE RECORDS SUMMARY | 2025-03-25 08:50 | XMS_ITS | Encounter Summary ---
Author Organization Healthcare Address [address] [place] [address] Care Team Providers Care Vest Finisher Name Role Phone Darryl Davis MD Primary Care Provider [phone] Encounter Details Date Type Department Care Team (Late st Contact Info) Description 12/23/2024 Results Follow-Up [facility] Medicine Specialties [address] [place] [address] Vania Quiros PA [address] [place] [address] Social History Tobacco Use Types [...] 12/23/2024 11:27 AM EDT Luna Amaya * How difficult have these problems made it for you to do your work, take care of things at home, or get along with other people? Answer Date of Assessment Author Not difficult at all 12/23/2024 11:27 AM EDT Luna Trevino documented as of this encounter Mental Status [...] Description 04/06/2025 1:00 PM EDT Office Visit [facility] Medicine Specialties [address] [place] [address] Deidre Martinez R, SALES ORDER PROCESSOR [address] [place] [address] 12/22/2025 3:00 PM EDT Appointment Professional [facility] Bone & Mineral Metabolism [address] [facility], [address] [place] [address] 12/22/2025 3:20 PM EDT Office Visit Professional [facility] Bone & Mineral Metabolism [address], [address] [place] [address] Mercedes Mosquera PA [address] [place] [address] documented as of this encounter [...] documented as of this encounter Care Teams Vest Finisher Relationship Specialty Start Date End Date Darryl Davis MD [address] [place] [address] PCP - General Internal Medicine 09/23/24 documented as of this encounter
--- OUTSIDE RECORDS SUMMARY | 2025-03-25 08:50 | XMS_ITS | Encounter Summary ---
Author Organization Healthcare Address [address] [place] [address] Care Team Providers Care Train Operations Manager Name Role Phone Darryl Davis MD Primary Care Provider + [phone] Bhavin Moore MD Primary Care Provider Giovanna vailable Darryl Davis MD Primary Care Provider + [phone] Encounter Details Date Type Department Care Team (Late st Contact Info) Description 09/15/2022 Orders Only External Location [address] [place] [address] Andre Sterling MD [address] [id number] Social History Tobacco Use Types Packs/Day Years [...] Description 04/06/2025 1:00 PM EDT Office Visit [facility] Medicine Specialties [address], [address] [place] [address] Deidre Martinez R, VIKI [address] [facility] [address] [place] [address] 12/22/2025 3:00 PM EDT Appointment [facility] Bone & Mineral Metabolism [address], [address] [place] [address] 12/22/2025 3:20 PM EDT Office Visit [facility] Bone & Mineral Metabolism [address], [address] [place] [address] Mercedes Mosquera PA [address] [place] [address] documented as of this encounter [...] documented as of this encounter Care Teams Train Operations Manager Relationship Specialty Start Date End Date Darryl Davis MD [address] [place] [address] PCP - General 11/05/20 01/10/24 Bhavin Moore MD [address] [place] [address] PCP - General Family Medicine 01/11/24 09/22/24 Darryl Davis MD [address] [place] [address] PCP - General Internal Medicine 09/23/24 documented as of this encounter
--- OUTSIDE RECORDS SUMMARY | 2025-03-25 08:50 | XMS_ITS | Data Portability ---
Author Organization [facility] Address [address] [place] [address] Assessment Encounter Date Assessment Date Assessment LastModified by Organization Details LastModified Time 11/07/2023 11/07/2023 Patient establishing for behavioral health but does not plan to continue primary care with [facility]. For continuity of care, recommended that we refer her to an outside behavioral health provider. She declines referral. She will reach out to her PCP regarding a referral elsewhere. Also advised she may request an increase in her duloxetine from her PCP to help with symptoms of depression. Encouraged patient to seek help should SI/HI occur, though she denies any such thoughts at today's visit. Not available 11/07/2023 10:57:06 Plan of Treatment Reminders Order Date Submit Date Provider Last Modified By Organization Details Last Modified Time Details Appointments None record ed. Lab None record ed. Referral None record ed. Procedures None record ed. Surgeries None record ed. Imaging None record ed. Medication Orders None record ed. Patient TargetsNo targets recorded. Patient Instructions Encounter Date Encounter Id Patient Instructions Last Modified By Organization Details Last Modified Time 11/07/2023 [id number] chronic pain: care instructions Not available 11/07/2023 11:00:21 body mass index: care instructions Not available 11/07/2023 11:00:21 learning about healthy weight Not available 11/07/2023 11:00:21 Reason for Referral None Reported. Problems Name Problem SNOMED Code Status Onset Date Resolution Date Notes Provider Name and Address Organization Details Recorded Time Type 2 diabetes mellitus 06551161 Active 2023 Sabrina Delatorre NP [address] [place], [address], [employer] 4 10:49:46 Essential hypertension 36742176 Active 2023 Sabrina Delatorre NP [address] [place] [address], [address], [employer] 4 10:50:00 Hyperlipidemia 61891561 Active 2023 Sabrina Delatorre NP [address] [place] [address], [address], [employer] 4 10:50:11 Depressive disorder 03413084 Active 2023 Sabrina Delatorre NP [address] [place] [address], [address], [employer] 4 10:50:22 Psoriatic arthritis 317349746 Active 2023 Sabrina Delatorre NP [address] [place] [address], [address], [employer] 4 10:50:44 Chronic pain 73097246 Active 2023 Sabrina Delatorre NP [address] [place] [address], [address], [employer] 4 10:51:23 Problem Notes None recorded. Procedures Surgical History Date Name Laterality Status Provider Name and Address Organization Details Recorded Time 10/24/19 24 Date of Last Pap Smear completed [employer] 11/07/2023 10:15:20 10/22/19 24 Most Recent Mammogram completed [employer] 11/07/2023 10:07:13 07/26/19 24 arthroscopic repair of rotator cuff completed Sabrina Delatorre NP [address] [place] [address], [address], [employer] 11/07/2023 10:58:34 06/25/19 16 Ankle arthroscopy/surg marla completed Sabrina Delatorre NP [address] [place] [address], [address], [employer] 11/07/2023 10:57:35 06/25/19 08 Carpal tunnel surgery completed Sabrina Delatorre NP [address] [facility], [place], [address], [employer] 11/07/2023 10:58:53 Colposcopy completed Nilam Cornejo [facility] [employer] 11/07/2023 10:07:15 Imaging Results None recorded. Procedure Notes None recorded. Medical Equipment None Reported. Allergies Allergen ID Allergen Name Allergen Category Reaction Reaction Severity Criticality Documentation Date Start Date Code Code System Note Provider Name and Address Organization Details Recorded Time 85864 Product containin g penicilli n (product) medicatio n other Not available Not available 11/07/2023 35334 8001 SNOMED Nilam Cornejo [facility], [facility] [employer] 10:07:13 Medications Name Sig Start Date Stop Date Status Note LastModified by Organization Details LastModified Time metformin 500 mg tablet TAKE 1 TABLET BY MOUTH ONCE DAILY active Not Available Not Available No t Available paroxetine 10 mg tablet 11/06 completed Not Available Not Available Not Available atorvastatin 20 mg tablet TAKE 1 TABLET BY MOUTH EVERY DAY active Not Available Not Available No t Available sulfasalazin e 500 mg tablet active Not Available Not Available Not Available cetirizine 10 mg tablet TAKE 1 TABLET BY MOUTH ONCE DAILY active Not Available Not Available No t Available IBU 800 mg tablet active Not Available Not Available Not Available sulfasalazin e 500 mg tablet,delay ed release 11/06 completed Not Available Not Available Not Available omeprazole 40 mg capsule,michael yed release take 1 capsule by mouth daily for gerd active Not Available Not Available No t Available tramadol 50 mg tablet Take 1 tablet every day by oral route at bedtime. active Not Available Not Available No t Available methotrexate sodium 2.5 mg tablet active Not Available Not Available No t Available ropinirole 0.25 mg tablet 11/06 completed Not Available Not Available Not Available OneTouch Ultra Test strips active Not Available Not Available Not Available amlodipine 10 mg tablet 1 TABLET ORALLY ONCE A DAY FOR 30 DAYS active Not Available Not Available No t Available cephalexin 500 mg capsule 11/06 completed Not Available Not Available Not Available triamcinolon e acetonide 0.1 % topical ointment active Not Available Not Available Not Available ropinirole 0.5 mg tablet TAKE ONE TABLET BY MOUTH AT BED TIME active Not Available Not Available No t Available gabapentin 300 mg capsule TAKE 1 CAPS ORALLY 4 TIMES A DAY active Not Available Not Available No t Available folic acid 1 mg tablet active Not Available Not Available No t Available mometasone 0.1 % topical ointment active Not Available Not Available Not Available mupirocin 2 % topical ointment active Not Available Not Available Not Available paroxetine 40 mg tablet 11/06 completed Not Available Not Available Not Available cefdinir 300 mg capsule 11/06 completed Not Available Not Available Not Available fluticasone propionate 50 mcg/actuatio n nasal spray,suspen bobbi active Not Available Not Available Not Available medroxyproge sterone 150 mg/mL intramuscula r syringe active Not Available Not Available No t Available duloxetine 30 mg capsule,michael yed release TAKE 1 CAPSULE BY MOUTH ONCE DAILY active Not Available Not Available No t Available MoviPrep 100 gram-7.5 gram-2.691 gram oral powder packet active Not Available Not Available Not Available GaviLyte-G 236 gram-22.74 gram-6.74 gram-5.86 gram oral solution active Not Available Not Available Not Available Linzess 145 mcg capsule TAKE ONE CAPSULE BY MOUTH ONE TIME A DAY active Not Available Not Available No t Available Humira(CF) Pen 40 mg/0.4 mL subcutaneous kit active Not Available Not Available Not Available Humira(CF) Pen Ps-Uv-Adol HS 80 mg/0.8 mL(1)-40 mg/0.4 mL(2)subcut kit active Not Available Not Available Not Available [employer] LogicTouch Ultra2 Meter active Not Available Not Available Not Available Vitals Date Recorded Body height Body mass index (BMI) Body weight Heart rate Oxygen saturation Oxygen saturation in Arterial blood by Pulse oximetry Systolic And Diastolic Provider Name and Address Organization Details Last Updated DateTime 4 167.64 cm 33.1 kg/m2 13582.1 5 g 78 /min 97 % 97 % 115/82 mm[Hg] Nilam Cornejo [employer] 4 10:06:43 Social History Question Answer Notes LastModified by Organizat ion Details LastModified Time Tobacco Smoking Status Current Every Day Smoker Nilam [facility] [employer] 11/07/2023 10:07:14 Do You Have An Advance Directive? No Information n ot available 11/07/2023 Is Your Home Air Conditioned? Yes Information not available 11/07/2023 Do You Wear A Helmet When Biking? No Information not available 11/07/2023 Are You Blind Or Do You Have Difficulty Seeing? No Information n ot available 11/07/2023 What Is Your Level Of Caffeine Consumption? Heavy Information not available 11/07/2023 In The 14 Days Before Symptom Onset, Have You Had Close Contact With A Laboratory-confirm ed COVID-19 While That Case Was Ill? No Information n ot available 11/07/2023 In The 14 Days Before Symptom Onset, Have You Had Close Contact With A Person Who Is Under Investigation For COVID-19 While That Person Was Ill? No Information not available 11/07/2023 Have You Been To An Area Known To Be High Risk For COVID-19? No Information not available 11/07/2023 Are You Deaf Or Do You Have Serious Difficulty Hearing? No Information not available 11/07/2023 What Type Of Diet Are You Following? REGULAR Information n ot available 11/07/2023 Have There Been Any Changes To Your Family Or Social Situation? No Information no t available 11/07/2023 Are There Any Guns Present In Your Home? Yes Information not available 11/07/2023 Which Of Your Hands Is Dominant? Right Information n ot available 11/07/2023 What Is Your Home Situation? Other Information not available 11/07/2023 Do You Have A Medical Power Of Property Man? No Information not available 11/07/2023 What Was The Date Of Your Most Recent Tobacco Screening? 11/07/2023 Information not available 11/07/2023 Do You Have Any Pets? Yes Information not available 11/07/2023 Do You Use Protection During Sex? No Information not available 11/07/2023 What Is Your Relationship Status? Information not available 11/07/2023 Have You Repeated Any Grades? No Information not available 11/07/2023 Do You Use Your Seat Belt Or Car Seat Routinely? Yes Information not available 11/07/2023 Are You Sexually Active? Yes Information not available 11/07/2023 Do You Have Any Siblings? Sister Information not available 11/07/2023 Do You Have Smoke And Carbon Monoxide Detectors In Your Home? Yes Information not available 11/07/2023 At What Age Did You Start Smoking Tobacco? 16 Information not available 11/07/2023 Are You Passively Exposed To Smoke? Yes Information no t available 11/07/2023 Are There Any Smokers In Your House? Yes Information not available 11/07/2023 How Much Tobacco Do You Smoke? 1 PPD Information not available 11/07/2023 Do You Use Sunscreen Routinely? Yes Information not available 11/07/2023 Has Tobacco Cessation Counseling Been Provided? No Information not available 11/07/2023 Have You Recently Traveled Abroad? No Information not available 11/07/2023 Do You Have Difficulty Walking Or Climbing Stairs? Yes Information not available 11/07/2023 Sex: Female Functional Status Question Answer Note LastModified by Organizat ion Details LastModified Time Do you use any illicit or recreational drugs? No Information not available 11/07/2023 Are you currently employed? No Information not available 11/07/2023 Are you able to walk independently without assistance or assistive devices? YESWOREST Information not available 11/07/2023 Do you have difficulty doing errands alone? No Information not available 11/07/2023 Are you able to care for yourself independently? Yes Information not available 11/07/2023 Do you have difficulty dressing, bathing, grooming, or toileting? No Information not available 11/07/2023 Mental Status Question Answer Note LastModified by Organization D etails LastModified Time Do you have difficulty concentrating, remembering or making decisions? Yes Information no t available 11/07/2023 Are you or have you been involved with bullying? No Information not available 11/07/2023 Family History Relationship Description Onset Age of this Age Resolved Age Notes LastModified by Organization Details LastModified Time Mother Hypercholest erolemia [email or web address] Not available 2023 10:07:13 Mother Hypertensive disorder [email or web address] Not available 2023 10:07:13 Mother Heart disease [email or web address] Not available 2023 10:07:13 Paternal Grandfather Alzheimer's disease [email or web address] Not available 2023 10:07:13 Father Hypertensive disorder [email or web address] Not available 2023 10:07:13 Medical History Condition Response Anxiety Disorder Y Diabetes Y Obesity Y Arthritis Y Acid Reflux (GERD) Y Asthma Y Depression Y Bladder or Kidney Problems Y High Cholesterol Y Fibromyalgia Y Hypertension Y Osteoporosis Y Kidney Disease Y Gynecological History Statement/Question Response Menses Monthly N HPV Vaccine N Date of Last Pap Smear 10/24/2023 Current Control Method Other Most Recent Mammogram 10/22/2023 Age at First Child 23 Obstetrics History GPAL:G 0 P 0 0 0 0 Past Encounters Encounter ID Performer Location Encounter Start Date Encounter Closed Date Diagnosis/Indication Diagnosis SNOMED-CT Code Diagnosis ICD10 Code Diagnosis IMO Codes Diagnosis Note [id number] Sabrina Delatorre NP [address] 0 11/07/2023 10:04:39 11/07/2023 11:07:17 Body mass index 30+ - obesity 591350444 Z68.33 Chronic pain 99979491 G8 9.29 Depressive disorder 3548 9007 F32.A Essential hypertension 31127508 I10 Hyperlipidemia 29864860 E78.5 Psoriatic arthritis 1563 63072 L40.50 Health Concerns Section Related Observation LastModified by Organization Detai ls LastModified Time None Recorded Concern Status LastModified by Organization Details LastModified Time None Recorded Advance Directives Directive N: Payers Insurance Date Sequence Insurance Name Policy Number Policy Jones Covered Member ID Jones Member ID Guarantor Name 12/08/2023 1 [employer] [facility] (MEDICAID HMO) Emily Yoder [id number] Emily Yoder Notes Date Note Type Note Provider Name and Address Organization Details Recorded Time 11/07/2023 text/html Patient presents to establish care and discuss multiple chronic health issues.. [place] Had annual exam last week with her PCP and she failed her depression screening. Sees Dr. Moore normally. She plans to continue seeing their office for primary care but was sent to our clinic for behavioral health. Still sees Dr. Susan WHEELER -who manages diabetes.HTN - controlled - takes amlodipine for this, well controlled today.Hyperlipidemia - Atorvastatin. Last labs normal per patientDiabetes type 2 - managed by Dr. Davis Has copy of last A1C that was 6.4% about a month ago.Depression/ Anxiety - states she failed her depression screening last week. States she has no interest in doing things she normally enjoys doing. States that she feels like she could stay in the bed all day. States she cannot work like a normal person d/t chronic pain. She just feels down all the time. She takes duloxetine (started recently after stopping paxil) for depression right now. Feels like she does not have any friends to talk to and feels alone. Has never done mental health therapy. No SI/HI.Chronic pain - 5 ankle surgeries including fusion on right ankle 11/29/2015-10/2022; 2 compression fractures L4/L5 vertebrae back (2007 no surgical repair); RC repair to left shoulder (08/13/2023). Going to PT now. Has had CTR of bilateral wrists (2018); Has degenerative disc disease, psoriatic arthritis.Dermatology - takes humira for psoriasis and psoriatic arthritisTreats in [place] with [facility] for rheumatology. Sabrina Delatorre, SCOTT [address] [facility], [place], [address], [employer] 11/07/2023 11:01:41 OBGyn Episode No OBEpisode recorded.
--- OUTSIDE RECORDS SUMMARY | 2025-03-25 08:50 | XMS_ITS | Encounter Summary ---
Author Organization [facility] Address [address] [place] [address] Care Team Providers Care Industrial Conveyor Belt Repairer Name Role Phone Darryl Davis MD Primary Care Provider + [phone] Bhavin Moore MD Primary Care Provider Giovanna Darryl Levine MD Primary Care Provider + [phone] Reason for Referral * Consultation (Routine) - Closed Specialty Diagnoses / Procedures Referred By Romero hoyos Referred To Contact Rheumatology Diagnoses Pain in joint, multiple sites Kasie Sahu AIRPORT MAINTENANCE LABORER [address] [address] Phone: tel: fax: Referral ID Status Reason Start Date Expiration Date V isits Requested Visits Authorized [id number] Closed Specialty Services Required 08/22/2022 02/21/2024 1 1 Encounter Details Date Type Department Care Team (Late st Contact Info) Description 08/22/2022 Community [facility] [address] [place] [address] Kasie Sahu AIRPORT MAINTENANCE LABORER [address] [facility] [place] [address] [place] [address] Pain in joint, multiple sites (Primary Dx) [...] Description 04/06/2025 1:00 PM EDT Office Visit [facility] Medicine Specialties [address] [place] [address] Juan, June R, AIRPORT MAINTENANCE LABORER [address] [place] [address] 12/22/2025 3:00 PM EDT Appointment [facility] Bone & Mineral Metabolism [address] [facility], [address] [place] [address] 12/22/2025 3:20 PM EDT Office Visit [facility] Bone & Mineral Metabolism [address] [facility], [address] [place] [address] Mercedes Mosquera PA [address] [facility] [address] [place] [address] Scheduled Referrals Name Type Priority [...] documented as of this encounter Care Teams Industrial Conveyor Belt Repairer Relationship Specialty Start Date End Date Darryl Davis MD [address] [place] [address] PCP - General 11/05/20 01/10/24 Bhavin Moore MD [address] [place] [address] PCP - General Family Medicine 01/11/24 09/22/24 Darryl Davis MD [address] [place] [address] PCP - General Internal Medicine 09/23/24 documented as of this encounter
--- OUTSIDE RECORDS SUMMARY | 2025-03-25 08:50 | XMS_ITS | Encounter Summary ---
Author Organization Healthcare Address [address] [place] [address] Care Team Providers Care Satellite Technician Name Role Phone aDrryl Davis MD Primary Care Provider + [phone] Bhavin Moore MD Primary Care Provider Giovanna vailable Darryl Davis MD Primary Care Provider + [phone] Encounter Details Date Type Department Care Team (Late st Contact Info) Description 08/03/2022 Lab Requisition [facility] [address] [place] [address] Nick Lema MD [address] [place] [address] Encounter for removal of internal fixation device Social History Tobacco Use Types Packs/Day Years Used Date Smoking Tobacco: Former Cigarettes 1 20 2 000 - 2019 Smokeless Tobacco: Never Alcohol Use Standard Drinks/Week [...] [facility] Medicine Specialties [address] [place] [address] Deidre Martinez, VIKI [address] [place] [address] 12/22/2025 3:00 PM EDT Appointment [facility] Bone & Mineral Metabolism [address], [address] [place] [address] 12/22/2025 3:20 PM EDT Office Visit [facility] Bone & Mineral Metabolism [address], [address] [place] [address] Mercedes Mosquera, PA [address] [place] [address] documented as of this encounter Procedures Procedure Name Priority Date/Time Associated Diagnosis Comments SURGICAL PATHOLOGY EXAM Routine 08/03/2022 Encounter for removal of internal fixation device documented in this encounter Results * Surgical Pathology Exam (08/03/2022) Case Report Surgical Pathology Case: [id number] Authorizing Provider: Nick Lema MD Collected: 08/03/2022 Ordering Location: [facility] Lab Received: 08/03/2022 1338 Pathologist: Bert Otoole DO Specimen: Ankle, Right, Right ankle hardware screws 08/04/2022 1:32 PM EST [facility] Final Diagnosis A. Hardware, right ankle, removal: - Screws, for gross diagnosis only 08/04/2022 1:32 PM EST [facility] at 1332 EST Clinical Information Z47.2 - Encounter for removal of internal fixation device [ICD-10-CM] Right ankle painful hardware 08/04/2022 1:32 PM EST [facility] Gross Description A. RIGHT ANKLE HARDWARE SCREWS The specimen is received in formalin labeled right ankle hardware screws , and consists of two brown, threaded surgical screws ranging from 2.9-3.8 cm in length with a head diameter of 0.5 cm. The specimen was submitted for gross diagnosis only. Jennifer Hernandez 08/04/2022 1:32 PM EST [facility] Note: A resident was involved in the service. I attest I examined the relevant preparations for the specimens and confirmed the diagnosis or interpretation. 08/04/2022 1:32 PM EST [facility] Tissue Structure of right ankle / Unknown 08/03/2022 08/03/2022 1:38 PM EST us Nick Lema MD LAB PATHOLOGY ORDERABLES Feli bell Result [facility] [address] [place] [address] documented in this encounter Visit Diagnoses Diagnosis Encounter for removal of internal fixation device documented in this encounter Additional Health Concerns Infection Onset Date Last Indicated Resolved Time Gastrointestinal Rule-Out 05/02/2023 04/27/2023 11:35 AM EST Assessment Noted Time A fall risk assessment has been complete d for the patient 04/28/2022 9:46 AM EDT documented as of this encounter Care Teams Satellite Technician Relationship Specialty Start Date End Date Darryl Davis MD [address] [place], [place] [address] PCP - General 11/05/20 01/10/24 Bhaivn Moore MD [address] [place] [address] PCP - General Family Medicine 01/11/24 09/22/24 Darryl Davis MD [address] [place], [place] [address] PCP - General Internal Medicine 09/23/24 documented as of this encounter
--- OUTSIDE RECORDS SUMMARY | 2025-03-25 08:50 | XMS_ITS | Clinical Summary ---
Author Organization [facility] Address [address] [place] [address] Care Team Providers Care Tie In Machine Operator Name Role Phone Darryl Davis MD Primary Care Provider [phone] Allergies Active Allergy Reactions Criticality Noted Date Comments Dextromethorphan Other - please document in the comment field Low 03/30/2022 Doxylamine Other - please document in the comment field Low 03/30/2022 Qr-[id number] n Other - please document in the [...] (05/22/2022): Added automatically from request for surgery [id number] Mild intermittent asthma without complication Benign essential [...] (09/02/2021): Added automatically from request for surgery [id number] Ankle arthritis 03/23/2020 10/13/2021 Ankle fracture 03/23/2020 10/13/2021 Foot pain 12/19/2016 10/13/2021 Ankle pain 09/12/2016 10/13/2021 Myofascial pain 01/31/2015 10/13/2021 Vertebral pathologic fracture 01/08/2013 10/13/2021 Stress fracture of metatarsal bone 01/08/2013 10/13/2021 Encounters Date Type Department Care Team Description 03/04/2025 Refill Medical Office Building Surgery Spine & [facility] [address] [facility], [address] [place] [address] Brandin Bender, ISABEL Chronic left SI joint pain; Chronic bilateral low back pain with left-sided sciatica 01/20/2025 10:05 AM EDT - 01/20/2025 11:59 PM EDT Hospital Encounter [facility] X[facility] [address], [address] [place] [address] Acute midline low back pain without sciatica Discharge Disposition: Home or Self Care 01/20/2025 9:30 AM EDT Office Visit Interventional Pain Medicine [address] [place] [address] Jovon Joseph MD Acute midline low back pain without sciatica (Primary Dx); Tear of left gluteus medius tendon, subsequent encounter 01/20/2025 Travel 01/17/2025 Travel 01/13/2025 Refill Medical Office Building Surgery Spine & Joint [address] [facility], [address] [place] [address] Brandin Bender PA Chronic left SI joint pain; Chronic bilateral low back pain with left-sided sciatica 01/08/2025 Orders Only [facility] [address] [facility], [address] [place] [address] Mercedes Mosquera PA Other osteoporosis without current pathological fracture (Primary Dx) 01/07/2025 Telephone Interventional Pain Medicine [address] [place] [address] Jovon Joseph MD HCN - Patient Message 12/23/2024 12:40 PM EDT - 12/23/2024 11:59 PM EDT Hospital Encounter [facility] Radiology [address], [address] [place] [address] Psoriatic arthritis ([facility]) Discharge Disposition: Home or Self Care 12/23/2024 12:00 PM EDT Office Visit [facility] Medicine Specialties [address], [address] [place] [address] Deidre Martinez, POWERHOUSE MECHANIC HELPER High risk medication use; Psoriatic arthritis ([facility]/HCC) 12/23/2024 Results Follow-Up [facility] Medicine Specialties [address], [address] [place] [address] Vania Quiros PA 12/23/2024 Refill [facility] Medicine Specialties [address], [address] [place] [address] Isa Hannon, PharmD Psoriatic arthritis ([facility]) 12/23/2024 Travel from Last 3 Months Immunizations Immunization Administration [...] Description 04/06/2025 1:00 PM EDT Office Visit [facility] [address], [address] [place] [address] Deidre Martinez R, POWERHOUSE MECHANIC HELPER [address] [place] [address] 12/22/2025 3:00 PM EDT Appointment Professional [facility] [address] , [address] [place] [address] 12/22/2025 3:20 PM EDT Office Visit Professional [facility] [address] , [address] [place] [address] Mercedes Mosquera, PA [address] [place] [address] Health Maintenance Due Date Last [...] Density Scan 12/17/2024 12/18/2023 , 12/05/2022, 12/06/2021 [id number] Vaccine (2024- season) 2025 06/09/2021, 09/04/2020, 08/14/2020 UKY-Influenza Vaccine [...] this topic Medical Devices Implanted Type Area Orthopedic Physical Therapist Device Identifier Shelf Expiration Date Model / Serial / Lot Plate Plate Right: Ankle Screw Screw Right: Ankle Screw 4.2mm R3con Locking Plate 14mm - [employer] - [id number] Implanted:Qty: 1 on 10/13/2021 by Nick Lema MD at [facility] Right: Leg [place] [id number] / NONE / Procedures Procedure Name [...] Routine 12/23/2024 12:38 PM EDT Psoriatic arthritis (CMS/HCC) SEDIMENTATION RATE, AUTOMATED Routine 12/23/2024 12:38 PM EDT Psoriatic arthritis (CMS/HCC) LIPID PROFILE, PLASMA Routine 12/23/2024 12:38 PM EDT High risk medication use DEXA BONE DENSITY Routine 12/18/2023 2:3 8 PM EDT Osteoporosis without current pathological fracture, unspecified osteoporosis type ACUTE HEPATITIS PANEL Routine 05/31/2023 10:39 AM EST Psoriatic arthritis (CMS/HCC) Other psoriasis HIV 1/2 ANTIBODY/ANTIGEN SCREEN WITH [...] - 1.10 mg/dL 12/23/2024 2:23 PM EDT [facility] eGFRcr 99.5 mL/min/1.7 3m*2 12/23/2024 2:23 PM EDT [facility] Comment:Reported eGFRcr in m L/min/1.73m2 is based the CKD-EPI 2020 equation that does not use a race coefficient. Blood Venous blood specimen / Unknown Venipuncture / Unknown 12/23/2024 12:38 PM EDT 12/23/2024 12:38 PM EDT Vania HALL LAB BLOOD ORDERABLES Feli l Result Performing Organization Address City/[facility]/ZIP Co de Phone Number [facility] [address] [place] [address] * Sedimentation Rate, Automated (12/23/2024 12:38 PM EDT) Sedimentation Rate 13 <20 mm/hr 2024 2:31 PM EDT [facility] Blood Venous blood specimen / Unknown Venipuncture / Unknown 12/23/2024 12:38 PM EDT 12/23/2024 12:38 PM EDT Vania HALL LAB BLOOD ORDERABLES Feli l Result [facility] [address] [place] [address] * (ABNORMAL) CBC and differential (12/23/2024 12:38 PM EDT) WBC Count 14.45(H) 3.70 - 10.30 10*3/uL LAB HEMATOLOGY METHOD 12/23/2024 2:20 PM EDT [facility] RBC Count 4.33 3.90 - 5.20 10*6/uL LAB HEMATOLOGY METHOD 12/23/2024 2:20 PM EDT [facility] HGB 13.8 11.2 - 15.7 g/dL LAB HEMATOLOGY METHOD 12/23/2024 2:20 PM EDT [facility] HCT 42.3 34.0 - 45.0 % LAB HEMATOLOGY METHOD 12/23/2024 2:20 PM EDT [facility] Platelet Count 455(H) 155 - 369 10*3/uL LAB HEMATOLOGY METHOD 12/23/2024 2:20 PM EDT [facility] MCV 98 79 - 98 fL LAB HEMATOLOGY METHOD 12/23/2024 2:20 PM EDT [facility] MCH 31.9 26.0 - 32.0 pg LAB HEMATOLOGY METHOD 12/23/2024 2:20 PM EDT [facility] MCHC 32.6 30.7 - 35.5 g/dL LAB HEMATOLOGY METHOD 12/23/2024 2:20 PM EDT [facility] RDW 15.5(H) 11.5 - 14.5 % LAB HEMATOLOGY METHOD 12/23/2024 2:20 PM EDT [facility] MPV 9.9 8.8 - 12.5 fL LAB HEMATOLOGY METHOD 12/23/2024 2:20 PM EDT [facility] nRBC 0.0 <=0.0 per 100 WBCs LAB HEMATOLOGY METHOD 12/23/2024 2:20 PM EDT [facility] Differential Type Automated LAB HEMATOLOGY METHOD 12/23/2024 2:20 PM EDT [facility] Neutrophils % 73 % LAB HEMATOLOGY METHOD 12/23/2024 2:20 PM EDT [facility] Lymphocytes % 18 % LAB HEMATOLOGY METHOD 12/23/2024 2:20 PM EDT [facility] Monocytes % 6 % LAB HEMATOLOGY METHOD 12/23/2024 2:20 PM EDT [facility] Eosinophils % 1 % LAB HEMATOLOGY METHOD 12/23/2024 2:20 PM EDT [facility] Basophils % 1 % LAB HEMATOLOGY METHOD 12/23/2024 2:20 PM EDT [facility] Immature Granulocytes % 1 % LAB HEMATOLOGY METHOD 12/23/2024 2:20 PM EDT [facility] Neutrophils Absolute 10.60(H) 1.60 - 6.10 10*3/uL LAB HEMATOLOGY METHOD 12/23/2024 2:20 PM EDT [facility] Lymphocytes Absolute 2.62 1.20 - 3.90 10*3/uL LAB HEMATOLOGY METHOD 12/23/2024 2:20 PM EDT [facility] Monocytes Absolute 0.93(H) 0.30 - 0.90 10*3/uL LAB HEMATOLOGY METHOD 12/23/2024 2:20 PM EDT [facility] Eosinophils Absolute 0.14 0.00 - 0.50 10*3/uL LAB HEMATOLOGY METHOD 12/23/2024 2:20 PM EDT [facility] Basophils Absolute 0.07 0.00 - 0.10 10*3/uL LAB HEMATOLOGY METHOD 12/23/2024 2:20 PM EDT [facility] Immature Granulocytes Absolute 0.09(H) 0.00 - 0.06 10*3/uL LAB HEMATOLOGY METHOD 12/23/2024 2:20 PM EDT [facility] Blood Venous blood specimen / Unknown Venipuncture / Unknown 12/23/2024 12:38 PM EDT 12/23/2024 12:38 PM EDT Narrative [facility] - 12/23/2024 2:20 PM EDT Therapeutic decision making should be based on absolute values, rather than percentages. us Vania HALL LAB BLOOD ORDERABLES Feli bell Result [facility] [address] [place] [address] * (ABNORMAL) C-Reactive Protein, Plasma (12/23/2024 12:38 PM EDT) CRP, Plasma 13.7(H) <=8.0 mg/L 12/23/2024 2:23 PM EDT [facility] Blood Venous blood specimen / Unknown Venipuncture / Unknown 12/23/2024 12:38 PM EDT 12/23/2024 12:38 PM EDT Narrative [facility] - 12/23/2024 2:23 PM EDT This CRP test is appropriate for assessment of infection, systemic inflammation and/or tissue injury. To assess cardiovascular disease risk order high sensitivity CRP (CRPH). Vania HALL LAB BLOOD ORDERABLES Feli l Result [facility] [address] [place] [address] * Hepatic Function Panel (12/23/2024 12:38 PM EDT) Direct Bilirubin, Plasma <0.2 <=0.3 mg/dL 12/23/2024 2:23 PM EDT [facility] Alkaline Phosphatase, Plasma 102 35 - 104 U/L 12/23/2024 2:23 PM EDT [facility] Total Bilirubin, Plasma 0.3 0.2 - 1.1 mg/dL 12/23/2024 2:23 PM EDT [facility] Albumin, Plasma 4.2 3.5 - 5.2 g/dL 12/23/2024 2:23 PM EDT [facility] Total Protein 7.1 6.3 - 7.9 g/dL 12/23/2024 2:23 PM EDT [facility] ALT, Plasma 28 10 - 35 U/L 12/23/2024 2:23 PM EDT [facility] AST, Plasma 23 10 - 35 U/L 12/23/2024 2:23 PM EDT [facility] Comment:Hemolyzed, result ma y be falsely increased. Blood Venous blood specimen / Unknown Venipuncture / Unknown 12/23/2024 12:38 PM EDT 12/23/2024 12:38 PM EDT Vania [facility] LAB BLOOD ORDERABLES Feli l Result [facility] [address] [place] [address] * (ABNORMAL) Lipid Profile, Plasma (12/23/2024 12:38 PM EDT) Cholesterol, Plasma 193 <200 mg/dL 12/23/2024 2:23 PM EDT [facility] Comment: Cholesterol Reference Range (age >17 years): Desirable <200 mg/dL Borderline 200 to 239 mg/dL Undesirable >239 mg/dL HDL 32(L) >=50 mg/dL 12/23/2024 2:23 PM EDT [facility] Comment: HDL Cholesterol Reference Ranges (age >17 years): Female, acceptable > or = 50 mg/dL Male, acceptable > or = 40 mg/dL Triglycerides, Plasma 146 <150 mg/dL 12/23/2024 2:23 PM EDT [facility] Comment: Triglyceride Reference Range (age >17 years): Desirable: <150 mg/dL Borderline high: 150 to 199 mg/dL High: 200 to 499 mg/dL Very high: >499 mg/dL Increased risk of pancreatitis: >1000 mg/dL Cholesterol/HDL Ratio 6 12/23/2024 2:23 PM EDT [facility] LDL, Calculated 134(H) <100 mg/dL 2:23 PM EDT [facility] Comment: LDL Cholesterol Reference Range [...] 12 hours? No 12/23/2024 2:23 PM EDT [facility] Blood Venous blood specimen / Unknown Venipuncture / Unknown 12/23/2024 12:38 PM EDT 12/23/2024 12:38 PM EDT us Vania HALL LAB BLOOD ORDERABLES Feli l Result [facility] [address] [place] [address] * Dexa Bone Density (12/18/2023 2:38 PM EDT) Anatomical Region Laterality Modality L-spine Radio Fluoroscop y Narrative 12/24/2023 1:58 PM EDT [facility] [address] [place] [address], [place] [address] DXA Bone Densitometry Report: 12/18/2023 BMD test performed using the [employer] DXA System (analysis version: 14.10) manufactured by [employer]. REFERRING PROVIDER: ISABEL Cowart CLINICAL INFORMATION: PATIENT [...] Antigen Negative Negative 05/31/2023 2:58 PM EST [facility] Hepatitis C Antibody Negative Negative 05/31/2023 2:58 PM EST [facility] Hepatitis A Antibody IgM Negative Negative 05/31/2023 2:58 PM EST [facility] Hepatitis B Core Antibody IgM Negative Negative 05/31/2023 2:58 PM EST [facility] Blood Venous blood specimen / Unknown Venipuncture / Unknown 05/31/2023 10:39 AM EST 05/31/2023 10:41 AM EST us Jorge Wilkerson MD LAB BLOOD ORDERABLES Final R esult Performing Organization Address City/[facility] Co de Phone Number [facility] [address] [place] [address] * HIV 1 & 2 Antibody/Antigen Screen (09/04/2022 1:47 PM EDT) HIV 1 & 2 Antibody/Antigen Screen Non Reactive Non Reactive 09/04/2022 4:11 PM EDT [facility] Comment:Screening for HIV 1 & 2 antibodies, and P24 antigen is NONREACTIVE. No confirmatory testing is required. Blood Venous blood specimen / Unknown Venipuncture / Unknown 09/04/2022 1:47 PM EDT 09/04/2022 1:48 PM EDT June R Juan NICHOLSN LAB BLOOD ORDERABLES Final Result Performing Organization Address City/[facility] Co de Phone Number [facility] [address] [place] [address] from Last 3 Months or Most Recently Relevant to Health Maintenance Insurance Advance Directives * Full Code (Latest Code Status on File) Date Activated Date Inactivated Comments 10/13/2021 7:40 PM 10/14/2021 4:39 PM Question Answer Comments Patient has decision-making capacity? Yes Care Teams Tie In Machine Operator Relationship Specialty Start Date End Date Darryl Davis MD [address] [place] [address] PCP - General Internal Medicine 09/23/24
[2025-03-25 09:34] LABS: Hematocrit 39.9 % (37.0-47.0); Hemoglobin 12.5 g/dL (12.2-16.2); Immature Granulocytes % 0.6 %; Mean Corpuscular HGB Conc 31.3 g/dL (31.8-35.4); Mean Corpuscular Hemoglobin 30.3 pg (27.0-31.2); Mean Corpuscular Volume 96.6 fl (81-99); Nucleated Red Blood Cells % 0 %; Platelet Count 398 K/mm3 (142-424); Red Blood Count 4.13 M/mm3 (4.20-5.40); Red Cell Distribution Width-SD 56.5 fL; White Blood Count 14.6 K/mm3 (4.8-10.8)
[2025-03-25 10:29] LABS: Alanine Aminotransferase 22 U/L (12-78); Albumin Level 3.9 g/dl (3.5-5.0); Alkaline Phosphatase 91 U/L (38-126); Aspartate Amino Transferase 25 U/L (14-36); Bilirubin,Direct 0.3 mg/dl (0.0-0.4); Bilirubin,Indirect 0.1 mg/dL (0.0-0.9); Bilirubin,Total 0.4 mg/dl (0.2-1.3); Bilirubin,Unconjugated 0.1 mg/dL (0.0-1.1); Creatinine,Serum 0.90 mg/dl (0.52-1.04); Estimated Glomerular Filt Rate 69 ml/min (>60); GFR (African American) 83 ML/MIN (>60); Total Protein,Serum 6.1 g/dl (6.3-8.2)
== END 2025-03-25 23:59 | disposition home or self-care (01) ==
LOC: LAB 08:46
PROVIDERS: PCP Internal Medicine Adolescent Medicine; Visit Provider Student in an Organized Health Care Education/Training Program
DX: Z79.899 Other long term (current) drug therapy (principal)
CPT/HCPCS: 36415; 80076; 82565; 85025